=== PATIENT | male | born 1955 | race Two or more races ===

== ENCOUNTER 2019-08-17 08:18 | Inpatient (IN) | payer OTHER ==
[~2019-08-17] VITALS: Ht 167.6 cm; Wt 59.8 kg
[2019-08-17] MEDS ORDERED: LABETALOL HCL 5 MG/ML 4ML SYRINGE IV ONE (08:30)
[2019-08-17] MEDS ORDERED: DEXTROSE 10% 1,000 ML IV ONE (08:30)
[2019-08-17 08:46] LABS: Basophils # (auto) 0 10 ^3/uL (0-0.2); Basophils % (auto) 0.4 % (0.0-2.0); Eosinophils # (auto) 0 10 ^3/uL (0-0.8); Eosinophils % (auto) 0.6 % (0.0-7.0); Hemoglobin 11.9 g/dL (13.5-17.5); Lymphocytes # (auto) 0.7 10 ^3/uL (0.4-5.4); Lymphocytes % (auto) 12.8 % (10.0-50.0); Mean Corpuscular Hemoglobin 30.8 pg (28.0-32.0); Mean Corpuscular Hgb Conc. 33.1 g/dL (32.0-36.0); Mean Corpuscular Volume 93.2 fL (80.0-100.0); Monocytes # (auto) 0.4 10 ^3/uL (0-1.3); Monocytes % (auto) 7.6 % (0.0-12.0); Neutrophils # (auto) 4.1 10 ^3/uL (1.6-8.6); Neutrophils % (auto) 78.6 % (37.0-80.0); Platelet Count (auto) 155 10^3/uL (140-450); Red Blood Cells 3.87 10^6/uL (4.5-5.90); Red Cell Distribution Width 15.8 % (11.8-14.3); White Blood Cell 5.2 10^3/uL (4.4-10.8)
[2019-08-17 08:53] LABS: Urine Bacteria NONE SEEN /hpf (None Seen); Urine Blood Negative /uL (Negative); Urine Specific Gravity 1.008 (1.001-1.035); Urine WBC 1 /hpf (0 - 3)
[2019-08-17 09:07] LABS: Anion Gap 8 (5-15); Blood Urea Nitrogen 53 mg/dL (7-18); Calcium 9.2 mg/dL (8.5-10.1); Carbon Dioxide 19 mmol/L (21-32); Chloride 112 mmol/L (98-107); Glucose 175 mg/dL (74-106); Magnesium 2.8 mg/dL (1.6-2.6); Potassium 4.2 mmol/L (3.5-5.1); Sodium 139 mmol/L (136-145)
[2019-08-17 09:13] LABS: Alanine Aminotransferase 40 U/L (16-61); Alkaline Phosphatase 145 U/L (45-117); Aspartate Aminotransferase 34 U/L (15-37); BUN/Creatinine Ratio 15.4; Bilirubin, Total 0.3 mg/dL (0.2-1.0); GFR African American 23 mL/min; GFR Non-African American 19 mL/min; Total Protein 8.6 g/dL (6.4-8.2)
[2019-08-17 10:36] LABS: Alcohol, Urine < 3.0 mg/dL (0-5); Amphetamine Screen, Urine NEGATIVE (NEGATIVE); Barbiturate Scree,Urine NEGATIVE (NEGATIVE); Benzodiazephine Screen, Urine NEGATIVE (NEGATIVE); Cannabinoid Screen, Urine NEGATIVE (NEGATIVE); Cocaine Screen, Urine NEGATIVE (NEGATIVE); Opiate Scree,Urine NEGATIVE (NEGATIVE); Phencyclidine Screen, Urine NEGATIVE (NEGATIVE)
[2019-08-17] MEDS ORDERED: hydrALAZINE HCL 20 MG/ML VL IV ONE (10:45)
[2019-08-17] MEDS ORDERED: ATORVASTATIN 20 MG TAB PO ONE (13:45)
[2019-08-17] MEDS ORDERED: MORPHINE SULF INJ 2 MG/ML SYRINGE 1ML IV PRN (13:45)
[2019-08-17] MEDS ORDERED: DEXTROSE (50%) 50ML SYRG IV PRN (13:45)
[2019-08-17] MEDS ORDERED: ASPirin 81 mg TAB PO ONE (13:45)
[2019-08-17] MEDS ORDERED: traMADol HCL 50 MG TAB PO PRN (13:45)
[2019-08-17] MEDS ORDERED: ONDANSETRON HCL 4 MG/2 ML VIAL IV PRN (13:45)
[2019-08-17] MEDS ORDERED: LACTULOSE 20Gm/30ML SOLN PO PRN (13:45)
[2019-08-17] MEDS ORDERED: NITROGLYCERIN 0.4 MG SL TAB SL PRN (13:45)
[2019-08-17] MEDS ORDERED: ACETAMINOPHEN 500 MG TAB PO PRN (13:45)
[2019-08-17 14:30] VITALS: BP 183/79
[2019-08-17] MEDS: ENOXAPARIN SOD 30 MG/0.3 ML SYRINGE SC SCH (15:25)
[2019-08-17] MEDS: LABETALOL HCL 5 MG/ML ML 20ML VIAL IV PRN (15:26)
[2019-08-17] MEDS: ACCU-CHEK COMFORT CURVE STRIP VI SCH ×3 (15:35→23:46)
--- NOTE | 2019-08-17 15:35 | NUR ---
Blood Sugar The patient's blood sugar for 1600hrs was 172. Will continue to monitor.
[2019-08-17 16:05] VITALS: BP 183/79
[2019-08-17 16:56] VITALS: BP 169/79
[2019-08-17] MEDS: METOPROLOL TARTRATE 50 MG TAB PO SCH (21:15)
[2019-08-17] MEDS ORDERED: ATORVASTATIN 20 MG TAB PO SCH (22:00)
[2019-08-17 22:23] VITALS: BP 148/82
[2019-08-18] MEDS: SODIUM CHLORIDE 0.9% 1,000 ML IV SCH ×2 (03:29→14:43)
[2019-08-18] MEDS: ACCU-CHEK COMFORT CURVE STRIP VI SCH ×4 (03:53→17:33)
[2019-08-18 05:09] VITALS: BP 136/64
--- NOTE | 2019-08-18 07:45 | NUR ---
Opening Shift Note Assumed care of patient, awake and alert sitting up at the side of bed eating breakfast. Patient was to be kept NPO for procedure. Will keep NPO after breakfast. Patient is aware. No S/S of distress/SOB or pain. Instructed on POC and to call for assist PRN, will continue to monitor for changes Q1hr and PRN.
[2019-08-18] MEDS: ENOXAPARIN SOD 30 MG/0.3 ML SYRINGE SC SCH (09:12)
[2019-08-18] MEDS: METOPROLOL TARTRATE 50 MG TAB PO SCH (09:12)
[2019-08-18 09:15] VITALS: BP 132/66
[2019-08-18] MEDS ORDERED: ASPirin 81 mg TAB PO SCH (10:00)
[2019-08-18] MEDS: LABETALOL HCL 5 MG/ML ML 20ML VIAL IV PRN ×2 (12:48→15:59)
[2019-08-18 13:00] VITALS: BP 170/62
--- NOTE | 2019-08-18 14:10 | NUR ---
Hospitalist Rounding. Dr. Jones at bedside with Wolof speaker RN.
--- NOTE | 2019-08-18 14:30 | NUR ---
Elevated Blood Pressure Patient's blood pressure is elevated 204/83, rechecked 179/62. Dr Jones was notified of patient's elevated blood pressure and the administration of Labetalol IV PRN as ordered. As per Dr. Jones, RN not to hold patient's discharge because of elevated blood pressure. Patient takes blood pressure medications at home and he is to resume them when he gets home. Will reassess PRN medication that was administered.
--- NOTE | 2019-08-18 15:10 | NUR ---
[employer] Rounding Dr. Dutton at bedside with patient.
[2019-08-18] MEDS ORDERED: ATEN50TA PO (15:32)
[2019-08-18] MEDS ORDERED: NIFE1TAB30 PO (15:32)
[2019-08-18] MEDS ORDERED: SEVE800T8 PO (15:32)
[2019-08-18] MEDS ORDERED: GLIP5TAB12 PO (16:38)
[2019-08-18 16:54] VITALS: BP 183/66
[2019-08-18 17:02] LABS: BUN/Creatinine Ratio 15.7; Calcium 8.7 mg/dL (8.5-10.1)
[2019-08-18 17:49] VITALS: BP 178/72
--- NOTE | 2019-08-18 18:21 | NUR ---
Discharge instructions given as ordered. Encourage to follow up with PMD as instructed. All questions and concerns addressed. Patient verbalized understanding. Medication reconciliation form completed and copy given to patient. IV removed with catheter intact and pressure dressing applied. Telemetry unit returned to ICU. Patient taken to vehicle via wheelchair with all personal belongings, accompanied by staff and family member. No distress noted at time of departure. Instructions provided to family member regarding continuing home medications and follow up appointment.
== END 2019-08-18 18:00 | disposition home or self-care (01) | DRG 917 ==
LOC: EDBD 08:18 → ER 08:18 → TELE 08:19 → TELE-WESTW 14:16
PROVIDERS: ADMIT Internal Medicine; ATTEND Internal Medicine
DX: T38.3X1A Poisoning by insulin and oral hypoglycemic [antidiabetic] drugs, accidental (unintentional), initial encounter (principal); G93.41 Metabolic encephalopathy; I16.1 Hypertensive emergency; N18.4 Chronic kidney disease, stage 4 (severe); D63.8 Anemia in other chronic diseases classified elsewhere; E03.9 Hypothyroidism, unspecified; E11.22 Type 2 diabetes mellitus with diabetic chronic kidney disease; E78.5 Hyperlipidemia, unspecified; E11.649 Type 2 diabetes mellitus with hypoglycemia without coma; I13.10 Hypertensive heart and chronic kidney disease without heart failure, with stage 1 through stage 4 chronic kidney disease, or unspecified chronic kidney disease; Z83.3 Family history of diabetes mellitus; Z86.73 Personal history of transient ischemic attack (TIA), and cerebral infarction without residual deficits; Y92.89 Other specified places as the place of occurrence of the external cause
CPT/HCPCS: 36415; 70450; 70551; 71045; 80048; 80053; 80307; 81001; 82533; 82550; 82962; 83036; 83735; 84443; 84484; 85025; 93005; 93306; 93975; 96361; 96374; 96375; 99291; G0378; J3490

== ENCOUNTER 2025-01-17 23:14 | Inpatient (IN) | payer OTHER ==
[~2025-01-17] VITALS: Ht 162.6 cm; Wt 59.7 kg
[~2025-01-17 23:14] MED LIST: ATEN50TA PO; GLIP5TAB21 PO; NIFE1TAB30 PO; SEVE800T8 PO
--- NOTE | 2025-01-17 23:21 | ECG ---
[facility] Test Date: 2025-01-17 Test Time: 23:14:56 Pat Name: FAISAL ANN Department: [facility] ED Room: [address] [place] [address] Gender: M Legal Instructor: CHRISTIAN : 1955 Requested By: EMERGENCY EMERGENCY Order Number: [id number] Reading MD: Casey Wilson Measurements Intervals [place] Rate: 55 P: 83 MD: 204 QRS: 80 QRSD: 112 T: 77 QT: 492 QTc: 471 Interpretive Statements Sinus rhythm Borderline intraventricular conduction delay Baseline wander in lead(s) V5 Electronically Signed On 01-22-2025 14:23:20 PDT by Casey Wilson Please click the below link to view image of tracing.
[2025-01-18] VITALS (35 sets, daily range): BP systolic 117–194; BP diastolic 44–147; PULSE 52–62; RESP 12–22; TEMP 97.9–98; O2SAT 89–100
[2025-01-18 00:32] LABS: Hematocrit 36.2 % (41.0-53.0); Hemoglobin 11.8 g/dL (13.5-17.5); Mean Corpuscular Hemoglobin 31.5 pg (28.0-32.0); Mean Corpuscular Volume 96.9 fL (80.0-100.0); Nucleated Red Blood Cells % 0.0 %
--- NOTE | 2025-01-18 01:07 | DVH ---
CT HEAD WITHOUT CONTRAST INDICATION: [facility] EXAM DATE: 01/18/2025 12:30 AM COMPARISON: None RADIATION DOSE: CTDIvol: 62.23 mGy, DLP: 62.23 mGy*cm PROCEDURE: CT scans of the head were obtained from the vertex to the skull base. Sagittal and coronal reconstructions were provided. All CT scans at this medical facility are performed using dose modulation techniques as appropriate t o a performed exam including the following: Automated exposure control was utilized; adjustment of th e MA and/or KV according to patient size; and use of iterative reconstruction technique. FINDINGS: Motion artifact degrades fine detail. No acute territorial infarct, intracranial hemorrhage, or mass effect. There are global involutional changes with compensatory prominence of the ventricles and sulci. Patchy periventricular and subcorti hazel white matter hypoattenuation is nonspecific but may be related to small vessel ischemic disease. Chronic right cerebellar infarct. Bilateral lens implants. Mild mucosal thickening within the left maxillary antrum. The osseous struc tures are unremarkable. IMPRESSION: 1. No acute territorial infarct, intracranial hemorrhage, or mass effect. 2. Age-related involutional changes. Chronic ischemic changes as detailed. 3. If clinical symptoms persist, MRI may be beneficial in further evaluation.
--- NOTE | 2025-01-18 01:07 | DVH ---
CHEST RADIOGRAPH Indication: AMS Technique: Single frontal view of the chest was obtained Comparison: None FINDINGS/IMPRESSION: There is prominence of the interstitial markings. Mild right basilar opacity. M ild prominence of the cardiomediastinal silhouette, likely accentuated by technique. No pleural effus ion or pneumothorax. No acute osseous abnormality.
[2025-01-18 01:08] LABS: Alanine Aminotransferase 24 U/L (7-40); Albumin 3.9 g/dL (3.2-4.8); Anion Gap 19 (5-15); BUN/Creatinine Ratio 10.4 (10.0-20.0); Calcium 8.7 mg/dL (8.7-10.4); Lipase 41 U/L (12-53); Total Protein 6.8 g/dL (5.7-8.2)
--- NOTE | 2025-01-18 01:08 | ED.PDOC ---
Altered Mental Status HPI Comments 70 year old male presents to the ED via EMS with a chief complaint of ALOC onset yesterday. Per EMS, family on scene states patient began experiencing abnormal behavior yesterday, today patient was altered. Upon EMS arrival, BG was reading "high" both times it was checked. Patient is a poor historian, is only A&O to self. Currently patient has shingles all over RT side chest. Patient does state he has itchiness with discomfort to RT side chest. PMHx HTN, ESRD currently on hemodialysis, DM. No other symptoms or modifying factors present at this time. Chief Complaint: ALOC Time Seen by MD: 00:45 Reviewed Notes: Medications, Allergies Allergies: Coded Allergies: NO KNOWN ALLERGIES (Unverified , 08/17/19) Home Meds Reported Medications Glipizide (Glipizide) 5 Mg Tab, 5 MG PO for 30 Days, MG 08/18/19 Sevelamer Carbonate (Renvela) 800 Mg Tab, 800 MG PO TIDWM for 30 Days, MG 08/18/19 Nifedipine (Nifedipine Er) 60 Mg Tab, 1 TAB PO DAILY, #90 TAB 3 Refills 08/18/19 Atenolol (Atenolol) 50 Mg Tab, 50 MG PO DAILY for 30 Days, MG 08/18/19 Information Source: Patient, Emergency Med Personnel Mode of Arrival: EMS Severity: Moderate Timing: Days Duration: Since onset Prehospital treatment: None Quality: Change in Behavior, Confusion Recent: None History of: Diabetes Vital Signs Vital Signs Date Time Temp Pulse Resp B/P (MAP) Pulse Ox O2 Delivery O2 Flow Rate FiO2 01/18/25 04:01 60 14 155/115 (128) 93 01/18/25 01:48 Nasal Cannula* 4 36 01/18/25 00:16 97.9 97.9 Physical Exam PHYSICAL EXAM: General: Awake, alert and oriented. No acute distress. Skin: Insert rash with blistering, ulceration, eschar over the shoulder. HEENT: The head is normocephalic and atraumatic. Conjunctivae are clear without exudates or hemorrhage. Sclera is non-icteric. EOM are intact. No signs of nystagmus. Eyelids are normal in appearance without swelling or lesions. Oral mucosa is pink and moist Neck: The neck is supple with normal range of motion. No JVD. Cardiac: Heart rate and rhythm are normal. No murmurs, gallops, or rubs are auscultated. Respiratory: No signs of respiratory distress. Lung sounds are clear in all lobes bilaterally without rales, rhonchi, or wheezes. Abdominal: Abdomen is soft, non-tender without distention, guarding or rigidity. Bowel sounds are present and normoactive in all four quadrants. Extremities: Upper and lower extremities are atraumatic in appearance without deformity or edema. Neurological: The patient is awake, alert and appears confused Speech is clear. There is no facial asymmetry. Review of Systems: REVIEW OF SYSTEMS: As stated in HPI Past Medical History PAST MEDICAL HISTORY: DM, HTN Surgical History: Denies all surgeries Family History Family History: Unknown Social History Smoker: Non-Smoker Alcohol: Denies ETOH Use Drugs: Denies Drug Use Lives In: Home EKG EKG : Pulse Rate (adult): 55 Cardiac Rhythm: NSR Was a procedure done? Was a procedure done?: No Differential Diagnosis (ALOC) Differential Diagnosis: Other (Differential diagnosis considered includes but not limited to intracranial hemorrhage, stroke, head injury, seizure, metabolic disturbance, electrolyte imbalance, infection, substance intoxication, psychiatric cause, other systemic illness, other) X-Ray, Labs, Meds, VS Vital Signs Date Time Temp Pulse Resp B/P (MAP) Pulse Ox O2 Delivery O2 Flow Rate FiO2 01/18/25 04:01 60 14 155/115 (128) 93 01/18/25 03:00 61 12 189/61 (103) 92 01/18/25 02:00 56 20 202/64 (110) 100 01/18/25 01:48 16 90 Nasal Cannula* 4 36 01/18/25 01:08 55 01/18/25 01:00 54 21 183/62 (102) 97 01/18/25 00:18 55 14 96 Nasal Cannula* 4 36 01/18/25 00:16 97.9 2 14 99/77 (84) 96 97.9 01/17/25 23:16 97.4 54 16 177/67 95 97.4 01/17/25 23:14 55 Lab Test 01/18/25 03:49 01/18/25 03:48 01/18/25 01:40 01/18/25 00:45 Range/Units POC Glucose > 600 *H > 600 *H 70-106 mg/dl Sodium Level 115 *L 136-145 mmol/L Potassium Level 5.9 *H 3.5-5.1 mmol/L Chloride Level 79 L 98-107 mmol/L Carbon Dioxide Level 19 L 20-31 mmol/L Anion Gap 17 H 5-15 Blood Urea Nitrogen 119 *H 9-23 mg/dL Creatinine 10.69 *H 0.700-1.30 mg/dL Glomerular Filtration Rate Calc 5 >90 mL/min BUN/Creatinine Ratio 11.1 10.0-20.0 Serum Glucose 862 *H 74-106 mg/dL Calcium Level 8.7 8.7-10.4 mg/dL Influenza Type A Antigen Negative Negative Influenza Type B Antigen Negative Negative SARS-CoV-2 Antigen (Rapid) Negative NEGATIVE Test 01/17/25 23:37 Range/Units White Blood Count 11.3 H 4.4-10.8 10^3/uL Red Blood Count 3.74 L 4.5-5.90 10^6/uL Hemoglobin 11.8 L 13.5-17.5 g/dL Hematocrit 36.2 L 41.0-53.0 % Mean Corpuscular Volume 96.9 80.0-100.0 fL Mean Corpuscular Hemoglobin 31.5 28.0-32.0 pg Mean Corpuscular Hemoglobin Concent 32.5 32.0-36.0 g/dL Red Cell Distribution Width 14.4 H 11.8-14.3 % Platelet Count 182 140-450 10^3/uL Mean Platelet Volume 10.3 6.9-10.8 fL Neutrophils (%) (Auto) 90.3 H 37.0-80.0 % Lymphocytes (%) (Auto) 3.7 L 10.0-50.0 % Monocytes (%) (Auto) 5.9 0.0-12.0 % Eosinophils (%) (Auto) 0.0 0.0-7.0 % Basophils (%) (Auto) 0.1 0.0-2.0 % Neutrophils # (Auto) 10.2 H 1.6-8.6 10 ^3/uL Lymphocytes # (Auto) 0.4 0.4-5.4 10 ^3/uL Monocytes # (Auto) 0.7 0-1.3 10 ^3/uL Eosinophils # (Auto) 0 0-0.8 10 ^3/uL Basophils # (Auto) 0 0-0.2 10 ^3/uL Nucleated Red Blood Cells 0.0 % Sodium Level 116 *L 136-145 mmol/L Potassium Level 6.1 *H 3.5-5.1 mmol/L Chloride Level 80 L 98-107 mmol/L Carbon Dioxide Level 17 L 20-31 mmol/L Anion Gap 19 H 5-15 Blood Urea Nitrogen 111 *H 9-23 mg/dL Creatinine 10.64 *H 0.700-1.30 mg/dL Glomerular Filtration Rate Calc 5 >90 mL/min BUN/Creatinine Ratio 10.4 10.0-20.0 Serum Glucose 856 *H 74-106 mg/dL Lactic Acid Level 0.9 0.4-2.0 mmol/L Calcium Level 8.7 8.7-10.4 mg/dL Magnesium Level 2.7 H 1.6-2.6 mg/dL Total Bilirubin 0.3 0.2-1.0 mg/dL Aspartate Amino Transferase (AST) 13 13-40 U/L Alanine Aminotransferase (ALT) 24 7-40 U/L Alkaline Phosphatase 318 H 46-116 U/L Troponin I High Sensitivity 11 </=54 ng/L B-Type Natriuretic Peptide 1718.02 0-100 pg/mL Total Protein 6.8 5.7-8.2 g/dL Albumin 3.9 3.2-4.8 g/dL Lipase 41 12-53 U/L Plasma/Serum Blood Alcohol < 3.0 <10 mg/dL Microbiology Date/Time Source Procedure Growth Status 01/17/25 23:25 Blood Blood Culture - Preliminary NO GROWTH AFTER 24 HOURS OF INCUBATION. Resulted 01/17/25 23:20 Blood Blood Culture - Preliminary NO GROWTH AFTER 24 HOURS OF INCUBATION. Resulted [place] [id number] Ph: [phone] DIAGNOSTIC IMAGING Diagnostic Imaging Report : [id number] Signed PATIENT: FAISAL ANN ACCT: [id number] UNIT: [id number] : 1955 LOC: ER ROOM / BED: / AGE / SEX: 70 / M ADM STATUS: REG ER SERVICE [id number] ORDERING PHYSICIAN: MILAD DAVIS MD PROCEDURE(s): HWOCT - HEAD WITHOUT CONTRAST REASON: [facility] ORDER NUMBER(s): [id number], ACCESSION NUMBER(s): [id number] CT HEAD WITHOUT CONTRAST INDICATION: [facility] EXAM DATE: 01/18/2025 12:30 AM COMPARISON: None RADIATION DOSE: CTDIvol: 62.23 mGy, DLP: 62.23 mGy*cm PROCEDURE: CT scans of the head were obtained from the vertex to the skull base. Sagittal and coronal reconstructions were provided. All CT scans at this medical facility are performed using dose modulation techniques as appropriate to a performed exam including the following: Automated exposure control was utilized; adjustment of the MA and/or KV according to patient size; and use of iterative reconstruction technique. FINDINGS: Motion artifact degrades fine detail. No acute territorial infarct, intracranial hemorrhage, or mass effect. There are global involutional changes with compensatory prominence of the ventricles and sulci. Patchy periventricular and subcortical white matter hypoattenuation is nonspecific but may be related to small vessel ischemic disease. Chronic right cerebellar infarct. Bilateral lens implants. Mild mucosal thickening within the left maxillary antrum. The osseous structures are unremarkable. IMPRESSION: 1. No acute territorial infarct, intracranial hemorrhage, or mass effect. 2. Age-related involutional changes. Chronic ischemic changes as detailed. 3. If clinical symptoms persist, MRI may be beneficial in further evaluation. ATED BY: PATTIE RAMIREZ MD DICTATED DATE/TIME: 01/18/25103 SIGNED BY: PATTIE RAMIREZ MD SIGNED DATE/TIME: 01/18/25103 CC: [place] [id number] Ph: [phone] DIAGNOSTIC IMAGING Diagnostic Imaging Report : [id number] Signed PATIENT: FAISAL ANN ACCT: [id number] UNIT: [id number] : 1955 LOC: ER ROOM / BED: / AGE / SEX: 70 / M ADM STATUS: REG ER SERVICE 21 ORDERING PHYSICIAN: MILAD DAVIS MD PROCEDURE(s): CXR1 - CHEST XRAY 1 VIEW REASON: [facility] ORDER NUMBER(s): [id number], ACCESSION NUMBER(s): [id number] CHEST RADIOGRAPH Indication: AMS Technique: Single frontal view of the chest was obtained Comparison: None FINDINGS/IMPRESSION: There is prominence of the interstitial markings. Mild right basilar opacity. Mild prominence of the cardiomediastinal silhouette, likely accentuated by technique. No pleural effusion or pneumothorax. No acute osseous abnormality. ATED BY: PATTIE RAMIREZ MD DICTATED DATE/TIME: 01/18/25104 SIGNED BY: PATTIE RAMIREZ MD SIGNED DATE/TIME: 01/18/25104 CC: Time of 1ST Reevaluation: 01:15 Reevaluation 1ST: Unchanged Patient Education/Counseling: Other (Patient is confused) Family Education/Counseling: No Family Present SEPSIS Sepsis Screen Date sepsis recognized/suspect: Jan 18, 2025 Time Sepsis recognized/suspect: 14 Recent Procedure: No On Antibiotic Therapy: No Respiratory Rate >20: No Heart Rate >90: No Temp<36 C (96.8 F) or >38.3 C: No SBP <90 or MAP <65 mmHG: No New Acute Mental Status Change: Yes Is the patient on CPAP, BIPAP,: No Physician Orders Head Without Contrast (01/17/25 23:22) Chest Xray 1 View (01/17/25 23:22) Blood Culture (01/17/25 23:22) Saline Lock (01/17/25 23:22) Straight Cath. (01/17/25 ) Insulin Drip Protocol (01/18/25 02:29) D/C All Diabetic Medications (01/18/25 03:19) Vital Signs Date Time Temp Pulse Resp B/P (MAP) Pulse Ox O2 Delivery O2 Flow Rate FiO2 01/18/25 04:01 60 14 155/115 (128) 93 01/18/25 03:00 61 12 189/61 (103) 92 01/18/25 02:00 56 20 202/64 (110) 100 01/18/25 01:48 16 90 Nasal Cannula* 4 36 01/18/25 01:08 55 01/18/25 01:00 54 21 183/62 (102) 97 01/18/25 00:18 55 14 96 Nasal Cannula* 4 36 01/18/25 00:16 97.9 2 14 99/77 (84) 96 97.9 01/17/25 23:16 97.4 54 16 177/67 95 97.4 01/17/25 23:14 55 Laboratory Tests Test 01/17/25 23:37 Lactic Acid Level 0.9 mmol/L (0.4-2.0) White Blood Count 11.3 10^3/uL (4.4-10.8) H Departure 1 Departure Time of Disposition: 02:30 Impression: Primary Impression: End stage renal disease on dialysis Additional Impressions: DKA (diabetic ketoacidosis) Hyperkalemia Shingles Disposition: ADMITTED INPATIENT Condition: Serious Comments MDM: Patient admitted to hospitalist service for further treatment, evaluation and monitoring. Extensive evaluation was performed in attempt to identify or rule out: (See differential diagnosis section) Decision regarding hospitalization or escalation of hospital level of care: Risk and benefits of admission for further treatment of patient's condition was considered. Due to patient's current clinical condition, high risk of decline and poor outcome if discharged and need for further inpatient management and monitoring, patient will be admitted to the hospital. Critical Care Note Critical Care Time?: No Stability Stability form required: No Heart Score Heart Score: Heart Score Response (Comments) Value History N/A 0 EKG N/A 0 Age N/A 0 Risk Factors N/A 0 Troponin N/A 0 Total 0 I personally scribed for MILAD DAVIS MD ([email or web address]) on 01/18/25 at 01:08. Electronically submitted by Shannan Polanco ([email or web address]). I personally scribed for MILAD DAVIS MD ([email or web address]) on 01/18/25 at 01:09. Electronically submitted by Shannan Polanco ([email or web address]). MILAD DAVIS MD Jan 18, 2025 01:08
[2025-01-18 01:20] LABS: Alkaline Phosphatase 318 U/L (46-116); Bilirubin, Total 0.3 mg/dL (0.2-1.0); Carbon Dioxide 17 mmol/L (20-31); Chloride 80 mmol/L (98-107); Magnesium 2.7 mg/dL (1.6-2.6)
[2025-01-18 01:24] LABS: Blood Urea Nitrogen 111 mg/dL (9-23); Glucose 856 mg/dL (74-106); Sodium 116 mmol/L (136-145)
[2025-01-18 01:42] LABS: COVID19 ANTIGEN SOFIA FIA NEGATIVE (NEGATIVE)
[2025-01-18] MEDS: SODIUM BICARB 8.4% 50Meq/50ml SYR INJ IV ONE (01:45)
[2025-01-18] MEDS: CALCIUM GLUC 1,000mg/50ml-NS 50 ML IV ONE (01:46)
[2025-01-18] MEDS: ALBUTEROL SULF 2.5 MG/0.5ML(0.5%) NEB SOLN NEB ONE (01:48)
[2025-01-18] MEDS: InsuLIN REG 1unit/0.01ml Soln (100units/ml) IV ONE (01:48)
[2025-01-18] MEDS: SODIUM CHLORIDE 0.9% 250 ML IV ONE (01:48)
[2025-01-18 02:00] LABS: Anion Gap 17 (5-15)
[2025-01-18 02:06] LABS: BUN/Creatinine Ratio 11.1 (10.0-20.0)
[2025-01-18 02:12] LABS: Carbon Dioxide 19 mmol/L (20-31); Chloride 79 mmol/L (98-107)
[2025-01-18 02:13] LABS: Calcium 8.7 mg/dL (8.7-10.4)
[2025-01-18 02:15] LABS: Blood Urea Nitrogen 119 mg/dL (9-23); Glucose 862 mg/dL (74-106); Potassium 5.9 mmol/L (3.5-5.1); Sodium 115 mmol/L (136-145)
[2025-01-18] MEDS ORDERED: DEXTROSE (50%) 50ML SYRG IV PRN ×3 (03:30→15:00)
[2025-01-18] MEDS: ACCU-CHEK COMFORT CURVE STRIP VI SCH ×3 (03:48→15:15)
[2025-01-18] MEDS: INSULIN DRIP 100 UNIT/100ML 100 ML IV SCH ×5 (04:15→15:00)
[2025-01-18] MEDS: INSULIN LANTUS (GLARGINE) 1 /0.01ml (100units/ml) SC ONE ×2 (04:15→04:30)
[2025-01-18] MEDS ORDERED: MORPHINE SULFATE INJ 2 MG/ml SYRG IV PRN (04:30)
[2025-01-18] MEDS ORDERED: NITROGLYCERIN 0.4 MG SL TAB SL PRN (04:30)
[2025-01-18] MEDS ORDERED: ONDANSETRON HCL 4 MG/2 ML VIAL IV PRN (04:30)
--- NOTE | 2025-01-18 04:41 | DVHHP2 ---
History of Present Illness Reason for Visit: Altered mental status History of Present Illness 70-year-old male presents for evaluation of altered mental status. Patient noted to be progressively more confused for the past two days by family members. They reported his blood sugar was reading high. Patient is currently lethargic oriented x1. He also saw also noted to have shingles on his right chest. He has a history of end-stage renal disease on hemodialysis. No further history could be obtained at the moment. Past Medical History Diabetes mellitus, hypertension, end-stage renal disease Past Surgical History Dialysis access Family History Noncontributory Lives: with Family Review of Systems Review of Systems Review of systems are currently negative otherwise addressed in HPI. Allergies: Coded Allergies: NO KNOWN ALLERGIES (Unverified , 08/17/19) Medications Current Medications Medications Dose Ordered Sig/Aleta Route Start Time Stop Time Status Last Admin Dose Admin Insulin Human (Reg)/Sodium Chloride 100 ml @ 0.5 mls/hr Q24H IV 01/18/25 03:30 01/18/25 04:15 6 MLS/HR Diagnostic Test (Pha) 1 strip Q90MIN 01/18/25 04:30 01/18/25 03:48 1 STRIP Dextrose 50 ml PRN PRN IV 01/18/25 03:30 Exam Vital Signs Vital Signs Date Time Temp Pulse Resp B/P (MAP) Pulse Ox O2 Delivery O2 Flow Rate FiO2 01/18/25 03:00 61 12 189/61 (103) 92 01/18/25 01:48 Nasal Cannula* 4 36 01/18/25 00:16 97.9 97.9 Exam Gen: 70-year-old male in moderate distress Skin: Warm, dry, normal color and texture, right chest shingles HEENT: Normocephalic atraumatic, mucous membranes moist and pink. Neck: Cervical and supraclavicular nodes normal without enlargement, trachea is midline, thyroid gland is normal without masses. Pulmonary: Clear to auscultation and percussion bilaterally. Cardiac: Regular rate and rhythm. No murmur Abdomen: Soft, nontender, nondistended, bowel sounds present all 4 quadrants, no guarding, no rigidity, no organomegaly. Extremities: No cyanosis, clubbing, no edema Neuro: Cranial nerves II through XII grossly intact, normal affect and speech, no focal motor deficits. Labs/Xrays ORDERING PHYSICIAN: MILAD DAVIS MD PROCEDURE(s): CXR1 - CHEST XRAY 1 VIEW REASON: [facility] ORDER NUMBER(s): [id number], ACCESSION NUMBER(s): [id number] CHEST RADIOGRAPH Indication: AMS Technique: Single frontal view of the chest was obtained Comparison: None FINDINGS/IMPRESSION: There is prominence of the interstitial markings. Mild right basilar opacity. Mild prominence of the cardiomediastinal silhouette, likely accentuated by technique. No pleural effusion or pneumothorax. No acute osseous abnormality. A ORDERING PHYSICIAN: MILAD DAVIS MD PROCEDURE(s): HWOCT - HEAD WITHOUT CONTRAST REASON: [facility] ORDER NUMBER(s): [id number], ACCESSION NUMBER(s): [id number] CT HEAD WITHOUT CONTRAST INDICATION: [facility] EXAM DATE: 01/18/2025 12:30 AM COMPARISON: None RADIATION DOSE: CTDIvol: 62.23 mGy, DLP: 62.23 mGy*cm PROCEDURE: CT scans of the head were obtained from the vertex to the skull base. Sagittal and coronal reconstructions were provided. All CT scans at this medical facility are performed using dose modulation techniques as appropriate to a performed exam including the following: Automated exposure control was utilized; adjustment of the MA and/or KV according to patient size; and use of iterative reconstruction technique. FINDINGS: Motion artifact degrades fine detail. No acute territorial infarct, intracranial hemorrhage, or mass effect. There are global involutional changes with compensatory prominence of the ventricles and sulci. Patchy periventricular and subcortical white matter hypoattenuation is nonspecific but may be related to small vessel ischemic disease. Chronic right cerebellar infarct. Bilateral lens implants. Mild mucosal thickening within the left maxillary antrum. The osseous structures are unremarkable. IMPRESSION: 1. No acute territorial infarct, intracranial hemorrhage, or mass effect. 2. Age-related involutional changes. Chronic ischemic changes as detailed. 3. If clinical symptoms persist, MRI may be beneficial in further evaluation. Labs Test 01/18/25 03:49 01/18/25 01:40 01/18/25 00:45 01/17/25 23:37 Range/Units POC Glucose > 600 *H 70-106 mg/dl Sodium Level 115 *L 136-145 mmol/L Potassium Level 5.9 *H 3.5-5.1 mmol/L Chloride Level 79 L 98-107 mmol/L Carbon Dioxide Level 19 L 20-31 mmol/L Anion Gap 17 H 5-15 Blood Urea Nitrogen 119 *H 9-23 mg/dL Creatinine 10.69 *H 0.700-1.30 mg/dL Glomerular Filtration Rate Calc 5 >90 mL/min BUN/Creatinine Ratio 11.1 10.0-20.0 Serum Glucose 862 *H 74-106 mg/dL Calcium Level 8.7 8.7-10.4 mg/dL Influenza Type A Antigen Negative Negative Influenza Type B Antigen Negative Negative SARS-CoV-2 Antigen (Rapid) Negative NEGATIVE White Blood Count 11.3 H 4.4-10.8 10^3/uL Red Blood Count 3.74 L 4.5-5.90 10^6/uL Hemoglobin 11.8 L 13.5-17.5 g/dL Hematocrit 36.2 L 41.0-53.0 % Mean Corpuscular Volume 96.9 80.0-100.0 fL Mean Corpuscular Hemoglobin 31.5 28.0-32.0 pg Mean Corpuscular Hemoglobin Concent 32.5 32.0-36.0 g/dL Red Cell Distribution Width 14.4 H 11.8-14.3 % Platelet Count 182 140-450 10^3/uL Mean Platelet Volume 10.3 6.9-10.8 fL Neutrophils (%) (Auto) 90.3 H 37.0-80.0 % Lymphocytes (%) (Auto) 3.7 L 10.0-50.0 % Monocytes (%) (Auto) 5.9 0.0-12.0 % Eosinophils (%) (Auto) 0.0 0.0-7.0 % Basophils (%) (Auto) 0.1 0.0-2.0 % Neutrophils # (Auto) 10.2 H 1.6-8.6 10 ^3/uL Lymphocytes # (Auto) 0.4 0.4-5.4 10 ^3/uL Monocytes # (Auto) 0.7 0-1.3 10 ^3/uL Eosinophils # (Auto) 0 0-0.8 10 ^3/uL Basophils # (Auto) 0 0-0.2 10 ^3/uL Nucleated Red Blood Cells 0.0 % Lactic Acid Level 0.9 0.4-2.0 mmol/L Magnesium Level 2.7 H 1.6-2.6 mg/dL Total Bilirubin 0.3 0.2-1.0 mg/dL Aspartate Amino Transferase (AST) 13 13-40 U/L Alanine Aminotransferase (ALT) 24 7-40 U/L Alkaline Phosphatase 318 H 46-116 U/L Troponin I High Sensitivity 11 </=54 ng/L B-Type Natriuretic Peptide 1718.02 0-100 pg/mL Total Protein 6.8 5.7-8.2 g/dL Albumin 3.9 3.2-4.8 g/dL Lipase 41 12-53 U/L Plasma/Serum Blood Alcohol < 3.0 <10 mg/dL SEPSIS Sepsis Screen Date sepsis recognized/suspect: Jan 18, 2025 Time Sepsis recognized/suspect: 14 Recent Procedure: No On Antibiotic Therapy: No Respiratory Rate >20: No Heart Rate >90: No Temp<36 C (96.8 F) or >38.3 C: No SBP <90 or MAP <65 mmHG: No New Acute Mental Status Change: Yes Is the patient on CPAP, BIPAP,: No Physician Orders Head Without Contrast (01/17/25 23:22) Drug Screen (01/17/25 23:22) Urinalysis (01/17/25 23:22) Chest Xray 1 View (01/17/25 23:22) Blood Culture (01/17/25 23:22) Saline Lock (01/17/25 23:22) Straight Cath. (01/17/25 ) Insulin Drip Protocol (01/18/25 02:29) Insulin Drip 100 Unit/100ml (Myxredlin 1 (01/18/25 03:30) Glucose Blood (Accu-Chek Comfort Curve T (01/18/25 04:30) D/C All Diabetic Medications (01/18/25 03:19) Dextrose 50% Syringe (01/18/25 03:30) Acyclovir Ivpb Zovirax (01/18/25 04:30) Sodium Chl 3% Hypertonic Ns (01/18/25 04:30) Dextrose 50% Syringe (01/18/25 04:30) Glucose Blood (Accu-Chek Comfort Curve T (01/18/25 04:30) Osmolality, Serum (01/18/25 04:22) Abg W/ Co-Ox (01/18/25 04:22) Basic Metabolic Panel (01/18/25 06:00) Basic Metabolic Panel (01/18/25 12:00) Basic Metabolic Panel (01/18/25 18:00) Basic Metabolic Panel (01/19/25 00:00) Neurological Assessment (01/18/25 04:22) Vs/Hemodynamics .PER UNIT PROTOCOL (01/18/25 04:22) Insulin Algorithm # 2 (01/18/25 04:30) Long Acting Insulin (01/18/25 04:30) Long Acting Insulin (01/19/25 10:00) *[facility] (01/18/25 04:22) Hydrocortone 1% Topical Cream (Hydrocort (01/18/25 10:00) Diphenhdramine Injection (Benadryl Injec (01/18/25 04:30) NS (01/18/25 04:30) Admit (01/18/25 04:22) Ondansetron Hcl (Zofran) (01/18/25 04:30) Complete Blood Count (01/19/25 04:00) Comprehensive Metabolic Panel (01/19/25 04:00) Npo (Nothing By Mouth) Diet (01/18/25 Breakfast) Condition: Unstable (01/18/25 04:22) Bedrest With Bathroom Privileg (01/18/25 04:22) Nitroglycerin Sublingual (Ntrostat Subli (01/18/25 04:30) Morphine Sulfate Injection (01/18/25 04:30) Stat Ekg For Chest Pain (01/18/25 04:22) Notify Of Changes From Base (01/18/25 04:22) General Operations Agent For 24 Hours (01/18/25 04:22) Emergency Dysrhythmia Protocol (01/18/25 04:22) Rhythm Strips Once Every Shift (01/18/25 04:22) Oxygen By Nasal Cannula (01/18/25 04:22) Vital Signs Date Time Temp Pulse Resp B/P (MAP) Pulse Ox O2 Delivery O2 Flow Rate FiO2 01/18/25 03:00 61 12 189/61 (103) 92 01/18/25 02:00 56 20 202/64 (110) 100 01/18/25 01:48 16 90 Nasal Cannula* 4 36 01/18/25 01:08 55 01/18/25 01:00 54 21 183/62 (102) 97 01/18/25 00:18 55 14 96 Nasal Cannula* 4 36 01/18/25 00:16 97.9 2 14 99/77 (84) 96 97.9 01/17/25 23:16 97.4 54 16 177/67 95 97.4 01/17/25 23:14 55 Laboratory Tests Test 01/17/25 23:37 Lactic Acid Level 0.9 mmol/L (0.4-2.0) White Blood Count 11.3 10^3/uL (4.4-10.8) H Medications Medications Dose Ordered Sig/Aleta Route Start Time Stop Time Status Last Admin Dose Admin Albuterol 20 mg ONCE ONCE NEB 01/18/25 01:30 01/18/25 01:37 DC 01/18/25 01:48 20 MG Calcium Gluconate/ Sodium Chloride 50 ml @ 120 mls/hr ONCE ONCE IV 01/18/25 01:30 01/18/25 01:54 DC 01/18/25 01:46 120 MLS/HR Diagnostic Test (Pha) 1 strip Q90MIN 01/18/25 04:30 01/18/25 03:48 1 STRIP Insulin Glargine 15 units ONCE ONCE SC 01/18/25 03:30 01/18/25 03:31 DC 01/18/25 04:15 15 UNITS Insulin Human (Reg)/Sodium Chloride 100 ml @ 0.5 mls/hr Q24H IV 01/18/25 03:30 01/18/25 04:15 6 MLS/HR Insulin Human Regular 6 units ONCE ONCE IV 01/18/25 01:30 01/18/25 01:37 DC 01/18/25 01:48 6 UNITS Sodium Bicarbonate 50 ml ONCE ONCE IV 01/18/25 01:30 01/18/25 01:37 DC 01/18/25 01:45 50 ML Sodium Chloride 250 ml @ 250 mls/hr Q1H ONCE IV 01/18/25 01:30 01/18/25 02:29 DC 01/18/25 01:48 250 MLS/HR Assessment/Plan Assessment/Plan Assessment Diabetic ketoacidosis Metabolic encephalopathy Severe hyponatremia Shingles End-stage renal disease Plan Admit the patient to HIGH to the hospitalist Nephrology consultation DKA protocol 3% sodium IV Acyclovir Continue treatment per orders Total critical care time excluding procedures performed this 55 minutes. Plan discussed with: Patient My Orders Orders - FAISAL ADKINS AGACNP Procedure Category Date Status Time Acyclovir Ivpb Zovirax PHA 01/18/25 Verified 04:30 Sodium Chl 3% PHA 01/18/25 Verified Hypertonic Ns 04:30 Dextrose 50% Syringe PHA 01/18/25 Verified 04:30 Glucose Blood PHA 01/18/25 Verified (Accu-Chek Comfort 04:30 Osmolality, Serum LAB 01/18/25 Verified 04:22 Abg W/ Co-Ox RT 01/18/25 Verified 04:22 Basic Metabolic Panel LAB 01/18/25 Verified 06:00 Basic Metabolic Panel LAB 01/18/25 Verified 12:00 Basic Metabolic Panel LAB 01/18/25 Verified 18:00 Basic Metabolic Panel LAB 01/19/25 Verified 00:00 Neurological SANCHEZ 01/18/25 Verified Assessment 04:22 Vs/Hemodynamics SANHCEZ 01/18/25 Verified 04:22 Insulin Algorithm # 2 PHA 01/18/25 Verified 04:30 Long Acting Insulin PHA 01/18/25 Verified 04:30 Long Acting Insulin PHA 01/19/25 Verified 10:00 *[facility] CONS 01/18/25 Verified -[place] 04:22 Hydrocortone 1% PHA 01/18/25 Verified Topical Cream 10:00 Diphenhdramine PHA 01/18/25 Verified Injection (Benadryl 04:30 NS PHA 01/18/25 Verified 04:30 Admit ADMIT 01/18/25 Verified 04:22 Ondansetron Hcl PHA 01/18/25 Verified (Zofran) 04:30 Complete Blood Count LAB 01/19/25 Verified 04:00 Comprehensive LAB 01/19/25 Verified Metabolic Panel 04:00 Npo (Nothing By DIET 01/18/25 Verified Mouth) Diet Breakfast Condition: Unstable SANCHEZ 01/18/25 Verified 04:22 Bedrest With Bathroom SANCHEZ 01/18/25 Verified Privileg 04:22 Nitroglycerin PHA 01/18/25 Verified Sublingual (Ntrostat 04:30 Morphine Sulfate PHA 01/18/25 Verified Injection 04:30 Stat Ekg For Chest [facility] 01/18/25 Verified Pain 04:22 Notify Md Of Changes [facility] 01/18/25 Verified From Base 04:22 General Operations Agent For [facility] 01/18/25 Verified 24 Hours 04:22 Emergency Dysrhythmia [facility] 01/18/25 Verified Protocol 04:22 Rhythm Strips Once [facility] 01/18/25 Verified Every Shift 04:22 Oxygen By Nasal RT 01/18/25 Verified Cannula 04:22 Date of Service: Jan 18, 2025 Billing Provider: FAISAL ADKINS Common Visit Codes: [id number] CARE 30-74 MIN FAISAL ADKINS Jan 18, 2025 04:41
[2025-01-18 04:56] LABS: Base Excess -4.3 mmol/L (-2.0-3.0)
[2025-01-18] MEDS: SODIUM CHL 3% 500 ML IV ONE (05:20)
[2025-01-18] MEDS: SODIUM CHLORIDE 0.9% 1,000 ML IV ONE (05:22)
[2025-01-18 06:17] LABS: Potassium 4.6 mmol/L (3.5-5.1)
[2025-01-18 06:18] LABS: Anion Gap 20 (5-15)
[2025-01-18 06:24] LABS: BUN/Creatinine Ratio 9.7 (10.0-20.0)
[2025-01-18 06:26] LABS: Calcium 8.4 mg/dL (8.7-10.4); Carbon Dioxide 19 mmol/L (20-31); Chloride 83 mmol/L (98-107); Sodium 122 mmol/L (136-145)
[2025-01-18 06:28] LABS: Blood Urea Nitrogen 110 mg/dL (9-23)
[2025-01-18 07:21] LABS: Glucose 710 mg/dL (74-106)
[2025-01-18] MEDS: ACYCLOVIR SOD 50MG/ML 700 MG in SODIUM CHL 0.9% 250 ML IV SCH (07:30)
[2025-01-18 07:59] LABS: Potassium 6.1 mmol/L (3.5-5.1)
[2025-01-18 09:14] LABS: Hematocrit 34.9 % (41.0-53.0); Hemoglobin 11.8 g/dL (13.5-17.5); Mean Corpuscular Hemoglobin 31.1 pg (28.0-32.0); Mean Corpuscular Volume 92.3 fL (80.0-100.0); Nucleated Red Blood Cells % 0.0 %
[2025-01-18 09:36] LABS: Alanine Aminotransferase 24 U/L (7-40); Albumin 4.0 g/dL (3.2-4.8); Anion Gap 19 (5-15); BUN/Creatinine Ratio 10.0 (10.0-20.0); Potassium 4.6 mmol/L (3.5-5.1); Total Protein 6.7 g/dL (5.7-8.2)
[2025-01-18 09:46] LABS: Alkaline Phosphatase 313 U/L (46-116); Bilirubin, Total 0.2 mg/dL (0.2-1.0); Calcium 8.6 mg/dL (8.7-10.4); Carbon Dioxide 20 mmol/L (20-31); Chloride 88 mmol/L (98-107); Sodium 127 mmol/L (136-145)
[2025-01-18 09:48] LABS: Blood Urea Nitrogen 113 mg/dL (9-23); Glucose 551 mg/dL (74-106)
[2025-01-18] MEDS: CEFEPIME 1GM/50ML 50 ML IV SCH (10:02)
[2025-01-18] MEDS: HYDROCORTONE 1% TOPICAL CREAM 30 GM TUBE TOP SCH (10:35)
[2025-01-18 11:24] LABS: Urine Protein, UAD 3+ (Negative)
[2025-01-18 12:39] LABS: Anion Gap 20 (5-15); Calcium 8.9 mg/dL (8.7-10.4); Carbon Dioxide 20 mmol/L (20-31); Potassium 4.2 mmol/L (3.5-5.1)
[2025-01-18 12:45] LABS: BUN/Creatinine Ratio 10.4 (10.0-20.0)
[2025-01-18 13:21] LABS: Amphetamine Screen, Urine Neg (NEGATIVE)
[2025-01-18 13:29] LABS: Barbiturate Scree,Urine Neg (NEGATIVE); Benzodiazephine Screen, Urine Neg (NEGATIVE); Cannabinoid Screen, Urine Neg (NEGATIVE); Cocaine Screen, Urine Neg (NEGATIVE); Opiate Scree,Urine Neg (NEGATIVE); Phencyclidine Screen, Urine Neg (NEGATIVE)
[2025-01-18 13:40] LABS: Chloride 91 mmol/L (98-107); Glucose 231 mg/dL (74-106); Sodium 131 mmol/L (136-145)
[2025-01-18 13:41] LABS: Blood Urea Nitrogen 119 mg/dL (9-23)
[2025-01-18] MEDS ORDERED: D5W/SOD CHL 0.45% 1,000 ML IV SCH (15:00)
--- NOTE | 2025-01-18 15:04 | DVHPN2 ---
Subjective Patient with encephalopathy Reviewed: Care Plan, H&P, Labs, Medications Changes from previous H/P or p: No Changes General: Per HPI Objective Vitals Vital Signs Date Time Temp Pulse Resp B/P (MAP) Pulse Ox O2 Delivery O2 Flow Rate FiO2 01/18/25 04:01 60 14 155/115 (128) 93 01/18/25 01:48 Nasal Cannula* 4 36 01/18/25 00:16 97.9 97.9 Intake/Output Intake and Output 01/18/25 07:00 Intake Total 370 ml Balance 370 ml Intake IV Total 370 ml General Appearance: Alert, Cooperative, mild distress, Other (Encephalopathic) HEENT: Atraumatic, PERRLA Lungs: Clear to auscultation, Normal air movement Cardiovascular: Normal S1, Normal S2 Abdomen: Normal bowel sounds, Soft, No tenderness, No hepatospenomegaly Musculoskeletal: Normal sensory function, Normal motor function Neuro: Normal gait, Normal speech Skin: Dry, Intact, Other (Rash to right upper chest) Psych/Mental Status: Mental status NL, Mood NL Medications Current Medications Medications Dose Ordered Sig/Aleta Route Start Time Stop Time Status Last Admin Dose Admin Acyclovir Sodium 700 mg/Sodium Chloride 264 ml @ 264 mls/hr DAILY IV 01/18/25 05:00 01/18/25 07:30 264 MLS/HR Dextrose 50 ml UD PRN IV 01/18/25 04:30 Diagnostic Test (Pha) 1 strip Q90MIN 01/18/25 04:30 01/18/25 14:00 1 STRIP Insulin Glargine 15 units DAILY SC 01/19/25 10:00 Hydrocortisone 1 applic BID TOP 01/18/25 10:00 01/18/25 10:35 1 APPLIC Diphenhydramine HCl 25 mg Q6HP PRN IV 01/18/25 04:30 Ondansetron HCl 4 mg Q4HP PRN IV 01/18/25 04:30 Nitroglycerin 0.4 mg Q5MINP PRN SL 01/18/25 04:30 Morphine Sulfate 2 mg Q30M PRN IV 01/18/25 04:30 Cefepime HCl 50 ml @ 12.5 mls/hr DAILY@0900 IV 01/18/25 09:00 01/18/25 10:02 12.5 MLS/HR Insulin Human (Reg)/Sodium Chloride 100 ml @ 2 mls/hr Q24H IV 01/18/25 10:45 01/18/25 10:58 26 MLS/HR Laboratory Results Laboratory Tests 01/18/25 08:49 01/18/25 12:19 Chemistry Test 01/17/25 23:37 01/18/25 01:40 01/18/25 05:59 01/18/25 08:49 Albumin 3.9 g/dL (3.2-4.8) 4.0 g/dL (3.2-4.8) Calcium Level 8.7 mg/dL (8.7-10.4) 8.7 mg/dL (8.7-10.4) 8.4 mg/dL (8.7-10.4) L 8.6 mg/dL (8.7-10.4) L Magnesium Level 2.7 mg/dL (1.6-2.6) H Total Protein 6.8 g/dL (5.7-8.2) 6.7 g/dL (5.7-8.2) Test 01/18/25 12:19 Calcium Level 8.9 mg/dL (8.7-10.4) Lipid panel Test 01/17/25 23:37 Lipase 41 U/L (12-53) Cardiac Markers Test 01/17/25 23:37 B-Type Natriuretic Peptide 1718.02 pg/mL (0-100) LFT Test 01/17/25 23:37 01/18/25 08:49 Alanine Aminotransferase (ALT) 24 U/L (7-40) 24 U/L (7-40) Alkaline Phosphatase 318 U/L (46-116) H 313 U/L (46-116) H Aspartate Amino Transferase (AST) 13 U/L (13-40) 15 U/L (13-40) Total Bilirubin 0.3 mg/dL (0.2-1.0) 0.2 mg/dL (0.2-1.0) Urinalysis Test 01/18/25 10:20 Urine Color Light-yellow (Yellow) Urine Clarity Clear (Clear) Urine pH 6.5 (5.0-9.0) Urine Specific [place] 1.017 (1.001-1.035) Urine Protein 3+ (Negative) H Urine Ketones Negative (Negative) Urine Blood 1+ /uL (Negative) H Urine Nitrite Negative (Negative) Urine Bilirubin Negative (Negative) Urine Urobilinogen Normal mg/dL (Negative) Urine Leukocyte Esterase Negative /uL (Negative) Urine RBC 1 /hpf (0 - 3) Urine Microscopic WBC 5 /HPF (0-3) H Urine Squamous Epithelial Cells Few /hpf (<5) Urine Bacteria None seen /hpf (None Seen) Urine Glucose 4+ mg/dL (Normal) H Blood Gas Results Test 01/18/25 04:45 Arterial Blood pH 7.392 (7.350-7.450) FiO2 % 40.0 Labs and/or images reviewed: Labs reviewed by me, Image(s) reviewed by me Assessment/Plan Assessment/Plan Impression: -Sepsis -metabolic encephalopathy -DKA -ESRD with hemodialysis -primary hypertension -dyslipidemia -hyponatremia Plan: -nephrology consultation: Patient to receive hemodialysis today -stop 3% saline infusion -decrease regular insulin sliding scale two 1. Algorithm -start D5 half NS at 75 mL an hour -continue IV acyclovir, cefepime -blood cultures -serial BMP Critical care time spent with patient discussing and formulating plan of care: 40 minutes. This does not include time spent performing procedures. This medical document was created using an electronic medical record system with [employer] dictation system. Although this document has been carefully reviewed, there may still be some phonetic and typographical errors. These areas are purely typographical due to imperfections of the software programs, and do not reflect any compromise in the patient's medical care. Plan discussed with: Patient, Other (RN) My Orders Orders - ROCÍO RAMIREZ NP Procedure Category Date Status Time D5w/Sod Chl 0.45% 1/2 PHA 01/18/25 Verified NS 15:00 Insulin Algorithm # 1 PHA 01/18/25 Verified 15:00 Dextrose 50% Syringe PHA 01/18/25 Verified 15:00 Glucose Blood PHA 01/18/25 Verified (Accu-Chek Comfort 15:00 Date of Service: Jan 18, 2025 Billing Provider: ROCÍO RAMIREZ NP Common Visit Codes: [id number] CARE 30-74 MIN ROCÍO RAMIREZ NP Jan 18, 2025 15:04
[2025-01-18] MEDS: D5W/SOD CHLO 0.9% 1,000 ML IV SCH (15:20)
[2025-01-18] MEDS ORDERED: D5W/SOD CHLO 0.9% 1,000 ML IV SCH (15:30)
--- NOTE | 2025-01-18 17:14 | DVHINCON2 ---
Date of service: Jan 18, 2025 Referring Physician Beto Henry NP Reason for Consultation END-STAGE KIDNEY DISEASE ON HEMODIALYSIS History of Present Illness This is a 70-year-old male with history of end-stage kidney disease on hemodialysis brought into the emergency room because of altered mental status. Asthma with a history which was mainly obtained from the medical records patient was having elevated blood sugars at home and progress avoid getting more confused. In the emergency room patient noted to have shingles. Started on insulin drip. Nephrology consulted for dialysis. Placed on isolation for the shingles. Started on acyclovir. Past Medical History Diabetes mellitus, hypertension, end-stage renal disease on hemodialysis Past Surgical History Dialysis access Family History: Patient reports no known family medical history. Social History No anterior was smoking, alcohol or drug abuse Allergies: Coded Allergies: NO KNOWN ALLERGIES (Unverified , 08/17/19) Home Meds Reported Medications Glipizide (Glipizide) 5 Mg Tab, 5 MG PO for 30 Days, MG 08/18/19 Sevelamer Carbonate (Renvela) 800 Mg Tab, 800 MG PO TIDWM for 30 Days, MG 08/18/19 Nifedipine (Nifedipine Er) 60 Mg Tab, 1 TAB PO DAILY, #90 TAB 3 Refills 08/18/19 Atenolol (Atenolol) 50 Mg Tab, 50 MG PO DAILY for 30 Days, MG 08/18/19 Current Medications Current Medications Medications (Trade) Dose Ordered Sig/Aleta Route PRN Reason Start Time Stop Time Status Last Admin Insulin Human (Reg)/Sodium Chloride 100 ml @ 0.5 mls/hr Q24H IV 01/18/25 03:30 01/18/25 04:39 DC 01/18/25 04:15 Diagnostic Test (Pha) (Accu-Chek Comfort Curve T) 1 strip Q90MIN 01/18/25 04:30 01/18/25 04:39 DC 01/18/25 03:48 Dextrose 50 ml PRN PRN IV BG LESS Than 70 AND CALL 01/18/25 03:30 01/18/25 04:39 DC Acyclovir Sodium 700 mg/Sodium Chloride 264 ml @ 264 mls/hr DAILY IV 01/18/25 05:00 01/18/25 07:30 Dextrose 50 ml UD PRN IV SEE CURRENT ALGORITHM or SCALE 01/18/25 04:30 01/18/25 16:37 DC Diagnostic Test (Pha) (Accu-Chek Comfort Curve T) 1 strip Q90MIN 01/18/25 04:30 01/18/25 16:38 DC 01/18/25 15:15 Insulin Human (Reg)/Sodium Chloride 100 ml @ 0.5 mls/hr Q24H IV 01/18/25 04:30 01/18/25 08:00 DC 01/18/25 05:25 Insulin Glargine (Lantus) 15 units DAILY SC 01/19/25 10:00 Hydrocortisone (Hydrocortisone 1% Cream) 1 applic BID TOP 01/18/25 10:00 01/18/25 10:35 Diphenhydramine HCl (Benadryl Injection) 25 mg Q6HP PRN IV FOR ITCHING 01/18/25 04:30 Ondansetron HCl (Zofran) 4 mg Q4HP PRN IV NAUSEA / VOMITING 01/18/25 04:30 Nitroglycerin (Ntrostat Sublingual) 0.4 mg Q5MINP PRN SL FOR CHEST PAIN 01/18/25 04:30 Morphine Sulfate 2 mg Q30M PRN IV FOR CHEST PAIN 01/18/25 04:30 Cefepime HCl 50 ml @ 12.5 mls/hr DAILY@0900 IV 01/18/25 09:00 01/18/25 10:02 Insulin Human (Reg)/Sodium Chloride 100 ml @ 1 mls/hr Q24H IV 01/18/25 08:00 01/18/25 10:43 DC 01/18/25 08:00 Insulin Human (Reg)/Sodium Chloride 100 ml @ 2 mls/hr Q24H IV 01/18/25 10:45 01/18/25 15:00 DC 01/18/25 10:58 Dextrose/Sodium Chloride 1,000 ml @ 75 mls/hr [id number] IV 01/18/25 15:00 01/18/25 15:19 DC Insulin Human (Reg)/Sodium Chloride 100 ml @ 0.5 mls/hr Q24H IV 01/18/25 15:00 01/18/25 15:00 Dextrose 50 ml UD PRN IV SEE CURRENT ALGORITHM or SCALE 01/18/25 15:00 Diagnostic Test (Pha) (Accu-Chek Comfort Curve T) 1 strip Q90MIN 01/18/25 15:00 01/18/25 15:15 Dextrose/Sodium Chloride 1,000 ml @ 75 mls/hr [id number] IV 01/18/25 15:30 01/18/25 15:20 Dextrose/Sodium Chloride 1,000 ml @ 75 mls/hr [id number] IV 01/18/25 15:30 UNV Review of Systems Not obtain because of patient's mentation Vital Signs Vital Signs Date Time Temp Pulse Resp B/P (MAP) Pulse Ox O2 Delivery O2 Flow Rate FiO2 01/18/25 16:00 55 18 148/54 (85) 97 01/18/25 01:48 Nasal Cannula* 4 36 01/18/25 00:16 97.9 97.9 Physical Exam Patient extremely confused and agitated HEENT: Normocephalic Lungs: Bilateral good air entry CVS: Regular rate and rhythm Abdomen: Soft [employer]: Confused Skin: Shingles right side of the chest Extremities: No edema Labs/Diagnostic Data Labs Test 01/18/25 15:51 01/18/25 12:19 01/18/25 10:20 01/18/25 08:49 Range/Units POC Glucose 62 L 70-106 mg/dl Sodium Level 131 L 136-145 mmol/L Potassium Level 4.2 3.5-5.1 mmol/L Chloride Level 91 L 98-107 mmol/L Carbon Dioxide Level 20 20-31 mmol/L Anion Gap 20 H 5-15 Blood Urea Nitrogen 119 *H 9-23 mg/dL Creatinine 11.42 *H 0.700-1.30 mg/dL Glomerular Filtration Rate Calc 4 >90 mL/min BUN/Creatinine Ratio 10.4 10.0-20.0 Serum Glucose 231 #H 74-106 mg/dL Calcium Level 8.9 8.7-10.4 mg/dL Urine Color Light-yellow Yellow Urine Clarity Clear Clear Urine pH 6.5 5.0-9.0 Urine Specific [place] 1.017 1.001-1.035 Urine Protein 3+ H Negative Urine Ketones Negative Negative Urine Blood 1+ H Negative /uL Urine Nitrite Negative Negative Urine Bilirubin Negative Negative Urine Urobilinogen Normal Negative mg/dL Urine Leukocyte Esterase Negative Negative /uL Urine RBC 1 0 - 3 /hpf Urine Microscopic WBC 5 H 0-3 /HPF Urine Squamous Epithelial Cells Few <5 /hpf Urine Bacteria None seen None Seen /hpf Urine Glucose 4+ H Normal mg/dL Urine Opiates Screen Neg NEGATIVE Urine Fentanyl Screen Neg NEGATIVE Urine Barbiturates Screen Neg NEGATIVE Urine Phencyclidine Screen Neg NEGATIVE Urine Amphetamines Screen Neg NEGATIVE Urine Benzodiazepines Screen Neg NEGATIVE Urine Cocaine Screen Neg NEGATIVE Urine Cannabinoids Screen Neg NEGATIVE White Blood Count 14.4 #H 4.4-10.8 10^3/uL Red Blood Count 3.78 L 4.5-5.90 10^6/uL Hemoglobin 11.8 L 13.5-17.5 g/dL Hematocrit 34.9 L 41.0-53.0 % Mean Corpuscular Volume 92.3 # 80.0-100.0 fL Mean Corpuscular Hemoglobin 31.1 28.0-32.0 pg Mean Corpuscular Hemoglobin Concent 33.7 32.0-36.0 g/dL Red Cell Distribution Width 14.2 11.8-14.3 % Platelet Count 189 140-450 10^3/uL Mean Platelet Volume 10.2 6.9-10.8 fL Neutrophils (%) (Auto) 93.8 H 37.0-80.0 % Lymphocytes (%) (Auto) 2.3 L 10.0-50.0 % Monocytes (%) (Auto) 3.8 0.0-12.0 % Eosinophils (%) (Auto) 0.0 0.0-7.0 % Basophils (%) (Auto) 0.1 0.0-2.0 % Neutrophils # (Auto) 13.5 H 1.6-8.6 10 ^3/uL Lymphocytes # (Auto) 0.3 L 0.4-5.4 10 ^3/uL Monocytes # (Auto) 0.5 0-1.3 10 ^3/uL Eosinophils # (Auto) 0 0-0.8 10 ^3/uL Basophils # (Auto) 0 0-0.2 10 ^3/uL Nucleated Red Blood Cells 0.0 % Total Bilirubin 0.2 0.2-1.0 mg/dL Aspartate Amino Transferase (AST) 15 13-40 U/L Alanine Aminotransferase (ALT) 24 7-40 U/L Alkaline Phosphatase 313 H 46-116 U/L Total Protein 6.7 5.7-8.2 g/dL Albumin 4.0 3.2-4.8 g/dL Test 10/23/25 05:59 01/18/25 04:45 01/18/25 00:45 01/17/25 23:37 Range/Units Serum Osmolality 353 H 278-298 mOsm/kg Blood Gas Specimen Type Arterial Blood Gas Sample Site Right radial Blood Gas Patient Temperature 37.0 Arterial Blood Date Drawn [phone] Arterial Blood pH 7.392 7.350-7.450 Arterial Blood Partial Pressure CO2 33.3 L 35.0-48.0 mmHg Arterial Blood Partial Pressure O2 80.0 L 83.0-108.0 mmHg Arterial Blood HCO3 19.8 L 21.0-28.0 mmol/L Arterial Blood Oxygen Saturation 94.7 94.0-98.0 % Arterial Blood Base Excess -4.3 L -2.0-3.0 mmol/L Arterial Blood Oxyhemoglobin 93.8 L 94.0-98.0 % Arterial Blood Carboxyhemoglobin 0.7 0.5-1.5 % Arterial Blood Methemoglobin 0.3 0.0-1.5 % Nestor Test Modified Blood Gas Total Hemoglobin 12.40 L 13.5-17.5 g/dL Blood Gas Liter Flow 5.00 Blood Gas Modality Nasal cannula FiO2 % 40.0 Influenza Type A Antigen Negative Negative Influenza Type B Antigen Negative Negative SARS-CoV-2 Antigen (Rapid) Negative NEGATIVE Lactic Acid Level 0.9 0.4-2.0 mmol/L Magnesium Level 2.7 H 1.6-2.6 mg/dL Troponin I High Sensitivity 11 </=54 ng/L B-Type Natriuretic Peptide 1718.02 0-100 pg/mL Lipase 41 12-53 U/L Plasma/Serum Blood Alcohol < 3.0 <10 mg/dL Assessment End-stage kidney disease on hemodialysis Metabolic encephalopathy Shingles Diabetic ketoacidosis Hyponatremia secondary to elevated blood sugars Plan/Recommendation Stop hypertonic saline Discontinue insulin drip as blood sugars have been running low Continue with IV hydration Hemodialysis today Neurology evaluation Continue with antiviral Plan discussed with: Other GA FLOYD MD Jan 18, 2025 17:14
[2025-01-18] MEDS: DEXTROSE (50%) 50ML SYRG IV ONE (18:00)
[2025-01-18 18:31] LABS: Sodium 138 mmol/L (136-145)
[2025-01-18 18:32] LABS: Anion Gap 12 (5-15); Calcium 8.7 mg/dL (8.7-10.4); Carbon Dioxide 29 mmol/L (20-31)
[2025-01-18 18:37] LABS: BUN/Creatinine Ratio 8.7 (10.0-20.0); Potassium 3.4 mmol/L (3.5-5.1)
[2025-01-18 18:38] LABS: Blood Urea Nitrogen 50 mg/dL (9-23); Chloride 97 mmol/L (98-107); Glucose 65 mg/dL (74-106)
--- NOTE | 2025-01-18 21:36 | DVHINCON2 ---
Date of service: Jan 18, 2025 Referring Physician Beto Reason for Consultation ALOC History of Present Illness Mr. Pisano is a 70 years old right-handed gentleman with a history of hypertension, diabetes, end-stage kidney failure on hemodialysis, the patient was brought to the [facility] on 01/17/2025 with a chief complaint of altered mental status. At this time, he is awake, but is only oriented to person, place, not able to provide history, the history is obtained from his daughter, I have also reviewed the chart and talked to his nurse In the afternoon on 01/16/2025, the patient became mentally altered, he was confused, with abnormal behavior, on 01/17/2025, the family noticed the Glucometer did not read but says high and the decide bring him to medical attention. 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 Mild right basilar opacity. Mild prominence of the cardiomediastinal silhouette, likely accentuated by technique. No pleural effusion or pneumothorax. No acute osseous abnormality CT head, 01/15/2025: 1. No acute territorial infarct, intracranial hemorrhage, or mass effect. 2. Age-related involutional changes. Chronic ischemic changes as detailed. 3. If clinical symptoms persist, MRI may be beneficial in further evaluation (Chronic right cerebellar infarct) Past Medical History Hypertension, diabetes, end-stage renal failure on hemodialysis Past Surgical History Right eye surgery, right foot toe amputation Family History: Patient reports no known family medical history. Family History Hypertension diabetes Social History He has no history of tobacco smoking, drug or alcohol abuse Allergies: Coded Allergies: NO KNOWN ALLERGIES (Unverified , 08/17/19) Home Meds Reported Medications Glipizide (Glipizide) 5 Mg Tab, 5 MG PO for 30 Days, MG 08/18/19 Sevelamer Carbonate (Renvela) 800 Mg Tab, 800 MG PO TIDWM for 30 Days, MG 08/18/19 Nifedipine (Nifedipine Er) 60 Mg Tab, 1 TAB PO DAILY, #90 TAB 3 Refills 08/18/19 Atenolol (Atenolol) 50 Mg Tab, 50 MG PO DAILY for 30 Days, MG 08/18/19 Current Medications Current Medications Medications (Trade) Dose Ordered Sig/Aleta Route PRN Reason Start Time Stop Time Status Last Admin Insulin Human (Reg)/Sodium Chloride 100 ml @ 0.5 mls/hr Q24H IV 01/18/25 03:30 01/18/25 04:39 DC 01/18/25 04:15 Diagnostic Test (Pha) (Accu-Chek Comfort Curve T) 1 strip Q90MIN 01/18/25 04:30 01/18/25 04:39 DC 01/18/25 03:48 Dextrose 50 ml PRN PRN IV BG LESS Than 70 AND CALL MD 01/18/25 03:30 01/18/25 04:39 DC Acyclovir Sodium 700 mg/Sodium Chloride 264 ml @ 264 mls/hr DAILY IV 01/18/25 05:00 01/18/25 07:30 Dextrose 50 ml UD PRN IV SEE CURRENT ALGORITHM or SCALE 01/18/25 04:30 01/18/25 16:37 DC Diagnostic Test (Pha) (Accu-Chek Comfort Curve T) 1 strip Q90MIN 01/18/25 04:30 01/18/25 16:38 DC 01/18/25 15:15 Insulin Human (Reg)/Sodium Chloride 100 ml @ 0.5 mls/hr Q24H IV 01/18/25 04:30 01/18/25 08:00 DC 01/18/25 05:25 Insulin Glargine (Lantus) 15 units DAILY SC 01/19/25 10:00 Hydrocortisone (Hydrocortisone 1% Cream) 1 applic BID TOP 01/18/25 10:00 01/18/25 21:15 Diphenhydramine HCl (Benadryl Injection) 25 mg Q6HP PRN IV FOR ITCHING 01/18/25 04:30 Ondansetron HCl (Zofran) 4 mg Q4HP PRN IV NAUSEA / VOMITING 01/18/25 04:30 Nitroglycerin (Ntrostat Sublingual) 0.4 mg Q5MINP PRN SL FOR CHEST PAIN 01/18/25 04:30 Morphine Sulfate 2 mg Q30M PRN IV FOR CHEST PAIN 01/18/25 04:30 Cefepime HCl 50 ml @ 12.5 mls/hr DAILY@0900 IV 01/18/25 09:00 01/18/25 10:02 Insulin Human (Reg)/Sodium Chloride 100 ml @ 1 mls/hr Q24H IV 01/18/25 08:00 01/18/25 10:43 DC 01/18/25 08:00 Insulin Human (Reg)/Sodium Chloride 100 ml @ 2 mls/hr Q24H IV 01/18/25 10:45 01/18/25 15:00 DC 01/18/25 10:58 Dextrose/Sodium Chloride 1,000 ml @ 75 mls/hr [id number] IV 01/18/25 15:00 01/18/25 15:19 DC Insulin Human (Reg)/Sodium Chloride 100 ml @ 0.5 mls/hr Q24H IV 01/18/25 15:00 01/18/25 19:00 DC 01/18/25 15:00 Dextrose 50 ml UD PRN IV SEE CURRENT ALGORITHM or SCALE 01/18/25 15:00 Diagnostic Test (Pha) (Accu-Chek Comfort Curve T) 1 strip Q90MIN 01/18/25 15:00 01/18/25 21:17 Dextrose/Sodium Chloride 1,000 ml @ 75 mls/hr [id number] IV 01/18/25 15:30 01/18/25 15:20 Dextrose/Sodium Chloride 1,000 ml @ 75 mls/hr [id number] IV 01/18/25 15:30 UNV Review of Systems As above, the other systems are negative Vital Signs Vital Signs Date Time Temp Pulse Resp B/P (MAP) Pulse Ox O2 Delivery O2 Flow Rate FiO2 01/18/25 19:00 57 20 131/65 (87) 99 01/18/25 16:30 97.9 97.9 01/18/25 08:00 Nasal Cannula* 4 36 Physical Exam GENERAL EXAM: General: the patient is well developed and nourished. No acute distress. HEENT: Normocephalic, neck is supple, no carotid bruits. No mass. RESPIRATORY: Normal respiratory effort with symmetrical lung expansion. Lungs clear to auscultation. CARDIOVASCULAR: Regular rate and rhythm with no murmurs. S1, S2. ABDOMEN: Soft, nontender, normal bowel sound MUSCULOSKELETAL EXAM: Bilateral hammertoes, high arch feet, status post to toe amputation in the right foot NEUROLOGICAL: MENTAL STATUS: Awake and alert. Oriented to person, place, not able to provide history SPEECH, LANGUAGE, HIGHER CORTICAL FUNCTION: no aphasia or dysathria. CRANIAL NERVES: #2: Intact visual rousseau to confrontation. On physical examination, both eyes saw lights #3,4,6: Pupils are round and slightly reactive, right pupil was slightly bigger. EOMs full and conjugate. #5: Facial sensation intact in all three divisions bilaterally. Mandibular strength intact. #7: Facial muscles symmetrical and strength intact. #8: Hearing grossly normal to voice. #9,10: Uvula and soft palate rise in the midline. Swallow and voice are normal. #11: Trapezius and sternomastoid strength intact bilaterally. #12: Tongue midline. No fasciculations or atrophy. SENSATION: Sensation to touch and pinprick is okay MOTOR: Normal tone in the upper and lower extremity. Normal muscle bulk. No fasciculations. No abnormal movements or posturing. He keeps moving in the bed REFLEXES: Deep tendon reflexes are symmetrical. No pathological reflexes. CEREBELLAR/COORDINATION: Deferred GAIT/STATION: deferred. Labs/Diagnostic Data Labs Test 01/18/25 20:36 01/18/25 18:12 01/18/25 10:20 01/18/25 08:49 Range/Units POC Glucose 85 70-106 mg/dl Sodium Level 138 # 136-145 mmol/L Potassium Level 3.4 L 3.5-5.1 mmol/L Chloride Level 97 L 98-107 mmol/L Carbon Dioxide Level 29 20-31 mmol/L Anion Gap 12 5-15 Blood Urea Nitrogen 50 #H 9-23 mg/dL Creatinine 5.72 #H 0.700-1.30 mg/dL Glomerular Filtration Rate Calc 10 >90 mL/min BUN/Creatinine Ratio 8.7 L 10.0-20.0 Serum Glucose 65 #L 74-106 mg/dL Calcium Level 8.7 8.7-10.4 mg/dL Urine Color Light-yellow Yellow Urine Clarity Clear Clear Urine pH 6.5 5.0-9.0 Urine Specific [place] 1.017 1.001-1.035 Urine Protein 3+ H Negative Urine Ketones Negative Negative Urine Blood 1+ H Negative /uL Urine Nitrite Negative Negative Urine Bilirubin Negative Negative Urine Urobilinogen Normal Negative mg/dL Urine Leukocyte Esterase Negative Negative /uL Urine RBC 1 0 - 3 /hpf Urine Microscopic WBC 5 H 0-3 /HPF Urine Squamous Epithelial Cells Few <5 /hpf Urine Bacteria None seen None Seen /hpf Urine Glucose 4+ H Normal mg/dL Urine Opiates Screen Neg NEGATIVE Urine Fentanyl Screen Neg NEGATIVE Urine Barbiturates Screen Neg NEGATIVE Urine Phencyclidine Screen Neg NEGATIVE Urine Amphetamines Screen Neg NEGATIVE Urine Benzodiazepines Screen Neg NEGATIVE Urine Cocaine Screen Neg NEGATIVE Urine Cannabinoids Screen Neg NEGATIVE White Blood Count 14.4 #H 4.4-10.8 10^3/uL Red Blood Count 3.78 L 4.5-5.90 10^6/uL Hemoglobin 11.8 L 13.5-17.5 g/dL Hematocrit 34.9 L 41.0-53.0 % Mean Corpuscular Volume 92.3 # 80.0-100.0 fL Mean Corpuscular Hemoglobin 31.1 28.0-32.0 pg Mean Corpuscular Hemoglobin Concent 33.7 32.0-36.0 g/dL Red Cell Distribution Width 14.2 11.8-14.3 % Platelet Count 189 140-450 10^3/uL Mean Platelet Volume 10.2 6.9-10.8 fL Neutrophils (%) (Auto) 93.8 H 37.0-80.0 % Lymphocytes (%) (Auto) 2.3 L 10.0-50.0 % Monocytes (%) (Auto) 3.8 0.0-12.0 % Eosinophils (%) (Auto) 0.0 0.0-7.0 % Basophils (%) (Auto) 0.1 0.0-2.0 % Neutrophils # (Auto) 13.5 H 1.6-8.6 10 ^3/uL Lymphocytes # (Auto) 0.3 L 0.4-5.4 10 ^3/uL Monocytes # (Auto) 0.5 0-1.3 10 ^3/uL Eosinophils # (Auto) 0 0-0.8 10 ^3/uL Basophils # (Auto) 0 0-0.2 10 ^3/uL Nucleated Red Blood Cells 0.0 % Total Bilirubin 0.2 0.2-1.0 mg/dL Aspartate Amino Transferase (AST) 15 13-40 U/L Alanine Aminotransferase (ALT) 24 7-40 U/L Alkaline Phosphatase 313 H 46-116 U/L Total Protein 6.7 5.7-8.2 g/dL Albumin 4.0 3.2-4.8 g/dL Test 01/18/25 05:59 01/18/25 04:45 01/18/25 00:45 01/17/25 23:37 Range/Units Serum Osmolality 353 H 278-298 mOsm/kg Blood Gas Specimen Type Arterial Blood Gas Sample Site Right radial Blood Gas Patient Temperature 37.0 Arterial Blood Date Drawn [id number] Arterial Blood pH 7.392 7.350-7.450 Arterial Blood Partial Pressure CO2 33.3 L 35.0-48.0 mmHg Arterial Blood Partial Pressure O2 80.0 L 83.0-108.0 mmHg Arterial Blood HCO3 19.8 L 21.0-28.0 mmol/L Arterial Blood Oxygen Saturation 94.7 94.0-98.0 % Arterial Blood Base Excess -4.3 L -2.0-3.0 mmol/L Arterial Blood Oxyhemoglobin 93.8 L 94.0-98.0 % Arterial Blood Carboxyhemoglobin 0.7 0.5-1.5 % Arterial Blood Methemoglobin 0.3 0.0-1.5 % Nestor Test Modified Blood Gas Total Hemoglobin 12.40 L 13.5-17.5 g/dL Blood Gas Liter Flow 5.00 Blood Gas Modality Nasal cannula FiO2 % 40.0 Influenza Type A Antigen Negative Negative Influenza Type B Antigen Negative Negative SARS-CoV-2 Antigen (Rapid) Negative NEGATIVE Lactic Acid Level 0.9 0.4-2.0 mmol/L Magnesium Level 2.7 H 1.6-2.6 mg/dL Troponin I High Sensitivity 11 </=54 ng/L B-Type Natriuretic Peptide 1718.02 0-100 pg/mL Lipase 41 12-53 U/L Plasma/Serum Blood Alcohol < 3.0 <10 mg/dL Assessment Diabetic ketoacidosis Metabolic acidosis Metabolic encephalopathy Herpes zoster infection/shingles End-stage kidney failure Anisocoria with right pupil bigger, possible secondary to history of surgery One eye blindness Plan/Recommendation Monitoring Supportive treatment ICU care Stabilize vitals p.r.n. Respiratory support p.r.n. Acyclovir 700 mg daily IV antibiotics Current pain management Haldol for agitation More hear from him once he mentally improved More recommendation per clinical course Progress: Critical This medical document was created using an electronic medical record system with [employer] dictation system. Although this document has been carefully reviewed, there may still be some phonetic and typographical errors. These areas are purely typographical due to imperfections of the software programs, and do not reflect any compromise in the patient's medical care. Plan discussed with: Daughter, Other LETTY HANNA MD Jan 18, 2025 21:36
[2025-01-18 22:28] LABS: Base Excess 3.7 mmol/L (-2.0-3.0)
[2025-01-19] VITALS (78 sets, daily range): BP systolic 89–203; BP diastolic 41–147; PULSE 56–66; RESP 11–21; TEMP 97.9–98.5; O2SAT 92–100
[2025-01-19 04:04] LABS: Hematocrit 32.6 % (41.0-53.0); Hemoglobin 11.2 g/dL (13.5-17.5); Mean Corpuscular Hemoglobin 31.1 pg (28.0-32.0); Mean Corpuscular Volume 90.4 fL (80.0-100.0); Nucleated Red Blood Cells % 0.0 %
[2025-01-19 04:22] LABS: Alanine Aminotransferase 24 U/L (7-40); Albumin 3.4 g/dL (3.2-4.8); Anion Gap 13 (5-15); BUN/Creatinine Ratio 8.1 (10.0-20.0); Bilirubin, Total 0.4 mg/dL (0.2-1.0); Calcium 8.9 mg/dL (8.7-10.4); Carbon Dioxide 27 mmol/L (20-31); Chloride 98 mmol/L (98-107); Potassium 3.8 mmol/L (3.5-5.1); Sodium 138 mmol/L (136-145); Total Protein 5.9 g/dL (5.7-8.2)
[2025-01-19 04:36] LABS: Alkaline Phosphatase 137 U/L (46-116); Blood Urea Nitrogen 57 mg/dL (9-23); Glucose 60 mg/dL (74-106)
[2025-01-19] MEDS: hydrALAZINE HCL 20 MG/ML VL IV PRN (05:38)
--- NOTE | 2025-01-19 07:42 | DVHPN2 ---
Progress Note - Dictate Date Seen: Jan 19, 2025 Medical Necessity Reason Pt with a Central, PICC or Fol: Yes The following are medically ne: Ashford Catheter Subjective Mr. Pisano is a 70 years old right-handed gentleman with a history of hypertension, diabetes, end-stage kidney failure on hemodialysis, the patient was brought to the [facility] on 01/17/2025 with a chief complaint of altered mental status. I have seen and examined the patient, I have talked to his nurse, he is awake, maybe oriented to himself only, keeps talking nonsense, he does not answer my questions properly, he moves the arms and legs ABG, 01/18/2025: Compensated Metabolic acidosis UDS, 01/18/2025: Negative Plasma alcohol, 01/17/2025: <3 Urinalysis, 01/18/2025: WBC: Five, urine leukocyte esterase: Negative CBC, 01/18/2025: Compensated metabolic acidosis WBC/HB/PLT/MCV, 01/18/2025: 14.4/11.8/189/92.3 Na, 01/18/2025: 127, 131 BUN/CR, : 113/11.33, 119/11.42, 50/5.72, 01/19/2025: 57/7.03 GFR, 01/18/2025: 4, 4, 10 Anion gap, 01/18/2025: 19, 20, Glucose, 01/17/2025: 856, 01/18/2025: 862, 710, 551, 231 Liver function tests, 01/18/2025: Unremarkable Chest x-ray, 01/18/2025: There is prominence of the interstitial markings. Mild right basilar opacity. Mild prominence of the cardiomediastinal silhouette, likely accentuated by technique. No pleural effusion or pneumothorax. No acute osseous abnormality CT head, 01/15/2025: 1. No acute territorial infarct, intracranial hemorrhage, or mass effect. 2. Age-related involutional changes. Chronic ischemic changes as detailed. 3. If clinical symptoms persist, MRI may be beneficial in further evaluation (Chronic right cerebellar infarct) vital signs Vital Sign Date Time Temp Pulse Resp B/P (MAP) Pulse Ox O2 Delivery O2 Flow Rate FiO2 01/19/25 06:16 61 17 163/65 (97) 97 01/19/25 06:00 Nasal Cannula* 4 36 01/19/25 04:01 98.1 98.1 Total Intake and Output 01/18/25 01/18/25 01/19/25 15:00 23:00 07:00 Intake Total 468.0 ml 525 ml 525 ml Output Total 350 ml 100 ml Balance 468.0 ml 175 ml 425 ml medications Current Medications Medications Dose Ordered Sig/Aleta Route Start Time Stop Time Status Last Admin Dose Admin Acyclovir Sodium 700 mg/Sodium Chloride 264 ml @ 264 mls/hr DAILY IV 01/18/25 05:00 01/18/25 07:30 264 MLS/HR Insulin Glargine 15 units DAILY SC 01/19/25 10:00 Hydrocortisone 1 applic BID TOP 01/18/25 10:00 01/18/25 21:15 1 APPLIC Diphenhydramine HCl 25 mg Q6HP PRN IV 01/18/25 04:30 Ondansetron HCl 4 mg Q4HP PRN IV 01/18/25 04:30 Nitroglycerin 0.4 mg Q5MINP PRN SL 01/18/25 04:30 Morphine Sulfate 2 mg Q30M PRN IV 01/18/25 04:30 Cefepime HCl 50 ml @ 12.5 mls/hr DAILY@0900 IV 01/18/25 09:00 01/18/25 10:02 12.5 MLS/HR Dextrose 50 ml UD PRN IV 01/18/25 15:00 Diagnostic Test (Pha) 1 strip Q90MIN 01/18/25 15:00 01/19/25 05:39 1 STRIP Dextrose/Sodium Chloride 1,000 ml @ 75 mls/hr [id number] IV 01/18/25 15:30 01/19/25 04:15 75 MLS/HR Dextrose/Sodium Chloride 1,000 ml @ 75 mls/hr [id number] IV 01/18/25 15:30 UNV Haloperidol Lactate 2.5 mg Q8HP PRN IM 01/18/25 22:45 Hydralazine HCl 10 mg Q6HP PRN IV 01/19/25 05:30 01/19/25 05:38 10 MG objective General: the patient is well developed and nourished. No acute distress. 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 CRANIAL NERVES: Pupils are round and slightly reactive, right pupil was slightly bigger. EOMs full and conjugate. Facial sensation intact in all three divisions bilaterally. Mandibular strength intact. Facial muscles symmetrical and strength intact. SENSATION: Sensation to touch and pinprick is okay MOTOR: Normal tone in the upper and lower extremity. Normal muscle bulk. No fasciculations. No abnormal movements or posturing. He keeps moving in the bed REFLEXES: Deep tendon reflexes are symmetrical. No pathological reflexes. CEREBELLAR/COORDINATION: Deferred GAIT/STATION: deferred. laboratory and microbiology Laboratory Tests 01/19/25 02:40 Test 01/19/25 02:40 Range/Units Serum Glucose 60 L 74-106 mg/dL Problem List Diabetic ketoacidosis Metabolic acidosis Metabolic encephalopathy Herpes zoster infection/shingles End-stage kidney failure Anisocoria with right pupil bigger, possible secondary to history of surgery One eye blindness Assessment/Plan Monitoring Supportive treatment ICU care Stabilize vitals p.r.n. Respiratory support p.r.n. Acyclovir 700 mg daily IV antibiotics Current pain management Haldol for agitation More hear from him once he mentally improved More recommendation per clinical course This medical document was created using an electronic medical record system with [employer] dictation system. Although this document has been carefully reviewed, there may still be some phonetic and typographical errors. These areas are purely typographical due to imperfections of the software programs, and do not reflect any compromise in the patient's medical care. Prognosis poor Plan discussed with: Other Critical Care Time(min): 35 LETTY HANNA MD Jan 19, 2025 07:42
[2025-01-19] MEDS: INSULIN LANTUS (GLARGINE) 1 /0.01ml (100units/ml) SC SCH (09:05)
--- NOTE | 2025-01-19 09:23 | DVHPN2 ---
Subjective Patient with encephalopathy Reviewed: Care Plan, H&P, Labs, Medications Changes from previous H/P or p: No Changes General: Per HPI Objective Vitals Vital Signs Date Time Temp Pulse Resp B/P (MAP) Pulse Ox O2 Delivery O2 Flow Rate FiO2 01/19/25 08:56 168/87 01/19/25 06:16 61 17 97 01/19/25 06:00 Nasal Cannula* 4 36 01/19/25 04:01 98.1 98.1 Intake/Output Intake and Output 01/19/25 07:00 Intake Total 1518.0 ml Output Total 450 ml Balance 1068.0 ml Intake Oral 0 ml IV Total 1518.0 ml Output Urine/Stool Mix 450 ml General Appearance: Alert, Cooperative, mild distress, Other (Encephalopathic, Oriented x 2) HEENT: Atraumatic, Other (Unequal pupils) Lungs: Clear to auscultation, Normal air movement Cardiovascular: Normal S1, Normal S2 Abdomen: Normal bowel sounds, Soft, No tenderness, No hepatospenomegaly Genitourinary: No Apparent Abnormalities (Ashford) Musculoskeletal: Normal sensory function, Normal motor function Neuro: Normal gait, Normal speech, Other (Negative Brudzinski and Kernig sign) Skin: Dry, Intact, Other (Rash to right upper chest) Psych/Mental Status: Mental status NL, Mood NL Medications Current Medications Medications Dose Ordered Sig/Aleta Route Start Time Stop Time Status Last Admin Dose Admin Acyclovir Sodium 700 mg/Sodium Chloride 264 ml @ 264 mls/hr DAILY IV 01/18/25 05:00 01/19/25 09:05 264 MLS/HR Insulin Glargine 15 units DAILY SC 01/19/25 10:00 Hydrocortisone 1 applic BID TOP 01/18/25 10:00 01/19/25 09:06 1 APPLIC Diphenhydramine HCl 25 mg Q6HP PRN IV 01/18/25 04:30 Ondansetron HCl 4 mg Q4HP PRN IV 01/18/25 04:30 Nitroglycerin 0.4 mg Q5MINP PRN SL 01/18/25 04:30 Morphine Sulfate 2 mg Q30M PRN IV 01/18/25 04:30 Cefepime HCl 50 ml @ 12.5 mls/hr DAILY@0900 IV 01/18/25 09:00 01/19/25 08:56 12.5 MLS/HR Dextrose 50 ml UD PRN IV 01/18/25 15:00 Diagnostic Test (Pha) 1 strip Q90MIN 01/18/25 15:00 01/19/25 08:58 1 STRIP Dextrose/Sodium Chloride 1,000 ml @ 75 mls/hr [id number] IV 01/18/25 15:30 01/19/25 04:15 75 MLS/HR Dextrose/Sodium Chloride 1,000 ml @ 75 mls/hr [id number] IV 01/18/25 15:30 UNV Haloperidol Lactate 2.5 mg Q8HP PRN IM 01/18/25 22:45 Hydralazine HCl 10 mg Q6HP PRN IV 01/19/25 05:30 01/19/25 08:56 10 MG Laboratory Results Laboratory Tests 01/19/25 02:40 Chemistry Test 01/18/25 12:19 01/18/25 18:12 01/19/25 02:40 Calcium Level 8.9 mg/dL (8.7-10.4) 8.7 mg/dL (8.7-10.4) 8.9 mg/dL (8.7-10.4) Albumin 3.4 g/dL (3.2-4.8) Total Protein 5.9 g/dL (5.7-8.2) LFT Test 01/19/25 02:40 Alanine Aminotransferase (ALT) 24 U/L (7-40) Alkaline Phosphatase 137 U/L (46-116) H Aspartate Amino Transferase (AST) 33 U/L (13-40) Total Bilirubin 0.4 mg/dL (0.2-1.0) Urinalysis Test 01/18/25 10:20 Urine Color Light-yellow (Yellow) Urine Clarity Clear (Clear) Urine pH 6.5 (5.0-9.0) Urine Specific [place] 1.017 (1.001-1.035) Urine Protein 3+ (Negative) H Urine Ketones Negative (Negative) Urine Blood 1+ /uL (Negative) H Urine Nitrite Negative (Negative) Urine Bilirubin Negative (Negative) Urine Urobilinogen Normal mg/dL (Negative) Urine Leukocyte Esterase Negative /uL (Negative) Urine RBC 1 /hpf (0 - 3) Urine Microscopic WBC 5 /HPF (0-3) H Urine Squamous Epithelial Cells Few /hpf (<5) Urine Bacteria None seen /hpf (None Seen) Urine Glucose 4+ mg/dL (Normal) H Blood Gas Results Test 01/18/25 21:52 Arterial Blood pH 7.494 (7.350-7.450) FiO2 % 21.0 Microbiology Microbiology Date/Time Source Procedure Growth Status 01/17/25 23:25 Blood Blood Culture - Preliminary NO GROWTH AFTER 24 HOURS OF INCUBATION. Resulted Labs and/or images reviewed: Labs reviewed by me, Image(s) reviewed by me Assessment/Plan Assessment/Plan Impression: -Sepsis -metabolic encephalopathy -DKA -ESRD with hemodialysis -primary hypertension -dyslipidemia -hyponatremia Plan: Events: More alert today. Following commands -start diet -Start SS when BS is greater than 250, Stop Lantus -Continue D5 half NS at 75 mL an hour -continue IV acyclovir, cefepime -Repeat labs in AM Critical care time spent with patient discussing and formulating plan of care: 40 minutes. This does not include time spent performing procedures. This medical document was created using an electronic medical record system with [employer] dictation system. Although this document has been carefully reviewed, there may still be some phonetic and typographical errors. These areas are purely typographical due to imperfections of the software programs, and do not reflect any compromise in the patient's medical care. Plan discussed with: Patient, Other (RN) My Orders Orders - ROCÍO RAMIREZ FERRY OPERATOR Procedure Category Date Status Time Dextrose 50% Syringe PHA 01/18/25 In Process 15:00 Glucose Blood PHA 01/18/25 In Process (Accu-Chek Comfort 15:00 D5w/Sod Chlo 0.9% PHA 01/18/25 In Process (D5w Ns 0.9%) 15:30 Mrsa Screen SHELLY 01/18/25 In Process 00:45 * Neurology Consult CONS 01/18/25 Transmitted 20:58 Communication Order ORDERS 01/18/25 Transmitted 20:59 Basic Metabolic Panel LAB 01/20/25 Verified 04:00 Complete Blood Count LAB 01/20/25 Verified 04:00 Erythrocyte LAB 01/19/25 Logged Sedimentation Rate 09:05 C-Reactive Protein LAB 01/19/25 Logged 09:05 Consistent DIET 01/19/25 Verified Carb(Ccho)Diabetes Breakfast Amlodipine Tablet PHA 01/19/25 Verified (Norvasc Tablet) 10:00 Date of Service: Jan 19, 2025 Billing Provider: ROCÍO RAMIREZ NP Common Visit Codes: [id number] CARE 30-74 MIN ROCÍO RAMIREZ NP Jan 19, 2025 09:23
--- NOTE | 2025-01-19 11:51 | DVHPN2 ---
Progress Note - Dictate Date Seen: Jan 19, 2025 Medical Necessity Reason Pt with a Central, PICC or Fol: Yes The following are medically ne: Ashford Catheter Subjective Continues to be confused. Sitter at bedside. vital signs Vital Sign Date Time Temp Pulse Resp B/P (MAP) Pulse Ox O2 Delivery O2 Flow Rate FiO2 01/19/25 11:21 152/59 01/19/25 06:16 61 17 97 01/19/25 06:00 Nasal Cannula* 4 36 01/19/25 04:01 98.1 98.1 Total Intake and Output 01/18/25 01/18/25 01/19/25 15:00 23:00 07:00 Intake Total 468.0 ml 525 ml 600 ml Output Total 350 ml 100 ml Balance 468.0 ml 175 ml 500 ml medications Current Medications Medications Dose Ordered Sig/Aleta Route Start Time Stop Time Status Last Admin Dose Admin Acyclovir Sodium 700 mg/Sodium Chloride 264 ml @ 264 mls/hr DAILY IV 01/18/25 05:00 01/19/25 09:05 264 MLS/HR Hydrocortisone 1 applic BID TOP 01/18/25 10:00 01/19/25 09:06 1 APPLIC Diphenhydramine HCl 25 mg Q6HP PRN IV 01/18/25 04:30 Ondansetron HCl 4 mg Q4HP PRN IV 01/18/25 04:30 Nitroglycerin 0.4 mg Q5MINP PRN SL 01/18/25 04:30 Morphine Sulfate 2 mg Q30M PRN IV 01/18/25 04:30 Cefepime HCl 50 ml @ 12.5 mls/hr DAILY@0900 IV 01/18/25 09:00 01/19/25 08:56 12.5 MLS/HR Dextrose 50 ml UD PRN IV 01/18/25 15:00 Diagnostic Test (Pha) 1 strip Q90MIN 01/18/25 15:00 01/19/25 11:20 1 STRIP Dextrose/Sodium Chloride 1,000 ml @ 75 mls/hr [id number] IV 01/18/25 15:30 01/19/25 04:15 75 MLS/HR Dextrose/Sodium Chloride 1,000 ml @ 75 mls/hr [id number] IV 01/18/25 15:30 UNV Haloperidol Lactate 2.5 mg Q8HP PRN IM 01/18/25 22:45 Hydralazine HCl 10 mg Q6HP PRN IV 01/19/25 05:30 01/19/25 08:56 10 MG Amlodipine Besylate 10 mg DAILY PO 01/19/25 10:00 01/19/25 11:21 10 MG objective Confused HEENT: Normocephalic Lungs: Bilateral good air entry CVS: S1, S2 regular rhythm Abdomen: Soft bowel sounds present AIRCRAFT INSTRUMENT REPAIRER: Confused Extremities: No edema laboratory and microbiology Laboratory Tests 01/19/25 02:40 Test 01/19/25 02:40 Range/Units Serum Glucose 60 L 74-106 mg/dL Problem List End-stage kidney disease on hemodialysis Metabolic encephalopathy Shingles Diabetic ketoacidosis Hyponatremia secondary to elevated blood sugars, resolved Assessment/Plan Hemodialysis on TTS schedule. Continue with IV hydration. To be started on oral diet today. Blood sugars continued to be than 100. Continue with antiviral. Plan discussed with: GA Arenas MD Jan 19, 2025 11:51
[2025-01-19] MEDS: ACCU-CHEK COMFORT CURVE STRIP VI SCH (17:00)
[2025-01-19] MEDS: InsuLIN REG 1unit/0.01ml Soln (100units/ml) SC SCH (17:00)
[2025-01-19] MEDS: DEXTROSE (50%) 50ML SYRG IV PRN (23:46)
[2025-01-20] VITALS (109 sets, daily range): BP systolic 73–189; BP diastolic 36–123; PULSE 55–96; RESP 11–27; TEMP 97–100; O2SAT 91–100
[2025-01-20] MEDS: D5W/SOD CHLO 0.9% 1,000 ML IV SCH (00:15)
[2025-01-20 02:55] LABS: Hematocrit 36.0 % (41.0-53.0); Hemoglobin 12.2 g/dL (13.5-17.5); Mean Corpuscular Hemoglobin 31.1 pg (28.0-32.0); Mean Corpuscular Volume 92.0 fL (80.0-100.0); Nucleated Red Blood Cells % 0.1 %
[2025-01-20 03:03] LABS: Anion Gap 14 (5-15); Carbon Dioxide 24 mmol/L (20-31); Chloride 101 mmol/L (98-107); Potassium 4.4 mmol/L (3.5-5.1); Sodium 139 mmol/L (136-145)
[2025-01-20 03:04] LABS: Calcium 8.8 mg/dL (8.7-10.4)
[2025-01-20 03:09] LABS: BUN/Creatinine Ratio 7.8 (10.0-20.0)
[2025-01-20 03:10] LABS: Blood Urea Nitrogen 65 mg/dL (9-23); Glucose 158 mg/dL (74-106)
[2025-01-20 03:28] LABS: Base Excess -4.0 mmol/L (-2.0-3.0)
[2025-01-20] MEDS: IPRATROPIUM BROM 0.5 MG/2.5ML INH SOL NEB PRN (04:36)
[2025-01-20] MEDS: ALBUTEROL SULF 2.5 MG/0.5ML(0.5%) NEB SOLN NEB PRN (04:37)
[2025-01-20] MEDS: HALOPERIDOL LACTATE 5 MG/ML INJ VIAL IM PRN (07:08)
[2025-01-20] MEDS ORDERED: LORazepam 2MG/ML-1ML VIAL IV PRN (07:15)
--- NOTE | 2025-01-20 07:15 | DVHPN2 ---
Subjective Patient with encephalopathy Reviewed: Care Plan, H&P, Labs, Medications Changes from previous H/P or p: No Changes General: Per HPI Objective Vitals Vital Signs Date Time Temp Pulse Resp B/P (MAP) Pulse Ox O2 Delivery O2 Flow Rate FiO2 01/20/25 06:31 65 25 152/69 (96) 96 01/20/25 06:00 Nasal Cannula* 6 44 01/20/25 04:03 97.3 97.3 Intake/Output Intake and Output 01/20/25 07:00 Intake Total 934.0 ml Output Total 180 ml Balance 754.0 ml Intake Oral 50 ml IV Total 884.0 ml Output Urine/Stool Mix 180 ml General Appearance: Alert, Cooperative, mild distress, Other (Encephalopathic, Oriented x 2) HEENT: Atraumatic, Other (Unequal pupils) Lungs: Clear to auscultation, Normal air movement Cardiovascular: Normal S1, Normal S2 Abdomen: Normal bowel sounds, Soft, No tenderness, No hepatospenomegaly Genitourinary: No Apparent Abnormalities (Ashford) Musculoskeletal: Normal sensory function, Normal motor function Neuro: Normal gait, Normal speech, Other (Negative Brudzinski and Kernig sign) Skin: Dry, Intact, Other (Rash to right upper chest) Psych/Mental Status: Mental status NL, Mood NL Medications Current Medications Medications Dose Ordered Sig/Aleta Route Start Time Stop Time Status Last Admin Dose Admin Acyclovir Sodium 700 mg/Sodium Chloride 264 ml @ 264 mls/hr DAILY IV 01/18/25 05:00 01/19/25 09:05 264 MLS/HR Hydrocortisone 1 applic BID TOP 01/18/25 10:00 01/19/25 22:00 1 APPLIC Diphenhydramine HCl 25 mg Q6HP PRN IV 01/18/25 04:30 Ondansetron HCl 4 mg Q4HP PRN IV 01/18/25 04:30 Nitroglycerin 0.4 mg Q5MINP PRN SL 01/18/25 04:30 Morphine Sulfate 2 mg Q30M PRN IV 01/18/25 04:30 Cefepime HCl 50 ml @ 12.5 mls/hr DAILY@0900 IV 01/18/25 09:00 01/19/25 08:56 12.5 MLS/HR Dextrose/Sodium Chloride 1,000 ml @ 75 mls/hr [id number] IV 01/18/25 15:30 UNV Haloperidol Lactate 2.5 mg Q8HP PRN IM 01/18/25 22:45 01/20/25 07:08 2.5 MG Hydralazine HCl 10 mg Q6HP PRN IV 01/19/25 05:30 01/19/25 08:56 10 MG Amlodipine Besylate 10 mg DAILY PO 01/19/25 10:00 01/19/25 11:21 10 MG Diagnostic Test (Pha) 1 strip IQ4HR 01/19/25 16:00 01/20/25 03:20 1 STRIP Insulin Human Regular IQ4HR SC 01/19/25 16:00 01/19/25 20:27 4 UNITS Dextrose 50 ml UD PRN IV 01/19/25 14:30 01/19/25 23:46 50 ML Dextrose/Sodium Chloride 1,000 ml @ 60 mls/hr [id number] IV 01/20/25 00:15 01/20/25 00:15 60 MLS/HR Albuterol 2.5 mg Q4HPRN PRN NEB 01/20/25 00:15 01/20/25 04:37 2.5 MG Ipratropium [place] 0.5 mg Q4HPRN PRN NEB 01/20/25 00:15 01/20/25 04:36 0.5 MG Laboratory Results Laboratory Tests 01/20/25 02:21 Chemistry Test 01/20/25 02:21 Calcium Level 8.8 mg/dL (8.7-10.4) Urinalysis Test 01/18/25 10:20 Urine Color Light-yellow (Yellow) Urine Clarity Clear (Clear) Urine pH 6.5 (5.0-9.0) Urine Specific [place] 1.017 (1.001-1.035) Urine Protein 3+ (Negative) H Urine Ketones Negative (Negative) Urine Blood 1+ /uL (Negative) H Urine Nitrite Negative (Negative) Urine Bilirubin Negative (Negative) Urine Urobilinogen Normal mg/dL (Negative) Urine Leukocyte Esterase Negative /uL (Negative) Urine RBC 1 /hpf (0 - 3) Urine Microscopic WBC 5 /HPF (0-3) H Urine Squamous Epithelial Cells Few /hpf (<5) Urine Bacteria None seen /hpf (None Seen) Urine Glucose 4+ mg/dL (Normal) H Blood Gas Results Test 01/20/25 03:15 Arterial Blood pH 7.375 (7.350-7.450) FiO2 % 36.0 Microbiology Microbiology Date/Time Source Procedure Growth Status 01/18/25 00:45 Nose MRSA Screen - Final Complete 01/17/25 23:25 Blood Blood Culture - Preliminary NO GROWTH AFTER 48 HOURS OF INCUBATION. Resulted Labs and/or images reviewed: Labs reviewed by me, Image(s) reviewed by me Assessment/Plan Assessment/Plan Impression: -Sepsis -metabolic encephalopathy -DKA -ESRD with hemodialysis -primary hypertension -dyslipidemia -hyponatremia -? seizure -Hypoglycemia Plan: Events: Patient now confused. Hypoglycemic episode. ? Seizure (non- tonic/clonic) -start diet -Neurology consult. EEG ordered -Lorazepam prn seizure activity -Haldol for agitation -Continue D5 half NS at 60 mL an hour -continue IV acyclovir, cefepime -Repeat labs in AM Critical care time spent with patient discussing and formulating plan of care: 40 minutes. This does not include time spent performing procedures. This medical document was created using an electronic medical record system with [employer] dictation system. Although this document has been carefully reviewed, there may still be some phonetic and typographical errors. These areas are purely typographical due to imperfections of the software programs, and do not reflect any compromise in the patient's medical care. Plan discussed with: Patient, Other (RN) My Orders Orders - ROCÍO RAMIREZ APPRENTICESHIP TRAINING REPRESENTATIVE Procedure Category Date Status Time Amlodipine Tablet PHA 01/19/25 In Process (Norvasc Tablet) 10:00 Consistent DIET 01/19/25 Transmitted Carb(Ccho)Diabetes Lunch Glucose Blood PHA 01/19/25 In Process (Accu-Chek Comfort 16:00 Insulin R (Human) PHA 01/19/25 In Process (Insulin R) 16:00 Dextrose 50% Syringe PHA 01/19/25 In Process 14:30 Haloperidol Lactate PHA 01/20/25 Transmitted Injection (Haldol) 07:15 Eeg Awake/Sleep/Act EEG 01/20/25 Transmitted 07:07 Basic Metabolic Panel LAB 01/21/25 Verified 05:00 Basic Metabolic Panel LAB 01/22/25 Verified 05:00 Basic Metabolic Panel LAB 01/23/25 Verified 05:00 Complete Blood Count LAB 01/21/25 Verified 05:00 Complete Blood Count LAB 01/22/25 Verified 05:00 Complete Blood Count LAB 01/23/25 Verified 05:00 Date of Service: Jan 20, 2025 Billing Provider: ROCÍO RAMIREZ NP Common Visit Codes: [id number] CARE 30-74 MIN ROCÍO RAMIREZ NP Jan 20, 2025 07:15
[2025-01-20] MEDS: HALOPERIDOL LACTATE 5 MG/ML INJ VIAL IM ONE (07:55)
[2025-01-20] MEDS: diphenhydrAMINE HCL 50 MG/1 ML VL IV PRN (11:45)
[2025-01-20] MEDS: SODIUM CHL 0.9% 1000 ML BAG XX ONE (13:22)
--- NOTE | 2025-01-20 13:37 | DVH ---
EXAM: XY CHEST PORTABLE CLINICAL HISTORY: increased work of breathing TECHNIQUE: Single AP view of the chest WID: COMPARISON: XY CHEST XRAY 1 VIEW on DOS: 01/18/25 FINDINGS: Lines and tubes: None Chest: Upper limits of normal-sized heart with mild prominence of the pulmonary vasculature. Linear opacity in the right lung base and mild linear perihilar opacities. Interstitial opacities of the lungs. No pneumothorax or significant pleural effusion. The osseous structures are grossly intact. IMPRESSION: 1. Upper limits of normal-sized heart with prominence of the central pulmonary vasculature. 2. Interstitial opacities of the lungs which could be due to atypical infection, scarring/ fibrosis, or pulmonary edema. 3. Linear opacity in the right lung base which could reflect atelectasis or pneumonia.
[2025-01-20] MEDS: ETOMIDATE (2MG/ML) 20ML VIAL IV ONE ×2 (13:45→14:31)
[2025-01-20] MEDS: ROCURONIUM 10MG/ML 10ML VIAL IV ONE ×2 (13:45→14:31)
[2025-01-20] MEDS: MIDAZOLAM DRIP 100 mg/100mL NS 100 ML IV SCH (13:55)
[2025-01-20] MEDS: fentaNYL Drip 2500mCg/250mlNS 250 ML IV SCH (13:55)
--- NOTE | 2025-01-20 14:29 | DVHPN2 ---
Date of Service: Jan 20, 2025 Billing Provider: ROCÍO RAMIREZ NP Common Visit Codes: [id number] CARE-EACH +30MIN ROCÍO RAMIREZ NP Jan 20, 2025 14:29
[2025-01-20] MEDS: NOREPINEPHRINE 8 MG/250ML KIT 250 ML IV SCH (14:30)
[2025-01-20] MEDS ORDERED: VANCOMYCIN PER PHARMACY 0 MG IV SCH (14:30)
--- NOTE | 2025-01-20 14:31 | DVHNC2 ---
Central Line Recorder of insertion practice: Gettering Operator Occupation of head custodian: Other (MOHAMUD Avalos) Indication: Hypotension, CVP monitoring, Volume resuscitation, Inability to obtain IV Room prepared for procedure: Yes Gettering Operator performed hand hygien: Yes Maximal sterile barrier precau: Mask/Eye shield, Sterile gown, Cap, Sterlie gloves, Large sterlie drape Skin Preparation: Chlorhexidine gluconate Skin preparation completely dr: Yes Insertion site: Left, Internal jugular Central line catheter type: [id number]-[id number] dialysis Number of lumens: 3 Central line exchanged over a: No Antiseptic ointment applied to: No Post Assessment: Chest X-Ray, Proper placement, Pneumothorax Informed consent obtained: Yes Risks/benefits/alt described: Yes Notes Estimated blood loss: 5 mL Ultrasound guidance CPT code: 65999 Date of Service: Jan 20, 2025 Billing Provider: ROCÍO RAMIREZ NP Common Visit Codes: PROCEDURE ONLY Procedure Codes: [id number] NON-TUNNEL CV CATH, [id number] GUIDE VASCULAR ACCESS ROCÍO RAMIREZ NP Jan 20, 2025 14:31
[2025-01-20] MEDS: fentaNYL Drip 2500mCg/250mlNS 250 ML IV ONE (14:33)
[2025-01-20] MEDS: MIDAZOLAM DRIP 100 mg/100mL NS 100 ML IV ONE (14:33)
--- NOTE | 2025-01-20 14:33 | DVHNC2 ---
Intubation Indication: Respiratory Insufficiency, Altered Mental Status, Airway Protection Prep: Preoxygenation Pretreated with: Sedation Medicated with: Vecuronium (50mg) Intubation Approach: Orotracheal Intubation size: cm (8) Informed consent obtained: Yes Risks/benefits/alt described: Yes Notes Etomidate 15 mg Petroleum scope use. Placement verified with auscultation, end-tidal CO2. Date of Service: Jan 20, 2025 Billing Provider: ROCÍO RAMIREZ NP Common Visit Codes: PROCEDURE ONLY Procedure Codes: [id number] ROCÍO RAMIREZ NP Jan 20, 2025 14:33
[2025-01-20] MEDS: VANCOMYCIN 1GM/250ML KIT 250 ML IV ONE (14:45)
[2025-01-20 15:34] LABS: Base Excess 2.3 mmol/L (-2.0-3.0)
--- NOTE | 2025-01-20 15:38 | DVH ---
EXAM: XY CHEST PORTABLE HISTORY: VERIFY LINE AND ET TUBE PLACEMENT TECHNIQUE: 1 view of the chest COMPARISON: XY CHEST PORTABLE on DOS: 01/20/25 FINDINGS/IMPRESSION: LUNGS: No pleural effusion, consolidation, or pneumothorax. Atelectasis of the right hemidiaphragm. S lightly decreased central pulmonary vascular congestion. MEDIASTINUM: Unremarkable. BONES: No acute osseous abnormality. OTHER: Endotracheal tube 5.5 cm above the robert. Enteric tube extending into the level of the duoden al bulb. Left internal jugular central venous catheter of the cavoatrial junction.
[2025-01-20 15:40] LABS: Base Excess 1.1 mmol/L (-2.0-3.0)
--- NOTE | 2025-01-20 17:26 | DVHPN2 ---
Progress Note - Dictate Date Seen: Jan 20, 2025 Medical Necessity Reason Pt with a Central, PICC or Fol: Yes The following are medically ne: [place] Catheter Subjective Patient was intubated today Underwent HD today vital signs Vital Sign Date Time Temp Pulse Resp B/P (MAP) Pulse Ox O2 Delivery O2 Flow Rate FiO2 01/20/25 16:30 71 16 92/59 (70) 100 30 01/20/25 16:00 Oxymizer 6 01/20/25 12:00 100.0 100.0 Total Intake and Output 01/19/25 01/19/25 01/20/25 15:00 23:00 07:00 Intake Total 764.0 ml 50 ml 120 ml Output Total 100 ml 80 ml Balance 764.0 ml -50 ml 40 ml medications Current Medications Medications Dose Ordered Sig/Aleta Route Start Time Stop Time Status Last Admin Dose Admin Acyclovir Sodium 700 mg/Sodium Chloride 264 ml @ 264 mls/hr DAILY IV 01/18/25 05:00 01/20/25 10:00 264 MLS/HR Hydrocortisone 1 applic BID TOP 01/18/25 10:00 01/20/25 11:44 1 APPLIC Diphenhydramine HCl 25 mg Q6HP PRN IV 01/18/25 04:30 01/20/25 11:45 25 MG Ondansetron HCl 4 mg Q4HP PRN IV 01/18/25 04:30 Nitroglycerin 0.4 mg Q5MINP PRN SL 01/18/25 04:30 Morphine Sulfate 2 mg Q30M PRN IV 01/18/25 04:30 Cefepime HCl 50 ml @ 12.5 mls/hr DAILY@0900 IV 01/18/25 09:00 01/20/25 09:00 12.5 MLS/HR Dextrose/Sodium Chloride 1,000 ml @ 75 mls/hr [id number] IV 01/18/25 15:30 UNV Haloperidol Lactate 2.5 mg Q8HP PRN IM 01/18/25 22:45 01/20/25 07:08 2.5 MG Hydralazine HCl 10 mg Q6HP PRN IV 01/19/25 05:30 01/19/25 08:56 10 MG Amlodipine Besylate 10 mg DAILY PO 01/19/25 10:00 01/19/25 11:21 10 MG Diagnostic Test (Pha) 1 strip IQ4HR 01/19/25 16:00 01/20/25 12:00 1 STRIP Insulin Human Regular IQ4HR SC 01/19/25 16:00 01/19/25 20:27 4 UNITS Dextrose 50 ml UD PRN IV 01/19/25 14:30 01/19/25 23:46 50 ML Dextrose/Sodium Chloride 1,000 ml @ 60 mls/hr [id number] IV 01/20/25 00:15 01/20/25 17:04 60 MLS/HR Albuterol 2.5 mg Q4HPRN PRN NEB 01/20/25 00:15 01/20/25 09:53 2.5 MG Ipratropium [place] 0.5 mg Q4HPRN PRN NEB 01/20/25 00:15 01/20/25 09:53 0.5 MG Lorazepam 1 mg Q5MINP PRN IV 01/20/25 07:15 Midazolam HCl 100 ml @ 1 mls/hr Q24H IV 01/20/25 14:00 01/20/25 13:55 1 MLS/HR Fentanyl Citrate 250 ml @ 2.5 mls/hr Q24H IV 01/20/25 14:00 01/20/25 13:55 2.5 MLS/HR Vancomycin HCl 0 ml @ 0 mls/hr PER PHARMACY IV 01/20/25 14:30 Enteral Nutritional Formula 1,000 ml 30ML/HR GT 01/20/25 14:30 Norepinephrine Bitartrate 250 ml @ 3.75 mls/hr Q24H IV 01/20/25 14:30 01/20/25 14:30 3.75 MLS/HR Albuterol 2.5 mg Q6HR NEB 01/20/25 18:00 Ipratropium [place] 0.5 mg Q6HR NEB 01/20/25 18:00 objective intubated HEENT: Normocephalic Lungs: Bilateral good air entry CVS: S1, S2 regular rhythm Abdomen: Soft bowel sounds present 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 Continue with IV hydration. continue antivirals and antibiotics Plan discussed with: GA Arenas MD Jan 20, 2025 17:26
[2025-01-20] MEDS: IPRATROPIUM BROM 0.5 MG/2.5ML INH SOL NEB SCH (18:58)
[2025-01-20] MEDS: ALBUTEROL SULF 2.5 MG/0.5ML(0.5%) NEB SOLN NEB SCH (18:58)
[2025-01-20] MEDS: Nepro With Carb Steady 1 Liter Bottle GT SCH (20:17)
[2025-01-21] VITALS (107 sets, daily range): BP systolic 84–185; BP diastolic 42–64; PULSE 56–69; RESP 16–20; TEMP 96.4–97.8; O2SAT 58–100
[2025-01-21 03:45] LABS: Hematocrit 30.5 % (41.0-53.0); Hemoglobin 10.3 g/dL (13.5-17.5); Mean Corpuscular Hemoglobin 31.4 pg (28.0-32.0); Mean Corpuscular Volume 92.5 fL (80.0-100.0); Nucleated Red Blood Cells % 0.0 %
[2025-01-21 03:56] LABS: Chloride 104 mmol/L (98-107); Potassium 3.8 mmol/L (3.5-5.1); Sodium 143 mmol/L (136-145)
[2025-01-21 03:57] LABS: Anion Gap 14 (5-15); Carbon Dioxide 25 mmol/L (20-31)
[2025-01-21 03:58] LABS: Calcium 8.3 mg/dL (8.7-10.4)
[2025-01-21 04:02] LABS: BUN/Creatinine Ratio 7.0 (10.0-20.0)
[2025-01-21 04:08] LABS: Blood Urea Nitrogen 48 mg/dL (9-23); Glucose 242 mg/dL (74-106)
--- NOTE | 2025-01-21 07:16 | DVH ---
CHEST RADIOGRAPH Indication: INTERVAL CHANGES Technique: Single frontal view of the chest was obtained Comparison: XY CHEST PORTABLE on DOS: 01/20/25, XY CHEST PORTABLE on DOS: 01/20/25, XY CHEST XRAY 1 V IEW on DOS: 01/18/25 IMPRESSION: Heart appears stable in size. Support lines and tubes appear unchanged in satisfactory position. Pat cait airspace opacity in the right lower lung may represent subsegmental atelectasis and appear slight ly improved. No sizable effusion or pneumothorax. HS:Y
[2025-01-21 08:53] LABS: Base Excess 0.2 mmol/L (-2.0-3.0)
[2025-01-21] MEDS: VANCOMYCIN 500mg/100mL 100 ML IV ONE (09:30)
[2025-01-21] MEDS: NOREPINEPHRINE 8 MG/250ML KIT 250 ML IV SCH (09:30)
--- NOTE | 2025-01-21 09:30 | DVHPN2 ---
Subjective Patient intubated and sedated Reviewed: Care Plan, H&P, Labs, Medications Changes from previous H/P or p: No Changes General: Per HPI Objective Vitals Vital Signs Date Time Temp Pulse Resp B/P (MAP) Pulse Ox O2 Delivery O2 Flow Rate FiO2 01/21/25 08:45 58 16 143/53 (83) 100 01/21/25 08:25 30 01/21/25 08:00 97.6 97.6 01/21/25 07:30 Mechanical Ventilator+ 01/20/25 16:00 Intake/Output Intake and Output 01/21/25 07:00 Intake Total 1696.75 ml Output Total 55 ml Balance 1641.75 ml IV Total 1696.75 ml Output Urine Total 55 ml General Appearance: mild distress, moderate distress, Other (Intubated and sedated) HEENT: Atraumatic, Other (Unequal pupils) Lungs: Clear to auscultation, Normal air movement Chest/Breasts: Other (Noted rash, shingles to right upper chest) Cardiovascular: Normal S1, Normal S2, Other (Sinus rhythm/sinus bradycardia) Abdomen: Normal bowel sounds, Soft, No tenderness, No hepatospenomegaly Genitourinary: No Apparent Abnormalities ([place]) Musculoskeletal: Other (Unable to assess) Neuro: Other (Unable to assess) Skin: Dry, Intact, Other (Rash to right upper chest) Psych/Mental Status: Other (Unable to assess) Medications Current Medications Medications Dose Ordered Sig/Aleta Route Start Time Stop Time Status Last Admin Dose Admin Acyclovir Sodium 700 mg/Sodium Chloride 264 ml @ 264 mls/hr DAILY IV 01/18/25 05:00 01/20/25 10:00 264 MLS/HR Hydrocortisone 1 applic BID TOP 01/18/25 10:00 01/20/25 23:00 1 APPLIC Diphenhydramine HCl 25 mg Q6HP PRN IV 01/18/25 04:30 01/20/25 11:45 25 MG Ondansetron HCl 4 mg Q4HP PRN IV 01/18/25 04:30 Nitroglycerin 0.4 mg Q5MINP PRN SL 01/18/25 04:30 Morphine Sulfate 2 mg Q30M PRN IV 01/18/25 04:30 Cefepime HCl 50 ml @ 12.5 mls/hr DAILY@0900 IV 01/18/25 09:00 01/20/25 09:00 12.5 MLS/HR Dextrose/Sodium Chloride 1,000 ml @ 75 mls/hr [id number] IV 01/18/25 15:30 UNV Hydralazine HCl 10 mg Q6HP PRN IV 01/19/25 05:30 01/19/25 08:56 10 MG Diagnostic Test (Pha) 1 strip IQ4HR 01/19/25 16:00 01/21/25 08:21 1 STRIP Insulin Human Regular IQ4HR SC 01/19/25 16:00 01/21/25 00:45 6 UNITS Dextrose 50 ml UD PRN IV 01/19/25 14:30 01/19/25 23:46 50 ML Albuterol 2.5 mg Q4HPRN PRN NEB 01/20/25 00:15 01/20/25 09:53 2.5 MG Ipratropium [place] 0.5 mg Q4HPRN PRN NEB 01/20/25 00:15 01/20/25 09:53 0.5 MG Midazolam HCl 100 ml @ 1 mls/hr Q24H IV 01/20/25 14:00 01/20/25 13:55 1 MLS/HR Fentanyl Citrate 250 ml @ 2.5 mls/hr Q24H IV 01/20/25 14:00 01/20/25 13:55 2.5 MLS/HR Vancomycin HCl 0 ml @ 0 mls/hr PER PHARMACY IV 01/20/25 14:30 Albuterol 2.5 mg Q6HR NEB 01/20/25 18:00 01/21/25 06:48 2.5 MG Ipratropium [place] 0.5 mg Q6HR NEB 01/20/25 18:00 01/21/25 06:48 0.5 MG Norepinephrine Bitartrate 250 ml @ 3.75 mls/hr Q24H IV 01/21/25 09:00 Enteral Nutritional Formula 1,000 ml 50ML/HR GT 01/21/25 09:30 UNV Pantoprazole Sodium 40 mg DAILY IV 01/21/25 10:00 UNV Sucralfate 1 gm BID@0600,2200 GT 01/21/25 22:00 UNV Laboratory Results Laboratory Tests 01/21/25 03:00 Chemistry Test 01/21/25 03:00 Calcium Level 8.3 mg/dL (8.7-10.4) L Urinalysis Test 01/18/25 10:20 Urine Color Light-yellow (Yellow) Urine Clarity Clear (Clear) Urine pH 6.5 (5.0-9.0) Urine Specific [place] 1.017 (1.001-1.035) Urine Protein 3+ (Negative) H Urine Ketones Negative (Negative) Urine Blood 1+ /uL (Negative) H Urine Nitrite Negative (Negative) Urine Bilirubin Negative (Negative) Urine Urobilinogen Normal mg/dL (Negative) Urine Leukocyte Esterase Negative /uL (Negative) Urine RBC 1 /hpf (0 - 3) Urine Microscopic WBC 5 /HPF (0-3) H Urine Squamous Epithelial Cells Few /hpf (<5) Urine Bacteria None seen /hpf (None Seen) Urine Glucose 4+ mg/dL (Normal) H Blood Gas Results Test 01/20/25 11:07 01/20/25 15:31 01/21/25 08:03 Arterial Blood pH 7.482 (7.350-7.450) 7.468 (7.350-7.450) 7.444 (7.350-7.450) FiO2 % 44.0 30.0 30.0 Microbiology Microbiology Date/Time Source Procedure Growth Status 01/18/25 00:45 Nose MRSA Screen - Final Complete 01/17/25 23:25 Blood Blood Culture - Preliminary NO GROWTH AFTER 72 HOURS OF INCUBATION. Resulted Labs and/or images reviewed: Labs reviewed by me, Image(s) reviewed by me Assessment/Plan Assessment/Plan Impression: -Sepsis -metabolic encephalopathy -DKA -ESRD with hemodialysis -primary hypertension -dyslipidemia -hyponatremia -? seizure -Hypoglycemia Plan: Events: Patient had worsening clinical status including tachypnea, inability to have productive cough with noted audible airway secretions. Patient also not able to follow any commands. Patient's subsequently intubated with central line being placed. Patient's status was discussed with and daughter who were bedside prior to intubation. No events overnight. Hypoglycemia resolved -stop IV fluids -continue Nepro with carb steady tube feeding -Neurology consult. EEG ordered, recommendations appreciated -ppi, Carafate -continue IV acyclovir, cefepime, vancomycin -repeat labs, chest x-ray, ABG in a.m. Critical care time spent with patient discussing and formulating plan of care: 40 minutes. This does not include time spent performing procedures. This medical document was created using an electronic medical record system with [employer] dictation system. Although this document has been carefully reviewed, there may still be some phonetic and typographical errors. These areas are purely typographical due to imperfections of the software programs, and do not reflect any compromise in the patient's medical care. 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 Procedure Category Date Status Time Chest Portable XY 01/20/25 Resulted 10:40 Abg W/ Co-Ox RT 01/20/25 Logged 10:40 Midazolam Drip 100 PHA 01/20/25 In Process Mg/100ml Ns (Versed D 14:00 Fentanyl Drip PHA 01/20/25 In Process 2500mcg/250mlns 14:00 Rass Sedation Scale SANCHEZ 01/20/25 In Process 13:46 Central Line Insertion BD 01/20/25 Transmitted 14:05 Us Guided Vascular US 01/20/25 Logged Access 14:05 Ventilator Setup RT 01/20/25 Logged 14:00 Respiratory Culture SHELLY 01/20/25 In Process W/ Gs 14:08 Abg W/ Co-Ox RT 01/20/25 Logged 14:08 Chest Portable XY 01/20/25 Resulted 14:12 Brain Head Wo Contrast MRI 01/20/25 Logged 14:26 Vancomycin Per PHA 01/20/25 In Process Pharmacy 14:30 Respiratory Culture SHELLY 01/20/25 Logged W/ Gs 14:41 Albuterol Medneb PHA 01/20/25 In Process (Ventolin Medneb) 18:00 Ipratropium Medneb PHA 01/20/25 In Process (Atrovent Medneb) 18:00 Place Ng ORDERS 01/20/25 Transmitted 16:08 Chest Portable XY 01/21/25 Resulted 04:00 Abg W/ Co-Ox RT 01/21/25 Logged 06:00 Vancomycin 500mg/100ml PHA 01/21/25 In Process 09:00 Vancomycin,Random LAB 01/22/25 Verified 05:00 Norepinephrine 8 PHA 01/21/25 In Process Mg/250ml Kit 09:00 Communication Order ORDERS 01/21/25 Transmitted 08:58 Nutritional PHA 01/21/25 Logged Supplements (Nepro 09:30 Pantoprazole PHA 01/21/25 Logged (Protonix) 10:00 Sucralfate Susp PHA 01/21/25 Logged (Carafate Susp) 22:00 Sequential SANCHEZ 01/21/25 In Process Compression Device 09:21 Date of Service: Jan 21, 2025 Billing Provider: ROCÍO RAMIREZ NP Common Visit Codes: 51130-DORDNXLS CARE 30-74 MIN ROCÍO RAMIREZ NP Jan 21, 2025 09:30
[2025-01-21] MEDS: PANTOPRAZOLE 40 MG/10 ML VIAL INJ IV SCH (10:21)
--- NOTE | 2025-01-21 11:41 | DVHPN2 ---
Progress Note - Dictate Date Seen: Jan 21, 2025 Medical Necessity Reason Pt with a Central, PICC or Fol: Yes The following are medically ne: [place] Catheter Subjective Intubated and sedated vital signs Vital Sign Date Time Temp Pulse Resp B/P (MAP) Pulse Ox O2 Delivery O2 Flow Rate FiO2 01/21/25 10:35 57 16 115/49 (71) 100 30 01/21/25 09:30 Mechanical Ventilator 01/21/25 08:00 97.6 97.6 01/20/25 16:00 Total Intake and Output 01/20/25 01/20/25 01/21/25 15:00 23:00 07:00 Intake Total 564.75 ml 566.00 ml 566.00 ml Output Total 50 ml 5 ml Balance 564.75 ml 516.00 ml 561.00 ml medications Current Medications Medications Dose Ordered Sig/Aleta Route Start Time Stop Time Status Last Admin Dose Admin Acyclovir Sodium 700 mg/Sodium Chloride 264 ml @ 264 mls/hr DAILY IV 01/18/25 05:00 01/21/25 10:21 264 MLS/HR Hydrocortisone 1 applic BID TOP 01/18/25 10:00 01/21/25 10:21 1 APPLIC Diphenhydramine HCl 25 mg Q6HP PRN IV 01/18/25 04:30 01/20/25 11:45 25 MG Ondansetron HCl 4 mg Q4HP PRN IV 01/18/25 04:30 Nitroglycerin 0.4 mg Q5MINP PRN SL 01/18/25 04:30 Morphine Sulfate 2 mg Q30M PRN IV 01/18/25 04:30 Cefepime HCl 50 ml @ 12.5 mls/hr DAILY@0900 IV 01/18/25 09:00 01/21/25 10:00 12.5 MLS/HR Dextrose/Sodium Chloride 1,000 ml @ 75 mls/hr [id number] IV 01/18/25 15:30 UNV Hydralazine HCl 10 mg Q6HP PRN IV 01/19/25 05:30 01/19/25 08:56 10 MG Diagnostic Test (Pha) 1 strip IQ4HR 01/19/25 16:00 01/21/25 08:21 1 STRIP Insulin Human Regular IQ4HR SC 01/19/25 16:00 01/21/25 00:45 6 UNITS Dextrose 50 ml UD PRN IV 01/19/25 14:30 01/19/25 23:46 50 ML Albuterol 2.5 mg Q4HPRN PRN NEB 01/20/25 00:15 01/20/25 09:53 2.5 MG Ipratropium [place] 0.5 mg Q4HPRN PRN NEB 01/20/25 00:15 01/20/25 09:53 0.5 MG Midazolam HCl 100 ml @ 1 mls/hr Q24H IV 01/20/25 14:00 01/20/25 13:55 1 MLS/HR Fentanyl Citrate 250 ml @ 2.5 mls/hr Q24H IV 01/20/25 14:00 01/20/25 13:55 2.5 MLS/HR Vancomycin HCl 0 ml @ 0 mls/hr PER PHARMACY IV 01/20/25 14:30 Albuterol 2.5 mg Q6HR [facility] 01/20/25 18:00 01/21/25 06:48 2.5 MG Ipratropium [place] 0.5 mg Q6HR [facility] 01/20/25 18:00 01/21/25 06:48 0.5 MG Norepinephrine Bitartrate 250 ml @ 3.75 mls/hr Q24H IV 01/21/25 09:00 01/21/25 09:30 1.875 MLS/HR Enteral Nutritional Formula 1,000 ml 50ML/HR GT 01/21/25 09:30 Pantoprazole Sodium 40 mg DAILY IV 01/21/25 10:00 01/21/25 10:21 40 MG Sucralfate 1 gm BID@0600,2200 GT 01/21/25 22:00 objective intubated and sedated HEENT: Normocephalic Lungs: Bilateral good air entry CVS: S1, S2 regular rhythm Abdomen: Soft bowel sounds present 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 Blood sugars have improved. IV fluid has been discontinued. Continue with vancomycin, cefepime and acyclovir. Acyclovir to be dosed appropriately by pharmacy Dietary Evaluation Review Comments: 1) Consider reducing TF rate from 50 mL to 40 mL/hr goal rate to prevent overfeeding. Nepro Carbsteady @ 40 mL/hr will provide 1728 kcals, 78g Pro, and 698 mL free H2O per 24 hrs. Goal rate will meet 100% estimated energy needs and 85% estimated protein needs 2) Advance to 60g CCHO renal diet when medically feasible 3) Collect HbA1c 4) Follow-up with nephrology, cardiology, and pulmonology 5) Continue to monitor I&O, labs, and skin integrity Expected Outcomes/Goals: 1) nutrition support to meet at least 75% estimated daily needs 2) labs to improve 3) diet to advance 4) f/u in 2-3 days Plan discussed with: Other GA FLOYD MD Jan 21, 2025 11:41
--- NOTE | 2025-01-21 17:10 | DVHPN2 ---
Progress Note - Dictate Date Seen: Jan 21, 2025 Medical Necessity Reason Pt with a Central, PICC or Fol: Yes The following are medically ne: Ashford Catheter Subjective Mr. Pisano is a 70 years old right-handed gentleman with a history of hypertension, diabetes, end-stage kidney failure on hemodialysis, the patient was brought to the [facility] on 01/17/2025 with a chief complaint of altered mental status. I have seen and examined the patient, I have talked to his nurse. Because no improvement in the mental status, increased secretion and difficulty cleaning the respiratory tract, he was intubated on 01/20/2025 He is nonresponsive to strong painful stimuli, no gag reflex, sluggish light reflexes, the right pupil is slightly bigger Versed 4 mg/hour, fentanyl 100 mcg/hour, levo 2 mcg/min ABG, 01/18/2025: Compensated Metabolic acidosis UDS, 01/18/2025: Negative Plasma alcohol, 01/17/2025: <3 Urinalysis, 01/18/2025: WBC: Five, urine leukocyte esterase: Negative CBC, 01/18/2025: Compensated metabolic acidosis WBC/HB/PLT/MCV, 01/18/2025: 14.4/11.8/189/92.3 Na, 01/18/2025: 127, 131 BUN/CR, : 113/11.33, 119/11.42, 50/5.72, 01/19/2025: 57/7.03 GFR, 01/18/2025: 4, 4, 10 Anion gap, 01/18/2025: 19, 20, Glucose, 01/17/2025: 856, 01/18/2025: 862, 710, 551, 231 Liver function tests, 01/18/2025: Unremarkable Chest x-ray, 01/18/2025: There is prominence of the interstitial markings. Mild right basilar opacity. Mild prominence of the cardiomediastinal silhouette, likely accentuated by technique. No pleural effusion or pneumothorax. No acute osseous abnormality CT head, 01/15/2025: 1. No acute territorial infarct, intracranial hemorrhage, or mass effect. 2. Age-related involutional changes. Chronic ischemic changes as detailed. 3. If clinical symptoms persist, MRI may be beneficial in further evaluation (Chronic right cerebellar infarct) vital signs Vital Sign Date Time Temp Pulse Resp B/P (MAP) Pulse Ox O2 Delivery O2 Flow Rate FiO2 01/21/25 15:38 60 20 100/49 (66) 100 30 01/21/25 12:07 Mechanical Ventilator+ 01/21/25 12:00 96.4 96.4 01/20/25 16:00 Total Intake and Output 01/20/25 01/20/25 01/21/25 15:00 23:00 07:00 Intake Total 564.75 ml 566.00 ml 566.00 ml Output Total 50 ml 5 ml Balance 564.75 ml 516.00 ml 561.00 ml medications Current Medications Medications Dose Ordered Sig/Aleta Route Start Time Stop Time Status Last Admin Dose Admin Acyclovir Sodium 700 mg/Sodium Chloride 264 ml @ 264 mls/hr DAILY IV 01/18/25 05:00 01/21/25 10:21 264 MLS/HR Hydrocortisone 1 applic BID TOP 01/18/25 10:00 01/21/25 10:21 1 APPLIC Diphenhydramine HCl 25 mg Q6HP PRN IV 01/18/25 04:30 01/20/25 11:45 25 MG Ondansetron HCl 4 mg Q4HP PRN IV 01/18/25 04:30 Nitroglycerin 0.4 mg Q5MINP PRN SL 01/18/25 04:30 Morphine Sulfate 2 mg Q30M PRN IV 01/18/25 04:30 Cefepime HCl 50 ml @ 12.5 mls/hr DAILY@0900 IV 01/18/25 09:00 01/21/25 10:00 12.5 MLS/HR Dextrose/Sodium Chloride 1,000 ml @ 75 mls/hr [id number] IV 01/18/25 15:30 UNV Hydralazine HCl 10 mg Q6HP PRN IV 01/19/25 05:30 01/19/25 08:56 10 MG Diagnostic Test (Pha) 1 strip IQ4HR 01/19/25 16:00 01/21/25 16:48 1 STRIP Insulin Human Regular IQ4HR SC 01/19/25 16:00 01/21/25 11:31 6 UNITS Dextrose 50 ml UD PRN IV 01/19/25 14:30 01/19/25 23:46 50 ML Albuterol 2.5 mg Q4HPRN PRN NEB 01/20/25 00:15 01/20/25 09:53 2.5 MG Ipratropium [place] 0.5 mg Q4HPRN PRN NEB 01/20/25 00:15 01/20/25 09:53 0.5 MG Midazolam HCl 100 ml @ 1 mls/hr Q24H IV 01/20/25 14:00 01/21/25 11:31 4 MLS/HR Fentanyl Citrate 250 ml @ 2.5 mls/hr Q24H IV 01/20/25 14:00 01/20/25 13:55 2.5 MLS/HR Vancomycin HCl 0 ml @ 0 mls/hr PER PHARMACY IV 01/20/25 14:30 Albuterol 2.5 mg Q6HR [facility] 01/20/25 18:00 01/21/25 12:06 2.5 MG Ipratropium [place] 0.5 mg Q6HR [facility] 01/20/25 18:00 01/21/25 12:06 0.5 MG Norepinephrine Bitartrate 250 ml @ 3.75 mls/hr Q24H IV 01/21/25 09:00 01/21/25 09:30 1.875 MLS/HR Enteral Nutritional Formula 1,000 ml 50ML/HR GT 01/21/25 09:30 Pantoprazole Sodium 40 mg DAILY IV 01/21/25 10:00 01/21/25 10:21 40 MG Sucralfate 1 gm BID@0600,2200 GT 01/21/25 22:00 objective The patient is well-nourished and well-developed with no distress. The patient is intubated MENTAL STATUS: Subjective CRANIAL NERVES: Pupils are round and slightly reactive, right pupil was slightly bigger. There are corneal reflexes and doll's eyes phenomenon. No signs of facial weakness. There are no gagging or coughing reflexes SENSATION: No responses to pain stimuli. MOTOR: Normal tone in the upper and lower extremity. Normal muscle bulk. No fasciculations. No spontaneous movement. REFLEXES: Deep tendon reflexes are symmetrical. No pathological reflexes. CEREBELLAR/COORDINATION: Deferred GAIT/STATION: deferred. laboratory and microbiology Laboratory Tests 01/21/25 03:00 Test 01/21/25 03:00 Range/Units Serum Glucose 242 H 74-106 mg/dL Problem List Diabetic ketoacidosis Metabolic acidosis Metabolic encephalopathy Herpes zoster infection/shingles End-stage kidney failure Anisocoria with right pupil bigger, possible secondary to history of surgery One eye blindness Assessment/Plan Monitoring Supportive treatment ICU care Stabilize vitals/pressor drip Respiratory support/vent management Oxygen Acyclovir 700 mg daily IV antibiotics Current pain management Haldol for agitation More hear from him once he mentally improved More recommendation per clinical course This medical document was created using an electronic medical record system with [employer] dictation system. Although this document has been carefully reviewed, there may still be some phonetic and typographical errors. These areas are purely typographical due to imperfections of the software programs, and do not reflect any compromise in the patient's medical care. Prognosis Guarded Dietary Evaluation Review Comments: 1) Consider reducing TF rate from 50 mL to 40 mL/hr goal rate to prevent overfeeding. Nepro Carbsteady @ 40 mL/hr will provide 1728 kcals, 78g Pro, and 698 mL free H2O per 24 hrs. Goal rate will meet 100% estimated energy needs and 85% estimated protein needs 2) Advance to 60g CCHO renal diet when medically feasible 3) Collect HbA1c 4) Follow-up with nephrology, cardiology, and pulmonology 5) Continue to monitor I&O, labs, and skin integrity Expected Outcomes/Goals: 1) nutrition support to meet at least 75% estimated daily needs 2) labs to improve 3) diet to advance 4) f/u in 2-3 days Plan discussed with: Other Critical Care Time(min): 35 LETTY HANNA MD Jan 21, 2025 17:10
[2025-01-21] MEDS: SUCRALFATE 1 GM/10 ML ORAL SUSP GT SCH (21:37)
[2025-01-22] VITALS (104 sets, daily range): BP systolic 80–145; BP diastolic 38–63; PULSE 61–81; RESP 16–19; TEMP 97.8–99.7; O2SAT 100
[2025-01-22 03:40] LABS: Anion Gap 14 (5-15); Calcium 8.9 mg/dL (8.7-10.4); Carbon Dioxide 24 mmol/L (20-31); Chloride 105 mmol/L (98-107); Potassium 4.1 mmol/L (3.5-5.1); Sodium 143 mmol/L (136-145)
[2025-01-22 03:46] LABS: BUN/Creatinine Ratio 8.5 (10.0-20.0)
[2025-01-22 03:54] LABS: Blood Urea Nitrogen 67 mg/dL (9-23); Glucose 271 mg/dL (74-106)
[2025-01-22 03:57] LABS: Hematocrit 30.1 % (41.0-53.0); Hemoglobin 10.3 g/dL (13.5-17.5); Mean Corpuscular Hemoglobin 31.6 pg (28.0-32.0); Mean Corpuscular Volume 92.4 fL (80.0-100.0); Nucleated Red Blood Cells % 0.1 %
[2025-01-22 07:04] LABS: Base Excess -2.1 mmol/L (-2.0-3.0)
--- NOTE | 2025-01-22 08:49 | DVHPN2 ---
Subjective Patient intubated and sedated Reviewed: Care Plan, H&P, Labs, Medications Changes from previous H/P or p: No Changes General: Per HPI Objective Vitals Vital Signs Date Time Temp Pulse Resp B/P (MAP) Pulse Ox O2 Delivery O2 Flow Rate FiO2 01/22/25 08:15 16 100 30 01/22/25 07:30 64 Mechanical Ventilator+ 01/22/25 07:30 128/50 (76) 01/22/25 04:00 98.0 98.0 01/20/25 16:00 Intake/Output Intake and Output 01/22/25 07:00 Intake Total 1443.998 ml Output Total 75 ml Balance 1368.998 ml Intake Oral 60 ml IV Total 828.998 ml Tube Feeding 555 ml Output Urine Total 75 ml General Appearance: mild distress, moderate distress, Other (Intubated and sedated) HEENT: Atraumatic, Other (Unequal pupils) Lungs: Clear to auscultation, Normal air movement Chest/Breasts: Other (Noted rash, shingles to right upper chest) Cardiovascular: Normal S1, Normal S2, Other (Sinus rhythm/sinus bradycardia) Abdomen: Normal bowel sounds, Soft, No tenderness, No hepatospenomegaly Genitourinary: No Apparent Abnormalities ([place]) Musculoskeletal: Other (Unable to assess) Neuro: Other (Unable to assess) Skin: Dry, Intact, Other (Rash to right upper chest) Psych/Mental Status: Other (Unable to assess) Medications Current Medications Medications Dose Ordered Sig/Aleta Route Start Time Stop Time Status Last Admin Dose Admin Acyclovir Sodium 700 mg/Sodium Chloride 264 ml @ 264 mls/hr DAILY IV 01/18/25 05:00 01/21/25 10:21 264 MLS/HR Hydrocortisone 1 applic BID TOP 01/18/25 10:00 01/21/25 21:37 1 APPLIC Diphenhydramine HCl 25 mg Q6HP PRN IV 01/18/25 04:30 01/20/25 11:45 25 MG Ondansetron HCl 4 mg Q4HP PRN IV 01/18/25 04:30 Nitroglycerin 0.4 mg Q5MINP PRN SL 01/18/25 04:30 Morphine Sulfate 2 mg Q30M PRN IV 01/18/25 04:30 Cefepime HCl 50 ml @ 12.5 mls/hr DAILY@0900 IV 01/18/25 09:00 01/21/25 10:00 12.5 MLS/HR Dextrose/Sodium Chloride 1,000 ml @ 75 mls/hr [id number] IV 01/18/25 15:30 UNV Hydralazine HCl 10 mg Q6HP PRN IV 01/19/25 05:30 01/19/25 08:56 10 MG Albuterol 2.5 mg Q4HPRN PRN NEB 01/20/25 00:15 01/20/25 09:53 2.5 MG Ipratropium [place] 0.5 mg Q4HPRN PRN NEB 01/20/25 00:15 01/20/25 09:53 0.5 MG Midazolam HCl 100 ml @ 1 mls/hr Q24H IV 01/20/25 14:00 01/21/25 11:31 4 MLS/HR Fentanyl Citrate 250 ml @ 2.5 mls/hr Q24H IV 01/20/25 14:00 01/21/25 17:10 10 MLS/HR Vancomycin HCl 0 ml @ 0 mls/hr PER PHARMACY IV 01/20/25 14:30 Albuterol 2.5 mg Q6HR NEB 01/20/25 18:00 01/22/25 06:34 2.5 MG Ipratropium [place] 0.5 mg Q6HR NEB 01/20/25 18:00 01/22/25 06:34 0.5 MG Norepinephrine Bitartrate 250 ml @ 3.75 mls/hr Q24H IV 01/21/25 09:00 01/21/25 09:30 1.875 MLS/HR Enteral Nutritional Formula 1,000 ml 50ML/HR GT 01/21/25 09:30 Pantoprazole Sodium 40 mg DAILY IV 01/21/25 10:00 01/21/25 10:21 40 MG Sucralfate 1 gm BID@0600,2200 GT 01/21/25 22:00 01/22/25 05:33 1 GM Insulin Glargine 10 units DAILY@1000 SC 01/22/25 10:00 UNV Diagnostic Test (Pha) 1 strip Q6HR 01/22/25 12:00 UNV Insulin Human Regular Q6HR SC 01/22/25 12:00 UNV Dextrose 50 ml UD PRN IV 01/22/25 08:30 UNV Laboratory Results Laboratory Tests 01/22/25 03:04 Chemistry Test 01/22/25 03:04 Calcium Level 8.9 mg/dL (8.7-10.4) Urinalysis Test 01/18/25 10:20 Urine Color Light-yellow (Yellow) Urine Clarity Clear (Clear) Urine pH 6.5 (5.0-9.0) Urine Specific [place] 1.017 (1.001-1.035) Urine Protein 3+ (Negative) H Urine Ketones Negative (Negative) Urine Blood 1+ /uL (Negative) H Urine Nitrite Negative (Negative) Urine Bilirubin Negative (Negative) Urine Urobilinogen Normal mg/dL (Negative) Urine Leukocyte Esterase Negative /uL (Negative) Urine RBC 1 /hpf (0 - 3) Urine Microscopic WBC 5 /HPF (0-3) H Urine Squamous Epithelial Cells Few /hpf (<5) Urine Bacteria None seen /hpf (None Seen) Urine Glucose 4+ mg/dL (Normal) H Blood Gas Results Test 01/22/25 06:57 Arterial Blood pH 7.402 (7.350-7.450) FiO2 % 30.0 Microbiology Microbiology Date/Time Source Procedure Growth Status 01/20/25 14:00 Sputum Gram Stain - Final Resulted 01/20/25 14:00 Sputum Respiratory Culture - Preliminary Resulted 01/18/25 00:45 Nose MRSA Screen - Final Complete 01/17/25 23:25 Blood Blood Culture - Preliminary NO GROWTH AFTER 72 HOURS OF INCUBATION. Resulted Labs and/or images reviewed: Labs reviewed by me, Image(s) reviewed by me Assessment/Plan Assessment/Plan Impression: -Sepsis -metabolic encephalopathy -DKA -ESRD with hemodialysis -primary hypertension -dyslipidemia -hyponatremia -? seizure -Hypoglycemia Plan: Events: No events overnight. Patient's blood sugar continuously over 200. Tolerating tube feedings. MRI of the brain pending. -continue regular insulin sliding scale q.6 hours with initiation of Lantus 10 units daily. -continue Nepro with carb steady tube feeding -Neurology consult. Recommendations reviewed -ppi, Carafate -continue IV acyclovir, cefepime, vancomycin -repeat labs, chest x-ray, ABG in a.m. Critical care time spent with patient discussing and formulating plan of care: 40 minutes. This does not include time spent performing procedures. This medical document was created using an electronic medical record system with [employer] computerized dictation system. Although this document has been carefully reviewed, there may still be some phonetic and typographical errors. These areas are purely typographical due to imperfections of the software programs, and do not reflect any compromise in the patient's medical care. Plan discussed with: Patient, Other (RN) My Orders Orders - ROCÍO RAMIREZ NP Procedure Category Date Status Time Norepinephrine 8 PHA 01/21/25 In Process Mg/250ml Kit 09:00 Communication Order ORDERS 01/21/25 Transmitted 08:58 Nutritional PHA 01/21/25 In Process Supplements (Nepro 09:30 Pantoprazole PHA 01/21/25 In Process (Protonix) 10:00 Sucralfate Susp PHA 01/21/25 In Process (Carafate Susp) 22:00 Sequential SANCHEZ 01/21/25 In Process Compression Device 09:21 Transfer Orders XFER 01/22/25 Transmitted 04:05 Abg W/ Co-Ox RT 01/22/25 Logged 05:36 Insulin Lantus PHA 01/22/25 Logged (Glargine) (Lantus) 10:00 Chest Portable XY 01/23/25 Logged 05:00 Chest Portable XY 01/24/25 Logged 05:00 Chest Portable XY 01/25/25 Logged 05:00 Glucose Blood PHA 01/22/25 Logged (Accu-Chek Comfort 12:00 Insulin R (Human) PHA 01/22/25 Logged (Insulin R) 12:00 Dextrose 50% Syringe PHA 01/22/25 Logged 08:30 Date of Service: Jan 22, 2025 Billing Provider: ROCÍO RAMIREZ NP Common Visit Codes: [id number] CARE 30-74 MIN ROCÍO RAMIREZ NP Jan 22, 2025 08:49
[2025-01-22] MEDS: INSULIN LANTUS (GLARGINE) 1 /0.01ml (100units/ml) SC SCH (10:31)
--- NOTE | 2025-01-22 10:32 | DVHPN2 ---
Progress Note - Dictate Date Seen: Jan 22, 2025 Medical Necessity Reason Pt with a Central, PICC or Fol: Yes The following are medically ne: [place] Catheter Subjective Mr. Pisano is a 70 years old right-handed gentleman with a history of hypertension, diabetes, end-stage kidney failure on hemodialysis, the patient was brought to the [facility] on 01/17/2025 with a chief complaint of altered mental status. Because no improvement in the mental status, increased secretion and difficulty cleaning the respiratory tract, he was intubated on 01/20/2025 I have seen and examined the patient, I have talked to his nurse. He is nonresponsive to strong painful stimuli, no gag reflex, sluggish light reflexes, the anisocoria looks more obvious today Versed 3 mg/hour, fentanyl 100 mcg/hour, levo 2 mcg/min Pupil size 04/2724: Right: 3-4 mm, left: 1-2 mm, no associated abnormal vascular dilatation and skin secretion ABG, 01/18/2025: Compensated Metabolic acidosis UDS, 01/18/2025: Negative Plasma alcohol, 01/17/2025: <3 Urinalysis, 01/18/2025: WBC: Five, urine leukocyte esterase: Negative CBC, 01/18/2025: Compensated metabolic acidosis WBC/HB/PLT/MCV, 01/18/2025: 14.4/11.8/189/92.3 Na, 01/18/2025: 127, 131 BUN/CR, : 113/11.33, 119/11.42, 50/5.72, 01/19/2025: 57/7.03 GFR, 01/18/2025: 4, 4, 10 Anion gap, 01/18/2025: 19, 20, Glucose, 01/17/2025: 856, 01/18/2025: 862, 710, 551, 231 Liver function tests, 01/18/2025: Unremarkable Chest x-ray, 01/18/2025: There is prominence of the interstitial markings. Mild right basilar opacity. Mild prominence of the cardiomediastinal silhouette, likely accentuated by technique. No pleural effusion or pneumothorax. No acute osseous abnormality CT head, 01/15/2025: 1. No acute territorial infarct, intracranial hemorrhage, or mass effect. 2. Age-related involutional changes. Chronic ischemic changes as detailed. 3. If clinical symptoms persist, MRI may be beneficial in further evaluation (Chronic right cerebellar infarct) vital signs Vital Sign Date Time Temp Pulse Resp B/P (MAP) Pulse Ox O2 Delivery O2 Flow Rate FiO2 01/22/25 09:50 69 16 96/38 (57) 100 30 01/22/25 07:30 Mechanical Ventilator+ 01/22/25 04:00 98.0 98.0 01/20/25 16:00 Total Intake and Output 01/21/25 01/21/25 01/22/25 15:00 23:00 07:00 Intake Total 533.750 ml 334.655 ml 575.593 ml Output Total 35 ml 40 ml Balance 533.750 ml 299.655 ml 535.593 ml medications Current Medications Medications Dose Ordered Sig/Aleta Route Start Time Stop Time Status Last Admin Dose Admin Acyclovir Sodium 700 mg/Sodium Chloride 264 ml @ 264 mls/hr DAILY IV 01/18/25 05:00 01/22/25 09:04 264 MLS/HR Hydrocortisone 1 applic BID TOP 01/18/25 10:00 01/22/25 09:10 1 APPLIC Ondansetron HCl 4 mg Q4HP PRN IV 01/18/25 04:30 Nitroglycerin 0.4 mg Q5MINP PRN SL 01/18/25 04:30 Morphine Sulfate 2 mg Q30M PRN IV 01/18/25 04:30 Cefepime HCl 50 ml @ 12.5 mls/hr DAILY@0900 IV 01/18/25 09:00 01/22/25 09:04 12.5 MLS/HR Dextrose/Sodium Chloride 1,000 ml @ 75 mls/hr [id number] IV 01/18/25 15:30 UNV Hydralazine HCl 10 mg Q6HP PRN IV 01/19/25 05:30 01/19/25 08:56 10 MG Albuterol 2.5 mg Q4HPRN PRN NEB 01/20/25 00:15 01/20/25 09:53 2.5 MG Ipratropium [place] 0.5 mg Q4HPRN PRN NEB 01/20/25 00:15 01/20/25 09:53 0.5 MG Midazolam HCl 100 ml @ 1 mls/hr Q24H IV 01/20/25 14:00 01/21/25 11:31 4 MLS/HR Fentanyl Citrate 250 ml @ 2.5 mls/hr Q24H IV 01/20/25 14:00 01/21/25 17:10 10 MLS/HR Vancomycin HCl 0 ml @ 0 mls/hr PER PHARMACY IV 01/20/25 14:30 Albuterol 2.5 mg Q6HR NEB 01/20/25 18:00 01/22/25 06:34 2.5 MG Ipratropium [place] 0.5 mg Q6HR NEB 01/20/25 18:00 01/22/25 06:34 0.5 MG Norepinephrine Bitartrate 250 ml @ 3.75 mls/hr Q24H IV 01/21/25 09:00 01/21/25 09:30 1.875 MLS/HR Enteral Nutritional Formula 1,000 ml 50ML/HR GT 01/21/25 09:30 Pantoprazole Sodium 40 mg DAILY IV 01/21/25 10:00 01/22/25 09:04 40 MG Sucralfate 1 gm BID@0600,2200 GT 01/21/25 22:00 01/22/25 05:33 1 GM Insulin Glargine 10 units DAILY@1000 SC 01/22/25 10:00 Diagnostic Test (Pha) 1 strip Q6HR 01/22/25 12:00 Insulin Human Regular Q6HR SC 01/22/25 12:00 Dextrose 50 ml UD PRN IV 01/22/25 08:30 objective The patient is well-nourished and well-developed with no distress. The patient is intubated MENTAL STATUS: Subjective CRANIAL NERVES: Pupils are round and slightly reactive, right pupil is bigger. There are no corneal reflexes and but he has doll's eyes phenomenon. No signs of facial weakness. There are no gagging or coughing reflexes SENSATION: No responses to pain stimuli. MOTOR: Normal tone in the upper and lower extremity. Normal muscle bulk. No fasciculations. No spontaneous movement. REFLEXES: Deep tendon reflexes are symmetrical. No pathological reflexes. CEREBELLAR/COORDINATION: Deferred GAIT/STATION: deferred. laboratory and microbiology Laboratory Tests 01/22/25 03:04 Test 01/22/25 03:04 Range/Units Serum Glucose 271 H 74-106 mg/dL Problem List Diabetic ketoacidosis Metabolic acidosis Metabolic encephalopathy Herpes zoster infection/shingles End-stage kidney failure Anisocoria with right pupil bigger, possible secondary to history of surgery One eye blindness Assessment/Plan Monitoring Supportive treatment ICU care Stabilize vitals/pressor drip Respiratory support/vent management Oxygen Acyclovir 700 mg daily IV antibiotics Current pain management Haldol for agitation More hear from him once he mentally improved, More recommendation per clinical course This medical document was created using an electronic medical record system with [employer] dictation system. Although this document has been carefully reviewed, there may still be some phonetic and typographical errors. These areas are purely typographical due to imperfections of the software programs, and do not reflect any compromise in the patient's medical care. Prognosis guarded Dietary Evaluation Review Comments: 1) Consider reducing TF rate from 50 mL to 40 mL/hr goal rate to prevent overfeeding. Nepro Carbsteady @ 40 mL/hr will provide 1728 kcals, 78g Pro, and 698 mL free H2O per 24 hrs. Goal rate will meet 100% estimated energy needs and 85% estimated protein needs 2) Advance to 60g CCHO renal diet when medically feasible 3) Collect HbA1c 4) Follow-up with nephrology, cardiology, and pulmonology 5) Continue to monitor I&O, labs, and skin integrity Expected Outcomes/Goals: 1) nutrition support to meet at least 75% estimated daily needs 2) labs to improve 3) diet to advance 4) f/u in 2-3 days Plan discussed with: Other Critical Care Time(min): 35 LETTY HANNA MD Jan 22, 2025 10:32
[2025-01-22] MEDS: InsuLIN REG 1unit/0.01ml Soln (100units/ml) SC SCH (11:55)
[2025-01-22] MEDS: ACCU-CHEK COMFORT CURVE STRIP VI SCH (11:55)
--- NOTE | 2025-01-22 13:35 | DVHPN2 ---
Progress Note - Dictate Date Seen: Jan 22, 2025 Medical Necessity Reason Pt with a Central, PICC or Fol: Yes The following are medically ne: [place] Catheter Subjective On mechanical ventilation vital signs Vital Sign Date Time Temp Pulse Resp B/P (MAP) Pulse Ox O2 Delivery O2 Flow Rate FiO2 01/22/25 12:34 70 16 106/46 (66) 100 30 01/22/25 09:30 Mechanical Ventilator+ 01/22/25 08:00 99.7 99.7 01/20/25 16:00 Total Intake and Output 01/21/25 01/21/25 01/22/25 15:00 23:00 07:00 Intake Total 533.750 ml 334.655 ml 575.593 ml Output Total 35 ml 40 ml Balance 533.750 ml 299.655 ml 535.593 ml medications Current Medications Medications Dose Ordered Sig/Aleta Route Start Time Stop Time Status Last Admin Dose Admin Acyclovir Sodium 700 mg/Sodium Chloride 264 ml @ 264 mls/hr DAILY IV 01/18/25 05:00 01/22/25 09:04 264 MLS/HR Hydrocortisone 1 applic BID TOP 01/18/25 10:00 01/22/25 09:10 1 APPLIC Ondansetron HCl 4 mg Q4HP PRN IV 01/18/25 04:30 Nitroglycerin 0.4 mg Q5MINP PRN SL 01/18/25 04:30 Morphine Sulfate 2 mg Q30M PRN IV 01/18/25 04:30 Cefepime HCl 50 ml @ 12.5 mls/hr DAILY@0900 IV 01/18/25 09:00 01/22/25 09:04 12.5 MLS/HR Dextrose/Sodium Chloride 1,000 ml @ 75 mls/hr [id number] IV 01/18/25 15:30 UNV Hydralazine HCl 10 mg Q6HP PRN IV 01/19/25 05:30 01/19/25 08:56 10 MG Albuterol 2.5 mg Q4HPRN PRN NEB 01/20/25 00:15 01/20/25 09:53 2.5 MG Ipratropium [place] 0.5 mg Q4HPRN PRN NEB 01/20/25 00:15 01/20/25 09:53 0.5 MG Midazolam HCl 100 ml @ 1 mls/hr Q24H IV 01/20/25 14:00 01/22/25 10:31 3 MLS/HR Fentanyl Citrate 250 ml @ 2.5 mls/hr Q24H IV 01/20/25 14:00 01/21/25 17:10 10 MLS/HR Vancomycin HCl 0 ml @ 0 mls/hr PER PHARMACY IV 01/20/25 14:30 Albuterol 2.5 mg Q6HR NEB 01/20/25 18:00 01/22/25 12:34 2.5 MG Ipratropium [place] 0.5 mg Q6HR NEB 01/20/25 18:00 01/22/25 12:34 0.5 MG Norepinephrine Bitartrate 250 ml @ 3.75 mls/hr Q24H IV 01/21/25 09:00 01/21/25 09:30 1.875 MLS/HR Enteral Nutritional Formula 1,000 ml 50ML/HR GT 01/21/25 09:30 Pantoprazole Sodium 40 mg DAILY IV 01/21/25 10:00 01/22/25 09:04 40 MG Sucralfate 1 gm BID@0600,2200 GT 01/21/25 22:00 01/22/25 05:33 1 GM Insulin Glargine 10 units DAILY@1000 SC 01/22/25 10:00 01/22/25 10:31 10 UNITS Diagnostic Test (Pha) 1 strip Q6HR 01/22/25 12:00 01/22/25 11:55 1 STRIP Insulin Human Regular Q6HR SC 01/22/25 12:00 01/22/25 11:55 8 UNITS Dextrose 50 ml UD PRN IV 01/22/25 08:30 objective intubated and sedated HEENT: Normocephalic Lungs: Bilateral good air entry CVS: S1, S2 regular rhythm Abdomen: Soft bowel sounds present 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 Continue with vancomycin, cefepime Dietary Evaluation Review Comments: 1) Consider reducing TF rate from 50 mL to 40 mL/hr goal rate to prevent overfeeding. Nepro Carbsteady @ 40 mL/hr will provide 1728 kcals, 78g Pro, and 698 mL free H2O per 24 hrs. Goal rate will meet 100% estimated energy needs and 85% estimated protein needs 2) Advance to 60g CCHO renal diet when medically feasible 3) Collect HbA1c 4) Follow-up with nephrology, cardiology, and pulmonology 5) Continue to monitor I&O, labs, and skin integrity Expected Outcomes/Goals: 1) nutrition support to meet at least 75% estimated daily needs 2) labs to improve 3) diet to advance 4) f/u in 2-3 days Plan discussed with: Other HARRY ROMAN MD Jan 22, 2025 13:34
--- NOTE | 2025-01-22 14:23 | MEDREC ---
[facility] ASP Intervention Section I [facility] ASP Intervention: Deescalate AB based on CS (MRSA SCREEN NEGATIVE - BLOOD CULTURE WITH NO GROWTH (72 HRS) - PLEASE CONSIDER DE-ESCALATION BASED ON CULTURE RESULTS (D/C VANCOMYCIN) ) PAULO ZUÑIGA PHARMACIST Jan 22, 2025 14:23
--- NOTE | 2025-01-22 23:50 | DVHEEG2 ---
Neurology EEG Procedural Note Procedural Note EXAM DATE: 01/20/2025 REFERRING DOCTOR: Dr. Hanna TECHNIQUE: Eighteen channels of EEG, 2 channels of EOG, and 1 channel of EKG were recorded using the [employer] 10/20 system. CLINICAL DATA: The patient was referred for an EEG evaluation for the evidence of seizure disorder. MEDICATIONS: See the chart BACKGROUND ACTIVITY: The record showed moderate amount of low to medium amplitude mixed delta and theta activity over both hemispheres ACTIVATION: Hyperventilation: Not done Photic Stimulation: Not done Sleep: Not seen IMPRESSION: This is a moderately abnormal EEG, this EEG is seen in moderate cerebral dysfunction due to metabolic/hypoxic encephalopathy or medication effects, please correlate clinically. The EKG channel showed a regular heart rate of 78/min[place] [address] LETTY HANNA MD Jan 22, 2025 23:50
[2025-01-23] VITALS (111 sets, daily range): BP systolic 86–202; BP diastolic 37–72; PULSE 64–82; RESP 13–23; TEMP 96.1–97.8; O2SAT 100
--- NOTE | 2025-01-23 03:00 | DVH ---
CHEST RADIOGRAPH Indication: aspiration pna Technique: 1 view Comparison: XY CHEST PORTABLE on DOS: 01/21/25, XY CHEST PORTABLE on DOS: 01/20/25, XY CHEST PORTABLE on DOS: 01/20/25, XY CHEST XRAY 1 VIEW on DOS: 01/18/25 FINDINGS: Lines and Tubes: Unchanged. Lungs/Pleura: Unchanged. Cardiomediastinum: Unchanged. Other: Unchanged. IMPRESSION: No significant change from the previous study. Stable support devices. Mild bilateral interstitial opacities and basilar consolidations.
[2025-01-23 04:31] LABS: Hematocrit 29.8 % (41.0-53.0); Hemoglobin 10.0 g/dL (13.5-17.5); Mean Corpuscular Hemoglobin 31.0 pg (28.0-32.0); Mean Corpuscular Volume 92.6 fL (80.0-100.0); Nucleated Red Blood Cells % 0.1 %
[2025-01-23 04:32] LABS: Chloride 106 mmol/L (98-107); Potassium 4.6 mmol/L (3.5-5.1); Sodium 144 mmol/L (136-145)
[2025-01-23 04:33] LABS: Anion Gap 13 (5-15); Carbon Dioxide 25 mmol/L (20-31)
[2025-01-23 04:34] LABS: Calcium 8.5 mg/dL (8.7-10.4)
[2025-01-23 04:38] LABS: BUN/Creatinine Ratio 8.8 (10.0-20.0)
[2025-01-23 04:39] LABS: Glucose 237 mg/dL (74-106)
[2025-01-23 04:40] LABS: Blood Urea Nitrogen 82 mg/dL (9-23)
[2025-01-23 06:56] LABS: Base Excess -2.2 mmol/L (-2.0-3.0)
[2025-01-23] MEDS: SODIUM CHL 0.9% 1000 ML BAG XX ONE (07:00)
--- NOTE | 2025-01-23 08:45 | DVHPN2 ---
Subjective Patient intubated and sedated Reviewed: Care Plan, H&P, Labs, Medications Changes from previous H/P or p: No Changes General: Per HPI Objective Vitals Vital Signs Date Time Temp Pulse Resp B/P (MAP) Pulse Ox O2 Delivery O2 Flow Rate FiO2 01/23/25 07:38 68 16 113/53 (73) 100 30 01/23/25 06:00 Mechanical Ventilator+ 01/23/25 04:00 97.8 97.8 Intake/Output Intake and Output 01/23/25 07:00 Intake Total 1441.625 ml Output Total 60 ml Balance 1381.625 ml Intake Oral 60 ml IV Total 707.625 ml Tube Feeding 674 ml Output Urine Total 60 ml General Appearance: moderate distress, Other (Intubated and sedated) HEENT: Atraumatic, Other (Unequal pupils) Lungs: Clear to auscultation, Normal air movement, Other (Mechanical ventilation) Chest/Breasts: Other (Noted rash, shingles to right upper chest) Cardiovascular: Normal S1, Normal S2, Other (Sinus rhythm/sinus bradycardia) Abdomen: Normal bowel sounds, Soft, No tenderness, No hepatospenomegaly Genitourinary: No Apparent Abnormalities ([place]) Musculoskeletal: Other (Unable to assess) Neuro: Other (Unable to assess) Skin: Dry, Intact, Other (Rash to right upper chest) Psych/Mental Status: Other (Unable to assess) Medications Current Medications Medications Dose Ordered Sig/Aleta Route Start Time Stop Time Status Last Admin Dose Admin Acyclovir Sodium 700 mg/Sodium Chloride 264 ml @ 264 mls/hr DAILY IV 01/18/25 05:00 01/22/25 09:04 264 MLS/HR Hydrocortisone 1 applic BID TOP 01/18/25 10:00 01/22/25 21:55 1 APPLIC Ondansetron HCl 4 mg Q4HP PRN IV 01/18/25 04:30 Nitroglycerin 0.4 mg Q5MINP PRN SL 01/18/25 04:30 Morphine Sulfate 2 mg Q30M PRN IV 01/18/25 04:30 Cefepime HCl 50 ml @ 12.5 mls/hr DAILY@0900 IV 01/18/25 09:00 01/22/25 09:04 12.5 MLS/HR Dextrose/Sodium Chloride 1,000 ml @ 75 mls/hr [id number] IV 01/18/25 15:30 UNV Hydralazine HCl 10 mg Q6HP PRN IV 01/19/25 05:30 01/19/25 08:56 10 MG Albuterol 2.5 mg Q4HPRN PRN NEB 01/20/25 00:15 01/20/25 09:53 2.5 MG Ipratropium [place] 0.5 mg Q4HPRN PRN NEB 01/20/25 00:15 01/20/25 09:53 0.5 MG Midazolam HCl 100 ml @ 1 mls/hr Q24H IV 01/20/25 14:00 01/22/25 10:31 3 MLS/HR Fentanyl Citrate 250 ml @ 2.5 mls/hr Q24H IV 01/20/25 14:00 01/21/25 17:10 10 MLS/HR Vancomycin HCl 0 ml @ 0 mls/hr PER PHARMACY IV 01/20/25 14:30 Albuterol 2.5 mg Q6HR NEB 01/20/25 18:00 01/23/25 06:33 2.5 MG Ipratropium [place] 0.5 mg Q6HR NEB 01/20/25 18:00 01/23/25 06:33 0.5 MG Norepinephrine Bitartrate 250 ml @ 3.75 mls/hr Q24H IV 01/21/25 09:00 01/22/25 22:15 5.625 MLS/HR Enteral Nutritional Formula 1,000 ml 50ML/HR GT 01/21/25 09:30 Pantoprazole Sodium 40 mg DAILY IV 01/21/25 10:00 01/22/25 09:04 40 MG Sucralfate 1 gm BID@0600,2200 GT 01/21/25 22:00 01/23/25 06:24 1 GM Insulin Glargine 10 units DAILY@1000 SC 01/22/25 10:00 01/22/25 10:31 10 UNITS Diagnostic Test (Pha) 1 strip Q6HR 01/22/25 12:00 01/23/25 06:24 1 STRIP Insulin Human Regular Q6HR SC 01/22/25 12:00 01/22/25 18:20 6 UNITS Dextrose 50 ml UD PRN IV 01/22/25 08:30 Laboratory Results Laboratory Tests 01/23/25 03:40 Chemistry Test 01/23/25 03:40 Calcium Level 8.5 mg/dL (8.7-10.4) L Urinalysis Test 01/18/25 10:20 Urine Color Light-yellow (Yellow) Urine Clarity Clear (Clear) Urine pH 6.5 (5.0-9.0) Urine Specific [place] 1.017 (1.001-1.035) Urine Protein 3+ (Negative) H Urine Ketones Negative (Negative) Urine Blood 1+ /uL (Negative) H Urine Nitrite Negative (Negative) Urine Bilirubin Negative (Negative) Urine Urobilinogen Normal mg/dL (Negative) Urine Leukocyte Esterase Negative /uL (Negative) Urine RBC 1 /hpf (0 - 3) Urine Microscopic WBC 5 /HPF (0-3) H Urine Squamous Epithelial Cells Few /hpf (<5) Urine Bacteria None seen /hpf (None Seen) Urine Glucose 4+ mg/dL (Normal) H Blood Gas Results Test 01/23/25 06:50 Arterial Blood pH 7.405 (7.350-7.450) FiO2 % 30.0 Microbiology Microbiology Date/Time Source Procedure Growth Status 01/20/25 14:00 Sputum Gram Stain - Final Resulted 01/20/25 14:00 Sputum Respiratory Culture - Preliminary Resulted 01/18/25 00:45 Nose MRSA Screen - Final Complete 01/17/25 23:25 Blood Blood Culture - Final NO GROWTH AFTER 5 DAYS OF INCUBATION. Complete Labs and/or images reviewed: Labs reviewed by me, Image(s) reviewed by me Assessment/Plan Assessment/Plan Impression: -Sepsis -metabolic encephalopathy -DKA -ESRD with hemodialysis -primary hypertension -dyslipidemia -hyponatremia -? seizure -Hypoglycemia Plan: Events: No events overnight. Blood sugars still uncontrolled. Plans for HD today. Weaned sedation, plans for CPAP tomorrow. Pending MRI, clarification needed to see if patient needs to be isolated. -continue regular insulin sliding scale q.6 hours, increase Lantus to 20 units -continue Nepro with carb steady tube feeding -Neurology consult. Recommendations reviewed -ppi, Carafate -cultures reviewed. Deescalate to cefepime and acyclovir -repeat labs, chest x-ray, ABG in a.m. Critical care time spent with patient discussing and formulating plan of care: 40 minutes. This does not include time spent performing procedures. This medical document was created using an electronic medical record system with [employer] dictation system. Although this document has been carefully reviewed, there may still be some phonetic and typographical errors. These areas are purely typographical due to imperfections of the software programs, and do not reflect any compromise in the patient's medical care. Plan discussed with: Patient, Other (RN) My Orders Orders - ROCÍO RAMIREZ NP Procedure Category Date Status Time Abg W/ Co-Ox RT 01/23/25 Logged 05:24 Respiratory Misc. RT 01/23/25 Transmitted Order 06:00 Insulin Lantus PHA 01/23/25 Verified (Glargine) (Lantus) 10:00 Communication Order ORDERS 01/23/25 Verified 08:29 Basic Metabolic Panel LAB 01/24/25 Verified 04:00 Chest Portable XY 01/24/25 Verified 04:00 Abg W/ Co-Ox RT 01/24/25 Verified 04:00 Complete Blood Count LAB 01/24/25 Verified 04:00 Cpap Trial For Am ORDERS 01/24/25 Verified 04:00 Cpap/Sed Vacation Med ORDERS 01/24/25 Verified Weaning 04:00 Date of Service: Jan 23, 2025 Billing Provider: ROCÍO RAMIREZ NP Common Visit Codes: 65801-[id number] CARE 30-74 MIN ROCÍO RAMIREZ NP Jan 23, 2025 08:45
[2025-01-23] MEDS: INSULIN LANTUS (GLARGINE) 1 /0.01ml (100units/ml) SC SCH (10:14)
--- NOTE | 2025-01-23 10:21 | DVHPN2 ---
Progress Note - Dictate Date Seen: Jan 23, 2025 Medical Necessity Reason Pt with a Central, PICC or Fol: Yes The following are medically ne: [place] Catheter Subjective Mr. Pisano is a 70 years old right-handed gentleman with a history of hypertension, diabetes, end-stage kidney failure on hemodialysis, the patient was brought to the [facility] on 01/17/2025 with a chief complaint of altered mental status. Because no improvement in the mental status, increased secretion and difficulty cleaning the respiratory tract, he was intubated on 01/20/2025 I have seen and examined the patient, I have talked to his nurse. He is nonresponsive to strong painful stimuli, no gag reflex, sluggish light reflexes, the anisocoria persists Versed 0 mg/hour, fentanyl 75 mcg/hour, levo 1 mcg/min Pupil size 01/22/25: Right: 3-4 mm, left: 1-2 mm, no associated abnormal vascular dilatation and skin secretion 01/22/25: Right: 3-4 mm, left: 2 mm ABG, 01/18/2025: Compensated Metabolic acidosis UDS, 01/18/2025: Negative Plasma alcohol, 01/17/2025: <3 Urinalysis, 01/18/2025: WBC: Five, urine leukocyte esterase: Negative CBC, 01/18/2025: Compensated metabolic acidosis WBC/HB/PLT/MCV, 01/18/2025: 14.4/11.8/189/92.3 Na, 01/18/2025: 127, 131 BUN/CR, : 113/11.33, 119/11.42, 50/5.72, 01/19/2025: 57/7.03 GFR, 01/18/2025: 4, 4, 10 Anion gap, 01/18/2025: 19, 20, Glucose, 01/17/2025: 856, 01/18/2025: 862, 710, 551, 231 Liver function tests, 01/18/2025: Unremarkable Chest x-ray, 01/18/2025: There is prominence of the interstitial markings. Mild right basilar opacity. Mild prominence of the cardiomediastinal silhouette, likely accentuated by technique. No pleural effusion or pneumothorax. No acute osseous abnormality CT head, 01/15/2025: 1. No acute territorial infarct, intracranial hemorrhage, or mass effect. 2. Age-related involutional changes. Chronic ischemic changes as detailed. 3. If clinical symptoms persist, MRI may be beneficial in further evaluation (Chronic right cerebellar infarct) vital signs Vital Sign Date Time Temp Pulse Resp B/P (MAP) Pulse Ox O2 Delivery O2 Flow Rate FiO2 01/23/25 10:14 133/52 01/23/25 09:41 66 16 100 30 01/23/25 06:00 Mechanical Ventilator+ 01/23/25 04:00 97.8 97.8 Total Intake and Output 01/22/25 01/22/25 01/23/25 15:00 23:00 07:00 Intake Total 466.000 ml 507.625 ml 468 ml Output Total 60 ml Balance 466.000 ml 447.625 ml 468 ml medications Current Medications Medications Dose Ordered Sig/Aleta Route Start Time Stop Time Status Last Admin Dose Admin Acyclovir Sodium 700 mg/Sodium Chloride 264 ml @ 264 mls/hr DAILY IV 01/18/25 05:00 01/22/25 09:04 264 MLS/HR Hydrocortisone 1 applic BID TOP 01/18/25 10:00 01/23/25 10:15 1 APPLIC Ondansetron HCl 4 mg Q4HP PRN IV 01/18/25 04:30 Nitroglycerin 0.4 mg Q5MINP PRN SL 01/18/25 04:30 Morphine Sulfate 2 mg Q30M PRN IV 01/18/25 04:30 Cefepime HCl 50 ml @ 12.5 mls/hr DAILY@0900 IV 01/18/25 09:00 01/22/25 09:04 12.5 MLS/HR Dextrose/Sodium Chloride 1,000 ml @ 75 mls/hr [id number] IV 01/18/25 15:30 UNV Hydralazine HCl 10 mg Q6HP PRN IV 01/19/25 05:30 01/19/25 08:56 10 MG Albuterol 2.5 mg Q4HPRN PRN NEB 01/20/25 00:15 01/20/25 09:53 2.5 MG Ipratropium [place] 0.5 mg Q4HPRN PRN NEB 01/20/25 00:15 01/20/25 09:53 0.5 MG Midazolam HCl 100 ml @ 1 mls/hr Q24H IV 01/20/25 14:00 01/22/25 10:31 3 MLS/HR Fentanyl Citrate 250 ml @ 2.5 mls/hr Q24H IV 01/20/25 14:00 01/23/25 10:14 7.5 MLS/HR Albuterol 2.5 mg Q6HR NEB 01/20/25 18:00 01/23/25 06:33 2.5 MG Ipratropium [place] 0.5 mg Q6HR NEB 01/20/25 18:00 01/23/25 06:33 0.5 MG Norepinephrine Bitartrate 250 ml @ 3.75 mls/hr Q24H IV 01/21/25 09:00 01/22/25 22:15 5.625 MLS/HR Enteral Nutritional Formula 1,000 ml 50ML/HR GT 01/21/25 09:30 Pantoprazole Sodium 40 mg DAILY IV 01/21/25 10:00 01/22/25 09:04 40 MG Sucralfate 1 gm BID@0600,2200 GT 01/21/25 22:00 01/23/25 06:24 1 GM Diagnostic Test (Pha) 1 strip Q6HR 01/22/25 12:00 01/23/25 06:24 1 STRIP Insulin Human Regular Q6HR SC 01/22/25 12:00 01/22/25 18:20 6 UNITS Dextrose 50 ml UD PRN IV 01/22/25 08:30 Insulin Glargine 20 units DAILY@1000 SC 01/23/25 10:00 01/23/25 10:14 20 UNITS objective The patient is well-nourished and well-developed with no distress. The patient is intubated MENTAL STATUS: Subjective CRANIAL NERVES: Pupils are round and slightly reactive, right pupil is bigger. There are no corneal reflexes and but he has doll's eyes phenomenon. No signs of facial weakness. There are no gagging or coughing reflexes SENSATION: No responses to pain stimuli. MOTOR: Normal tone in the upper and lower extremity. Normal muscle bulk. No fasciculations. No spontaneous movement. REFLEXES: Deep tendon reflexes are symmetrical. No pathological reflexes. CEREBELLAR/COORDINATION: Deferred GAIT/STATION: deferred. laboratory and microbiology Laboratory Tests 01/23/25 03:40 Test 01/23/25 03:40 Range/Units Serum Glucose 237 H 74-106 mg/dL Problem List Diabetic ketoacidosis Metabolic acidosis Metabolic encephalopathy Herpes zoster infection/shingles End-stage kidney failure Anisocoria with right pupil bigger, possible secondary to history of surgery One eye blindness Assessment/Plan Monitoring Supportive treatment ICU care Stabilize vitals/pressor drip Respiratory support/vent management Oxygen Acyclovir 700 mg daily IV antibiotics Current pain management Haldol for agitation More hear from him once he mentally improved, More recommendation per clinical course This medical document was created using an electronic medical record system with [employer] dictation system. Although this document has been carefully reviewed, there may still be some phonetic and typographical errors. These areas are purely typographical due to imperfections of the software programs, and do not reflect any compromise in the patient's medical care. Prognosis guarded Dietary Evaluation Review Comments: 1) Consider reducing TF rate from 50 mL to 40 mL/hr goal rate to prevent overfeeding. Nepro Carbsteady @ 40 mL/hr will provide 1728 kcals, 78g Pro, and 698 mL free H2O per 24 hrs. Goal rate will meet 100% estimated energy needs and 85% estimated protein needs 2) Advance to 60g CCHO renal diet when medically feasible 3) Collect HbA1c 4) Follow-up with nephrology, cardiology, and pulmonology 5) Continue to monitor I&O, labs, and skin integrity Expected Outcomes/Goals: 1) nutrition support to meet at least 75% estimated daily needs 2) labs to improve 3) diet to advance 4) f/u in 2-3 days Plan discussed with: Other Critical Care Time(min): 30 LETTY HANNA MD Jan 23, 2025 10:20
--- NOTE | 2025-01-23 13:43 | DVHPN2 ---
Progress Note - Dictate Date Seen: Jan 23, 2025 Medical Necessity Reason Pt with a Central, PICC or Fol: Yes The following are medically ne: [place] Catheter Subjective On mechanical ventilation vital signs Vital Sign Date Time Temp Pulse Resp B/P (MAP) Pulse Ox O2 Delivery O2 Flow Rate FiO2 01/23/25 12:15 65 16 127/49 (75) 100 01/23/25 12:00 96.1 96.1 01/23/25 11:35 30 01/23/25 06:00 Mechanical Ventilator+ Total Intake and Output 01/22/25 01/22/25 01/23/25 15:00 23:00 07:00 Intake Total 466.000 ml 507.625 ml 468 ml Output Total 60 ml Balance 466.000 ml 447.625 ml 468 ml medications Current Medications Medications Dose Ordered Sig/Aleta Route Start Time Stop Time Status Last Admin Dose Admin Acyclovir Sodium 700 mg/Sodium Chloride 264 ml @ 264 mls/hr DAILY IV 01/18/25 05:00 01/22/25 09:04 264 MLS/HR Hydrocortisone 1 applic BID TOP 01/18/25 10:00 01/23/25 10:15 1 APPLIC Ondansetron HCl 4 mg Q4HP PRN IV 01/18/25 04:30 Nitroglycerin 0.4 mg Q5MINP PRN SL 01/18/25 04:30 Morphine Sulfate 2 mg Q30M PRN IV 01/18/25 04:30 Cefepime HCl 50 ml @ 12.5 mls/hr DAILY@0900 IV 01/18/25 09:00 01/22/25 09:04 12.5 MLS/HR Dextrose/Sodium Chloride 1,000 ml @ 75 mls/hr [id number] IV 01/18/25 15:30 UNV Hydralazine HCl 10 mg Q6HP PRN IV 01/19/25 05:30 01/19/25 08:56 10 MG Albuterol 2.5 mg Q4HPRN PRN NEB 01/20/25 00:15 01/20/25 09:53 2.5 MG Ipratropium [place] 0.5 mg Q4HPRN PRN NEB 01/20/25 00:15 01/20/25 09:53 0.5 MG Midazolam HCl 100 ml @ 1 mls/hr Q24H IV 01/20/25 14:00 01/22/25 10:31 3 MLS/HR Fentanyl Citrate 250 ml @ 2.5 mls/hr Q24H IV 01/20/25 14:00 01/23/25 10:14 7.5 MLS/HR Albuterol 2.5 mg Q6HR NEB 01/20/25 18:00 01/23/25 11:36 2.5 MG Ipratropium [place] 0.5 mg Q6HR NEB 01/20/25 18:00 01/23/25 11:35 0.5 MG Norepinephrine Bitartrate 250 ml @ 3.75 mls/hr Q24H IV 01/21/25 09:00 01/22/25 22:15 5.625 MLS/HR Enteral Nutritional Formula 1,000 ml 50ML/HR GT 01/21/25 09:30 Pantoprazole Sodium 40 mg DAILY IV 01/21/25 10:00 01/22/25 09:04 40 MG Sucralfate 1 gm BID@0600,2200 GT 01/21/25 22:00 01/23/25 06:24 1 GM Diagnostic Test (Pha) 1 strip Q6HR 01/22/25 12:00 01/23/25 12:20 1 STRIP Insulin Human Regular Q6HR SC 01/22/25 12:00 01/23/25 12:21 6 UNITS Dextrose 50 ml UD PRN IV 01/22/25 08:30 Insulin Glargine 20 units DAILY@1000 SC 01/23/25 10:00 01/23/25 10:14 20 UNITS objective intubated and sedated HEENT: Normocephalic Lungs: Bilateral good air entry CVS: S1, S2 regular rhythm Abdomen: Soft bowel sounds present [employer]: intubated Extremities: No edema laboratory and microbiology Laboratory Tests 01/23/25 03:40 Test 01/23/25 03:40 Range/Units Serum Glucose 237 H 74-106 mg/dL Problem List Problem List End-stage kidney disease on hemodialysis Acute hypoxic respiratory failure Metabolic encephalopathy Shingles Diabetic ketoacidosis, resolved Hyponatremia secondary to elevated blood sugars, resolved Probable seizures Assessment/Plan Continue Hemodialysis on TTS schedule. Continue with vancomycin, cefepime Dietary Evaluation Review Comments: 1) Consider reducing TF rate from 50 mL to 40 mL/hr goal rate to prevent overfeeding. Nepro Carbsteady @ 40 mL/hr will provide 1728 kcals, 78g Pro, and 698 mL free H2O per 24 hrs. Goal rate will meet 100% estimated energy needs and 85% estimated protein needs 2) Advance to 60g CCHO renal diet when medically feasible 3) Collect HbA1c 4) Follow-up with nephrology, cardiology, and pulmonology 5) Continue to monitor I&O, labs, and skin integrity Expected Outcomes/Goals: 1) nutrition support to meet at least 75% estimated daily needs 2) labs to improve 3) diet to advance 4) f/u in 2-3 days Plan discussed with: Other HARRY ROMAN MD Jan 23, 2025 13:43
[2025-01-23] MEDS: Nepro With Carb Steady 1 Liter Bottle GT SCH (17:40)
[2025-01-24] VITALS (108 sets, daily range): BP systolic 95–271; BP diastolic 16–245; PULSE 65–85; RESP 16–20; TEMP 95.2–98.8; O2SAT 98–100
[2025-01-24 04:53] LABS: Hematocrit 26.8 % (41.0-53.0); Hemoglobin 9.2 g/dL (13.5-17.5); Mean Corpuscular Hemoglobin 31.7 pg (28.0-32.0); Mean Corpuscular Volume 92.5 fL (80.0-100.0); Nucleated Red Blood Cells % 0.1 %
[2025-01-24 05:01] LABS: Chloride 102 mmol/L (98-107); Potassium 4.4 mmol/L (3.5-5.1); Sodium 140 mmol/L (136-145)
[2025-01-24 05:02] LABS: Anion Gap 9 (5-15); Carbon Dioxide 29 mmol/L (20-31)
--- NOTE | 2025-01-24 05:04 | DVH ---
CHEST RADIOGRAPH Indication: chf Technique: Single frontal view of the chest was obtained COMPARISON: XY CHEST PORTABLE on DOS: 01/23/25, XY CHEST PORTABLE on DOS: 01/21/25, XY CHEST PORTABLE on DOS: 01/20/25, XY CHEST PORTABLE on DOS: 01/20/25, XY CHEST XRAY 1 VIEW on DOS: 01/18/25 FINDINGS: Lines and Tubes: Slight interval advancement of the endotracheal tube such that the tip now projects approximately 4.3 cm above the level of the robert. Remaining lines and tubes unchanged. Lungs: Clear Pleura: No effusion. No pneumothorax. Cardiomediastinal contours: Unremarkable Bones: Unremarkable IMPRESSION: 1. Interval advancement of the endotracheal tube such that the tip now projects approximately 4.3 cm above the level of the robert. Remaining lines and tubes unchanged. 2. No acute cardiopulmonary process.
[2025-01-24 05:07] LABS: Calcium 8.4 mg/dL (8.7-10.4)
[2025-01-24 05:08] LABS: BUN/Creatinine Ratio 8.7 (10.0-20.0); Blood Urea Nitrogen 54 mg/dL (9-23); Glucose 278 mg/dL (74-106)
[2025-01-24 07:29] LABS: Base Excess 3.8 mmol/L (-2.0-3.0)
--- NOTE | 2025-01-24 08:50 | DVHPN2 ---
Subjective Patient intubated and sedated Reviewed: Care Plan, H&P, Labs, Medications Changes from previous H/P or p: No Changes General: Per HPI Objective Vitals Vital Signs Date Time Temp Pulse Resp B/P (MAP) Pulse Ox O2 Delivery O2 Flow Rate FiO2 01/24/25 06:45 67 16 117/24 (55) 100 01/24/25 06:05 30 01/24/25 06:00 97.2 97.2 01/24/25 06:00 Mechanical Ventilator+ Intake/Output Intake and Output 01/24/25 07:00 Intake Total 1793.625 ml Output Total 2050 ml Balance -256.375 ml IV Total 1147.625 ml Tube Feeding 646 ml Output Urine Total 50 ml Other 2000 ml General Appearance: moderate distress, Other (Intubated and sedated) HEENT: Atraumatic, Other (Unequal pupils) Lungs: Clear to auscultation, Normal air movement, Other (Mechanical ventilation) Chest/Breasts: Other (Noted rash, shingles to right upper chest) Cardiovascular: Normal S1, Normal S2, Other (Sinus rhythm/sinus bradycardia) Abdomen: Normal bowel sounds, Soft, No tenderness, No hepatospenomegaly Genitourinary: No Apparent Abnormalities ([place]) Musculoskeletal: Other (Unable to assess) Neuro: Other (Unable to assess) Skin: Dry, Intact, Other (Rash to right upper chest) Psych/Mental Status: Other (Unable to assess) Medications Current Medications Medications Dose Ordered Sig/Aleta Route Start Time Stop Time Status Last Admin Dose Admin Acyclovir Sodium 700 mg/Sodium Chloride 264 ml @ 264 mls/hr DAILY IV 01/18/25 05:00 01/23/25 18:12 264 MLS/HR Hydrocortisone 1 applic BID TOP 01/18/25 10:00 01/23/25 21:31 1 APPLIC Ondansetron HCl 4 mg Q4HP PRN IV 01/18/25 04:30 Nitroglycerin 0.4 mg Q5MINP PRN SL 01/18/25 04:30 Morphine Sulfate 2 mg Q30M PRN IV 01/18/25 04:30 Cefepime HCl 50 ml @ 12.5 mls/hr DAILY@0900 IV 01/18/25 09:00 01/23/25 20:00 12.5 MLS/HR Dextrose/Sodium Chloride 1,000 ml @ 75 mls/hr [id number] IV 01/18/25 15:30 UNV Hydralazine HCl 10 mg Q6HP PRN IV 01/19/25 05:30 01/19/25 08:56 10 MG Albuterol 2.5 mg Q4HPRN PRN NEB 01/20/25 00:15 01/20/25 09:53 2.5 MG Ipratropium [place] 0.5 mg Q4HPRN PRN NEB 01/20/25 00:15 01/20/25 09:53 0.5 MG Midazolam HCl 100 ml @ 1 mls/hr Q24H IV 01/20/25 14:00 01/22/25 10:31 3 MLS/HR Fentanyl Citrate 250 ml @ 2.5 mls/hr Q24H IV 01/20/25 14:00 01/23/25 10:14 7.5 MLS/HR Albuterol 2.5 mg Q6HR NEB 01/20/25 18:00 01/24/25 06:05 2.5 MG Ipratropium [place] 0.5 mg Q6HR [facility] 01/20/25 18:00 01/24/25 06:05 0.5 MG Norepinephrine Bitartrate 250 ml @ 3.75 mls/hr Q24H IV 01/21/25 09:00 01/22/25 22:15 5.625 MLS/HR Enteral Nutritional Formula 1,000 ml 50ML/HR GT 01/21/25 09:30 01/23/25 17:40 1,000 ML Pantoprazole Sodium 40 mg DAILY IV 01/21/25 10:00 01/23/25 18:14 40 MG Sucralfate 1 gm BID@0600,2200 GT 01/21/25 22:00 01/24/25 06:16 1 GM Diagnostic Test (Pha) 1 strip Q6HR 01/22/25 12:00 01/24/25 06:19 1 STRIP Insulin Human Regular Q6HR SC 01/22/25 12:00 01/24/25 06:18 6 UNITS Dextrose 50 ml UD PRN IV 01/22/25 08:30 Insulin Glargine 20 units DAILY@1000 SC 01/23/25 10:00 01/23/25 10:14 20 UNITS Laboratory Results Laboratory Tests 01/24/25 04:27 Chemistry Test 01/24/25 04:27 Calcium Level 8.4 mg/dL (8.7-10.4) L Urinalysis Test 01/18/25 10:20 Urine Color Light-yellow (Yellow) Urine Clarity Clear (Clear) Urine pH 6.5 (5.0-9.0) Urine Specific [place] 1.017 (1.001-1.035) Urine Protein 3+ (Negative) H Urine Ketones Negative (Negative) Urine Blood 1+ /uL (Negative) H Urine Nitrite Negative (Negative) Urine Bilirubin Negative (Negative) Urine Urobilinogen Normal mg/dL (Negative) Urine Leukocyte Esterase Negative /uL (Negative) Urine RBC 1 /hpf (0 - 3) Urine Microscopic WBC 5 /HPF (0-3) H Urine Squamous Epithelial Cells Few /hpf (<5) Urine Bacteria None seen /hpf (None Seen) Urine Glucose 4+ mg/dL (Normal) H Blood Gas Results Test 01/24/25 06:59 Arterial Blood pH 7.470 (7.350-7.450) FiO2 % 30.0 Microbiology Microbiology Date/Time Source Procedure Growth Status 01/20/25 14:00 Sputum Gram Stain - Final Complete 01/20/25 14:00 Sputum Respiratory Culture - Final Complete 01/18/25 00:45 Nose MRSA Screen - Final Complete 01/17/25 23:25 Blood Blood Culture - Final NO GROWTH AFTER 5 DAYS OF INCUBATION. Complete Labs and/or images reviewed: Labs reviewed by me, Image(s) reviewed by me Assessment/Plan Assessment/Plan Impression: -Sepsis -metabolic encephalopathy -DKA -ESRD with hemodialysis -primary hypertension -dyslipidemia -hyponatremia -? seizure -Hypoglycemia Plan: Events: No events overnight. Blood sugars remain elevated. Tube feedings off for possible CPAP trial. Received hemodialysis yesterday. Chest x-ray unremarkable. -continue regular insulin sliding scale and Lantus -CPAP trial -Neurology consult. Recommendations reviewed-nephrology consultation: Receive HD yesterday -ppi, Carafate -continue cefepime and acyclovir -repeat labs, chest x-ray, ABG in a.m. Critical care time spent with patient discussing and formulating plan of care: 40 minutes. This does not include time spent performing procedures. This medical document was created using an electronic medical record system with [employer] system. Although this document has been carefully reviewed, there may still be some phonetic and typographical errors. These areas are purely typographical due to imperfections of the software programs, and do not reflect any compromise in the patient's medical care. Plan discussed with: Patient, Other (RN) My Orders Orders - ROCÍO RAMIREZ NP Procedure Category Date Status Time Apply Z-Guard SANCHEZ 01/23/25 In Process 12:40 * Dietary Consult CONS 01/23/25 Transmitted 18:52 Date of Service: Jan 24, 2025 Billing Provider: ROCÍO RAMIREZ NP Common Visit Codes: [id number] CARE 30-74 MIN ROCÍO RAMIREZ NP Jan 24, 2025 08:50
--- NOTE | 2025-01-24 10:04 | DVHPN2 ---
Progress Note - Dictate Date Seen: Jan 24, 2025 Medical Necessity Reason Pt with a Central, PICC or Fol: Yes The following are medically ne: [place]ford Catheter Subjective Mr. Pisano is a 70 years old right-handed gentleman with a history of hypertension, diabetes, end-stage kidney failure on hemodialysis, the patient was brought to the [facility] on 01/17/2025 with a chief complaint of altered mental status. Because no improvement in the mental status, increased secretion and difficulty cleaning the respiratory tract, he was intubated on 01/20/2025 I have seen and examined the patient, I have talked to his nurse. He is responsive to light painful stimuli, sluggish light reflexes, the anisocoria persists Versed 0 mg/hour, fentanyl 50 mcg/hour, levo 0 mcg/min Pupil size 01/22/25: Right: 3-4 mm, left: 1-2 mm, no associated abnormal vascular dilatation and skin secretion 01/23/25: Right: 3-4 mm, left: 2 mm 01/24/25: Right: 3-4 mm, left: 2 mm ABG, 01/18/2025: Compensated Metabolic acidosis UDS, 01/18/2025: Negative Plasma alcohol, 01/17/2025: <3 Urinalysis, 01/18/2025: WBC: Five, urine leukocyte esterase: Negative CBC, 01/18/2025: Compensated metabolic acidosis WBC/HB/PLT/MCV, 01/18/2025: 14.4/11.8/189/92.3 Na, 01/18/2025: 127, 131 BUN/CR, : 113/11.33, 119/11.42, 50/5.72, 01/19/2025: 57/7.03 GFR, 01/18/2025: 4, 4, 10 Anion gap, 01/18/2025: 19, 20, Glucose, 01/17/2025: 856, 01/18/2025: 862, 710, 551, 231 Liver function tests, 01/18/2025: Unremarkable Chest x-ray, 01/18/2025: There is prominence of the interstitial markings. Mild right basilar opacity. Mild prominence of the cardiomediastinal silhouette, likely accentuated by technique. No pleural effusion or pneumothorax. No acute osseous abnormality CT head, 01/15/2025: 1. No acute territorial infarct, intracranial hemorrhage, or mass effect. 2. Age-related involutional changes. Chronic ischemic changes as detailed. 3. If clinical symptoms persist, MRI may be beneficial in further evaluation (Chronic right cerebellar infarct) vital signs Vital Sign Date Time Temp Pulse Resp B/P (MAP) Pulse Ox O2 Delivery O2 Flow Rate FiO2 01/24/25 08:00 67 01/24/25 08:00 16 100 Mechanical Ventilator+ 30 30 01/24/25 06:45 117/24 (55) 01/24/25 06:00 97.2 97.2 Total Intake and Output 01/23/25 01/23/25 01/24/25 15:00 23:00 07:00 Intake Total 68.625 ml 1158.0 ml 567 ml Output Total 2050 ml Balance 68.625 ml -892.0 ml 567 ml medications Current Medications Medications Dose Ordered Sig/Aleta Route Start Time Stop Time Status Last Admin Dose Admin Acyclovir Sodium 700 mg/Sodium Chloride 264 ml @ 264 mls/hr DAILY IV 01/18/25 05:00 01/24/25 08:30 264 MLS/HR Hydrocortisone 1 applic BID TOP 01/18/25 10:00 01/24/25 08:33 1 APPLIC Ondansetron HCl 4 mg Q4HP PRN IV 01/18/25 04:30 Nitroglycerin 0.4 mg Q5MINP PRN SL 01/18/25 04:30 Morphine Sulfate 2 mg Q30M PRN IV 01/18/25 04:30 Cefepime HCl 50 ml @ 12.5 mls/hr DAILY@0900 IV 01/18/25 09:00 01/23/25 20:00 12.5 MLS/HR Dextrose/Sodium Chloride 1,000 ml @ 75 mls/hr [id number] IV 01/18/25 15:30 UNV Hydralazine HCl 10 mg Q6HP PRN IV 01/19/25 05:30 01/19/25 08:56 10 MG Albuterol 2.5 mg Q4HPRN PRN NEB 01/20/25 00:15 01/20/25 09:53 2.5 MG Ipratropium [place] 0.5 mg Q4HPRN PRN NEB 01/20/25 00:15 01/20/25 09:53 0.5 MG Midazolam HCl 100 ml @ 1 mls/hr Q24H IV 01/20/25 14:00 01/22/25 10:31 3 MLS/HR Fentanyl Citrate 250 ml @ 2.5 mls/hr Q24H IV 01/20/25 14:00 01/23/25 10:14 7.5 MLS/HR Albuterol 2.5 mg Q6HR NEB 01/20/25 18:00 01/24/25 06:05 2.5 MG Ipratropium [place] 0.5 mg Q6HR NEB 01/20/25 18:00 01/24/25 06:05 0.5 MG Norepinephrine Bitartrate 250 ml @ 3.75 mls/hr Q24H IV 01/21/25 09:00 01/22/25 22:15 5.625 MLS/HR Enteral Nutritional Formula 1,000 ml 50ML/HR GT 01/21/25 09:30 01/23/25 17:40 1,000 ML Pantoprazole Sodium 40 mg DAILY IV 01/21/25 10:00 01/24/25 08:33 40 MG Sucralfate 1 gm BID@0600,2200 GT 01/21/25 22:00 01/24/25 06:16 1 GM Diagnostic Test (Pha) 1 strip Q6HR 01/22/25 12:00 01/24/25 06:19 1 STRIP Insulin Human Regular Q6HR SC 01/22/25 12:00 01/24/25 06:18 6 UNITS Dextrose 50 ml UD PRN IV 01/22/25 08:30 Insulin Glargine 20 units DAILY@1000 [place] 01/23/25 10:00 01/24/25 08:33 20 UNITS objective The patient is well-nourished and well-developed with no distress. The patient is intubated MENTAL STATUS: Subjective CRANIAL NERVES: Pupils are round and slightly reactive, right pupil is bigger. There are no corneal reflexes and but he has doll's eyes phenomenon. No signs of facial weakness. There are gagging or coughing reflexes SENSATION: No responses to pain stimuli. MOTOR: Normal tone in the upper and lower extremity. Normal muscle bulk. No fasciculations. No spontaneous movement. REFLEXES: Deep tendon reflexes are symmetrical. No pathological reflexes. CEREBELLAR/COORDINATION: Deferred GAIT/STATION: deferred. laboratory and microbiology Laboratory Tests 01/24/25 04:27 Test 01/24/25 04:27 Range/Units Serum Glucose 278 H 74-106 mg/dL Problem List Diabetic ketoacidosis Metabolic acidosis Metabolic encephalopathy Herpes zoster infection/shingles End-stage kidney failure Anisocoria with right pupil bigger, etiology unclear, possible secondary to history of surgery One eye blindness Assessment/Plan Monitoring Supportive treatment ICU care Stabilize vitals/pressor drip Respiratory support/vent management Oxygen Acyclovir 700 mg daily IV antibiotics Current pain management Haldol for agitation More hear from him once he mentally improved, More recommendation per clinical course This medical document was created using an electronic medical record system with [employer] dictation system. Although this document has been carefully reviewed, there may still be some phonetic and typographical errors. These areas are purely typographical due to imperfections of the software programs, and do not reflect any compromise in the patient's medical care. Prognosis guarded Dietary Evaluation Review Comments: 1) Consider reducing TF rate from 50 mL to 40 mL/hr goal rate to prevent overfeeding. Nepro Carbsteady @ 40 mL/hr will provide 1728 kcals, 78g Pro, and 698 mL free H2O per 24 hrs. Goal rate will meet 100% estimated energy needs and 85% estimated protein needs 2) Advance to 60g CCHO renal diet when medically feasible 3) Collect HbA1c 4) Follow-up with nephrology, cardiology, and pulmonology 5) Continue to monitor I&O, labs, and skin integrity Expected Outcomes/Goals: 1) nutrition support to meet at least 75% estimated daily needs 2) labs to improve 3) diet to advance 4) f/u in 2-3 days Plan discussed with: Other Critical Care Time(min): 30 LETTY HANNA MD Jan 24, 2025 10:04
[2025-01-24] MEDS: DEXMEDETOMIDINE HCL IN D5W 100 ML IV SCH (13:00)
--- NOTE | 2025-01-24 17:13 | DVHPN2 ---
Progress Note - Dictate Date Seen: Jan 24, 2025 Medical Necessity Reason Pt with a Central, PICC or Fol: Yes The following are medically ne: [place] Catheter Subjective On mechanical ventilation vital signs Vital Sign Date Time Temp Pulse Resp B/P (MAP) Pulse Ox O2 Delivery O2 Flow Rate FiO2 01/24/25 17:00 68 16 123/25 (57) 100 01/24/25 16:45 97.2 97.2 01/24/25 16:14 30 01/24/25 16:00 Mechanical Ventilator+ Total Intake and Output 01/23/25 01/23/25 01/24/25 15:00 23:00 07:00 Intake Total 68.625 ml 1158.0 ml 574.5 ml Output Total 2050 ml Balance 68.625 ml -892.0 ml 574.5 ml medications Current Medications Medications Dose Ordered Sig/Aleta Route Start Time Stop Time Status Last Admin Dose Admin Acyclovir Sodium 700 mg/Sodium Chloride 264 ml @ 264 mls/hr DAILY IV 01/18/25 05:00 01/24/25 08:30 264 MLS/HR Hydrocortisone 1 applic BID TOP 01/18/25 10:00 01/24/25 08:33 1 APPLIC Ondansetron HCl 4 mg Q4HP PRN IV 01/18/25 04:30 Nitroglycerin 0.4 mg Q5MINP PRN SL 01/18/25 04:30 Morphine Sulfate 2 mg Q30M PRN IV 01/18/25 04:30 Cefepime HCl 50 ml @ 12.5 mls/hr DAILY@0900 IV 01/18/25 09:00 01/24/25 10:18 12.5 MLS/HR Dextrose/Sodium Chloride 1,000 ml @ 75 mls/hr [id number] IV 01/18/25 15:30 UNV Hydralazine HCl 10 mg Q6HP PRN IV 01/19/25 05:30 01/19/25 08:56 10 MG Albuterol 2.5 mg Q4HPRN PRN NEB 01/20/25 00:15 01/20/25 09:53 2.5 MG Ipratropium [place] 0.5 mg Q4HPRN PRN NEB 01/20/25 00:15 01/20/25 09:53 0.5 MG Midazolam HCl 100 ml @ 1 mls/hr Q24H IV 01/20/25 14:00 01/22/25 10:31 3 MLS/HR Fentanyl Citrate 250 ml @ 2.5 mls/hr Q24H IV 01/20/25 14:00 01/24/25 11:53 3.75 MLS/HR Albuterol 2.5 mg Q6HR NEB 01/20/25 18:00 01/24/25 12:04 2.5 MG Ipratropium [place] 0.5 mg Q6HR NEB 01/20/25 18:00 01/24/25 12:04 0.5 MG Norepinephrine Bitartrate 250 ml @ 3.75 mls/hr Q24H IV 01/21/25 09:00 01/22/25 22:15 5.625 MLS/HR Enteral Nutritional Formula 1,000 ml 50ML/HR GT 01/21/25 09:30 01/23/25 17:40 1,000 ML Pantoprazole Sodium 40 mg DAILY IV 01/21/25 10:00 01/24/25 08:33 40 MG Sucralfate 1 gm BID@0600,2200 GT 01/21/25 22:00 01/24/25 06:16 1 GM Diagnostic Test (Pha) 1 strip Q6HR 01/22/25 12:00 01/24/25 11:49 1 STRIP Insulin Human Regular Q6HR SC 01/22/25 12:00 01/24/25 11:51 4 UNITS Dextrose 50 ml UD PRN IV 01/22/25 08:30 Insulin Glargine 20 units DAILY@1000 SC 01/23/25 10:00 01/24/25 08:33 20 UNITS objective intubated and sedated HEENT: Normocephalic Lungs: Bilateral good air entry CVS: S1, S2 regular rhythm Abdomen: Soft bowel sounds present 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 Continue with antibiotics Wean off mechanical ventilation Dietary Evaluation Review Comments: 1) Consider reducing TF rate from 50 mL to 40 mL/hr goal rate to prevent overfeeding. Nepro Carbsteady @ 40 mL/hr will provide 1728 kcals, 78g Pro, and 698 mL free H2O per 24 hrs. Goal rate will meet 100% estimated energy needs and 85% estimated protein needs 2) Advance to 60g CCHO renal diet when medically feasible 3) Collect HbA1c 4) Follow-up with nephrology, cardiology, and pulmonology 5) Continue to monitor I&O, labs, and skin integrity Expected Outcomes/Goals: 1) nutrition support to meet at least 75% estimated daily needs 2) labs to improve 3) diet to advance 4) f/u in 2-3 days Plan discussed with: Other HARRY ROMAN MD Jan 24, 2025 17:13
[2025-01-25] VITALS (107 sets, daily range): BP systolic 102–177; BP diastolic 11–133; PULSE 71–86; RESP 14–23; TEMP 97.9–99.5; O2SAT 100
[2025-01-25 04:43] LABS: Hematocrit 27.8 % (41.0-53.0); Hemoglobin 9.5 g/dL (13.5-17.5); Mean Corpuscular Hemoglobin 31.6 pg (28.0-32.0); Mean Corpuscular Volume 93.0 fL (80.0-100.0); Nucleated Red Blood Cells % 0.1 %
--- NOTE | 2025-01-25 04:51 | DVH ---
CHEST RADIOGRAPH Indication: aspiration pna Technique: 1 view Comparison: XY CHEST PORTABLE on DOS: 01/24/25, XY CHEST PORTABLE on DOS: 01/23/25, XY CHEST PORTABLE on DOS: 01/21/25, XY CHEST PORTABLE on DOS: 01/20/25, XY CHEST PORTABLE on DOS: 01/20/25 FINDINGS: Lines and Tubes: Unchanged. Lungs/Pleura: Unchanged. Cardiomediastinum: Unchanged. Other: Unchanged. IMPRESSION: No significant change from the previous day. Stable support devices. Mild bilateral interstitial and basilar opacities.
[2025-01-25 04:54] LABS: Chloride 102 mmol/L (98-107); Potassium 4.7 mmol/L (3.5-5.1); Sodium 142 mmol/L (136-145)
[2025-01-25 04:55] LABS: Anion Gap 12 (5-15); Calcium 8.8 mg/dL (8.7-10.4); Carbon Dioxide 28 mmol/L (20-31)
[2025-01-25 05:17] LABS: Blood Urea Nitrogen 68 mg/dL (9-23); Glucose 221 mg/dL (74-106)
[2025-01-25 05:18] LABS: BUN/Creatinine Ratio 9.3 (10.0-20.0)
[2025-01-25 07:19] LABS: Base Excess -0.5 mmol/L (-2.0-3.0)
[2025-01-25] MEDS: EPOETIN ALFA-EPBX 10,000 UNIT/1ML VIAL SC ONE (21:04)
[2025-01-26] VITALS (119 sets, daily range): BP systolic 94–183; BP diastolic 41–72; PULSE 69–86; RESP 12–19; TEMP 96.5–100.2; O2SAT 99–100
[2025-01-26 03:43] LABS: Chloride 100 mmol/L (98-107); Potassium 4.1 mmol/L (3.5-5.1); Sodium 140 mmol/L (136-145)
[2025-01-26 03:44] LABS: Anion Gap 12 (5-15); Calcium 9.4 mg/dL (8.7-10.4); Carbon Dioxide 28 mmol/L (20-31)
[2025-01-26 03:49] LABS: BUN/Creatinine Ratio 8.7 (10.0-20.0)
[2025-01-26 03:57] LABS: Blood Urea Nitrogen 51 mg/dL (9-23); Glucose 257 mg/dL (74-106)
[2025-01-26 07:58] LABS: Base Excess 2.7 mmol/L (-2.0-3.0)
--- NOTE | 2025-01-26 11:04 | DVHPN2 ---
Subjective Patient intubated and sedated Reviewed: Care Plan, H&P, Labs, Medications Changes from previous H/P or p: No Changes General: Per HPI Objective Vitals Vital Signs Date Time Temp Pulse Resp B/P (MAP) Pulse Ox O2 Delivery O2 Flow Rate FiO2 01/25/25 08:10 86 16 151/61 (91) 100 30 01/25/25 06:45 98.8 98.8 01/25/25 06:00 Mechanical Ventilator+ Intake/Output Intake and Output 01/25/25 07:00 Intake Total 906.50 ml Output Total 125 ml Balance 781.50 ml IV Total 446.50 ml Tube Feeding 460 ml Output Urine Total 125 ml General Appearance: mild distress, Other (Intubated and sedated) HEENT: Atraumatic, Other (Unequal pupils) Lungs: Clear to auscultation, Normal air movement, Other (Mechanical ventilation) Chest/Breasts: Other (Noted rash, shingles to right upper chest) Cardiovascular: Normal S1, Normal S2, Other (Sinus rhythm/sinus bradycardia) Abdomen: Normal bowel sounds, Soft, No tenderness, No hepatospenomegaly Genitourinary: No Apparent Abnormalities (Ashford) Musculoskeletal: Other (Unable to assess) Neuro: Other (Unable to assess) Skin: Dry, Intact, Other (Rash to right upper chest) Psych/Mental Status: Other (Unable to assess) Medications Current Medications Medications Dose Ordered Sig/Aleta Route Start Time Stop Time Status Last Admin Dose Admin Acyclovir Sodium 700 mg/Sodium Chloride 264 ml @ 264 mls/hr DAILY IV 01/18/25 05:00 01/24/25 08:30 264 MLS/HR Hydrocortisone 1 applic BID TOP 01/18/25 10:00 01/25/25 08:21 1 APPLIC Ondansetron HCl 4 mg Q4HP PRN IV 01/18/25 04:30 Nitroglycerin 0.4 mg Q5MINP PRN SL 01/18/25 04:30 Morphine Sulfate 2 mg Q30M PRN IV 01/18/25 04:30 Cefepime HCl 50 ml @ 12.5 mls/hr DAILY@0900 IV 01/18/25 09:00 01/24/25 10:18 12.5 MLS/HR Dextrose/Sodium Chloride 1,000 ml @ 75 mls/hr [id number] IV 01/18/25 15:30 UNV Hydralazine HCl 10 mg Q6HP PRN IV 01/19/25 05:30 01/19/25 08:56 10 MG Albuterol 2.5 mg Q4HPRN PRN NEB 01/20/25 00:15 01/20/25 09:53 2.5 MG Ipratropium [place] 0.5 mg Q4HPRN PRN NEB 01/20/25 00:15 01/20/25 09:53 0.5 MG Midazolam HCl 100 ml @ 1 mls/hr Q24H IV 01/20/25 14:00 01/22/25 10:31 3 MLS/HR Fentanyl Citrate 250 ml @ 2.5 mls/hr Q24H IV 01/20/25 14:00 01/24/25 11:53 3.75 MLS/HR Albuterol 2.5 mg Q6HR NEB 01/20/25 18:00 01/25/25 06:44 2.5 MG Ipratropium [place] 0.5 mg Q6HR NEB 01/20/25 18:00 01/25/25 06:43 0.5 MG Norepinephrine Bitartrate 250 ml @ 3.75 mls/hr Q24H IV 01/21/25 09:00 01/22/25 22:15 5.625 MLS/HR Enteral Nutritional Formula 1,000 ml 50ML/HR GT 01/21/25 09:30 01/24/25 17:39 1,000 ML Pantoprazole Sodium 40 mg DAILY IV 01/21/25 10:00 01/24/25 08:33 40 MG Sucralfate 1 gm BID@0600,2200 GT 01/21/25 22:00 01/25/25 05:48 1 GM Diagnostic Test (Pha) 1 strip Q6HR 01/22/25 12:00 01/25/25 05:48 1 STRIP Insulin Human Regular Q6HR SC 01/22/25 12:00 01/25/25 06:07 4 UNITS Dextrose 50 ml UD PRN IV 01/22/25 08:30 Insulin Glargine 20 units DAILY@1000 SC 01/23/25 10:00 01/25/25 08:30 20 UNITS Laboratory Results Laboratory Tests 01/25/25 04:00 Chemistry Test 01/25/25 04:00 Calcium Level 8.8 mg/dL (8.7-10.4) Urinalysis Test 01/18/25 10:20 Urine Color Light-yellow (Yellow) Urine Clarity Clear (Clear) Urine pH 6.5 (5.0-9.0) Urine Specific [place] 1.017 (1.001-1.035) Urine Protein 3+ (Negative) H Urine Ketones Negative (Negative) Urine Blood 1+ /uL (Negative) H Urine Nitrite Negative (Negative) Urine Bilirubin Negative (Negative) Urine Urobilinogen Normal mg/dL (Negative) Urine Leukocyte Esterase Negative /uL (Negative) Urine RBC 1 /hpf (0 - 3) Urine Microscopic WBC 5 /HPF (0-3) H Urine Squamous Epithelial Cells Few /hpf (<5) Urine Bacteria None seen /hpf (None Seen) Urine Glucose 4+ mg/dL (Normal) H Blood Gas Results Test 01/25/25 07:07 Arterial Blood pH 7.423 (7.350-7.450) FiO2 % 30.0 Microbiology Microbiology Date/Time Source Procedure Growth Status 01/20/25 14:00 Sputum Gram Stain - Final Complete 01/20/25 14:00 Sputum Respiratory Culture - Final Complete 01/18/25 00:45 Nose MRSA Screen - Final Complete 01/17/25 23:25 Blood Blood Culture - Final NO GROWTH AFTER 5 DAYS OF INCUBATION. Complete Labs and/or images reviewed: Labs reviewed by me, Image(s) reviewed by me Assessment/Plan Assessment/Plan Impression: -Sepsis -metabolic encephalopathy -DKA -ESRD with hemodialysis -primary hypertension -dyslipidemia -hyponatremia -? seizure -Hypoglycemia Plan: Events: No events overnight. Patient off vasopressor therapy. Sedation off. -continue regular insulin sliding scale and Lantus -CPAP trial once appropriate -Neurology consult. Recommendations reviewed -nephrology consultation: Possible HD today -ppi, Carafate -continue cefepime and acyclovir -repeat labs, chest x-ray, ABG in a.m. Critical care time spent with patient discussing and formulating plan of care: 40 minutes. This does not include time spent performing procedures. This medical document was created using an electronic medical record system with [employer] system. Although this document has been carefully reviewed, there may still be some phonetic and typographical errors. These areas are purely typographical due to imperfections of the software programs, and do not reflect any compromise in the patient's medical care. Plan discussed with: Patient, Other (RN) My Orders Orders - ROCÍO RAMIREZ NP Procedure Category Date Status Time Abg W/ Co-Ox RT 01/25/25 Logged 06:00 Cpap/Sed Vacation Med ORDERS 01/25/25 Transmitted Weaning 08:33 Cpap Trial For Am ORDERS 01/25/25 Transmitted 08:33 Basic Metabolic Panel LAB 01/26/25 Verified 05:00 Basic Metabolic Panel LAB 01/27/25 Verified 05:00 Basic Metabolic Panel LAB 01/28/25 Verified 05:00 Date of Service: Jan 25, 2025 Billing Provider: ROCÍO RAMIREZ NP Common Visit Codes: 98651-RFLININD CARE 30-74 MIN ROCÍO RAMIREZ NP Jan 25, 2025 09:29
--- NOTE | 2025-01-26 11:06 | DVHPN2 ---
Progress Note - Dictate Date Seen: Jan 25, 2025 Medical Necessity Reason Pt with a Central, PICC or Fol: Yes The following are medically ne: [place]ford Catheter Subjective Mr. Pisano is a 70 years old right-handed gentleman with a history of hypertension, diabetes, end-stage kidney failure on hemodialysis, the patient was brought to the [facility] on 01/17/2025 with a chief complaint of altered mental status. Because no improvement in the mental status, increased secretion and difficulty cleaning the respiratory tract, he was intubated on 01/20/2025 I have seen and examined the patient, I have talked to his nurse. He is responsive to light touch, sluggish light reflexes, the anisocoria persists The case was discussed with Beto He is off sedation since 01/25/25 0040AM Versed 0 mg/hour, fentanyl 0 mcg/hour, levo 0 mcg/min Pupil size 01/22/25: Right: 3-4 mm, left: 1-2 mm, no associated abnormal vascular dilatation and skin secretion 01/23/25: Right: 3-4 mm, left: 2 mm 01/24/25: Right: 3-4 mm, left: 2 mm 01/24/25: Right: 4 mm, left: 2-3 mm ABG, 01/18/2025: Compensated Metabolic acidosis UDS, 01/18/2025: Negative Plasma alcohol, 01/17/2025: <3 Urinalysis, 01/18/2025: WBC: Five, urine leukocyte esterase: Negative CBC, 01/18/2025: Compensated metabolic acidosis WBC/HB/PLT/MCV, 01/18/2025: 14.4/11.8/189/92.3 Na, 01/18/2025: 127, 131 BUN/CR, 110: 113/11.33, 119/11.42, 50/5.72, 01/19/2025: 57/7.03 GFR, 01/18/2025: 4, 4, 10 Anion gap, 01/18/2025: 19, 20, Glucose, 01/17/2025: 856, 01/18/2025: 862, 710, 551, 231 Liver function tests, 01/18/2025: Unremarkable EEG, 01/20/2025: moderately abnormal EEG Chest x-ray, 01/18/2025: There is prominence of the interstitial markings. Mild right basilar opacity. Mild prominence of the cardiomediastinal silhouette, likely accentuated by technique. No pleural effusion or pneumothorax. No acute osseous abnormality CT head, 01/15/2025: 1. No acute territorial infarct, intracranial hemorrhage, or mass effect. 2. Age-related involutional changes. Chronic ischemic changes as detailed. 3. If clinical symptoms persist, MRI may be beneficial in further evaluation (Chronic right cerebellar infarct) vital signs Vital Sign Date Time Temp Pulse Resp B/P (MAP) Pulse Ox O2 Delivery O2 Flow Rate FiO2 01/25/25 09:48 83 16 123/18 (53) 100 30 01/25/25 06:45 98.8 98.8 01/25/25 06:00 Mechanical Ventilator+ Total Intake and Output 01/24/25 01/24/25 01/25/25 15:00 23:00 07:00 Intake Total 359.00 ml 300.0 ml 247.5 ml Output Total 50 ml 75 ml Balance 359.00 ml 250.0 ml 172.5 ml medications Current Medications Medications Dose Ordered Sig/Aleta Route Start Time Stop Time Status Last Admin Dose Admin Acyclovir Sodium 700 mg/Sodium Chloride 264 ml @ 264 mls/hr DAILY IV 01/18/25 05:00 01/24/25 08:30 264 MLS/HR Hydrocortisone 1 applic BID TOP 01/18/25 10:00 01/25/25 08:21 1 APPLIC Ondansetron HCl 4 mg Q4HP PRN IV 01/18/25 04:30 Nitroglycerin 0.4 mg Q5MINP PRN SL 01/18/25 04:30 Morphine Sulfate 2 mg Q30M PRN IV 01/18/25 04:30 Cefepime HCl 50 ml @ 12.5 mls/hr DAILY@0900 IV 01/18/25 09:00 01/24/25 10:18 12.5 MLS/HR Dextrose/Sodium Chloride 1,000 ml @ 75 mls/hr [id number] IV 01/18/25 15:30 UNV Hydralazine HCl 10 mg Q6HP PRN IV 01/19/25 05:30 01/19/25 08:56 10 MG Albuterol 2.5 mg Q4HPRN PRN NEB 01/20/25 00:15 01/20/25 09:53 2.5 MG Ipratropium [place] 0.5 mg Q4HPRN PRN NEB 01/20/25 00:15 01/20/25 09:53 0.5 MG Midazolam HCl 100 ml @ 1 mls/hr Q24H IV 01/20/25 14:00 01/22/25 10:31 3 MLS/HR Fentanyl Citrate 250 ml @ 2.5 mls/hr Q24H IV 01/20/25 14:00 01/24/25 11:53 3.75 MLS/HR Albuterol 2.5 mg Q6HR [facility] 01/20/25 18:00 01/25/25 06:44 2.5 MG Ipratropium [place] 0.5 mg Q6HR [facility] 01/20/25 18:00 01/25/25 06:43 0.5 MG Norepinephrine Bitartrate 250 ml @ 3.75 mls/hr Q24H IV 01/21/25 09:00 01/22/25 22:15 5.625 MLS/HR Enteral Nutritional Formula 1,000 ml 50ML/HR GT 01/21/25 09:30 01/24/25 17:39 1,000 ML Pantoprazole Sodium 40 mg DAILY IV 01/21/25 10:00 01/24/25 08:33 40 MG Sucralfate 1 gm BID@0600,2200 GT 01/21/25 22:00 01/25/25 05:48 1 GM Diagnostic Test (Pha) 1 strip Q6HR 01/22/25 12:00 01/25/25 05:48 1 STRIP Insulin Human Regular Q6HR [place] 01/22/25 12:00 01/25/25 06:07 4 UNITS Dextrose 50 ml UD PRN IV 01/22/25 08:30 Insulin Glargine 20 units DAILY@1000 [place] 01/23/25 10:00 01/25/25 08:30 20 UNITS objective The patient is well-nourished and well-developed with no distress. The patient is intubated MENTAL STATUS: Subjective CRANIAL NERVES: Pupils are round and slightly reactive, right pupil is bigger. There are no corneal reflexes and but he has doll's eyes phenomenon. No signs of facial weakness. There are gagging or coughing reflexes SENSATION: No responses to pain stimuli. MOTOR: Normal tone in the upper and lower extremity. Normal muscle bulk. No fasciculations. No spontaneous movement. REFLEXES: Deep tendon reflexes are symmetrical. No pathological reflexes. CEREBELLAR/COORDINATION: Deferred GAIT/STATION: deferred. laboratory and microbiology Laboratory Tests 01/25/25 04:00 Test 01/25/25 04:00 Range/Units Serum Glucose 221 H 74-106 mg/dL Problem List Diabetic ketoacidosis Metabolic acidosis Metabolic encephalopathy Herpes zoster infection/shingles End-stage kidney failure Anisocoria with right pupil bigger, etiology unclear, possible secondary to history of surgery One eye blindness Improving Assessment/Plan Monitoring Supportive treatment ICU care Stabilize vitals/pressor drip Respiratory support/vent management Oxygen Acyclovir 700 mg daily IV antibiotics Current pain management Haldol for agitation More hear from him once he mentally improved, More recommendation per clinical course This medical document was created using an electronic medical record system with [employer] dictation system. Although this document has been carefully reviewed, there may still be some phonetic and typographical errors. These areas are purely typographical due to imperfections of the software programs, and do not reflect any compromise in the patient's medical care. Prognosis Guarded Dietary Evaluation Review Comments: 1) Consider reducing TF rate from 50 mL to 40 mL/hr goal rate to prevent overfeeding. Nepro Carbsteady @ 40 mL/hr will provide 1728 kcals, 78g Pro, and 698 mL free H2O per 24 hrs. Goal rate will meet 100% estimated energy needs and 85% estimated protein needs 2) Advance to 60g [facility] renal diet when medically feasible 3) Collect HbA1c 4) Follow-up with nephrology, cardiology, and pulmonology 5) Continue to monitor I&O, labs, and skin integrity Expected Outcomes/Goals: 1) nutrition support to meet at least 75% estimated daily needs 2) labs to improve 3) diet to advance 4) f/u in 2-3 days Plan discussed with: LETTY Kwok MD Jan 25, 2025 10:18
--- NOTE | 2025-01-26 11:13 | DVHPN2 ---
Progress Note - Dictate Date Seen: Jan 25, 2025 Medical Necessity Reason Pt with a Central, PICC or Fol: Yes The following are medically ne: [place] Catheter Subjective On mechanical ventilation vital signs Vital Sign Date Time Temp Pulse Resp B/P (MAP) Pulse Ox O2 Delivery O2 Flow Rate FiO2 01/25/25 12:02 83 23 135/23 (60) 100 30 01/25/25 10:00 Mechanical Ventilator+ 01/25/25 08:00 98.8 98.8 Total Intake and Output 01/24/25 01/24/25 01/25/25 15:00 23:00 07:00 Intake Total 359.00 ml 300.0 ml 247.5 ml Output Total 50 ml 75 ml Balance 359.00 ml 250.0 ml 172.5 ml medications Current Medications Medications Dose Ordered Sig/Aleta Route Start Time Stop Time Status Last Admin Dose Admin Acyclovir Sodium 700 mg/Sodium Chloride 264 ml @ 264 mls/hr DAILY IV 01/18/25 05:00 01/24/25 08:30 264 MLS/HR Hydrocortisone 1 applic BID TOP 01/18/25 10:00 01/25/25 08:21 1 APPLIC Ondansetron HCl 4 mg Q4HP PRN IV 01/18/25 04:30 Nitroglycerin 0.4 mg Q5MINP PRN SL 01/18/25 04:30 Morphine Sulfate 2 mg Q30M PRN IV 01/18/25 04:30 Cefepime HCl 50 ml @ 12.5 mls/hr DAILY@0900 IV 01/18/25 09:00 01/24/25 10:18 12.5 MLS/HR Dextrose/Sodium Chloride 1,000 ml @ 75 mls/hr [id number] IV 01/18/25 15:30 UNV Hydralazine HCl 10 mg Q6HP PRN IV 01/19/25 05:30 01/19/25 08:56 10 MG Albuterol 2.5 mg Q4HPRN PRN NEB 01/20/25 00:15 01/20/25 09:53 2.5 MG Ipratropium [place] 0.5 mg Q4HPRN PRN NEB 01/20/25 00:15 01/20/25 09:53 0.5 MG Midazolam HCl 100 ml @ 1 mls/hr Q24H IV 01/20/25 14:00 01/22/25 10:31 3 MLS/HR Fentanyl Citrate 250 ml @ 2.5 mls/hr Q24H IV 01/20/25 14:00 01/24/25 11:53 3.75 MLS/HR Albuterol 2.5 mg Q6HR NEB 01/20/25 18:00 01/25/25 12:02 2.5 MG Ipratropium [place] 0.5 mg Q6HR NEB 01/20/25 18:00 01/25/25 12:02 0.5 MG Norepinephrine Bitartrate 250 ml @ 3.75 mls/hr Q24H IV 01/21/25 09:00 01/22/25 22:15 5.625 MLS/HR Enteral Nutritional Formula 1,000 ml 50ML/HR GT 01/21/25 09:30 01/24/25 17:39 1,000 ML Pantoprazole Sodium 40 mg DAILY IV 01/21/25 10:00 01/24/25 08:33 40 MG Sucralfate 1 gm BID@0600,2200 GT 01/21/25 22:00 01/25/25 05:48 1 GM Diagnostic Test (Pha) 1 strip Q6HR 01/22/25 12:00 01/25/25 12:31 1 STRIP Insulin Human Regular Q6HR SC 01/22/25 12:00 01/25/25 06:07 4 UNITS Dextrose 50 ml UD PRN IV 01/22/25 08:30 Insulin Glargine 20 units DAILY@1000 SC 01/23/25 10:00 01/25/25 08:30 20 UNITS objective intubated and sedated HEENT: Normocephalic Lungs: Bilateral good air entry CVS: S1, S2 regular rhythm Abdomen: Soft bowel sounds present 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 Continue with antibiotics Wean off mechanical ventilation Dietary Evaluation Review Comments: 1) Consider reducing TF rate from 50 mL to 40 mL/hr goal rate to prevent overfeeding. Nepro Carbsteady @ 40 mL/hr will provide 1728 kcals, 78g Pro, and 698 mL free H2O per 24 hrs. Goal rate will meet 100% estimated energy needs and 85% estimated protein needs 2) Advance to 60g CCHO renal diet when medically feasible 3) Collect HbA1c 4) Follow-up with nephrology, cardiology, and pulmonology 5) Continue to monitor I&O, labs, and skin integrity Expected Outcomes/Goals: 1) nutrition support to meet at least 75% estimated daily needs 2) labs to improve 3) diet to advance 4) f/u in 2-3 days Plan discussed with: Other HARRY ROMAN MD Jan 25, 2025 13:10
--- NOTE | 2025-01-26 11:42 | DVHPN2 ---
Subjective Patient intubated and sedated Reviewed: Care Plan, H&P, Labs, Medications Changes from previous H/P or p: No Changes General: Per HPI Objective Vitals Vital Signs Date Time Temp Pulse Resp B/P (MAP) Pulse Ox O2 Delivery O2 Flow Rate FiO2 01/26/25 09:08 75 16 162/58 (92) 100 30 01/26/25 07:48 Mechanical Ventilator+ 01/26/25 06:01 98.4 98.4 Intake/Output Intake and Output 01/26/25 07:00 Intake Total 849.0 ml Output Total 2770 ml Balance -1921.0 ml Intake Oral 50 ml IV Total 359.0 ml Tube Feeding 440 ml Output Urine Total 170 ml Other 2600 ml General Appearance: mild distress, Other (Continues to be encephalopathic) HEENT: Atraumatic, Other (Unequal pupils) Lungs: Clear to auscultation, Normal air movement, Other (Mechanical ventilation) Chest/Breasts: Other (Noted rash, shingles to right upper chest) Cardiovascular: Normal S1, Normal S2, Other (Sinus rhythm/sinus bradycardia) Abdomen: Normal bowel sounds, Soft, No tenderness, No hepatospenomegaly Genitourinary: No Apparent Abnormalities ([place]) Musculoskeletal: Other (Unable to assess) Neuro: Other (Unable to assess) Skin: Dry, Intact, Other (Rash to right upper chest) Psych/Mental Status: Other (Unable to assess) Medications Current Medications Medications Dose Ordered Sig/Aleta Route Start Time Stop Time Status Last Admin Dose Admin Acyclovir Sodium 700 mg/Sodium Chloride 264 ml @ 264 mls/hr DAILY IV 01/18/25 05:00 01/25/25 14:13 264 MLS/HR Hydrocortisone 1 applic BID TOP 01/18/25 10:00 01/26/25 08:49 1 APPLIC Ondansetron HCl 4 mg Q4HP PRN IV 01/18/25 04:30 Nitroglycerin 0.4 mg Q5MINP PRN SL 01/18/25 04:30 Morphine Sulfate 2 mg Q30M PRN IV 01/18/25 04:30 Cefepime HCl 50 ml @ 12.5 mls/hr DAILY@0900 IV 01/18/25 09:00 01/26/25 08:49 12.5 MLS/HR Dextrose/Sodium Chloride 1,000 ml @ 75 mls/hr [id number] IV 01/18/25 15:30 UNV Hydralazine HCl 10 mg Q6HP PRN IV 01/19/25 05:30 01/26/25 05:47 10 MG Albuterol 2.5 mg Q4HPRN PRN NEB 01/20/25 00:15 01/20/25 09:53 2.5 MG Ipratropium [place] 0.5 mg Q4HPRN PRN NEB 01/20/25 00:15 01/20/25 09:53 0.5 MG Midazolam HCl 100 ml @ 1 mls/hr Q24H IV 01/20/25 14:00 01/22/25 10:31 3 MLS/HR Fentanyl Citrate 250 ml @ 2.5 mls/hr Q24H IV 01/20/25 14:00 01/25/25 17:25 2.5 MLS/HR Albuterol 2.5 mg Q6HR NEB 01/20/25 18:00 01/26/25 07:13 2.5 MG Ipratropium [place] 0.5 mg Q6HR NEB 01/20/25 18:00 01/26/25 07:13 0.5 MG Norepinephrine Bitartrate 250 ml @ 3.75 mls/hr Q24H IV 01/21/25 09:00 01/22/25 22:15 5.625 MLS/HR Enteral Nutritional Formula 1,000 ml 50ML/HR GT 01/21/25 09:30 01/25/25 17:14 1,000 ML Pantoprazole Sodium 40 mg DAILY IV 01/21/25 10:00 01/26/25 08:49 40 MG Sucralfate 1 gm BID@0600,2200 GT 01/21/25 22:00 01/26/25 05:46 1 GM Diagnostic Test (Pha) 1 strip Q6HR 01/22/25 12:00 01/26/25 06:00 1 STRIP Insulin Human Regular Q6HR SC 01/22/25 12:00 01/26/25 05:38 6 UNITS Dextrose 50 ml UD PRN IV 01/22/25 08:30 Insulin Glargine 20 units DAILY@1000 SC 01/23/25 10:00 01/26/25 08:44 20 UNITS Laboratory Results Laboratory Tests 01/25/25 04:00 01/26/25 03:07 Chemistry Test 01/26/25 03:07 Calcium Level 9.4 mg/dL (8.7-10.4) Urinalysis Test 01/18/25 10:20 Urine Color Light-yellow (Yellow) Urine Clarity Clear (Clear) Urine pH 6.5 (5.0-9.0) Urine Specific [place] 1.017 (1.001-1.035) Urine Protein 3+ (Negative) H Urine Ketones Negative (Negative) Urine Blood 1+ /uL (Negative) H Urine Nitrite Negative (Negative) Urine Bilirubin Negative (Negative) Urine Urobilinogen Normal mg/dL (Negative) Urine Leukocyte Esterase Negative /uL (Negative) Urine RBC 1 /hpf (0 - 3) Urine Microscopic WBC 5 /HPF (0-3) H Urine Squamous Epithelial Cells Few /hpf (<5) Urine Bacteria None seen /hpf (None Seen) Urine Glucose 4+ mg/dL (Normal) H Blood Gas Results Test 01/26/25 07:49 Arterial Blood pH 7.503 (7.350-7.450) FiO2 % 30.0 Microbiology Microbiology Date/Time Source Procedure Growth Status 01/20/25 14:00 Sputum Gram Stain - Final Complete 01/20/25 14:00 Sputum Respiratory Culture - Final Complete 01/18/25 00:45 Nose MRSA Screen - Final Complete 01/17/25 23:25 Blood Blood Culture - Final NO GROWTH AFTER 5 DAYS OF INCUBATION. Complete Labs and/or images reviewed: Labs reviewed by me, Image(s) reviewed by me Assessment/Plan Assessment/Plan Impression: -Sepsis -metabolic encephalopathy -DKA -ESRD with hemodialysis -primary hypertension -dyslipidemia -hyponatremia -? seizure -Hypoglycemia Plan: Events: No events overnight. Patient continues to be encephalopathic. Still on low-dose sedation. -continue regular insulin sliding scale and Lantus. Blood sugar stabilized -CPAP trial once appropriate -Neurology consult. Recommendations reviewed -nephrology consultation: Received hemodialysis yesterday -ppi, Carafate -continue cefepime and acyclovir -repeat labs, chest x-ray, ABG in a.m. Critical care time spent with patient discussing and formulating plan of care: 40 minutes. This does not include time spent performing procedures. This medical document was created using an electronic medical record system with [email or web address] system. Although this document has been carefully reviewed, there may still be some phonetic and typographical errors. These areas are purely typographical due to imperfections of the software programs, and do not reflect any compromise in the patient's medical care. Plan discussed with: Patient, Other (RN) My Orders Orders - ROCÍO RAMIREZ NP Procedure Category Date Status Time Cpap Trial For Am ORDERS 01/26/25 Transmitted 08:15 Cpap/Sed Vacation Med ORDERS 01/26/25 Transmitted Weaning 08:15 Chest Portable XY 01/27/25 Logged 05:00 Chest Portable XY 01/28/25 Logged 05:00 Date of Service: Jan 26, 2025 Billing Provider: ROCÍO RAMIREZ NP Common Visit Codes: [id number] CARE 30-74 MIN ROCÍO RAMIREZ NP Jan 26, 2025 09:48
[2025-01-26 12:53] LABS: Base Excess 2.3 mmol/L (-2.0-3.0)
--- NOTE | 2025-01-26 13:45 | DVHPN2 ---
Progress Note - Dictate Date Seen: Jan 26, 2025 Medical Necessity Reason Pt with a Central, PICC or Fol: Yes The following are medically ne: [place] Catheter Subjective On mechanical ventilation vital signs Vital Sign Date Time Temp Pulse Resp B/P (MAP) Pulse Ox O2 Delivery O2 Flow Rate FiO2 01/26/25 13:43 17 100 Mechanical Ventilator+ 30 30 01/26/25 13:43 71 01/26/25 12:20 153/54 (87) 01/26/25 06:01 98.4 98.4 Total Intake and Output 01/25/25 01/25/25 01/26/25 15:00 23:00 07:00 Intake Total 329.0 ml 520.0 ml Output Total 2600 ml 70 ml 100 ml Balance -2600 ml 259.0 ml 420.0 ml medications Current Medications Medications Dose Ordered Sig/Aleta Route Start Time Stop Time Status Last Admin Dose Admin Acyclovir Sodium 700 mg/Sodium Chloride 264 ml @ 264 mls/hr DAILY IV 01/18/25 05:00 01/26/25 10:00 264 MLS/HR Ondansetron HCl 4 mg Q4HP PRN IV 01/18/25 04:30 Nitroglycerin 0.4 mg Q5MINP PRN SL 01/18/25 04:30 Morphine Sulfate 2 mg Q30M PRN IV 01/18/25 04:30 Cefepime HCl 50 ml @ 12.5 mls/hr DAILY@0900 IV 01/18/25 09:00 01/26/25 08:49 12.5 MLS/HR Dextrose/Sodium Chloride 1,000 ml @ 75 mls/hr [id number] IV 01/18/25 15:30 UNV Hydralazine HCl 10 mg Q6HP PRN IV 01/19/25 05:30 01/26/25 11:12 10 MG Albuterol 2.5 mg Q4HPRN PRN NEB 01/20/25 00:15 01/20/25 09:53 2.5 MG Ipratropium [place] 0.5 mg Q4HPRN PRN NEB 01/20/25 00:15 01/20/25 09:53 0.5 MG Midazolam HCl 100 ml @ 1 mls/hr Q24H IV 01/20/25 14:00 01/22/25 10:31 3 MLS/HR Fentanyl Citrate 250 ml @ 2.5 mls/hr Q24H IV 01/20/25 14:00 01/25/25 17:25 2.5 MLS/HR Albuterol 2.5 mg Q6HR NEB 01/20/25 18:00 01/26/25 12:00 2.5 MG Ipratropium [place] 0.5 mg Q6HR NEB 01/20/25 18:00 01/26/25 12:00 0.5 MG Norepinephrine Bitartrate 250 ml @ 3.75 mls/hr Q24H IV 01/21/25 09:00 01/22/25 22:15 5.625 MLS/HR Enteral Nutritional Formula 1,000 ml 50ML/HR GT 01/21/25 09:30 01/25/25 17:14 1,000 ML Pantoprazole Sodium 40 mg DAILY IV 01/21/25 10:00 01/26/25 08:49 40 MG Sucralfate 1 gm BID@0600,2200 GT 01/21/25 22:00 01/26/25 05:46 1 GM Diagnostic Test (Pha) 1 strip Q6HR 01/22/25 12:00 01/26/25 06:00 1 STRIP Insulin Human Regular Q6HR SC 01/22/25 12:00 01/26/25 05:38 6 UNITS Dextrose 50 ml UD PRN IV 01/22/25 08:30 Insulin Glargine 20 units DAILY@1000 SC 01/23/25 10:00 01/26/25 08:44 20 UNITS objective intubated and sedated HEENT: Normocephalic Lungs: Bilateral good air entry CVS: S1, S2 regular rhythm Abdomen: Soft bowel sounds present 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 Continue with antibiotics Wean off mechanical ventilation Dietary Evaluation Review Comments: 1) Consider reducing TF rate from 50 mL to 40 mL/hr goal rate to prevent overfeeding. Nepro Carbsteady @ 40 mL/hr will provide 1728 kcals, 78g Pro, and 698 mL free H2O per 24 hrs. Goal rate will meet 100% estimated energy needs and 85% estimated protein needs 2) Advance to 60g CCHO renal diet when medically feasible 3) Collect HbA1c 4) Follow-up with nephrology, cardiology, and pulmonology 5) Continue to monitor I&O, labs, and skin integrity Expected Outcomes/Goals: 1) nutrition support to meet at least 75% estimated daily needs 2) labs to improve 3) diet to advance 4) f/u in 2-3 days Plan discussed with: Other HARRY ROMAN MD Jan 26, 2025 13:45
[2025-01-27] VITALS (112 sets, daily range): BP systolic 82–197; BP diastolic 42–80; PULSE 66–79; RESP 14–22; TEMP 97.7–98.9; O2SAT 94–100
[2025-01-27 04:10] LABS: Anion Gap 14 (5-15); Calcium 9.0 mg/dL (8.7-10.4); Carbon Dioxide 28 mmol/L (20-31); Chloride 103 mmol/L (98-107); Potassium 3.8 mmol/L (3.5-5.1); Sodium 145 mmol/L (136-145)
[2025-01-27 04:16] LABS: BUN/Creatinine Ratio 10.3 (10.0-20.0)
[2025-01-27 04:38] LABS: Blood Urea Nitrogen 75 mg/dL (9-23); Glucose 161 mg/dL (74-106)
--- NOTE | 2025-01-27 05:35 | DVH ---
CHEST RADIOGRAPH Indication: chf Technique: Single frontal view of the chest was obtained COMPARISON: XY CHEST PORTABLE on DOS: 01/25/25, XY CHEST PORTABLE on DOS: 01/24/25, XY CHEST PORTABLE on DOS: 01/23/25, XY CHEST PORTABLE on DOS: 01/21/25, XY CHEST PORTABLE on DOS: 01/20/25 FINDINGS: Lines and Tubes: Slight interval retraction of the endotracheal tube such that the tip now projects a pproximately 4.7 cm above the level of the robert. Remaining lines and tubes unchanged. Lungs: Stable appearing minimal bibasilar pulmonary airspace disease. Pleura: No effusion. No pneumothorax. Cardiomediastinal contours: Unremarkable Bones: Unremarkable IMPRESSION: 1. Slight interval retraction of the endotracheal tube such that the tip now projects approximately 4 .7 cm above the level of the robert. Remaining Lines and tubes unchanged. 2. Stable minimal bibasilar pulmonary airspace disease.
[2025-01-27 06:51] LABS: Base Excess 2.9 mmol/L (-2.0-3.0)
[2025-01-27] MEDS: SODIUM CHL 0.9% 1000 ML BAG XX ONE (07:00)
--- NOTE | 2025-01-27 10:21 | DVHPN2 ---
Progress Note - Dictate Date Seen: Jan 27, 2025 Medical Necessity Reason Pt with a Central, PICC or Fol: Yes The following are medically ne: [place] Catheter Subjective On mechanical ventilation vital signs Vital Sign Date Time Temp Pulse Resp B/P (MAP) Pulse Ox O2 Delivery O2 Flow Rate FiO2 01/27/25 09:24 74 18 114/46 (68) 100 30 01/27/25 08:00 Mechanical Ventilator+ 01/27/25 06:03 97.9 97.9 Total Intake and Output 01/26/25 01/26/25 01/27/25 15:00 23:00 07:00 Intake Total 5.91 ml 23.87 ml 447.740 ml Output Total 50 ml 100 ml Balance 5.91 ml -26.13 ml 347.740 ml medications Current Medications Medications Dose Ordered Sig/Aleta Route Start Time Stop Time Status Last Admin Dose Admin Acyclovir Sodium 700 mg/Sodium Chloride 264 ml @ 264 mls/hr DAILY IV 01/18/25 05:00 01/27/25 09:54 264 MLS/HR Ondansetron HCl 4 mg Q4HP PRN IV 01/18/25 04:30 Nitroglycerin 0.4 mg Q5MINP PRN SL 01/18/25 04:30 Morphine Sulfate 2 mg Q30M PRN IV 01/18/25 04:30 Cefepime HCl 50 ml @ 12.5 mls/hr DAILY@0900 IV 01/18/25 09:00 01/27/25 09:00 12.5 MLS/HR Dextrose/Sodium Chloride 1,000 ml @ 75 mls/hr [id number] IV 01/18/25 15:30 UNV Hydralazine HCl 10 mg Q6HP PRN IV 01/19/25 05:30 01/26/25 11:12 10 MG Albuterol 2.5 mg Q4HPRN PRN NEB 01/20/25 00:15 01/20/25 09:53 2.5 MG Ipratropium [place] 0.5 mg Q4HPRN PRN NEB 01/20/25 00:15 01/20/25 09:53 0.5 MG Midazolam HCl 100 ml @ 1 mls/hr Q24H IV 01/20/25 14:00 01/22/25 10:31 3 MLS/HR Fentanyl Citrate 250 ml @ 2.5 mls/hr Q24H IV 01/20/25 14:00 01/25/25 17:25 2.5 MLS/HR Albuterol 2.5 mg Q6HR NEB 01/20/25 18:00 01/27/25 06:03 2.5 MG Ipratropium [place] 0.5 mg Q6HR NEB 01/20/25 18:00 01/27/25 06:03 0.5 MG Norepinephrine Bitartrate 250 ml @ 3.75 mls/hr Q24H IV 01/21/25 09:00 01/22/25 22:15 5.625 MLS/HR Enteral Nutritional Formula 1,000 ml 50ML/HR GT 01/21/25 09:30 01/25/25 17:14 1,000 ML Pantoprazole Sodium 40 mg DAILY IV 01/21/25 10:00 01/27/25 09:53 40 MG Sucralfate 1 gm BID@0600,2200 GT 01/21/25 22:00 01/27/25 05:28 1 GM Diagnostic Test (Pha) 1 strip Q6HR 01/22/25 12:00 01/27/25 05:48 1 STRIP Insulin Human Regular Q6HR SC 01/22/25 12:00 01/27/25 05:47 3 UNITS Dextrose 50 ml UD PRN IV 01/22/25 08:30 Insulin Glargine 20 units DAILY@1000 SC 01/23/25 10:00 01/27/25 09:53 20 UNITS objective intubated and sedated HEENT: Normocephalic Lungs: Bilateral good air entry CVS: S1, S2 regular rhythm Abdomen: Soft bowel sounds present 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 Continue with antibiotics Wean off mechanical ventilation Dietary Evaluation Review Comments: 1) Consider reducing TF rate from 50 mL to 40 mL/hr goal rate to prevent overfeeding. Nepro Carbsteady @ 40 mL/hr will provide 1728 kcals, 78g Pro, and 698 mL free H2O per 24 hrs. Goal rate will meet 100% estimated energy needs and 85% estimated protein needs 2) Advance to 60g CCHO renal diet when medically feasible 3) Collect HbA1c 4) Follow-up with nephrology, cardiology, and pulmonology 5) Continue to monitor I&O, labs, and skin integrity Expected Outcomes/Goals: 1) nutrition support to meet at least 75% estimated daily needs 2) labs to improve 3) diet to advance 4) f/u in 2-3 days Plan discussed with: Patient HARRY ROMAN MD Jan 27, 2025 10:21
--- NOTE | 2025-01-27 14:07 | DVHPN2 ---
Progress Note Date Seen: Jan 27, 2025 Medical Necessity Reason Pt with a Central, PICC or Fol: Yes The following are medically ne: [place] Catheter Subjective Patient reports: No new complaints (intubated and sedated getting HD) Objective vital signs Vital Sign Date Time Temp Pulse Resp B/P (MAP) Pulse Ox O2 Delivery O2 Flow Rate FiO2 01/27/25 13:37 73 16 149/69 (95) 100 30 01/27/25 12:00 Mechanical Ventilator+ 01/27/25 12:00 98.9 98.9 Total Intake and Output 01/26/25 01/26/25 01/27/25 15:00 23:00 07:00 Intake Total 5.91 ml 23.87 ml 447.740 ml Output Total 50 ml 100 ml Balance 5.91 ml -26.13 ml 347.740 ml medications Current Medications Medications Dose Ordered Sig/Aleta Route Start Time Stop Time Status Last Admin Dose Admin Acyclovir Sodium 700 mg/Sodium Chloride 264 ml @ 264 mls/hr DAILY IV 01/18/25 05:00 01/27/25 09:54 264 MLS/HR Ondansetron HCl 4 mg Q4HP PRN IV 01/18/25 04:30 Nitroglycerin 0.4 mg Q5MINP PRN SL 01/18/25 04:30 Morphine Sulfate 2 mg Q30M PRN IV 01/18/25 04:30 Cefepime HCl 50 ml @ 12.5 mls/hr DAILY@0900 IV 01/18/25 09:00 01/27/25 09:00 12.5 MLS/HR Dextrose/Sodium Chloride 1,000 ml @ 75 mls/hr [id number] IV 01/18/25 15:30 UNV Hydralazine HCl 10 mg Q6HP PRN IV 01/19/25 05:30 01/26/25 11:12 10 MG Albuterol 2.5 mg Q4HPRN PRN NEB 01/20/25 00:15 01/20/25 09:53 2.5 MG Ipratropium [place] 0.5 mg Q4HPRN PRN NEB 01/20/25 00:15 01/20/25 09:53 0.5 MG Midazolam HCl 100 ml @ 1 mls/hr Q24H IV 01/20/25 14:00 01/22/25 10:31 3 MLS/HR Fentanyl Citrate 250 ml @ 2.5 mls/hr Q24H IV 01/20/25 14:00 01/25/25 17:25 2.5 MLS/HR Albuterol 2.5 mg Q6HR NEB 01/20/25 18:00 01/27/25 11:27 2.5 MG Ipratropium [place] 0.5 mg Q6HR NEB 01/20/25 18:00 01/27/25 11:27 0.5 MG Norepinephrine Bitartrate 250 ml @ 3.75 mls/hr Q24H IV 01/21/25 09:00 01/27/25 12:10 3.75 MLS/HR Enteral Nutritional Formula 1,000 ml 50ML/HR GT 01/21/25 09:30 01/25/25 17:14 1,000 ML Pantoprazole Sodium 40 mg DAILY IV 01/21/25 10:00 01/27/25 09:53 40 MG Sucralfate 1 gm BID@0600,2200 GT 01/21/25 22:00 01/27/25 05:28 1 GM Diagnostic Test (Pha) 1 strip Q6HR 01/22/25 12:00 01/27/25 12:00 1 STRIP Insulin Human Regular Q6HR SC 01/22/25 12:00 01/27/25 12:00 3 UNITS Dextrose 50 ml UD PRN IV 01/22/25 08:30 Insulin Glargine 20 units DAILY@1000 SC 01/23/25 10:00 01/27/25 09:53 20 UNITS Examination General Appearance: intubated and sedated HEENT: Atraumatic, Other (Unequal pupils) Lungs: Clear to auscultation, Normal air movement, Other (Mechanical ventilation) Chest/Breasts: Other (Noted rash, shingles to right upper chest) Cardiovascular: Normal S1, Normal S2, Other (Sinus rhythm/sinus bradycardia) Abdomen: Normal bowel sounds, Soft, No tenderness, No hepatospenomegaly Genitourinary: No Apparent Abnormalities ([place]) Musculoskeletal: Other (Unable to assess) Neuro: Other (Unable to assess) Skin: Dry, Intact, Other (Rash to right upper chest) Psych/Mental Status: Other (Unable to assess) laboratory and microbiology Laboratory Tests 01/27/25 03:25 01/25/25 04:00 Test 01/27/25 03:25 Range/Units Serum Glucose 161 H 74-106 mg/dL Microbiology Date/Time Source Procedure Growth Status 01/20/25 14:00 Sputum Gram Stain - Final Complete 01/20/25 14:00 Sputum Respiratory Culture - Final Complete 01/18/25 00:45 Nose MRSA Screen - Final Complete 01/17/25 23:25 Blood Blood Culture - Final NO GROWTH AFTER 5 DAYS OF INCUBATION. Complete Problem List/Assessment/Plan Problem List/Assessment/Plan -Sepsis -metabolic encephalopathy -DKA -ESRD with hemodialysis -primary hypertension -dyslipidemia -hyponatremia -? seizure -Hypoglycemia Plan: Events: No events overnight. Patient continues to be encephalopathic. Still on low-dose sedation. -continue regular insulin sliding scale and Lantus. Blood sugar stabilized -CPAP trial once appropriate -HD per nephrology -ppi, Carafate -continue cefepime and acyclovir -daily labs while intubated Critical care time spent with patient discussing and formulating plan of care: 40 minutes. This does not include time spent performing procedures. Plan discussed with: Patient Dietary Evaluation Review Comments: 1) Consider reducing TF rate from 50 mL to 40 mL/hr goal rate to prevent overfeeding. Nepro Carbsteady @ 40 mL/hr will provide 1728 kcals, 78g Pro, and 698 mL free H2O per 24 hrs. Goal rate will meet 100% estimated energy needs and 85% estimated protein needs 2) Advance to 60g CCHO renal diet when medically feasible 3) Collect HbA1c 4) Follow-up with nephrology, cardiology, and pulmonology 5) Continue to monitor I&O, labs, and skin integrity Expected Outcomes/Goals: 1) nutrition support to meet at least 75% estimated daily needs 2) labs to improve 3) diet to advance 4) f/u in 2-3 days Date of Service: Jan 27, 2025 Billing Provider: TIA ADLER MD Common Visit Codes: [id number] SAME DATE (HIGH) TIA ADLER MD Jan 27, 2025 14:07
--- NOTE | 2025-01-27 18:18 | DVHPN2 ---
Progress Note - Dictate Date Seen: Jan 27, 2025 Medical Necessity Reason Pt with a Central, PICC or Fol: Yes The following are medically ne: Ashford Catheter Subjective Mr. Pisano is a 70 years old right-handed gentleman with a history of hypertension, diabetes, end-stage kidney failure on hemodialysis, the patient was brought to the [facility] on 01/17/2025 with a chief complaint of altered mental status. Because no improvement in the mental status, increased secretion and difficulty cleaning the respiratory tract, he was intubated on 01/20/2025 I have seen and examined the patient, I have talked to his nurse. He is responsive to light touch, sluggish light reflexes, the anisocoria persists The case was discussed with Beto He is off sedation since 01/25/25 0040AM Versed 0 mg/hour, fentanyl 0 mcg/hour, levo 0 mcg/min Pupil size 01/22/25: Right: 3-4 mm, left: 1-2 mm, no associated abnormal vascular dilatation and skin secretion 01/23/25: Right: 3-4 mm, left: 2 mm 01/24/25: Right: 3-4 mm, left: 2 mm 01/24/25: Right: 4 mm, left: 2-3 mm 01/27/25: Right: 4-5 mm, left: 2-3 mm ABG, 01/18/2025: Compensated Metabolic acidosis UDS, 01/18/2025: Negative Plasma alcohol, 01/17/2025: <3 Urinalysis, 01/18/2025: WBC: Five, urine leukocyte esterase: Negative CBC, 01/18/2025: Compensated metabolic acidosis WBC/HB/PLT/MCV, 01/18/2025: 14.4/11.8/189/92.3 Na, 01/18/2025: 127, 131 BUN/CR, : 113/11.33, 119/11.42, 50/5.72, 01/19/2025: 57/7.03 GFR, 01/18/2025: 4, 4, 10 Anion gap, 01/18/2025: 19, 20, Glucose, 01/17/2025: 856, 01/18/2025: 862, 710, 551, 231 Liver function tests, 01/18/2025: Unremarkable EEG, 01/20/2025: moderately abnormal EEG Chest x-ray, 01/18/2025: There is prominence of the interstitial markings. Mild right basilar opacity. Mild prominence of the cardiomediastinal silhouette, likely accentuated by technique. No pleural effusion or pneumothorax. No acute osseous abnormality CT head, 01/15/2025: 1. No acute territorial infarct, intracranial hemorrhage, or mass effect. 2. Age-related involutional changes. Chronic ischemic changes as detailed. 3. If clinical symptoms persist, MRI may be beneficial in further evaluation (Chronic right cerebellar infarct) vital signs Vital Sign Date Time Temp Pulse Resp B/P (MAP) Pulse Ox O2 Delivery O2 Flow Rate FiO2 01/27/25 17:22 168/63 01/27/25 16:19 74 16 96 30 01/27/25 14:00 Mechanical Ventilator+ 01/27/25 12:00 98.9 98.9 Total Intake and Output 01/26/25 01/26/25 01/27/25 15:00 23:00 07:00 Intake Total 5.91 ml 23.87 ml 447.740 ml Output Total 50 ml 100 ml Balance 5.91 ml -26.13 ml 347.740 ml medications Current Medications Medications Dose Ordered Sig/Aleta Route Start Time Stop Time Status Last Admin Dose Admin Acyclovir Sodium 700 mg/Sodium Chloride 264 ml @ 264 mls/hr DAILY IV 01/18/25 05:00 01/27/25 09:54 264 MLS/HR Ondansetron HCl 4 mg Q4HP PRN IV 01/18/25 04:30 Nitroglycerin 0.4 mg Q5MINP PRN SL 01/18/25 04:30 Morphine Sulfate 2 mg Q30M PRN IV 01/18/25 04:30 Cefepime HCl 50 ml @ 12.5 mls/hr DAILY@0900 IV 01/18/25 09:00 01/27/25 09:00 12.5 MLS/HR Dextrose/Sodium Chloride 1,000 ml @ 75 mls/hr [id number] IV 01/18/25 15:30 UNV Hydralazine HCl 10 mg Q6HP PRN IV 01/19/25 05:30 01/27/25 17:22 10 MG Albuterol 2.5 mg Q4HPRN PRN NEB 01/20/25 00:15 01/20/25 09:53 2.5 MG Ipratropium [place] 0.5 mg Q4HPRN PRN NEB 01/20/25 00:15 01/20/25 09:53 0.5 MG Midazolam HCl 100 ml @ 1 mls/hr Q24H IV 01/20/25 14:00 01/22/25 10:31 3 MLS/HR Fentanyl Citrate 250 ml @ 2.5 mls/hr Q24H IV 01/20/25 14:00 01/25/25 17:25 2.5 MLS/HR Albuterol 2.5 mg Q6HR NEB 01/20/25 18:00 01/27/25 11:27 2.5 MG Ipratropium [place] 0.5 mg Q6HR [facility] 01/20/25 18:00 01/27/25 11:27 0.5 MG Norepinephrine Bitartrate 250 ml @ 3.75 mls/hr Q24H IV 01/21/25 09:00 01/27/25 12:10 3.75 MLS/HR Enteral Nutritional Formula 1,000 ml 50ML/HR GT 01/21/25 09:30 01/25/25 17:14 1,000 ML Pantoprazole Sodium 40 mg DAILY IV 01/21/25 10:00 01/27/25 09:53 40 MG Sucralfate 1 gm BID@0600,2200 GT 01/21/25 22:00 01/27/25 05:28 1 GM Diagnostic Test (Pha) 1 strip Q6HR 01/22/25 12:00 01/27/25 17:23 1 STRIP Insulin Human Regular Q6HR [place] 01/22/25 12:00 01/27/25 12:00 3 UNITS Dextrose 50 ml UD PRN IV 01/22/25 08:30 Insulin Glargine 20 units DAILY@1000 [place] 01/23/25 10:00 01/27/25 09:53 20 UNITS objective The patient is well-nourished and well-developed with no distress. The patient is intubated MENTAL STATUS: Subjective CRANIAL NERVES: Pupils are round and slightly reactive, right pupil is bigger. There are no corneal reflexes and but he has doll's eyes phenomenon. No signs of facial weakness. There are gagging or coughing reflexes SENSATION: Responses to pain and touch MOTOR: Normal tone in the upper and lower extremity. Normal muscle bulk. No fasciculations. No spontaneous movement. REFLEXES: Deep tendon reflexes are symmetrical. No pathological reflexes. CEREBELLAR/COORDINATION: Deferred GAIT/STATION: deferred. laboratory and microbiology Laboratory Tests 01/27/25 03:25 01/25/25 04:00 Test 01/27/25 03:25 Range/Units Serum Glucose 161 H 74-106 mg/dL Problem List Diabetic ketoacidosis Metabolic acidosis Metabolic encephalopathy Herpes zoster infection/shingles End-stage kidney failure Anisocoria with right pupil bigger, etiology unclear, possible secondary to history of surgery One eye blindness Improving Assessment/Plan Monitoring Supportive treatment ICU care Stabilize vitals/pressor drip Respiratory support/vent management Oxygen Acyclovir 700 mg daily IV antibiotics Current pain management Haldol for agitation More hear from him once he mentally improved, More recommendation per clinical course This medical document was created using an electronic medical record system with Pocket dictation system. Although this document has been carefully reviewed, there may still be some phonetic and typographical errors. These areas are purely typographical due to imperfections of the software programs, and do not reflect any compromise in the patient's medical care. Prognosis Guarded Dietary Evaluation Review Comments: 1) Consider reducing TF rate from 50 mL to 40 mL/hr goal rate to prevent overfeeding. Nepro Carbsteady @ 40 mL/hr will provide 1728 kcals, 78g Pro, and 698 mL free H2O per 24 hrs. Goal rate will meet 100% estimated energy needs and 85% estimated protein needs 2) Advance to 60g [facility] renal diet when medically feasible 3) Collect HbA1c 4) Follow-up with nephrology, cardiology, and pulmonology 5) Continue to monitor I&O, labs, and skin integrity Expected Outcomes/Goals: 1) nutrition support to meet at least 75% estimated daily needs 2) labs to improve 3) diet to advance 4) f/u in 2-3 days Plan discussed with: LETTY Kwok MD Jan 27, 2025 18:18
--- NOTE | 2025-01-27 22:11 | DVHINCON2 ---
Date of service: Jan 27, [address] Jean Salvador Reason for Consultation Acute hypoxic respiratory failure requiring mechanical ventilator History of Present Illness A 70-year-old man with past medical history of Diabetes mellitus, hypertension, and end-stage renal disease on hemodialysis who presented to ED on 01/18/25 for evaluation of altered mental status. Patient was noted to be progressively more confused for the past two days by family members. They reported his blood sugar was reading high. Patient was lethargic, oriented x1 on evaluation in ED. He also was also noted to have shingles on his right chest. No further history could be obtained. Patient was admitted for further care. Pulmonary consultation is requested for evaluation and management of acute hypoxic respiratory failure requiring mechanical ventilator. Review of Systems: Unable to obtain d/t intubated status Past Medical History Diabetes mellitus, hypertension, end-stage renal disease Past Surgical History Dialysis access Medications: Reviewed. Allergies: No known drug allergies. Family History: No family history of premature CAD. No family history of lung disorders. Social History: Nonsmoker. No alcohol or illicit drug use. Family History: Patient reports no known family medical history. Allergies: Coded Allergies: NO KNOWN ALLERGIES (Unverified , 08/17/19) Home Meds Reported Medications Glipizide (Glipizide) 5 Mg Tab, 5 MG PO for 30 Days, MG 08/18/19 Sevelamer Carbonate (Renvela) 800 Mg Tab, 800 MG PO TIDWM for 30 Days, MG 08/18/19 Nifedipine (Nifedipine Er) 60 Mg Tab, 1 TAB PO DAILY, #90 TAB 3 Refills 08/18/19 Atenolol (Atenolol) 50 Mg Tab, 50 MG PO DAILY for 30 Days, MG 08/18/19 Vital Signs Vital Signs Date Time Temp Pulse Resp B/P (MAP) Pulse Ox O2 Delivery O2 Flow Rate FiO2 01/27/25 22:00 16 100 Mechanical Ventilator+ 30 30 01/27/25 20:03 74 153/63 (93) 01/27/25 19:00 98.1 98.1 Physical Exam Gen.: Patient lying in bed in medical ICU. Intubated on mechanical ventilator. Head: Normocephalic, atraumatic. Eyes: PERRLA. Ears: Normal external anatomy. Throat: Endotracheal tube and orogastric tube in place. Neck: Supple, trachea midline. Chest: Transmitted breath sounds bilaterally. Decreased air entry bilaterally. No wheezing. Bibasilar crackles. Cardiovascular: Positive S1, positive S2. Regular rate and rhythm. Abdomen: Positive bowel sounds in all 4 quadrants. Soft, nontender, nondistended. : Ashford in place. Normal external genitalia. Rectal: Deferred. Skin: Warm, dry. Intact. Extremities: 2+ radial pulses bilaterally. No lower extremity edema. Neuro: Off sedation Labs/Diagnostic Data Labs Test 01/27/25 17:27 01/27/25 06:44 01/27/25 03:25 01/26/25 12:45 Range/Units POC Glucose 73 70-106 mg/dl Blood Gas Specimen Type Arterial Blood Gas Sample Site Left radial Blood Gas Patient Temperature 37.0 Arterial Blood Date Drawn [id number] Arterial Blood pH 7.459 H 7.350-7.450 Arterial Blood Partial Pressure CO2 38.7 35.0-48.0 mmHg Arterial Blood Partial Pressure O2 93.8 83.0-108.0 mmHg Arterial Blood HCO3 26.8 21.0-28.0 mmol/L Arterial Blood Oxygen Saturation 96.6 94.0-98.0 % Arterial Blood Base Excess 2.9 -2.0-3.0 mmol/L Arterial Blood Oxyhemoglobin 96.4 94.0-98.0 % Arterial Blood Carboxyhemoglobin 0.2 L 0.5-1.5 % Arterial Blood Methemoglobin 0.0 0.0-1.5 % Nestor Test Yes Blood Gas Total Hemoglobin 10.50 L 13.5-17.5 g/dL Blood Gas Set Respiration Rate 16.0 Blood Gas Modality Vent - ac FiO2 % 30.0 Blood Gas Tidal Volume 500.0 Blood Gas PEEP or CPAP 5.0 Sodium Level 145 # 136-145 mmol/L Potassium Level 3.8 3.5-5.1 mmol/L Chloride Level 103 98-107 mmol/L Carbon Dioxide Level 28 20-31 mmol/L Anion Gap 14 5-15 Blood Urea Nitrogen 75 #H 9-23 mg/dL Creatinine 7.25 H 0.700-1.30 mg/dL Glomerular Filtration Rate Calc 7 >90 mL/min BUN/Creatinine Ratio 10.3 10.0-20.0 Serum Glucose 161 H 74-106 mg/dL Calcium Level 9.0 8.7-10.4 mg/dL Blood Gas Spontaneous Rate 13 Blood Gas Spontaneous Tidal Volume 541 Blood Gas Pressure Support 8 Test 01/25/25 04:00 01/23/25 03:40 01/20/25 23:40 01/20/25 15:40 Range/Units White Blood Count 9.4 4.4-10.8 10^3/uL Red Blood Count 2.99 L 4.5-5.90 10^6/uL Hemoglobin 9.5 L 13.5-17.5 g/dL Hematocrit 27.8 L 41.0-53.0 % Mean Corpuscular Volume 93.0 80.0-100.0 fL Mean Corpuscular Hemoglobin 31.6 28.0-32.0 pg Mean Corpuscular Hemoglobin Concent 34.0 32.0-36.0 g/dL Red Cell Distribution Width 15.4 H 11.8-14.3 % Platelet Count 136 L 140-450 10^3/uL Mean Platelet Volume 9.9 6.9-10.8 fL Neutrophils (%) (Auto) 82.4 H 37.0-80.0 % Lymphocytes (%) (Auto) 5.6 L 10.0-50.0 % Monocytes (%) (Auto) 11.1 0.0-12.0 % Eosinophils (%) (Auto) 0.7 0.0-7.0 % Basophils (%) (Auto) 0.2 0.0-2.0 % Neutrophils # (Auto) 7.8 1.6-8.6 10 ^3/uL Lymphocytes # (Auto) 0.5 0.4-5.4 10 ^3/uL Monocytes # (Auto) 1.0 0-1.3 10 ^3/uL Eosinophils # (Auto) 0.1 0-0.8 10 ^3/uL Basophils # (Auto) 0 0-0.2 10 ^3/uL Nucleated Red Blood Cells 0.1 % Random Vancomycin Level 17.2 H 5-10 ug/mL Stool Occult Blood Negative Negative Stool Occult Blood Sample #3 Negative Hepatitis B Surface Antigen Negative Negative Test 01/20/25 15:31 01/20/25 11:07 01/19/25 02:40 01/18/25 10:20 Range/Units Blood Gas Critical Value Read Back Yes Blood Gas Notified Whom Beto mullins np Blood Gas Notified Time [id number] Blood Gas Notified By Carmita wells rt Blood Gas Liter Flow 6.00 Erythrocyte Sedimentation Rate 11 0-20 mm/hr Total Bilirubin 0.4 0.2-1.0 mg/dL Aspartate Amino Transferase (AST) 33 13-40 U/L Alanine Aminotransferase (ALT) 24 7-40 U/L Alkaline Phosphatase 137 H 46-116 U/L C-Reactive Protein High Sensitivity 0.59 <1.0 mg/dL Total Protein 5.9 5.7-8.2 g/dL Albumin 3.4 3.2-4.8 g/dL Urine Color Light-yellow Yellow Urine Clarity Clear Clear Urine pH 6.5 5.0-9.0 Urine Specific [place] 1.017 1.001-1.035 Urine Protein 3+ H Negative Urine Ketones Negative Negative Urine Blood 1+ H Negative /uL Urine Nitrite Negative Negative Urine Bilirubin Negative Negative Urine Urobilinogen Normal Negative mg/dL Urine Leukocyte Esterase Negative Negative /uL Urine RBC 1 0 - 3 /hpf Urine Microscopic WBC 5 H 0-3 /HPF Urine Squamous Epithelial Cells Few <5 /hpf Urine Bacteria None seen None Seen /hpf Urine Glucose 4+ H Normal mg/dL Urine Opiates Screen Neg NEGATIVE Urine Fentanyl Screen Neg NEGATIVE Urine Barbiturates Screen Neg NEGATIVE Urine Phencyclidine Screen Neg NEGATIVE Urine Amphetamines Screen Neg NEGATIVE Urine Benzodiazepines Screen Neg NEGATIVE Urine Cocaine Screen Neg NEGATIVE Urine Cannabinoids Screen Neg NEGATIVE Test 01/18/25 05:59 01/18/25 00:45 01/17/25 23:37 Range/Units Serum Osmolality 353 H 278-298 mOsm/kg Influenza Type A Antigen Negative Negative Influenza Type B Antigen Negative Negative SARS-CoV-2 Antigen (Rapid) Negative NEGATIVE Lactic Acid Level 0.9 0.4-2.0 mmol/L Magnesium Level 2.7 H 1.6-2.6 mg/dL Troponin I High Sensitivity 11 </=54 ng/L B-Type Natriuretic Peptide 1718.02 0-100 pg/mL Lipase 41 12-53 U/L Plasma/Serum Blood Alcohol < 3.0 <10 mg/dL Microbiology Date/Time Source Procedure Growth Status 01/20/25 14:00 Sputum Gram Stain - Final Complete 01/20/25 14:00 Sputum Respiratory Culture - Final Complete 01/18/25 00:45 Nose MRSA Screen - Final Complete 10/22/25 23:25 Blood Blood Culture - Final NO GROWTH AFTER 5 DAYS OF INCUBATION. Complete Assessment Impression: Acute hypoxic respiratory failure On mechanical ventilator Septic shock Metabolic encephalopathy Diabetic ketoacidosis ESRD with hemodialysis Plan: s/p intubation on mechanical ventilator. ABG reviewed, alkalemia. CXR image and report reviewed. Devices in place. Stable minimal bibasilar pulmonary airspace disease. On AC mode; RR 16, VT 500, PEEP 5, FiO2 30% Titrate FIO2 to keep O2 saturation above 90%. VAP bundle. Daily ABG and CXR while intubated On Precedex drip Continue bronchodilators. Continue antibiotics. Pressors for hemodynamic support Levophed 2 mcg/min Titrate to keep mean arterial pressure greater than 65 mmHg. Tube feeds for nutrition Accu-Cheks, ISS. On Sucralfate and Protonix. GI recs appreciated. Hemodialysis per Nephrology - HD planned for today Monitor renal function Monitor electrolytes. Supplement as necessary. Monitor ins and outs. SBT/RENU - CPAP in AM. GI prophylaxis. DVT prophylaxis. Prognosis: Poor given patient's multiple co-morbidities. Condition: Critical Rest of plan per hospitalist and other consultants. A total of 35 minutes of critical care time was spent reviewing the patient record, examining the patient, making a diagnostic and therapeutic plan, discussing this plan with the medical personnel, following up on diagnostic studies and following the patient for clinical stability excluding any and all procedures. At least 50% of this time was spent in direct, [id number] contact . Thank you, Dr. Salvador, for allowing me to participate in this patient's care. Further recommendations will depend on the patient's clinical course. Please do not hesitate to contact me if you have any questions or concerns. This medical document was created using an electronic medical record system with Oodle dictation system. Although these documentations are being carefully reviewed, there may still be some phonetic and typographical changes. The errors are purely typographical, due to imperfection on the software program, and do not reflect any compromise in the patient's medical care Plan discussed with: Other (BRITTNI Davis) Visit Coding Pulmonary Billing Provider: MISAEL KIM MD Date of Service if different f: Jan 27, 2025 Common Visit Codes: 41656-[id number] CARE 30-74 MIN MISAEL KIM MD Jan 27, 2025 22:11
[2025-01-27] MEDS: EPOETIN ALFA-EPBX 10,000 UNIT/1ML VIAL SC ONE (23:56)
[2025-01-28] VITALS (110 sets, daily range): BP systolic 11–154; BP diastolic 40–61; PULSE 66–78; RESP 13–24; TEMP 97–99.3; O2SAT 93–100
[2025-01-28 05:03] LABS: Potassium 3.7 mmol/L (3.5-5.1); Sodium 140 mmol/L (136-145)
[2025-01-28 05:04] LABS: Anion Gap 13 (5-15); Carbon Dioxide 30 mmol/L (20-31)
[2025-01-28 05:09] LABS: BUN/Creatinine Ratio 9.2 (10.0-20.0)
[2025-01-28 05:20] LABS: Blood Urea Nitrogen 51 mg/dL (9-23); Calcium 8.6 mg/dL (8.7-10.4); Chloride 97 mmol/L (98-107); Glucose 237 mg/dL (74-106)
--- NOTE | 2025-01-28 05:24 | DVH ---
CHEST RADIOGRAPH Indication: chf Technique: Single frontal view of the chest was obtained Comparison: XY CHEST PORTABLE on DOS: 01/27/25, XY CHEST PORTABLE on DOS: 01/25/25, XY CHEST PORTABLE on DOS: 01/24/25 IMPRESSION: Support lines and tubes appear unchanged in satisfactory position. The heart appears stable in size. Mild pulmonary vascular congestion. No focal airspace opacity, effusion, or pneumothorax.
[2025-01-28 07:42] LABS: Base Excess 5.3 mmol/L (-2.0-3.0)
--- NOTE | 2025-01-28 10:57 | DVHPN2 ---
Progress Note Date Seen: Jan 28, 2025 Medical Necessity Reason Pt with a Central, PICC or Fol: Yes The following are medically ne: Ashford Catheter Objective vital signs Vital Sign Date Time Temp Pulse Resp B/P (MAP) Pulse Ox O2 Delivery O2 Flow Rate FiO2 01/28/25 10:15 76 19 114/52 (72) 100 01/28/25 10:09 30 01/28/25 10:00 Mechanical Ventilator 01/28/25 08:00 98.2 98.2 Total Intake and Output 01/27/25 01/27/25 01/28/25 15:00 23:00 07:00 Intake Total 366.170 ml 440.920 ml 542.795 ml Output Total 75 ml 20 ml Balance 366.170 ml 365.920 ml 522.795 ml medications Current Medications Medications Dose Ordered Sig/Aleta Route Start Time Stop Time Status Last Admin Dose Admin Acyclovir Sodium 700 mg/Sodium Chloride 264 ml @ 264 mls/hr DAILY IV 01/18/25 05:00 01/28/25 08:41 264 MLS/HR Ondansetron HCl 4 mg Q4HP PRN IV 01/18/25 04:30 Nitroglycerin 0.4 mg Q5MINP PRN SL 01/18/25 04:30 Morphine Sulfate 2 mg Q30M PRN IV 01/18/25 04:30 Cefepime HCl 50 ml @ 12.5 mls/hr DAILY@0900 IV 01/18/25 09:00 01/28/25 08:41 12.5 MLS/HR Dextrose/Sodium Chloride 1,000 ml @ 75 mls/hr [id number] IV 01/18/25 15:30 UNV Hydralazine HCl 10 mg Q6HP PRN IV 01/19/25 05:30 01/27/25 17:22 10 MG Albuterol 2.5 mg Q4HPRN PRN NEB 01/20/25 00:15 01/20/25 09:53 2.5 MG Ipratropium [place] 0.5 mg Q4HPRN PRN NEB 01/20/25 00:15 01/20/25 09:53 0.5 MG Midazolam HCl 100 ml @ 1 mls/hr Q24H IV 01/20/25 14:00 01/22/25 10:31 3 MLS/HR Fentanyl Citrate 250 ml @ 2.5 mls/hr Q24H IV 01/20/25 14:00 01/25/25 17:25 2.5 MLS/HR Albuterol 2.5 mg Q6HR NEB 01/20/25 18:00 01/28/25 06:03 2.5 MG Ipratropium [place] 0.5 mg Q6HR NEB 01/20/25 18:00 01/28/25 06:03 0.5 MG Norepinephrine Bitartrate 250 ml @ 3.75 mls/hr Q24H IV 01/21/25 09:00 01/27/25 12:10 3.75 MLS/HR Enteral Nutritional Formula 1,000 ml 50ML/HR GT 01/21/25 09:30 01/25/25 17:14 1,000 ML Pantoprazole Sodium 40 mg DAILY IV 01/21/25 10:00 01/28/25 08:41 40 MG Sucralfate 1 gm BID@0600,2200 GT 01/21/25 22:00 01/28/25 05:50 1 GM Diagnostic Test (Pha) 1 strip Q6HR 01/22/25 12:00 01/27/25 23:47 1 STRIP Insulin Human Regular Q6HR [place] 01/22/25 12:00 01/28/25 05:57 6 UNITS Dextrose 50 ml UD PRN IV 01/22/25 08:30 Insulin Glargine 20 units DAILY@1000 [place] 01/23/25 10:00 01/28/25 09:15 20 UNITS Examination Patient is 70 years old male resting in bed intubated and sedated. No apparent distress . NG tube intact HEENT-atraumatic normocephalic heart-regular rate and rhythm lungs decreased breath sounds at bilateral lower lungs Abdomen soft nontender nondistended Musculoskeletal-no edema cyanosis Neuro-AO intubated and sedated laboratory and microbiology Laboratory Tests 01/28/25 03:30 01/25/25 04:00 Test 01/28/25 03:30 Range/Units Serum Glucose 237 H 74-106 mg/dL Microbiology Date/Time Source Procedure Growth Status 01/20/25 14:00 Sputum Gram Stain - Final Complete 01/20/25 14:00 Sputum Respiratory Culture - Final Complete 01/18/25 00:45 Nose MRSA Screen - Final Complete 01/17/25 23:25 Blood Blood Culture - Final NO GROWTH AFTER 5 DAYS OF INCUBATION. Complete Problem List/Assessment/Plan Problem List/Assessment/Plan -Sepsis -metabolic encephalopathy -DKA -ESRD with hemodialysis -primary hypertension -dyslipidemia -hyponatremia -? seizure -Hypoglycemia Plan: -CPAP trial today -continue regular insulin sliding scale and Lantus. Blood sugar stabilized -HD per nephrology -ppi, Carafate -continue cefepime and acyclovir -daily labs while intubated Critical care time spent with patient discussing and formulating plan of care: 40 minutes. This does not include time spent performing procedures. Plan discussed with: Patient, Son, Other (Grandson) My Orders My Orders Orders - TIA ADLER MD Procedure Category Date Status Time Complete Blood Count LAB 01/29/25 Verified 05:00 Complete Blood Count LAB 01/30/25 Verified 05:00 Complete Blood Count LAB 01/31/25 Verified 05:00 Complete Blood Count LAB 02/01/25 Verified 05:00 Complete Blood Count LAB 02/02/25 Verified 05:00 Cpap Trial For Am ORDERS 01/28/25 Transmitted 09:59 Ventilator Orders RT 01/28/25 Transmitted 10:08 Dietary Evaluation Review Comments: 1) Consider reducing TF rate from 50 mL to 40 mL/hr goal rate to prevent overfeeding. Nepro Carbsteady @ 40 mL/hr will provide 1728 kcals, 78g Pro, and 698 mL free H2O per 24 hrs. Goal rate will meet 100% estimated energy needs and 85% estimated protein needs 2) Advance to 60g CCHO renal diet when medically feasible 3) Collect HbA1c 4) Follow-up with nephrology, cardiology, and pulmonology 5) Continue to monitor I&O, labs, and skin integrity Expected Outcomes/Goals: 1) nutrition support to meet at least 75% estimated daily needs 2) labs to improve 3) diet to advance 4) f/u in 2-3 days Date of Service: Jan 28, 2025 Billing Provider: TIA ADLER MD Common Visit Codes: [id number] SAME DATE (HIGH) TIA ADLER MD Jan 28, 2025 10:57
--- NOTE | 2025-01-28 12:33 | DVHPN2 ---
Progress Note - Dictate Date Seen: Jan 28, 2025 Medical Necessity Reason Pt with a Central, PICC or Fol: Yes The following are medically ne: [place] Catheter Subjective On mechanical ventilation vital signs Vital Sign Date Time Temp Pulse Resp B/P (MAP) Pulse Ox O2 Delivery O2 Flow Rate FiO2 01/28/25 12:01 72 15 121/53 (75) 100 30 01/28/25 10:00 Mechanical Ventilator 01/28/25 08:00 98.2 98.2 Total Intake and Output 01/27/25 01/27/25 01/28/25 15:00 23:00 07:00 Intake Total 366.170 ml 440.920 ml 542.795 ml Output Total 75 ml 20 ml Balance 366.170 ml 365.920 ml 522.795 ml medications Current Medications Medications Dose Ordered Sig/Aleta Route Start Time Stop Time Status Last Admin Dose Admin Acyclovir Sodium 700 mg/Sodium Chloride 264 ml @ 264 mls/hr DAILY IV 01/18/25 05:00 01/28/25 08:41 264 MLS/HR Ondansetron HCl 4 mg Q4HP PRN IV 01/18/25 04:30 Nitroglycerin 0.4 mg Q5MINP PRN SL 01/18/25 04:30 Morphine Sulfate 2 mg Q30M PRN IV 01/18/25 04:30 Cefepime HCl 50 ml @ 12.5 mls/hr DAILY@0900 IV 01/18/25 09:00 01/28/25 08:41 12.5 MLS/HR Dextrose/Sodium Chloride 1,000 ml @ 75 mls/hr [id number] IV 01/18/25 15:30 UNV Hydralazine HCl 10 mg Q6HP PRN IV 01/19/25 05:30 01/27/25 17:22 10 MG Albuterol 2.5 mg Q4HPRN PRN NEB 01/20/25 00:15 01/20/25 09:53 2.5 MG Ipratropium [place] 0.5 mg Q4HPRN PRN NEB 01/20/25 00:15 01/20/25 09:53 0.5 MG Midazolam HCl 100 ml @ 1 mls/hr Q24H IV 01/20/25 14:00 01/22/25 10:31 3 MLS/HR Fentanyl Citrate 250 ml @ 2.5 mls/hr Q24H IV 01/20/25 14:00 01/25/25 17:25 2.5 MLS/HR Albuterol 2.5 mg Q6HR NEB 01/20/25 18:00 01/28/25 12:00 2.5 MG Ipratropium [place] 0.5 mg Q6HR NEB 01/20/25 18:00 01/28/25 12:00 0.5 MG Norepinephrine Bitartrate 250 ml @ 3.75 mls/hr Q24H IV 01/21/25 09:00 01/27/25 12:10 3.75 MLS/HR Enteral Nutritional Formula 1,000 ml 50ML/HR GT 01/21/25 09:30 01/25/25 17:14 1,000 ML Pantoprazole Sodium 40 mg DAILY IV 01/21/25 10:00 01/28/25 08:41 40 MG Sucralfate 1 gm BID@0600,2200 GT 01/21/25 22:00 01/28/25 05:50 1 GM Diagnostic Test (Pha) 1 strip Q6HR 01/22/25 12:00 01/28/25 12:22 1 STRIP Insulin Human Regular Q6HR SC 01/22/25 12:00 01/28/25 05:57 6 UNITS Dextrose 50 ml UD PRN IV 01/22/25 08:30 Insulin Glargine 20 units DAILY@1000 SC 01/23/25 10:00 01/28/25 09:15 20 UNITS objective intubated and sedated HEENT: Normocephalic Lungs: Bilateral good air entry CVS: S1, S2 regular rhythm Abdomen: Soft bowel sounds present ENDOCRINOLOGY NURSE: intubated Extremities: No edema laboratory and microbiology Laboratory Tests 01/28/25 03:30 01/25/25 04:00 Test 01/28/25 03:30 Range/Units Serum Glucose 237 H 74-106 mg/dL Problem List Problem List End-stage kidney disease on hemodialysis, tolerating HD well Acute hypoxic respiratory failure, still requiring mechanical ventilation Metabolic encephalopathy Shingles Diabetic ketoacidosis, resolved Hyponatremia secondary to elevated blood sugars, resolved Probable seizures Assessment/Plan Continue Hemodialysis on TTS schedule. Continue with antibiotics Wean off mechanical ventilation, CPAP trial today Dietary Evaluation Review Comments: 1) Consider reducing TF rate from 50 mL to 40 mL/hr goal rate to prevent overfeeding. Nepro Carbsteady @ 40 mL/hr will provide 1728 kcals, 78g Pro, and 698 mL free H2O per 24 hrs. Goal rate will meet 100% estimated energy needs and 85% estimated protein needs 2) Advance to 60g CCHO renal diet when medically feasible 3) Collect HbA1c 4) Follow-up with nephrology, cardiology, and pulmonology 5) Continue to monitor I&O, labs, and skin integrity Expected Outcomes/Goals: 1) nutrition support to meet at least 75% estimated daily needs 2) labs to improve 3) diet to advance 4) f/u in 2-3 days Plan discussed with: Patient, Other HARRY ROMAN MD Jan 28, 2025 12:33
--- NOTE | 2025-01-28 17:17 | DVHPN2 ---
Progress Note - Dictate Date Seen: Jan 28, 2025 Medical Necessity Reason Pt with a Central, PICC or Fol: Yes The following are medically ne: [place] Catheter Subjective Mr. Pisano is a 70 years old right-handed gentleman with a history of hypertension, diabetes, end-stage kidney failure on hemodialysis, the patient was brought to the [facility] on 01/17/2025 with a chief complaint of altered mental status. Because no improvement in the mental status, increased secretion and difficulty cleaning the respiratory tract, he was intubated on 01/20/2025 I have seen and examined the patient, I have talked to his nurse. He is awake with eyes tightly closed, not able to examined the pupils He moves the left arm a little bit Precedex 0.3 mcg/kg/hour Pupil size 01/22/25: Right: 3-4 mm, left: 1-2 mm, no associated abnormal vascular dilatation and skin secretion 01/23/25: Right: 3-4 mm, left: 2 mm 01/24/25: Right: 3-4 mm, left: 2 mm 01/24/25: Right: 4 mm, left: 2-3 mm 01/27/25: Right: 4-5 mm, left: 2-3 mm 01/28/25: Eyes tightly closed ABG, 01/18/2025: Compensated Metabolic acidosis UDS, 01/18/2025: Negative Plasma alcohol, 01/17/2025: <3 Urinalysis, 01/18/2025: WBC: Five, urine leukocyte esterase: Negative CBC, 01/18/2025: Compensated metabolic acidosis WBC/HB/PLT/MCV, 01/18/2025: 14.4/11.8/189/92.3 Na, 01/18/2025: 127, 131 BUN/CR, : 113/11.33, 119/11.42, 50/5.72, 01/19/2025: 57/7.03 GFR, 01/18/2025: 4, 4, 10 Anion gap, 01/18/2025: 19, 20, Glucose, 01/17/2025: 856, 01/18/2025: 862, 710, 551, 231 Liver function tests, 01/18/2025: Unremarkable EEG, 01/20/2025: moderately abnormal EEG Chest x-ray, 01/18/2025: There is prominence of the interstitial markings. Mild right basilar opacity. Mild prominence of the cardiomediastinal silhouette, likely accentuated by technique. No pleural effusion or pneumothorax. No acute osseous abnormality CT head, 01/15/2025: 1. No acute territorial infarct, intracranial hemorrhage, or mass effect. 2. Age-related involutional changes. Chronic ischemic changes as detailed. 3. If clinical symptoms persist, MRI may be beneficial in further evaluation (Chronic right cerebellar infarct) vital signs Vital Sign Date Time Temp Pulse Resp B/P (MAP) Pulse Ox O2 Delivery O2 Flow Rate FiO2 01/28/25 17:00 72 14 100 01/28/25 16:00 97.0 97.0 01/28/25 15:42 30 01/28/25 15:39 Mechanical Ventilator+ Total Intake and Output 01/27/25 01/27/25 01/28/25 15:00 23:00 07:00 Intake Total 366.170 ml 440.920 ml 542.795 ml Output Total 75 ml 20 ml Balance 366.170 ml 365.920 ml 522.795 ml medications Current Medications Medications Dose Ordered Sig/Aleta Route Start Time Stop Time Status Last Admin Dose Admin Acyclovir Sodium 700 mg/Sodium Chloride 264 ml @ 264 mls/hr DAILY IV 01/18/25 05:00 01/28/25 08:41 264 MLS/HR Ondansetron HCl 4 mg Q4HP PRN IV 01/18/25 04:30 Nitroglycerin 0.4 mg Q5MINP PRN SL 01/18/25 04:30 Morphine Sulfate 2 mg Q30M PRN IV 01/18/25 04:30 Cefepime HCl 50 ml @ 12.5 mls/hr DAILY@0900 IV 01/18/25 09:00 01/28/25 08:41 12.5 MLS/HR Dextrose/Sodium Chloride 1,000 ml @ 75 mls/hr [id number] IV 01/18/25 15:30 UNV Hydralazine HCl 10 mg Q6HP PRN IV 01/19/25 05:30 01/27/25 17:22 10 MG Albuterol 2.5 mg Q4HPRN PRN NEB 01/20/25 00:15 01/20/25 09:53 2.5 MG Ipratropium [place] 0.5 mg Q4HPRN PRN NEB 01/20/25 00:15 01/20/25 09:53 0.5 MG Midazolam HCl 100 ml @ 1 mls/hr Q24H IV 01/20/25 14:00 01/22/25 10:31 3 MLS/HR Fentanyl Citrate 250 ml @ 2.5 mls/hr Q24H IV 01/20/25 14:00 01/25/25 17:25 2.5 MLS/HR Albuterol 2.5 mg Q6HR NEB 01/20/25 18:00 01/28/25 12:00 2.5 MG Ipratropium [place] 0.5 mg Q6HR NEB 01/20/25 18:00 01/28/25 12:00 0.5 MG Norepinephrine Bitartrate 250 ml @ 3.75 mls/hr Q24H IV 01/21/25 09:00 01/27/25 12:10 3.75 MLS/HR Enteral Nutritional Formula 1,000 ml 50ML/HR GT 01/21/25 09:30 01/25/25 17:14 1,000 ML Pantoprazole Sodium 40 mg DAILY IV 01/21/25 10:00 01/28/25 08:41 40 MG Sucralfate 1 gm BID@0600,2200 GT 01/21/25 22:00 01/28/25 05:50 1 GM Diagnostic Test (Pha) 1 strip Q6HR 01/22/25 12:00 01/28/25 12:22 1 STRIP Insulin Human Regular Q6HR SC 01/22/25 12:00 01/28/25 05:57 6 UNITS Dextrose 50 ml UD PRN IV 01/22/25 08:30 Insulin Glargine 20 units DAILY@1000 SC 01/23/25 10:00 01/28/25 09:15 20 UNITS objective The patient is well-nourished and well-developed with no distress. The patient is intubated MENTAL STATUS: Subjective CRANIAL NERVES: Subjective. No signs of facial weakness. There are gagging or coughing reflexes SENSATION: Responses to pain and touch MOTOR: Normal tone in the upper and lower extremity. Normal muscle bulk. No fasciculations. Moves the left arm REFLEXES: Deep tendon reflexes are symmetrical. No pathological reflexes. CEREBELLAR/COORDINATION: Deferred GAIT/STATION: deferred. laboratory and microbiology Laboratory Tests 01/28/25 03:30 01/25/25 04:00 Test 01/28/25 03:30 Range/Units Serum Glucose 237 H 74-106 mg/dL Problem List Diabetic ketoacidosis Metabolic acidosis Metabolic encephalopathy Herpes zoster infection/shingles End-stage kidney failure Anisocoria with right pupil bigger, etiology unclear, possible secondary to history of surgery One eye blindness Improving Assessment/Plan Monitoring Supportive treatment ICU care Stabilize vitals/pressor drip Respiratory support/vent management Oxygen Acyclovir 700 mg daily IV antibiotics Current pain management Haldol for agitation More hear from him once he mentally improved, More recommendation per clinical course This medical document was created using an electronic medical record system with [employer] dictation system. Although this document has been carefully reviewed, there may still be some phonetic and typographical errors. These areas are purely typographical due to imperfections of the software programs, and do not reflect any compromise in the patient's medical care. Prognosis Guarded Dietary Evaluation Review Comments: 1) Consider reducing TF rate from 50 mL to 40 mL/hr goal rate to prevent overfeeding. Nepro Carbsteady @ 40 mL/hr will provide 1728 kcals, 78g Pro, and 698 mL free H2O per 24 hrs. Goal rate will meet 100% estimated energy needs and 85% estimated protein needs 2) Advance to 60g CCHO renal diet when medically feasible 3) Collect HbA1c 4) Follow-up with nephrology, cardiology, and pulmonology 5) Continue to monitor I&O, labs, and skin integrity Expected Outcomes/Goals: 1) nutrition support to meet at least 75% estimated daily needs 2) labs to improve 3) diet to advance 4) f/u in 2-3 days Plan discussed with: LETTY Kwok MD Jan 28, 2025 17:17
--- NOTE | 2025-01-28 23:40 | DVHPN2 ---
Subjective DOS: 01/28/2025 Patient seen and examined at bedside. Sedated, intubated on mechanical ventilator. Overnight events reviewed. Reviewed: Care Plan, H&P, Labs, Medications Changes from previous H/P or p: No Changes General: Per HPI Objective Vitals Vital Signs Date Time Temp Pulse Resp B/P (MAP) Pulse Ox O2 Delivery O2 Flow Rate FiO2 01/28/25 22:30 70 14 129/50 (76) 99 01/28/25 22:19 30 01/28/25 22:00 Mechanical Ventilator+ 01/28/25 20:00 97.7 97.7 Intake/Output Intake and Output 01/28/25 06:59 Intake Total 1349.885 ml Output Total 95 ml Balance 1254.885 ml Intake Oral 100 ml IV Total 449.885 ml Tube Feeding 800 ml Output Urine Total 95 ml General Appearance: mild distress, Other (Continues to be encephalopathic) HEENT: Atraumatic, Other (Unequal pupils) Lungs: Clear to auscultation, Normal air movement, Other (Mechanical ventilation) Chest/Breasts: Other (Noted rash, shingles to right upper chest) Cardiovascular: Normal S1, Normal S2, Other (Sinus rhythm/sinus bradycardia) Abdomen: Normal bowel sounds, Soft, No tenderness, No hepatospenomegaly Genitourinary: No Apparent Abnormalities ([place]) Musculoskeletal: Other (Unable to assess) Neuro: Other (Unable to assess) Skin: Dry, Intact, Other (Rash to right upper chest) Psych/Mental Status: Other (Unable to assess) Medications Current Medications Medications Dose Ordered Sig/Aleta Route Start Time Stop Time Status Last Admin Dose Admin Acyclovir Sodium 700 mg/Sodium Chloride 264 ml @ 264 mls/hr DAILY IV 01/18/25 05:00 01/28/25 08:41 264 MLS/HR Ondansetron HCl 4 mg Q4HP PRN IV 01/18/25 04:30 Nitroglycerin 0.4 mg Q5MINP PRN SL 01/18/25 04:30 Morphine Sulfate 2 mg Q30M PRN IV 01/18/25 04:30 Cefepime HCl 50 ml @ 12.5 mls/hr DAILY@0900 IV 01/18/25 09:00 01/28/25 08:41 12.5 MLS/HR Dextrose/Sodium Chloride 1,000 ml @ 75 mls/hr [id number] IV 01/18/25 15:30 UNV Hydralazine HCl 10 mg Q6HP PRN IV 01/19/25 05:30 01/27/25 17:22 10 MG Albuterol 2.5 mg Q4HPRN PRN NEB 01/20/25 00:15 01/20/25 09:53 2.5 MG Ipratropium [place] 0.5 mg Q4HPRN PRN NEB 01/20/25 00:15 01/20/25 09:53 0.5 MG Midazolam HCl 100 ml @ 1 mls/hr Q24H IV 01/20/25 14:00 01/22/25 10:31 3 MLS/HR Fentanyl Citrate 250 ml @ 2.5 mls/hr Q24H IV 01/20/25 14:00 01/25/25 17:25 2.5 MLS/HR Albuterol 2.5 mg Q6HR NEB 01/20/25 18:00 01/28/25 18:43 2.5 MG Ipratropium [place] 0.5 mg Q6HR NEB 01/20/25 18:00 01/28/25 18:43 0.5 MG Norepinephrine Bitartrate 250 ml @ 3.75 mls/hr Q24H IV 01/21/25 09:00 01/27/25 12:10 3.75 MLS/HR Enteral Nutritional Formula 1,000 ml 50ML/HR GT 01/21/25 09:30 01/25/25 17:14 1,000 ML Pantoprazole Sodium 40 mg DAILY IV 01/21/25 10:00 01/28/25 08:41 40 MG Sucralfate 1 gm BID@0600,2200 GT 01/21/25 22:00 01/28/25 21:23 1 GM Diagnostic Test (Pha) 1 strip Q6HR 01/22/25 12:00 01/28/25 18:00 1 STRIP Insulin Human Regular Q6HR SC 01/22/25 12:00 01/28/25 18:00 4 UNITS Dextrose 50 ml UD PRN IV 01/22/25 08:30 Insulin Glargine 20 units DAILY@1000 SC 01/23/25 10:00 01/28/25 09:15 20 UNITS Laboratory Results Laboratory Tests 01/25/25 04:00 01/28/25 03:30 Chemistry Test 01/28/25 03:30 Calcium Level 8.6 mg/dL (8.7-10.4) L Urinalysis Test 01/18/25 10:20 Urine Color Light-yellow (Yellow) Urine Clarity Clear (Clear) Urine pH 6.5 (5.0-9.0) Urine Specific [place] 1.017 (1.001-1.035) Urine Protein 3+ (Negative) H Urine Ketones Negative (Negative) Urine Blood 1+ /uL (Negative) H Urine Nitrite Negative (Negative) Urine Bilirubin Negative (Negative) Urine Urobilinogen Normal mg/dL (Negative) Urine Leukocyte Esterase Negative /uL (Negative) Urine RBC 1 /hpf (0 - 3) Urine Microscopic WBC 5 /HPF (0-3) H Urine Squamous Epithelial Cells Few /hpf (<5) Urine Bacteria None seen /hpf (None Seen) Urine Glucose 4+ mg/dL (Normal) H Blood Gas Results Test 01/28/25 07:34 Arterial Blood pH 7.565 (7.350-7.450) FiO2 % 30.0 Microbiology Microbiology Date/Time Source Procedure Growth Status 01/20/25 14:00 Sputum Gram Stain - Final Complete 01/20/25 14:00 Sputum Respiratory Culture - Final Complete 01/18/25 00:45 Nose MRSA Screen - Final Complete 01/17/25 23:25 Blood Blood Culture - Final NO GROWTH AFTER 5 DAYS OF INCUBATION. Complete Assessment/Plan Assessment/Plan Impression: Acute hypoxic respiratory failure On mechanical ventilator Sepsis Metabolic encephalopathy Diabetic ketoacidosis ESRD with hemodialysis Events: Remains on vent support On AC mode; RR 14, VT 500, PEEP 5, FiO2 30% NIF -5 ABG reviewed, notable for alkalemia -pH of 7.565 CXR reviewed, mild pulmonary vascular congestion. No focal airspace opacity, effusion, or pneumothorax. On Precedex drip. Off Levophed, hemodynamically stable Continue antibiotics Tube feeds for nutritional support Labs and imaging reviewed. Rest of plan as noted below. Plan: s/p intubation on mechanical ventilator. On AC mode; RR 14, VT 500, PEEP 5, FiO2 30% Titrate FIO2 to keep O2 saturation above 90%. VAP bundle. Daily ABG and CXR while intubated Continue bronchodilators. Continue antibiotics. Pressors as necessary for hemodynamic support Titrate to keep mean arterial pressure greater than 65 mmHg. Tube feeds for nutrition Accu-Cheks, ISS. On Sucralfate and Protonix. GI recs appreciated. Hemodialysis per Nephrology Monitor renal function Monitor electrolytes. Supplement as necessary. Monitor ins and outs. SBT/RENU GI prophylaxis. DVT prophylaxis. Prognosis: Poor given patient's multiple co-morbidities. Condition: Critical Rest of plan per hospitalist and other consultants. A total of 35 minutes of critical care time was spent reviewing the patient record, examining the patient, making a diagnostic and therapeutic plan, discussing this plan with the medical personnel, following up on diagnostic studies and following the patient for clinical stability excluding any and all procedures. At least 50% of this time was spent in direct, [id number] contact. Thank you, Dr. Salvador, for allowing me to participate in this patient's care. Further recommendations will depend on the patient's clinical course. Please do not hesitate to contact me if you have any questions or concerns. This medical document was created using an electronic medical record system with [employer] dictation system. Although these documentations are being carefully reviewed, there may still be some phonetic and typographical changes. The errors are purely typographical, due to imperfection on the software program, and do not reflect any compromise in the patient's medical care Plan discussed with: Other (BRITTNI Parnell) Visit Coding Pulmonary Billing Provider: MISAEL KIM MD Date of Service if different f: Jan 28, 2025 Common Visit Codes: [id number] INP/OBS CARE(HIGH), [id number] CARE 30-74 MIN MISAEL KIM MD Jan 28, 2025 23:40
[2025-01-29] VITALS (110 sets, daily range): BP systolic 99–153; BP diastolic 39–75; PULSE 64–82; RESP 12–22; TEMP 97–98.2; O2SAT 92–100
[2025-01-29 03:52] LABS: Hematocrit 28.3 % (41.0-53.0); Hemoglobin 9.4 g/dL (13.5-17.5); Mean Corpuscular Hemoglobin 31.1 pg (28.0-32.0); Mean Corpuscular Volume 93.7 fL (80.0-100.0); Nucleated Red Blood Cells % 0.1 %
[2025-01-29 04:04] LABS: Anion Gap 12 (5-15); Calcium 9.4 mg/dL (8.7-10.4); Carbon Dioxide 28 mmol/L (20-31); Chloride 100 mmol/L (98-107); Potassium 3.5 mmol/L (3.5-5.1); Sodium 140 mmol/L (136-145)
[2025-01-29 04:10] LABS: BUN/Creatinine Ratio 10.2 (10.0-20.0)
[2025-01-29 04:11] LABS: Blood Urea Nitrogen 65 mg/dL (9-23); Glucose 226 mg/dL (74-106)
[2025-01-29 07:06] LABS: Base Excess 3.9 mmol/L (-2.0-3.0)
--- NOTE | 2025-01-29 08:32 | DVHPN2 ---
Subjective Patient intubated and sedated Reviewed: Care Plan, H&P, Labs, Medications Changes from previous H/P or p: No Changes General: Per HPI Objective Vitals Vital Signs Date Time Temp Pulse Resp B/P (MAP) Pulse Ox O2 Delivery O2 Flow Rate FiO2 01/29/25 07:26 71 15 120/54 (76) 99 30 01/29/25 06:01 97.7 97.7 01/29/25 06:00 Mechanical Ventilator+ Intake/Output Intake and Output 01/29/25 07:00 Intake Total 1141.770 ml Output Total 30 ml Balance 1111.770 ml Intake Oral 357 ml IV Total 434.770 ml Tube Feeding 350 ml Output Urine Total 30 ml General Appearance: mild distress, Other (Continues to be encephalopathic) HEENT: Atraumatic, Other (Unequal pupils) Lungs: Clear to auscultation, Normal air movement, Other (Mechanical ventilation) Chest/Breasts: Other (Noted rash, shingles to right upper chest) Cardiovascular: Normal S1, Normal S2, Other (Sinus rhythm/sinus bradycardia) Abdomen: Normal bowel sounds, Soft, No tenderness, No hepatospenomegaly Genitourinary: No Apparent Abnormalities ([place]) Musculoskeletal: Other (Unable to assess) Neuro: Other (Unable to assess) Skin: Dry, Intact, Other (Rash to right upper chest) Psych/Mental Status: Other (Unable to assess) Medications Current Medications Medications Dose Ordered Sig/Aleta Route Start Time Stop Time Status Last Admin Dose Admin Acyclovir Sodium 700 mg/Sodium Chloride 264 ml @ 264 mls/hr DAILY IV 01/18/25 05:00 01/28/25 08:41 264 MLS/HR Ondansetron HCl 4 mg Q4HP PRN IV 01/18/25 04:30 Nitroglycerin 0.4 mg Q5MINP PRN SL 01/18/25 04:30 Morphine Sulfate 2 mg Q30M PRN IV 01/18/25 04:30 Cefepime HCl 50 ml @ 12.5 mls/hr DAILY@0900 IV 01/18/25 09:00 01/28/25 08:41 12.5 MLS/HR Dextrose/Sodium Chloride 1,000 ml @ 75 mls/hr [id number] IV 01/18/25 15:30 UNV Hydralazine HCl 10 mg Q6HP PRN IV 01/19/25 05:30 01/27/25 17:22 10 MG Albuterol 2.5 mg Q4HPRN PRN NEB 01/20/25 00:15 01/20/25 09:53 2.5 MG Ipratropium [place] 0.5 mg Q4HPRN PRN NEB 01/20/25 00:15 01/20/25 09:53 0.5 MG Midazolam HCl 100 ml @ 1 mls/hr Q24H IV 01/20/25 14:00 01/22/25 10:31 3 MLS/HR Fentanyl Citrate 250 ml @ 2.5 mls/hr Q24H IV 01/20/25 14:00 01/25/25 17:25 2.5 MLS/HR Albuterol 2.5 mg Q6HR NEB 01/20/25 18:00 01/29/25 06:14 2.5 MG Ipratropium [place] 0.5 mg Q6HR NEB 01/20/25 18:00 01/29/25 06:14 0.5 MG Norepinephrine Bitartrate 250 ml @ 3.75 mls/hr Q24H IV 01/21/25 09:00 01/27/25 12:10 3.75 MLS/HR Enteral Nutritional Formula 1,000 ml 50ML/HR GT 01/21/25 09:30 01/25/25 17:14 1,000 ML Pantoprazole Sodium 40 mg DAILY IV 01/21/25 10:00 01/28/25 08:41 40 MG Sucralfate 1 gm BID@0600,2200 GT 01/21/25 22:00 01/29/25 05:14 1 GM Diagnostic Test (Pha) 1 strip Q6HR 01/22/25 12:00 01/29/25 05:23 1 STRIP Insulin Human Regular Q6HR SC 01/22/25 12:00 01/29/25 05:22 3 UNITS Dextrose 50 ml UD PRN IV 01/22/25 08:30 Insulin Glargine 20 units DAILY@1000 SC 01/23/25 10:00 01/28/25 09:15 20 UNITS Laboratory Results Laboratory Tests 01/29/25 02:30 Chemistry Test 01/29/25 02:30 Calcium Level 9.4 mg/dL (8.7-10.4) Urinalysis Test 01/18/25 10:20 Urine Color Light-yellow (Yellow) Urine Clarity Clear (Clear) Urine pH 6.5 (5.0-9.0) Urine Specific [place] 1.017 (1.001-1.035) Urine Protein 3+ (Negative) H Urine Ketones Negative (Negative) Urine Blood 1+ /uL (Negative) H Urine Nitrite Negative (Negative) Urine Bilirubin Negative (Negative) Urine Urobilinogen Normal mg/dL (Negative) Urine Leukocyte Esterase Negative /uL (Negative) Urine RBC 1 /hpf (0 - 3) Urine Microscopic WBC 5 /HPF (0-3) H Urine Squamous Epithelial Cells Few /hpf (<5) Urine Bacteria None seen /hpf (None Seen) Urine Glucose 4+ mg/dL (Normal) H Blood Gas Results Test 01/29/25 06:55 Arterial Blood pH 7.440 (7.350-7.450) FiO2 % 30.0 Microbiology Microbiology Date/Time Source Procedure Growth Status 01/20/25 14:00 Sputum Gram Stain - Final Complete 01/20/25 14:00 Sputum Respiratory Culture - Final Complete 01/18/25 00:45 Nose MRSA Screen - Final Complete 01/17/25 23:25 Blood Blood Culture - Final NO GROWTH AFTER 5 DAYS OF INCUBATION. Complete Labs and/or images reviewed: Labs reviewed by me, Image(s) reviewed by me Assessment/Plan Assessment/Plan Impression: -Sepsis -metabolic encephalopathy -DKA -ESRD with hemodialysis -primary hypertension -dyslipidemia -hyponatremia -? seizure -Hypoglycemia Plan: Events: No events overnight. Patient apparently was awake yesterday and following some commands. Continues to be on Precedex infusion. -continue regular insulin sliding scale and Lantus. -CPAP trial once appropriate -Neurology consult. Recommendations reviewed -nephrology consultation: Received hemodialysis yesterday -ppi, Carafate -continue cefepime and acyclovir -repeat labs, chest x-ray, ABG in a.m. Critical care time spent with patient discussing and formulating plan of care: 40 minutes. This does not include time spent performing procedures. This medical document was created using an electronic medical record system with [employer] system. Although this document has been carefully reviewed, there may still be some phonetic and typographical errors. These areas are purely typographical due to imperfections of the software programs, and do not reflect any compromise in the patient's medical care. Plan discussed with: Patient, Other (RN) My Orders Orders - ROCÍO RAMIREZ NP Procedure Category Date Status Time Abg W/ Co-Ox RT 01/29/25 Logged 06:00 Basic Metabolic Panel LAB 01/30/25 Verified 04:00 Chest Portable XY 01/30/25 Verified 04:00 Date of Service: Jan 29, 2025 Billing Provider: ROCÍO RAMIREZ NP Common Visit Codes: [id number] CARE 30-74 MIN ROCÍO RAMIREZ NP Jan 29, 2025 08:32
--- NOTE | 2025-01-29 08:38 | DVHPN2 ---
Progress Note - Dictate Date Seen: Jan 29, 2025 Medical Necessity Reason Pt with a Central, PICC or Fol: Yes The following are medically ne: [place] Catheter Subjective Intubated and sedated vital signs Vital Sign Date Time Temp Pulse Resp B/P (MAP) Pulse Ox O2 Delivery O2 Flow Rate FiO2 01/29/25 07:26 71 15 120/54 (76) 99 30 01/29/25 06:01 97.7 97.7 01/29/25 06:00 Mechanical Ventilator+ Total Intake and Output 01/28/25 01/28/25 01/29/25 15:00 23:00 07:00 Intake Total 358.045 ml 297.920 ml 485.805 ml Output Total 15 ml 15 ml Balance 358.045 ml 282.920 ml 470.805 ml medications Current Medications Medications Dose Ordered Sig/Aleta Route Start Time Stop Time Status Last Admin Dose Admin Acyclovir Sodium 700 mg/Sodium Chloride 264 ml @ 264 mls/hr DAILY IV 01/18/25 05:00 01/28/25 08:41 264 MLS/HR Ondansetron HCl 4 mg Q4HP PRN IV 01/18/25 04:30 Nitroglycerin 0.4 mg Q5MINP PRN SL 01/18/25 04:30 Morphine Sulfate 2 mg Q30M PRN IV 01/18/25 04:30 Cefepime HCl 50 ml @ 12.5 mls/hr DAILY@0900 IV 01/18/25 09:00 01/28/25 08:41 12.5 MLS/HR Dextrose/Sodium Chloride 1,000 ml @ 75 mls/hr [id number] IV 01/18/25 15:30 UNV Hydralazine HCl 10 mg Q6HP PRN IV 01/19/25 05:30 01/27/25 17:22 10 MG Albuterol 2.5 mg Q4HPRN PRN NEB 01/20/25 00:15 01/20/25 09:53 2.5 MG Ipratropium [place] 0.5 mg Q4HPRN PRN NEB 01/20/25 00:15 01/20/25 09:53 0.5 MG Fentanyl Citrate 250 ml @ 2.5 mls/hr Q24H IV 01/20/25 14:00 01/25/25 17:25 2.5 MLS/HR Albuterol 2.5 mg Q6HR NEB 01/20/25 18:00 01/29/25 06:14 2.5 MG Ipratropium [place] 0.5 mg Q6HR NEB 01/20/25 18:00 01/29/25 06:14 0.5 MG Norepinephrine Bitartrate 250 ml @ 3.75 mls/hr Q24H IV 01/21/25 09:00 01/27/25 12:10 3.75 MLS/HR Enteral Nutritional Formula 1,000 ml 50ML/HR GT 01/21/25 09:30 01/25/25 17:14 1,000 ML Pantoprazole Sodium 40 mg DAILY IV 01/21/25 10:00 01/28/25 08:41 40 MG Sucralfate 1 gm BID@0600,2200 GT 01/21/25 22:00 01/29/25 05:14 1 GM Diagnostic Test (Pha) 1 strip Q6HR 01/22/25 12:00 01/29/25 05:23 1 STRIP Insulin Human Regular Q6HR SC 01/22/25 12:00 01/29/25 05:22 3 UNITS Dextrose 50 ml UD PRN IV 01/22/25 08:30 Insulin Glargine 20 units DAILY@1000 SC 01/23/25 10:00 01/28/25 09:15 20 UNITS objective intubated and sedated HEENT: Normocephalic Lungs: Bilateral good air entry CVS: S1, S2 regular rhythm Abdomen: Soft bowel sounds present 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 Continue with antibiotics Dietary Evaluation Review Comments: 1) Consider reducing TF rate from 50 mL to 40 mL/hr goal rate to prevent overfeeding. Nepro Carbsteady @ 40 mL/hr will provide 1728 kcals, 78g Pro, and 698 mL free H2O per 24 hrs. Goal rate will meet 100% estimated energy needs and 85% estimated protein needs 2) Advance to 60g CCHO renal diet when medically feasible 3) Collect HbA1c 4) Follow-up with nephrology, cardiology, and pulmonology 5) Continue to monitor I&O, labs, and skin integrity Expected Outcomes/Goals: 1) nutrition support to meet at least 75% estimated daily needs 2) labs to improve 3) diet to advance 4) f/u in 2-3 days Plan discussed with: Other GA FLOYD MD Jan 29, 2025 08:37
--- NOTE | 2025-01-29 09:47 | DVHPN2 ---
Progress Note - Dictate Date Seen: Jan 29, 2025 Medical Necessity Reason Pt with a Central, PICC or Fol: Yes The following are medically ne: [place] Catheter Subjective Mr. Pisano is a 70 years old right-handed gentleman with a history of hypertension, diabetes, end-stage kidney failure on hemodialysis, the patient was brought to the [facility] on 01/17/2025 with a chief complaint of altered mental status. Because no improvement in the mental status, increased secretion and difficulty cleaning the respiratory tract, he was intubated on 01/20/2025 I have seen and examined the patient along with his nurse. He is awake and he open his eyes intermittently, there is resistance when I tried to open the on his, he does not not follow verbal commands or tracks He moves both arms The case was discussed with Beto Precedex 0.3 mcg/kg/hour Pupil size 01/22/25: Right: 3-4 mm, left: 1-2 mm, no associated abnormal vascular dilatation and skin secretion 01/23/25: Right: 3-4 mm, left: 2 mm 01/24/25: Right: 3-4 mm, left: 2 mm 01/24/25: Right: 4 mm, left: 2-3 mm 01/27/25: Right: 4-5 mm, left: 2-3 mm 01/28/25: Eyes tightly closed 01/29/25: Right: 4-5 mm, left: 2-3 mm ABG, 01/18/2025: Compensated Metabolic acidosis UDS, 01/18/2025: Negative Plasma alcohol, 01/17/2025: <3 Urinalysis, 01/18/2025: WBC: Five, urine leukocyte esterase: Negative CBC, 01/18/2025: Compensated metabolic acidosis WBC/HB/PLT/MCV, 01/18/2025: 14.4/11.8/189/92.3 Na, 01/18/2025: 127, 131 BUN/CR, : 113/11.33, 119/11.42, 50/5.72, 01/19/2025: 57/7.03 GFR, 01/18/2025: 4, 4, 10 Anion gap, 01/18/2025: 19, 20, Glucose, 01/17/2025: 856, 01/18/2025: 862, 710, 551, 231 Liver function tests, 01/18/2025: Unremarkable EEG, 01/20/2025: moderately abnormal EEG Chest x-ray, 01/18/2025: There is prominence of the interstitial markings. Mild right basilar opacity. Mild prominence of the cardiomediastinal silhouette, likely accentuated by technique. No pleural effusion or pneumothorax. No acute osseous abnormality CT head, 01/15/2025: 1. No acute territorial infarct, intracranial hemorrhage, or mass effect. 2. Age-related involutional changes. Chronic ischemic changes as detailed. 3. If clinical symptoms persist, MRI may be beneficial in further evaluation (Chronic right cerebellar infarct) vital signs Vital Sign Date Time Temp Pulse Resp B/P (MAP) Pulse Ox O2 Delivery O2 Flow Rate FiO2 01/29/25 09:14 71 14 151/75 (100) 100 30 01/29/25 08:00 Mechanical Ventilator+ 01/29/25 06:01 97.7 97.7 Total Intake and Output 01/28/25 01/28/25 01/29/25 15:00 23:00 07:00 Intake Total 358.045 ml 297.920 ml 485.805 ml Output Total 15 ml 15 ml Balance 358.045 ml 282.920 ml 470.805 ml medications Current Medications Medications Dose Ordered Sig/Aleta Route Start Time Stop Time Status Last Admin Dose Admin Acyclovir Sodium 700 mg/Sodium Chloride 264 ml @ 264 mls/hr DAILY IV 01/18/25 05:00 01/29/25 08:39 264 MLS/HR Ondansetron HCl 4 mg Q4HP PRN IV 01/18/25 04:30 Nitroglycerin 0.4 mg Q5MINP PRN SL 01/18/25 04:30 Morphine Sulfate 2 mg Q30M PRN IV 01/18/25 04:30 Cefepime HCl 50 ml @ 12.5 mls/hr DAILY@0900 IV 01/18/25 09:00 01/28/25 08:41 12.5 MLS/HR Dextrose/Sodium Chloride 1,000 ml @ 75 mls/hr [id number] IV 01/18/25 15:30 UNV Hydralazine HCl 10 mg Q6HP PRN IV 01/19/25 05:30 01/27/25 17:22 10 MG Albuterol 2.5 mg Q4HPRN PRN NEB 01/20/25 00:15 01/20/25 09:53 2.5 MG Ipratropium [place] 0.5 mg Q4HPRN PRN NEB 01/20/25 00:15 01/20/25 09:53 0.5 MG Fentanyl Citrate 250 ml @ 2.5 mls/hr Q24H IV 01/20/25 14:00 01/25/25 17:25 2.5 MLS/HR Albuterol 2.5 mg Q6HR NEB 01/20/25 18:00 01/29/25 06:14 2.5 MG Ipratropium [place] 0.5 mg Q6HR NEB 01/20/25 18:00 01/29/25 06:14 0.5 MG Norepinephrine Bitartrate 250 ml @ 3.75 mls/hr Q24H IV 01/21/25 09:00 01/27/25 12:10 3.75 MLS/HR Enteral Nutritional Formula 1,000 ml 50ML/HR GT 01/21/25 09:30 01/25/25 17:14 1,000 ML Pantoprazole Sodium 40 mg DAILY IV 01/21/25 10:00 01/29/25 08:38 40 MG Sucralfate 1 gm BID@0600,2200 GT 01/21/25 22:00 01/29/25 05:14 1 GM Diagnostic Test (Pha) 1 strip Q6HR 01/22/25 12:00 01/29/25 05:23 1 STRIP Insulin Human Regular Q6HR SC 01/22/25 12:00 01/29/25 05:22 3 UNITS Dextrose 50 ml UD PRN IV 01/22/25 08:30 Insulin Glargine 20 units DAILY@1000 SC 01/23/25 10:00 01/28/25 09:15 20 UNITS objective The patient is well-nourished and well-developed with no distress. The patient is intubated MENTAL STATUS: Subjective CRANIAL NERVES: Subjective. No signs of facial weakness. There are gagging or coughing reflexes SENSATION: Responses to pain and touch MOTOR: Normal tone in the upper and lower extremity. Normal muscle bulk. No fasciculations. Moves the arms REFLEXES: Deep tendon reflexes are symmetrical. No pathological reflexes. CEREBELLAR/COORDINATION: Deferred GAIT/STATION: deferred. laboratory and microbiology Laboratory Tests 01/29/25 02:30 Test 01/29/25 02:30 Range/Units Serum Glucose 226 H 74-106 mg/dL Problem List Diabetic ketoacidosis Metabolic acidosis Metabolic encephalopathy Herpes zoster infection/shingles End-stage kidney failure Anisocoria with right pupil bigger, etiology unclear, possible secondary to history of surgery One eye blindness Assessment/Plan Monitoring Supportive treatment ICU care Stabilize vitals Respiratory support/vent management Oxygen Acyclovir 700 mg daily IV antibiotics Current pain management Haldol for agitation History from him directly later More recommendation per clinical course This medical document was created using an electronic medical record system with [employer] dictation system. Although this document has been carefully reviewed, there may still be some phonetic and typographical errors. These areas are purely typographical due to imperfections of the software programs, and do not reflect any compromise in the patient's medical care. Prognosis guarded Dietary Evaluation Review Comments: 1) Consider reducing TF rate from 50 mL to 40 mL/hr goal rate to prevent overfeeding. Nepro Carbsteady @ 40 mL/hr will provide 1728 kcals, 78g Pro, and 698 mL free H2O per 24 hrs. Goal rate will meet 100% estimated energy needs and 85% estimated protein needs 2) Advance to 60g CCHO renal diet when medically feasible 3) Collect HbA1c 4) Follow-up with nephrology, cardiology, and pulmonology 5) Continue to monitor I&O, labs, and skin integrity Expected Outcomes/Goals: 1) nutrition support to meet at least 75% estimated daily needs 2) labs to improve 3) diet to advance 4) f/u in 2-3 days Plan discussed with: Other Critical Care Time(min): 30 LETTY HANNA MD Jan 29, 2025 09:47
[2025-01-29] MEDS: GLYCOPYRROLATE 0.2 MG/ML 1ML VIAL IV PRN (16:48)
[2025-01-29] MEDS: LACTULOSE 20Gm/30ML SOLN GT ONE (16:48)
--- NOTE | 2025-01-29 23:37 | DVHPN2 ---
Subjective DOS: 01/29/2025 Patient seen and examined at bedside. Intubated on mechanical ventilator. Overnight events reviewed. Reviewed: Care Plan, H&P, Labs, Medications Changes from previous H/P or p: No Changes General: Per HPI Objective Vitals Vital Signs Date Time Temp Pulse Resp B/P (MAP) Pulse Ox O2 Delivery O2 Flow Rate FiO2 01/29/25 23:00 79 15 127/55 (79) 100 01/29/25 22:07 30 01/29/25 22:00 Mechanical Ventilator+ 01/29/25 20:00 98.2 98.2 Intake/Output Intake and Output 01/29/25 07:00 Intake Total 1146.885 ml Output Total 30 ml Balance 1116.885 ml Intake Oral 357 ml IV Total 439.885 ml Tube Feeding 350 ml Output Urine Total 30 ml General Appearance: mild distress, Other (Continues to be encephalopathic) HEENT: Atraumatic, Other (Unequal pupils) Lungs: Other (Mechanical ventilation. Transmitted breath sounds bilaterally. Decreased air entry.) Chest/Breasts: Other (Noted rash, shingles to right upper chest) Cardiovascular: Normal S1, Normal S2, Other (Sinus rhythm/sinus bradycardia) Abdomen: Normal bowel sounds, Soft, No tenderness, No hepatospenomegaly Genitourinary: No Apparent Abnormalities ([place]) Musculoskeletal: Other (Unable to assess) Neuro: Other (Unable to assess) Skin: Dry, Intact, Other (Rash to right upper chest) Psych/Mental Status: Other (Unable to assess) Medications Current Medications Medications Dose Ordered Sig/Aleta Route Start Time Stop Time Status Last Admin Dose Admin Acyclovir Sodium 700 mg/Sodium Chloride 264 ml @ 264 mls/hr DAILY IV 01/18/25 05:00 01/29/25 08:39 264 MLS/HR Ondansetron HCl 4 mg Q4HP PRN IV 01/18/25 04:30 Nitroglycerin 0.4 mg Q5MINP PRN SL 01/18/25 04:30 Morphine Sulfate 2 mg Q30M PRN IV 01/18/25 04:30 Cefepime HCl 50 ml @ 12.5 mls/hr DAILY@0900 IV 01/18/25 09:00 01/29/25 09:49 12.5 MLS/HR Dextrose/Sodium Chloride 1,000 ml @ 75 mls/hr [id number] IV 01/18/25 15:30 UNV Hydralazine HCl 10 mg Q6HP PRN IV 01/19/25 05:30 01/27/25 17:22 10 MG Albuterol 2.5 mg Q4HPRN PRN NEB 01/20/25 00:15 01/20/25 09:53 2.5 MG Ipratropium [place] 0.5 mg Q4HPRN PRN NEB 01/20/25 00:15 01/20/25 09:53 0.5 MG Fentanyl Citrate 250 ml @ 2.5 mls/hr Q24H IV 01/20/25 14:00 01/25/25 17:25 2.5 MLS/HR Albuterol 2.5 mg Q6HR NEB 01/20/25 18:00 01/29/25 18:52 2.5 MG Ipratropium [place] 0.5 mg Q6HR NEB 01/20/25 18:00 01/29/25 18:52 0.5 MG Norepinephrine Bitartrate 250 ml @ 3.75 mls/hr Q24H IV 01/21/25 09:00 01/27/25 12:10 3.75 MLS/HR Enteral Nutritional Formula 1,000 ml 50ML/HR GT 01/21/25 09:30 01/25/25 17:14 1,000 ML Pantoprazole Sodium 40 mg DAILY IV 01/21/25 10:00 01/29/25 08:38 40 MG Sucralfate 1 gm BID@0600,2200 GT 01/21/25 22:00 01/29/25 21:44 1 GM Diagnostic Test (Pha) 1 strip Q6HR 01/22/25 12:00 01/29/25 18:24 1 STRIP Insulin Human Regular Q6HR SC 01/22/25 12:00 01/29/25 18:25 2 UNITS Dextrose 50 ml UD PRN IV 01/22/25 08:30 Insulin Glargine 20 units DAILY@1000 SC 01/23/25 10:00 01/28/25 09:15 20 UNITS Glycopyrrolate 0.2 mg Q6HP PRN IV 01/29/25 14:00 01/29/25 16:48 0.2 MG Laboratory Results Laboratory Tests 01/29/25 02:30 Chemistry Test 01/29/25 02:30 Calcium Level 9.4 mg/dL (8.7-10.4) Urinalysis Test 01/18/25 10:20 Urine Color Light-yellow (Yellow) Urine Clarity Clear (Clear) Urine pH 6.5 (5.0-9.0) Urine Specific [place] 1.017 (1.001-1.035) Urine Protein 3+ (Negative) H Urine Ketones Negative (Negative) Urine Blood 1+ /uL (Negative) H Urine Nitrite Negative (Negative) Urine Bilirubin Negative (Negative) Urine Urobilinogen Normal mg/dL (Negative) Urine Leukocyte Esterase Negative /uL (Negative) Urine RBC 1 /hpf (0 - 3) Urine Microscopic WBC 5 /HPF (0-3) H Urine Squamous Epithelial Cells Few /hpf (<5) Urine Bacteria None seen /hpf (None Seen) Urine Glucose 4+ mg/dL (Normal) H Blood Gas Results Test 01/29/25 06:55 Arterial Blood pH 7.440 (7.350-7.450) FiO2 % 30.0 Microbiology Microbiology Date/Time Source Procedure Growth Status 01/20/25 14:00 Sputum Gram Stain - Final Complete 01/20/25 14:00 Sputum Respiratory Culture - Final Complete 01/18/25 00:45 Nose MRSA Screen - Final Complete 01/17/25 23:25 Blood Blood Culture - Final NO GROWTH AFTER 5 DAYS OF INCUBATION. Complete Assessment/Plan Assessment/Plan Impression: Acute hypoxic respiratory failure On mechanical ventilator Sepsis Metabolic encephalopathy Diabetic ketoacidosis ESRD with hemodialysis Events: Remains on vent support On AC mode; RR 14, VT 500, PEEP 5, FiO2 30% NIF -5 On Precedex drip. ABG reviewed, compensated CXR reveals mild pulmonary vascular congestion. No focal airspace opacity, effusion, or pneumothorax. Off Levophed, hemodynamically stable Patient tolerated CPAP for 4 hours Continue antibiotics Tube feeds for nutritional support Accu-Cheks, ISS. Continue daily SBT. Continue attempts to liberate from mechanical ventilator. Labs and imaging reviewed. Rest of plan as noted below. Plan: s/p intubation on mechanical ventilator. On AC mode; RR 14, VT 500, PEEP 5, FiO2 30% Titrate FIO2 to keep O2 saturation above 90%. VAP bundle. Daily ABG and CXR while intubated Continue bronchodilators. Continue antibiotics. Pressors as necessary for hemodynamic support Titrate to keep mean arterial pressure greater than 65 mmHg. Tube feeds for nutrition Accu-Cheks, ISS. On Sucralfate and Protonix. GI recs appreciated. Hemodialysis per Nephrology Monitor renal function Monitor electrolytes. Supplement as necessary. Monitor ins and outs. SBT/RENU GI prophylaxis. DVT prophylaxis. Prognosis: Poor given patient's multiple co-morbidities. Condition: Critical Rest of plan per hospitalist and other consultants. A total of 35 minutes of critical care time was spent reviewing the patient record, examining the patient, making a diagnostic and therapeutic plan, discussing this plan with the medical personnel, following up on diagnostic studies and following the patient for clinical stability excluding any and all procedures. At least 50% of this time was spent in direct, [id number] contact. Thank you, Dr. Salvador, for allowing me to participate in this patient's care. Further recommendations will depend on the patient's clinical course. Please do not hesitate to contact me if you have any questions or concerns. This medical document was created using an electronic medical record system with [employer] dictation system. Although these documentations are being carefully reviewed, there may still be some phonetic and typographical changes. The errors are purely typographical, due to imperfection on the software program, and do not reflect any compromise in the patient's medical care Plan discussed with: Other (BRITTNI Parnell) My Orders Orders - MISAEL KIM MD Procedure Category Date Status Time Cpap Trial For Am ORDERS 01/29/25 Transmitted 07:42 Visit Coding Pulmonary Billing Provider: MISAEL KIM MD Date of Service if different f: Jan 29, 2025 Common Visit Codes: [id number] INP/OBS CARE(HIGH), [id number] CARE 30-74 MIN MISAEL KIM MD Jan 29, 2025 23:37
[2025-01-30] VITALS (105 sets, daily range): BP systolic 85–181; BP diastolic 25–123; PULSE 69–93; RESP 12–24; TEMP 97.5–99; O2SAT 90–100
--- NOTE | 2025-01-30 04:46 | DVH ---
CHEST RADIOGRAPH Indication: pna Technique: Single frontal view of the chest was obtained COMPARISON: XY CHEST PORTABLE on DOS: 01/28/25, XY CHEST PORTABLE on DOS: 01/27/25, XY CHEST PORTABLE on DOS: 01/25/25, XY CHEST PORTABLE on DOS: 01/24/25, XY CHEST PORTABLE on DOS: 01/23/25 FINDINGS: Lines and Tubes: Slight interval advancement of the endotracheal tube such that the tip now projects approximately 2.3 cm above the level of the robert. Remaining lines and tubes unchanged. Lungs: Clear Pleura: No effusion. No pneumothorax. Cardiomediastinal contours: Unremarkable Bones: Unremarkable IMPRESSION: 1. No acute disease. 2. Slight interval advancement of endotracheal tube as above. Remaining lines and tubes unchanged.
[2025-01-30 04:47] LABS: Hematocrit 28.3 % (41.0-53.0); Hemoglobin 9.4 g/dL (13.5-17.5); Mean Corpuscular Hemoglobin 31.1 pg (28.0-32.0); Mean Corpuscular Volume 93.2 fL (80.0-100.0); Nucleated Red Blood Cells % 0.1 %
[2025-01-30 06:22] LABS: Anion Gap 16 (5-15); BUN/Creatinine Ratio 10.9 (10.0-20.0); Calcium 8.7 mg/dL (8.7-10.4); Carbon Dioxide 26 mmol/L (20-31); Chloride 104 mmol/L (98-107); Glucose 139 mg/dL (74-106); Potassium 3.6 mmol/L (3.5-5.1); Sodium 146 mmol/L (136-145)
[2025-01-30 06:23] LABS: Blood Urea Nitrogen 92 mg/dL (9-23)
[2025-01-30 07:42] LABS: Base Excess -1.2 mmol/L (-2.0-3.0)
[2025-01-30] MEDS ORDERED: VANCOMYCIN PER PHARMACY 0 MG IV SCH (08:15)
[2025-01-30] MEDS: SODIUM CHL 0.9% 1000 ML BAG XX ONE (08:30)
[2025-01-30] MEDS: ALBUMIN 25% 100 ML IV PRN (08:35)
--- NOTE | 2025-01-30 09:04 | DVHPN2 ---
Subjective Patient intubated and sedated Reviewed: Care Plan, H&P, Labs, Medications Changes from previous H/P or p: No Changes General: Per HPI Objective Vitals Vital Signs Date Time Temp Pulse Resp B/P (MAP) Pulse Ox O2 Delivery O2 Flow Rate FiO2 01/30/25 07:23 73 20 110/36 (60) 100 30 01/30/25 06:00 Mechanical Ventilator+ 01/30/25 04:00 99.0 99.0 Intake/Output Intake and Output 01/30/25 07:00 Intake Total 762.250 ml Output Total 45 ml Balance 717.250 ml IV Total 399.250 ml Tube Feeding 363 ml Output Urine Total 45 ml General Appearance: mild distress, Other (Continues to be encephalopathic) HEENT: Atraumatic, Other (Unequal pupils) Lungs: Other (Mechanical ventilation. Transmitted breath sounds bilaterally. Decreased air entry.) Chest/Breasts: Other (Noted rash, shingles to right upper chest) Cardiovascular: Normal S1, Normal S2, Other (Sinus rhythm/sinus bradycardia) Abdomen: Normal bowel sounds, Soft, No tenderness, No hepatospenomegaly Genitourinary: No Apparent Abnormalities ([place]) Musculoskeletal: Other (Unable to assess) Neuro: Other (Unable to assess) Skin: Dry, Intact, Other (Rash to right upper chest) Psych/Mental Status: Other (Unable to assess) Medications Current Medications Medications Dose Ordered Sig/Aleta Route Start Time Stop Time Status Last Admin Dose Admin Acyclovir Sodium 700 mg/Sodium Chloride 264 ml @ 264 mls/hr DAILY IV 01/18/25 05:00 01/29/25 08:39 264 MLS/HR Ondansetron HCl 4 mg Q4HP PRN IV 01/18/25 04:30 Nitroglycerin 0.4 mg Q5MINP PRN SL 01/18/25 04:30 Morphine Sulfate 2 mg Q30M PRN IV 01/18/25 04:30 Cefepime HCl 50 ml @ 12.5 mls/hr DAILY@0900 IV 01/18/25 09:00 01/29/25 09:49 12.5 MLS/HR Dextrose/Sodium Chloride 1,000 ml @ 75 mls/hr [id number] IV 01/18/25 15:30 UNV Hydralazine HCl 10 mg Q6HP PRN IV 01/19/25 05:30 01/27/25 17:22 10 MG Albuterol 2.5 mg Q4HPRN PRN NEB 01/20/25 00:15 01/20/25 09:53 2.5 MG Ipratropium [place] 0.5 mg Q4HPRN PRN NEB 01/20/25 00:15 01/20/25 09:53 0.5 MG Fentanyl Citrate 250 ml @ 2.5 mls/hr Q24H IV 01/20/25 14:00 01/25/25 17:25 2.5 MLS/HR Albuterol 2.5 mg Q6HR NEB 01/20/25 18:00 01/30/25 05:26 2.5 MG Ipratropium [place] 0.5 mg Q6HR NEB 01/20/25 18:00 01/30/25 05:26 0.5 MG Norepinephrine Bitartrate 250 ml @ 3.75 mls/hr Q24H IV 01/21/25 09:00 01/27/25 12:10 3.75 MLS/HR Enteral Nutritional Formula 1,000 ml 50ML/HR GT 01/21/25 09:30 01/25/25 17:14 1,000 ML Pantoprazole Sodium 40 mg DAILY IV 01/21/25 10:00 01/29/25 08:38 40 MG Sucralfate 1 gm BID@0600,2200 GT 01/21/25 22:00 01/30/25 06:13 1 GM Diagnostic Test (Pha) 1 strip Q6HR 01/22/25 12:00 01/30/25 06:13 1 STRIP Insulin Human Regular Q6HR SC 01/22/25 12:00 01/30/25 00:20 3 UNITS Dextrose 50 ml UD PRN IV 01/22/25 08:30 Insulin Glargine 20 units DAILY@1000 SC 01/23/25 10:00 01/28/25 09:15 20 UNITS Glycopyrrolate 0.2 mg Q6HP PRN IV 01/29/25 14:00 01/29/25 16:48 0.2 MG Albumin Human 100 ml @ 100 mls/hr PRN PRN IV 01/30/25 07:30 Vancomycin HCl 0 ml @ 0 mls/hr PER PHARMACY IV 01/30/25 08:15 UNV Laboratory Results Laboratory Tests 01/30/25 02:00 Chemistry Test 01/30/25 02:00 Calcium Level 8.7 mg/dL (8.7-10.4) Urinalysis Test 01/18/25 10:20 Urine Color Light-yellow (Yellow) Urine Clarity Clear (Clear) Urine pH 6.5 (5.0-9.0) Urine Specific [place] 1.017 (1.001-1.035) Urine Protein 3+ (Negative) H Urine Ketones Negative (Negative) Urine Blood 1+ /uL (Negative) H Urine Nitrite Negative (Negative) Urine Bilirubin Negative (Negative) Urine Urobilinogen Normal mg/dL (Negative) Urine Leukocyte Esterase Negative /uL (Negative) Urine RBC 1 /hpf (0 - 3) Urine Microscopic WBC 5 /HPF (0-3) H Urine Squamous Epithelial Cells Few /hpf (<5) Urine Bacteria None seen /hpf (None Seen) Urine Glucose 4+ mg/dL (Normal) H Blood Gas Results Test 01/30/25 07:34 Arterial Blood pH 7.395 (7.350-7.450) FiO2 % 30.0 Microbiology Microbiology Date/Time Source Procedure Growth Status 01/20/25 14:00 Sputum Gram Stain - Final Complete 01/20/25 14:00 Sputum Respiratory Culture - Final Complete 01/18/25 00:45 Nose MRSA Screen - Final Complete 01/17/25 23:25 Blood Blood Culture - Final NO GROWTH AFTER 5 DAYS OF INCUBATION. Complete Labs and/or images reviewed: Labs reviewed by me, Image(s) reviewed by me Assessment/Plan Assessment/Plan Impression: -Sepsis -metabolic encephalopathy -DKA -ESRD with hemodialysis -primary hypertension -dyslipidemia -hyponatremia -? seizure -Hypoglycemia Plan: Events: No events overnight. Patient currently not following commands. Currently on Precedex. Blood sugars controlled. MRI continues pending. Leukocytosis worsening. Repeat blood and sputum cultures -continue regular insulin sliding scale and Lantus. -CPAP trial once appropriate -Neurology consult. Recommendations reviewed. Case discussed yesterday. -nephrology consultation: Received hemodialysis yesterday -ppi, Carafate -add vancomycin. Continue cefepime and acyclovir -repeat labs, chest x-ray, ABG in a.m. Critical care time spent with patient discussing and formulating plan of care: 40 minutes. This does not include time spent performing procedures. This medical document was created using an electronic medical record system with [employer] dictation system. Although this document has been carefully reviewed, there may still be some phonetic and typographical errors. These areas are purely typographical due to imperfections of the software programs, and do not reflect any compromise in the patient's medical care. Plan discussed with: Patient, Other (RN) My Orders Orders - ROCÍO RAMIREZ NP Procedure Category Date Status Time Glycopyrrolate PHA 01/29/25 In Process Injection (Robinul 14:00 Abg W/ Co-Ox RT 01/30/25 Logged 06:00 Vancomycin Per PHA 01/30/25 Logged Pharmacy 08:15 Respiratory Culture SHELLY 01/30/25 Logged W/ Gs 08:01 Blood Culture SHELLY 01/30/25 Logged 08:01 Basic Metabolic Panel LAB 01/31/25 Verified 04:00 Chest Portable XY 01/31/25 Transmitted 04:00 Date of Service: Jan 30, 2025 Billing Provider: ROCÍO RAMIREZ NP Common Visit Codes: [id number] CARE 30-74 MIN ROCÍO RAMIREZ NP Jan 30, 2025 09:04
[2025-01-30] MEDS: VANCOMYCIN 1GM/250ML KIT 250 ML IV ONE ×2 (09:30→20:21)
--- NOTE | 2025-01-30 10:40 | DVHPN2 ---
Progress Note - Dictate Date Seen: Jan 30, 2025 Medical Necessity Reason Pt with a Central, PICC or Fol: Yes The following are medically ne: [place] Catheter Subjective Mr. Pisano is a 70 years old right-handed gentleman with a history of hypertension, diabetes, end-stage kidney failure on hemodialysis, the patient was brought to the [facility] [place] on 01/17/2025 with a chief complaint of altered mental status. Because no improvement in the mental status, increased secretion and difficulty cleaning the respiratory tract, he was intubated on 01/20/2025 I have seen and examined the patient, I have discussed with his nurse, he is going through hemodialysis. He is awake, he open his eyes intermittently but he is not cooperative with me, he closes eyes when I tried to look at his pupil size, he grimaces face, moves the arms and legs, Precedex 0.3 mcg/kg/hour Pupil size 01/22/25: Right: 3-4 mm, left: 1-2 mm, no associated abnormal vascular dilatation and skin secretion 01/23/25: Right: 3-4 mm, left: 2 mm 01/24/25: Right: 3-4 mm, left: 2 mm 01/24/25: Right: 4 mm, left: 2-3 mm 01/27/25: Right: 4-5 mm, left: 2-3 mm 01/28/25: Eyes tightly closed 01/29/25: Right: 4-5 mm, left: 2-3 mm 01/30/25: Eyes tightly closed ABG, 01/18/2025: Compensated Metabolic acidosis UDS, 01/18/2025: Negative Plasma alcohol, 01/17/2025: <3 Urinalysis, 01/18/2025: WBC: Five, urine leukocyte esterase: Negative CBC, 01/18/2025: Compensated metabolic acidosis WBC/HB/PLT/MCV, 01/18/2025: 14.4/11.8/189/92.3 Na, 01/18/2025: 127, 131, 01/30/25: 146 BUN/CR, : 113/11.33, 119/11.42, 50/5.72, 01/19/2025: 57/7.03, 01/28/2025: 51/5.55, 01/29/2025: 65/6.38, 01/30/2025: 92/8.44 GFR, 01/18/2025: 4, 4, 10 Anion gap, 01/18/2025: 19, 20, Glucose, 01/17/2025: 856, 01/18/2025: 862, 710, 551, 231 Liver function tests, 01/18/2025: Unremarkable EEG, 01/20/2025: moderately abnormal EEG Chest x-ray, 01/18/2025: There is prominence of the interstitial markings. Mild right basilar opacity. Mild prominence of the cardiomediastinal silhouette, likely accentuated by technique. No pleural effusion or pneumothorax. No acute osseous abnormality CT head, 01/15/2025: 1. No acute territorial infarct, intracranial hemorrhage, or mass effect. 2. Age-related involutional changes. Chronic ischemic changes as detailed. 3. If clinical symptoms persist, MRI may be beneficial in further evaluation (Chronic right cerebellar infarct) vital signs Vital Sign Date Time Temp Pulse Resp B/P (MAP) Pulse Ox O2 Delivery O2 Flow Rate FiO2 01/30/25 09:11 81 23 127/55 (79) 100 30 01/30/25 06:00 Mechanical Ventilator+ 01/30/25 04:00 99.0 99.0 Total Intake and Output 01/29/25 01/29/25 01/30/25 15:00 23:00 07:00 Intake Total 348.100 ml 77.28 ml 336.87 ml Output Total 15 ml 30 ml Balance 348.100 ml 62.28 ml 306.87 ml medications Current Medications Medications Dose Ordered Sig/Aleta Route Start Time Stop Time Status Last Admin Dose Admin Acyclovir Sodium 700 mg/Sodium Chloride 264 ml @ 264 mls/hr DAILY IV 01/18/25 05:00 01/29/25 08:39 264 MLS/HR Ondansetron HCl 4 mg Q4HP PRN IV 01/18/25 04:30 Nitroglycerin 0.4 mg Q5MINP PRN SL 01/18/25 04:30 Morphine Sulfate 2 mg Q30M PRN IV 01/18/25 04:30 Cefepime HCl 50 ml @ 12.5 mls/hr DAILY@0900 IV 01/18/25 09:00 01/30/25 09:40 12.5 MLS/HR Dextrose/Sodium Chloride 1,000 ml @ 75 mls/hr [id number] IV 01/18/25 15:30 UNV Hydralazine HCl 10 mg Q6HP PRN IV 01/19/25 05:30 01/27/25 17:22 10 MG Albuterol 2.5 mg Q4HPRN PRN NEB 01/20/25 00:15 01/20/25 09:53 2.5 MG Ipratropium [place] 0.5 mg Q4HPRN PRN NEB 01/20/25 00:15 01/20/25 09:53 0.5 MG Fentanyl Citrate 250 ml @ 2.5 mls/hr Q24H IV 01/20/25 14:00 01/25/25 17:25 2.5 MLS/HR Albuterol 2.5 mg Q6HR NEB 01/20/25 18:00 01/30/25 05:26 2.5 MG Ipratropium [place] 0.5 mg Q6HR NEB 01/20/25 18:00 01/30/25 05:26 0.5 MG Norepinephrine Bitartrate 250 ml @ 3.75 mls/hr Q24H IV 01/21/25 09:00 01/27/25 12:10 3.75 MLS/HR Enteral Nutritional Formula 1,000 ml 50ML/HR GT 01/21/25 09:30 01/25/25 17:14 1,000 ML Pantoprazole Sodium 40 mg DAILY IV 01/21/25 10:00 01/30/25 09:40 40 MG Sucralfate 1 gm BID@0600,2200 GT 01/21/25 22:00 01/30/25 06:13 1 GM Diagnostic Test (Pha) 1 strip Q6HR 01/22/25 12:00 01/30/25 06:13 1 STRIP Insulin Human Regular Q6HR SC 01/22/25 12:00 01/30/25 00:20 3 UNITS Dextrose 50 ml UD PRN IV 01/22/25 08:30 Insulin Glargine 20 units DAILY@1000 SC 01/23/25 10:00 01/28/25 09:15 20 UNITS Glycopyrrolate 0.2 mg Q6HP PRN IV 01/29/25 14:00 01/30/25 09:40 0.2 MG Albumin Human 100 ml @ 100 mls/hr PRN PRN IV 01/30/25 07:30 Vancomycin HCl 0 ml @ 0 mls/hr PER PHARMACY IV 01/30/25 08:15 objective The patient is well-nourished and well-developed with no distress. The patient is intubated MENTAL STATUS: Subjective CRANIAL NERVES: Subjective. No signs of facial weakness. There are gagging or coughing reflexes SENSATION: Responses to pain and touch MOTOR: Normal tone in the upper and lower extremity. Normal muscle bulk. No fasciculations. Moves the arms and legs REFLEXES: Deep tendon reflexes are symmetrical. No pathological reflexes. CEREBELLAR/COORDINATION: Deferred GAIT/STATION: deferred. laboratory and microbiology Laboratory Tests 01/30/25 02:00 Test 01/30/25 02:00 Range/Units Serum Glucose 139 H 74-106 mg/dL Problem List Diabetic ketoacidosis Metabolic acidosis Metabolic encephalopathy Herpes zoster infection/shingles ? Intracranial infection End-stage kidney failure Anisocoria with right pupil bigger, etiology unclear, possible secondary to history of surgery One eye blindness Assessment/Plan Monitoring Supportive treatment ICU care Stabilize vitals Respiratory support/vent management Oxygen Acyclovir 700 mg daily IV antibiotics Current pain management Haldol for agitation History from him directly later More recommendation per clinical course This medical document was created using an electronic medical record system with [employer] dictation system. Although this document has been carefully reviewed, there may still be some phonetic and typographical errors. These areas are purely typographical due to imperfections of the software programs, and do not reflect any compromise in the patient's medical care. Prognosis guarded Dietary Evaluation Review Comments: 1) Consider reducing TF rate from 50 mL to 40 mL/hr goal rate to prevent overfeeding. Nepro Carbsteady @ 40 mL/hr will provide 1728 kcals, 78g Pro, and 698 mL free H2O per 24 hrs. Goal rate will meet 100% estimated energy needs and 85% estimated protein needs 2) Advance to 60g CCHO renal diet when medically feasible 3) Collect HbA1c 4) Follow-up with nephrology, cardiology, and pulmonology 5) Continue to monitor I&O, labs, and skin integrity Expected Outcomes/Goals: 1) nutrition support to meet at least 75% estimated daily needs 2) labs to improve 3) diet to advance 4) f/u in 2-3 days Plan discussed with: Other Critical Care Time(min): 30 LETTY HANNA MD Jan 30, 2025 10:40
[2025-01-30] MEDS: DEXTROSE (50%) 50ML SYRG IV PRN (18:06)
--- NOTE | 2025-01-30 18:46 | DVHPN2 ---
Subjective DOS: 01/30/2025 Patient seen and examined at bedside. Intubated on mechanical ventilator. Overnight events reviewed. Reviewed: Care Plan, H&P, Labs, Medications Changes from previous H/P or p: No Changes General: Per HPI Objective Vitals Vital Signs Date Time Temp Pulse Resp B/P (MAP) Pulse Ox O2 Delivery O2 Flow Rate FiO2 01/30/25 18:30 69 14 111/46 (67) 100 01/30/25 18:00 Mechanical Ventilator+ 30 30 01/30/25 17:00 97.9 97.9 Intake/Output Intake and Output 01/30/25 07:00 Intake Total 765.660 ml Output Total 45 ml Balance 720.660 ml IV Total 402.660 ml Tube Feeding 363 ml Output Urine Total 45 ml General Appearance: mild distress, Other (Continues to be encephalopathic) HEENT: Atraumatic, Other (Unequal pupils) Lungs: Other (Mechanical ventilation. Transmitted breath sounds bilaterally. Decreased air entry.) Chest/Breasts: Other (Noted rash, shingles to right upper chest) Cardiovascular: Normal S1, Normal S2, Other (Sinus rhythm/sinus bradycardia) Abdomen: Normal bowel sounds, Soft, No tenderness, No hepatospenomegaly Genitourinary: No Apparent Abnormalities ([place]) Musculoskeletal: Other (Unable to assess) Neuro: Other (Unable to assess) Skin: Dry, Intact, Other (Rash to right upper chest) Psych/Mental Status: Other (Unable to assess) Medications Current Medications Medications Dose Ordered Sig/Aleta Route Start Time Stop Time Status Last Admin Dose Admin Acyclovir Sodium 700 mg/Sodium Chloride 264 ml @ 264 mls/hr DAILY IV 01/18/25 05:00 01/30/25 18:00 264 MLS/HR Ondansetron HCl 4 mg Q4HP PRN IV 01/18/25 04:30 Nitroglycerin 0.4 mg Q5MINP PRN SL 01/18/25 04:30 Morphine Sulfate 2 mg Q30M PRN IV 01/18/25 04:30 Cefepime HCl 50 ml @ 12.5 mls/hr DAILY@0900 IV 01/18/25 09:00 01/30/25 09:40 12.5 MLS/HR Dextrose/Sodium Chloride 1,000 ml @ 75 mls/hr [id number] IV 01/18/25 15:30 UNV Hydralazine HCl 10 mg Q6HP PRN IV 01/19/25 05:30 01/27/25 17:22 10 MG Albuterol 2.5 mg Q4HPRN PRN NEB 01/20/25 00:15 01/20/25 09:53 2.5 MG Ipratropium [place] 0.5 mg Q4HPRN PRN NEB 01/20/25 00:15 01/20/25 09:53 0.5 MG Fentanyl Citrate 250 ml @ 2.5 mls/hr Q24H IV 01/20/25 14:00 01/25/25 17:25 2.5 MLS/HR Albuterol 2.5 mg Q6HR NEB 01/20/25 18:00 01/30/25 11:32 2.5 MG Ipratropium [place] 0.5 mg Q6HR NEB 01/20/25 18:00 01/30/25 11:32 0.5 MG Norepinephrine Bitartrate 250 ml @ 3.75 mls/hr Q24H IV 01/21/25 09:00 01/27/25 12:10 3.75 MLS/HR Enteral Nutritional Formula 1,000 ml 50ML/HR GT 01/21/25 09:30 01/25/25 17:14 1,000 ML Pantoprazole Sodium 40 mg DAILY IV 01/21/25 10:00 01/30/25 09:40 40 MG Sucralfate 1 gm BID@0600,2200 GT 01/21/25 22:00 01/30/25 06:13 1 GM Diagnostic Test (Pha) 1 strip Q6HR 01/22/25 12:00 01/30/25 18:06 1 STRIP Insulin Human Regular Q6HR SC 01/22/25 12:00 01/30/25 00:20 3 UNITS Dextrose 50 ml UD PRN IV 01/22/25 08:30 01/30/25 18:06 50 ML Insulin Glargine 20 units DAILY@1000 SC 01/23/25 10:00 01/30/25 10:00 20 UNITS Glycopyrrolate 0.2 mg Q6HP PRN IV 01/29/25 14:00 01/30/25 09:40 0.2 MG Albumin Human 100 ml @ 100 mls/hr PRN PRN IV 01/30/25 07:30 01/30/25 10:20 100 MLS/HR Vancomycin HCl 0 ml @ 0 mls/hr PER PHARMACY IV 01/30/25 08:15 Laboratory Results Laboratory Tests 01/30/25 02:00 Chemistry Test 01/30/25 02:00 Calcium Level 8.7 mg/dL (8.7-10.4) Urinalysis Test 01/18/25 10:20 Urine Color Light-yellow (Yellow) Urine Clarity Clear (Clear) Urine pH 6.5 (5.0-9.0) Urine Specific [place] 1.017 (1.001-1.035) Urine Protein 3+ (Negative) H Urine Ketones Negative (Negative) Urine Blood 1+ /uL (Negative) H Urine Nitrite Negative (Negative) Urine Bilirubin Negative (Negative) Urine Urobilinogen Normal mg/dL (Negative) Urine Leukocyte Esterase Negative /uL (Negative) Urine RBC 1 /hpf (0 - 3) Urine Microscopic WBC 5 /HPF (0-3) H Urine Squamous Epithelial Cells Few /hpf (<5) Urine Bacteria None seen /hpf (None Seen) Urine Glucose 4+ mg/dL (Normal) H Blood Gas Results Test 01/30/25 07:34 Arterial Blood pH 7.395 (7.350-7.450) FiO2 % 30.0 Microbiology Microbiology Date/Time Source Procedure Growth Status 01/20/25 14:00 Sputum Gram Stain - Final Complete 01/20/25 14:00 Sputum Respiratory Culture - Final Complete 01/18/25 00:45 Nose MRSA Screen - Final Complete 01/17/25 23:25 Blood Blood Culture - Final NO GROWTH AFTER 5 DAYS OF INCUBATION. Complete Assessment/Plan Assessment/Plan Impression: Acute hypoxic respiratory failure On mechanical ventilator Sepsis Metabolic encephalopathy Diabetic ketoacidosis ESRD with hemodialysis Events: Remains on vent support On AC mode; RR 14, VT 500, PEEP 5, FiO2 30% On Precedex drip. ABG reviewed, compensated CXR stable; Slight interval advancement of the endotracheal tube such that the tip now projects approximately 2.3 cm above the level of the robert. No focal airspace opacity, effusion, or pneumothorax. Off pressors, hemodynamically stable S/p hemodialysis today Nephrology recs appreciated. Patient tolerated CPAP for 4 hours yesterday Continue antibiotics Tube feeds for nutritional support Recommend midline catheter placement. Accu-Cheks, ISS. Continue daily SBT. Continue attempts to liberate from mechanical ventilator. Awaiting for mentation to improve - not following commands. Labs and imaging reviewed. Rest of plan as noted below. Plan: s/p intubation on mechanical ventilator. On AC mode; RR 14, VT 500, PEEP 5, FiO2 30% Titrate FIO2 to keep O2 saturation above 90%. VAP bundle. Daily ABG and CXR while intubated Continue bronchodilators. Continue antibiotics. Pressors as necessary for hemodynamic support Titrate to keep mean arterial pressure greater than 65 mmHg. Tube feeds for nutrition Accu-Cheks, ISS. On Sucralfate and Protonix. GI recs appreciated. Hemodialysis per Nephrology Monitor renal function Monitor electrolytes. Supplement as necessary. Monitor ins and outs. SBT/RENU GI prophylaxis. DVT prophylaxis. Prognosis: Poor given patient's multiple co-morbidities. Condition: Critical Rest of plan per hospitalist and other consultants. A total of 35 minutes of critical care time was spent reviewing the patient record, examining the patient, making a diagnostic and therapeutic plan, discussing this plan with the medical personnel, following up on diagnostic studies and following the patient for clinical stability excluding any and all procedures. At least 50% of this time was spent in direct, [id number] contact. Thank you, Dr. Salvador, for allowing me to participate in this patient's care. Further recommendations will depend on the patient's clinical course. Please do not hesitate to contact me if you have any questions or concerns. This medical document was created using an electronic medical record system with [employer] dictation system. Although these documentations are being carefully reviewed, there may still be some phonetic and typographical changes. The errors are purely typographical, due to imperfection on the software program, and do not reflect any compromise in the patient's medical care Plan discussed with: Other (BRITTNI Schwarz) My Orders Orders - MISAEL KIM MD Procedure Category Date Status Time Insert Midline ORDERS 01/30/25 Transmitted 12:58 Visit Coding Pulmonary Billing Provider: MISAEL KIM MD Date of Service if different f: Jan 30, 2025 Common Visit Codes: [id number] INP/OBS CARE(HIGH), [id number] CARE 30-74 MIN MISAEL KIM MD Jan 30, 2025 18:46
[2025-01-30] MEDS: EPOETIN ALFA-EPBX 4,000 UNIT/ML VIAL SC ONE (20:22)
[2025-01-30] MEDS: HYDROcodone-ACET 5/325MG TAB PO PRN (23:15)
[2025-01-31] VITALS (101 sets, daily range): BP systolic 75–153; BP diastolic 33–79; PULSE 77–106; RESP 14–30; TEMP 98.2–101.3; O2SAT 97–100
[2025-01-31 04:20] LABS: Hematocrit 29.2 % (41.0-53.0); Hemoglobin 9.5 g/dL (13.5-17.5); Mean Corpuscular Hemoglobin 31.5 pg (28.0-32.0); Mean Corpuscular Volume 96.9 fL (80.0-100.0); Nucleated Red Blood Cells % 0.1 %
[2025-01-31 04:34] LABS: Calcium 9.3 mg/dL (8.7-10.4); Chloride 99 mmol/L (98-107); Potassium 3.7 mmol/L (3.5-5.1); Sodium 142 mmol/L (136-145)
[2025-01-31 04:35] LABS: Anion Gap 14 (5-15); Carbon Dioxide 29 mmol/L (20-31)
[2025-01-31 04:40] LABS: BUN/Creatinine Ratio 8.7 (10.0-20.0); Blood Urea Nitrogen 52 mg/dL (9-23); Glucose 125 mg/dL (74-106)
--- NOTE | 2025-01-31 04:47 | DVH ---
CHEST RADIOGRAPH Indication: ETT and line asessment Technique: Single frontal view of the chest was obtained COMPARISON: XY CHEST PORTABLE on DOS: 01/30/25, XY CHEST PORTABLE on DOS: 01/28/25, XY CHEST PORTABLE on DOS: 01/27/25, XY CHEST PORTABLE on DOS: 01/25/25, XY CHEST PORTABLE on DOS: 01/24/25 FINDINGS: Lines and Tubes: Endotracheal tube and enteric catheter in satisfactory position. Lungs: Patchy bilateral airspace disease, [id number]. Pleura: No effusion.No pneumothorax. Cardiomediastinal contours: Unremarkable Bones: Unremarkable IMPRESSION: Lines and tubes in satisfactory position. No significant interval change.
[2025-01-31 08:36] LABS: Base Excess 0.3 mmol/L (-2.0-3.0)
--- NOTE | 2025-01-31 09:03 | DVHPN2 ---
Subjective Patient intubated and sedated Reviewed: Care Plan, H&P, Labs, Medications Changes from previous H/P or p: No Changes General: Per HPI Objective Vitals Vital Signs Date Time Temp Pulse Resp B/P (MAP) Pulse Ox O2 Delivery O2 Flow Rate FiO2 01/31/25 07:09 80 17 123/51 (75) 100 30 01/31/25 06:00 Mechanical Ventilator+ 01/31/25 04:00 99.0 99.0 Intake/Output Intake and Output 01/31/25 07:00 Intake Total 1350.765 ml Output Total 2010 ml Balance -659.235 ml Intake Oral 130 ml IV Total 807.765 ml Tube Feeding 413 ml Output Urine Total 10 ml Other 2000 ml General Appearance: mild distress, Other (Continues to be encephalopathic) HEENT: Atraumatic, Other (Unequal pupils) Lungs: Other (Mechanical ventilation. Transmitted breath sounds bilaterally. Decreased air entry.) Chest/Breasts: Other (Noted rash, shingles to right upper chest) Cardiovascular: Normal S1, Normal S2, Other (Sinus rhythm/sinus bradycardia) Abdomen: Normal bowel sounds, Soft, No tenderness, No hepatospenomegaly Genitourinary: No Apparent Abnormalities ([place]) Musculoskeletal: Other (Unable to assess) Neuro: Other (Unable to assess) Skin: Dry, Intact, Other (Rash to right upper chest) Psych/Mental Status: Other (Unable to assess) Medications Current Medications Medications Dose Ordered Sig/Aleta Route Start Time Stop Time Status Last Admin Dose Admin Acyclovir Sodium 700 mg/Sodium Chloride 264 ml @ 264 mls/hr DAILY IV 01/18/25 05:00 01/30/25 18:00 264 MLS/HR Ondansetron HCl 4 mg Q4HP PRN IV 01/18/25 04:30 Nitroglycerin 0.4 mg Q5MINP PRN SL 01/18/25 04:30 Morphine Sulfate 2 mg Q30M PRN IV 01/18/25 04:30 Dextrose/Sodium Chloride 1,000 ml @ 75 mls/hr [id number] IV 01/18/25 15:30 UNV Hydralazine HCl 10 mg Q6HP PRN IV 01/19/25 05:30 01/27/25 17:22 10 MG Albuterol 2.5 mg Q4HPRN PRN NEB 01/20/25 00:15 01/20/25 09:53 2.5 MG Ipratropium [place] 0.5 mg Q4HPRN PRN NEB 01/20/25 00:15 01/20/25 09:53 0.5 MG Fentanyl Citrate 250 ml @ 2.5 mls/hr Q24H IV 01/20/25 14:00 01/25/25 17:25 2.5 MLS/HR Albuterol 2.5 mg Q6HR NEB 01/20/25 18:00 01/31/25 07:09 2.5 MG Ipratropium [place] 0.5 mg Q6HR NEB 01/20/25 18:00 01/31/25 07:09 0.5 MG Norepinephrine Bitartrate 250 ml @ 3.75 mls/hr Q24H IV 01/21/25 09:00 01/27/25 12:10 3.75 MLS/HR Enteral Nutritional Formula 1,000 ml 50ML/HR GT 01/21/25 09:30 01/25/25 17:14 1,000 ML Pantoprazole Sodium 40 mg DAILY IV 01/21/25 10:00 01/30/25 09:40 40 MG Sucralfate 1 gm BID@0600,2200 GT 01/21/25 22:00 01/31/25 05:21 1 GM Diagnostic Test (Pha) 1 strip Q6HR 01/22/25 12:00 01/31/25 06:09 1 STRIP Insulin Human Regular Q6HR SC 01/22/25 12:00 01/30/25 00:20 3 UNITS Dextrose 50 ml UD PRN IV 01/22/25 08:30 01/30/25 18:06 50 ML Insulin Glargine 20 units DAILY@1000 SC 01/23/25 10:00 01/30/25 10:00 20 UNITS Glycopyrrolate 0.2 mg Q6HP PRN IV 01/29/25 14:00 01/31/25 05:21 0.2 MG Albumin Human 100 ml @ 100 mls/hr PRN PRN IV 01/30/25 07:30 01/30/25 10:20 100 MLS/HR Vancomycin HCl 0 ml @ 0 mls/hr PER PHARMACY IV 01/30/25 08:15 Acetaminophen/ Hydrocodone Bitart 1 tab Q6HPRN PRN PO 01/30/25 23:00 01/31/25 05:21 1 TAB Dextrose/Sodium Chloride 1,000 ml @ 50 mls/hr Q20H IV 01/31/25 08:00 Meropenem 50 ml @ 17 mls/hr DAILY IV 01/31/25 10:00 Laboratory Results Laboratory Tests 01/31/25 03:51 Chemistry Test 01/31/25 03:51 Calcium Level 9.3 mg/dL (8.7-10.4) Urinalysis Test 01/18/25 10:20 Urine Color Light-yellow (Yellow) Urine Clarity Clear (Clear) Urine pH 6.5 (5.0-9.0) Urine Specific [place] 1.017 (1.001-1.035) Urine Protein 3+ (Negative) H Urine Ketones Negative (Negative) Urine Blood 1+ /uL (Negative) H Urine Nitrite Negative (Negative) Urine Bilirubin Negative (Negative) Urine Urobilinogen Normal mg/dL (Negative) Urine Leukocyte Esterase Negative /uL (Negative) Urine RBC 1 /hpf (0 - 3) Urine Microscopic WBC 5 /HPF (0-3) H Urine Squamous Epithelial Cells Few /hpf (<5) Urine Bacteria None seen /hpf (None Seen) Urine Glucose 4+ mg/dL (Normal) H Blood Gas Results Test 01/31/25 08:03 Arterial Blood pH 7.427 (7.350-7.450) FiO2 % 30.0 Microbiology Microbiology Date/Time Source Procedure Growth Status 01/20/25 14:00 Sputum Gram Stain - Final Complete 01/20/25 14:00 Sputum Respiratory Culture - Final Complete 01/18/25 00:45 Nose MRSA Screen - Final Complete 01/17/25 23:25 Blood Blood Culture - Final NO GROWTH AFTER 5 DAYS OF INCUBATION. Complete Labs and/or images reviewed: Labs reviewed by me, Image(s) reviewed by me Assessment/Plan Assessment/Plan Impression: -Sepsis -metabolic encephalopathy -DKA -ESRD with hemodialysis -primary hypertension -dyslipidemia -hyponatremia -? seizure -Hypoglycemia Plan: Events: Patient had hypoglycemic episode during the evening. Still not waking up. Plans for MRI today. Leukocytosis worsening. Central line removed. -stop Lantus. Start D5 NS infusion. Continue regular insulin sliding scale -CPAP trial once appropriate -Neurology consult. Recommendations reviewed. -nephrology consultation: Received hemodialysis yesterday -ppi, Carafate --continue vancomycin, cefepime, acyclovir, add micafungin -repeat labs, chest x-ray, ABG in a.m. Critical care time spent with patient discussing and formulating plan of care: 40 minutes. This does not include time spent performing procedures. This medical document was created using an electronic medical record system with [employer] dictation system. Although this document has been carefully reviewed, there may still be some phonetic and typographical errors. These areas are purely typographical due to imperfections of the software programs, and do not reflect any compromise in the patient's medical care. Plan discussed with: Patient, Other (RN) My Orders Orders - ROCÍO RAMIREZ NP Procedure Category Date Status Time Chest Portable XY 01/31/25 Resulted 04:00 Cpap Trial For Am ORDERS 01/30/25 Transmitted 11:33 Brain Head Wo Contrast MRI 01/30/25 Logged 13:59 Abg W/ Co-Ox RT 01/31/25 Logged 06:00 D5w/Sod Chlo 0.9% PHA 01/31/25 In Process (D5w Ns 0.9%) 08:00 Meropenem 500mg Ivpb PHA 01/31/25 In Process (Merrem 500mg/50ml 10:00 Basic Metabolic Panel LAB 02/01/25 Verified 05:00 Basic Metabolic Panel LAB 02/02/25 Verified 05:00 Basic Metabolic Panel LAB 02/03/25 Verified 05:00 Micafungin Sodium PHA 01/31/25 Verified (Mycamine) 10:00 Date of Service: Jan 31, 2025 Billing Provider: ROCÍO RAMIREZ NP Common Visit Codes: [id number] CARE 30-74 MIN ROCÍO RAMIREZ NP Jan 31, 2025 09:03
[2025-01-31] MEDS: D5W/SOD CHLO 0.9% 1,000 ML IV SCH (09:10)
--- NOTE | 2025-01-31 10:13 | DVHPN2 ---
Progress Note - Dictate Date Seen: Jan 31, 2025 Medical Necessity Reason Pt with a Central, PICC or Fol: Yes The following are medically ne: [place] Catheter Subjective Mr. Pisano is a 70 years old right-handed gentleman with a history of hypertension, diabetes, end-stage kidney failure on hemodialysis, the patient was brought to the [facility] on 01/17/2025 with a chief complaint of altered mental status. Because no improvement in the mental status, increased secretion and difficulty cleaning the respiratory tract, he was intubated on 01/20/2025 I have seen and examined the patient, I have discussed with his nurse. He is awake, eyes tightly collapsed, strong resistance in the left arm, he moves the right arm, but not the legs Frequent grimacing in the face Precedex 0.3 mcg/kg/hour Pupil size 01/22/25: Right: 3-4 mm, left: 1-2 mm, no associated abnormal vascular dilatation and skin secretion 01/23/25: Right: 3-4 mm, left: 2 mm 01/24/25: Right: 3-4 mm, left: 2 mm 01/24/25: Right: 4 mm, left: 2-3 mm 01/27/25: Right: 4-5 mm, left: 2-3 mm 01/28/25: Eyes tightly closed 01/29/25: Right: 4-5 mm, left: 2-3 mm 01/30/25: Eyes tightly closed 01/31/25: Eyes tightly closed ABG, 01/18/2025: Compensated Metabolic acidosis UDS, 01/18/2025: Negative Plasma alcohol, 01/17/2025: <3 Urinalysis, 01/18/2025: WBC: Five, urine leukocyte esterase: Negative CBC, 01/18/2025: Compensated metabolic acidosis WBC/HB/PLT/MCV, 01/18/2025: 14.4/11.8/189/92.3 Na, 01/18/2025: 127, 131, 01/30/25: 146 BUN/CR, : 113/11.33, 119/11.42, 50/5.72, 01/19/2025: 57/7.03, 01/28/2025: 51/5.55, 01/29/2025: 65/6.38, 01/30/2025: 92/8.44 GFR, 01/18/2025: 4, 4, 10 Anion gap, 01/18/2025: 19, 20, Glucose, 01/17/2025: 856, 01/18/2025: 862, 710, 551, 231 Liver function tests, 01/18/2025: Unremarkable EEG, 01/20/2025: moderately abnormal EEG Chest x-ray, 01/18/2025: There is prominence of the interstitial markings. Mild right basilar opacity. Mild prominence of the cardiomediastinal silhouette, likely accentuated by technique. No pleural effusion or pneumothorax. No acute osseous abnormality CT head, 01/15/2025: 1. No acute territorial infarct, intracranial hemorrhage, or mass effect. 2. Age-related involutional changes. Chronic ischemic changes as detailed. 3. If clinical symptoms persist, MRI may be beneficial in further evaluation (Chronic right cerebellar infarct) vital signs Vital Sign Date Time Temp Pulse Resp B/P (MAP) Pulse Ox O2 Delivery O2 Flow Rate FiO2 01/31/25 07:59 87 19 142/52 (82) 100 30 01/31/25 06:00 Mechanical Ventilator+ 01/31/25 04:00 99.0 99.0 Total Intake and Output 01/30/25 01/30/25 01/31/25 15:00 23:00 07:00 Intake Total 242.615 ml 601.280 ml 506.87 ml Output Total 2010 ml Balance 242.615 ml -1408.720 ml 506.87 ml medications Current Medications Medications Dose Ordered Sig/Aleta Route Start Time Stop Time Status Last Admin Dose Admin Acyclovir Sodium 700 mg/Sodium Chloride 264 ml @ 264 mls/hr DAILY IV 01/18/25 05:00 01/31/25 09:43 264 MLS/HR Ondansetron HCl 4 mg Q4HP PRN IV 01/18/25 04:30 Nitroglycerin 0.4 mg Q5MINP PRN SL 01/18/25 04:30 Morphine Sulfate 2 mg Q30M PRN IV 01/18/25 04:30 Dextrose/Sodium Chloride 1,000 ml @ 75 mls/hr [id number] IV 01/18/25 15:30 UNV Hydralazine HCl 10 mg Q6HP PRN IV 01/19/25 05:30 01/27/25 17:22 10 MG Albuterol 2.5 mg Q4HPRN PRN NEB 01/20/25 00:15 01/20/25 09:53 2.5 MG Ipratropium [place] 0.5 mg Q4HPRN PRN NEB 01/20/25 00:15 01/20/25 09:53 0.5 MG Fentanyl Citrate 250 ml @ 2.5 mls/hr Q24H IV 01/20/25 14:00 01/25/25 17:25 2.5 MLS/HR Albuterol 2.5 mg Q6HR NEB 01/20/25 18:00 01/31/25 07:09 2.5 MG Ipratropium [place] 0.5 mg Q6HR NEB 01/20/25 18:00 01/31/25 07:09 0.5 MG Norepinephrine Bitartrate 250 ml @ 3.75 mls/hr Q24H IV 01/21/25 09:00 01/27/25 12:10 3.75 MLS/HR Enteral Nutritional Formula 1,000 ml 50ML/HR GT 01/21/25 09:30 01/25/25 17:14 1,000 ML Pantoprazole Sodium 40 mg DAILY IV 01/21/25 10:00 01/31/25 09:10 40 MG Sucralfate 1 gm BID@0600,2200 GT 01/21/25 22:00 01/31/25 05:21 1 GM Diagnostic Test (Pha) 1 strip Q6HR 01/22/25 12:00 01/31/25 06:09 1 STRIP Insulin Human Regular Q6HR SC 01/22/25 12:00 01/30/25 00:20 3 UNITS Dextrose 50 ml UD PRN IV 01/22/25 08:30 01/30/25 18:06 50 ML Glycopyrrolate 0.2 mg Q6HP PRN IV 01/29/25 14:00 01/31/25 05:21 0.2 MG Albumin Human 100 ml @ 100 mls/hr PRN PRN IV 01/30/25 07:30 01/30/25 10:20 100 MLS/HR Vancomycin HCl 0 ml @ 0 mls/hr PER PHARMACY IV 01/30/25 08:15 Acetaminophen/ Hydrocodone Bitart 1 tab Q6HPRN PRN PO 01/30/25 23:00 01/31/25 05:21 1 TAB Dextrose/Sodium Chloride 1,000 ml @ 50 mls/hr Q20H IV 01/31/25 08:00 01/31/25 09:10 50 MLS/HR Meropenem 50 ml @ 17 mls/hr DAILY IV 01/31/25 10:00 Micafungin Sodium 100 mg/Sodium Chloride 100 ml @ 100 mls/hr DAILY IV 01/31/25 10:00 objective The patient is well-nourished and well-developed with no distress. The patient is intubated MENTAL STATUS: Subjective CRANIAL NERVES: Subjective. No signs of facial weakness. There are gagging or coughing reflexes SENSATION: Responses to pain and touch MOTOR: Normal tone in the upper and lower extremity. Normal muscle bulk. No fasciculations. Moves the arms REFLEXES: Deep tendon reflexes are symmetrical. No pathological reflexes. CEREBELLAR/COORDINATION: Deferred GAIT/STATION: deferred. laboratory and microbiology Laboratory Tests 01/31/25 03:51 Test 01/31/25 03:51 Range/Units Serum Glucose 125 H 74-106 mg/dL Problem List Diabetic ketoacidosis Metabolic acidosis Metabolic encephalopathy Herpes zoster infection/shingles ? Intracranial infection End-stage kidney failure Anisocoria with right pupil bigger, etiology unclear, possible secondary to history of surgery One eye blindness Grimacing, likely myoclonus Assessment/Plan Monitoring Supportive treatment ICU care Stabilize vitals Respiratory support/vent management Oxygen Acyclovir 700 mg daily IV antibiotics Current pain management Haldol for agitation History from him directly later More recommendation per clinical course This medical document was created using an electronic medical record system with [employer] dictation system. Although this document has been carefully reviewed, there may still be some phonetic and typographical errors. These areas are purely typographical due to imperfections of the software programs, and do not reflect any compromise in the patient's medical care. Prognosis guarded Dietary Evaluation Review Comments: 1) Consider reducing TF rate from 50 mL to 40 mL/hr goal rate to prevent overfeeding. Nepro Carbsteady @ 40 mL/hr will provide 1728 kcals, 78g Pro, and 698 mL free H2O per 24 hrs. Goal rate will meet 100% estimated energy needs and 85% estimated protein needs 2) Advance to 60g CCHO renal diet when medically feasible 3) Collect HbA1c 4) Follow-up with nephrology, cardiology, and pulmonology 5) Continue to monitor I&O, labs, and skin integrity Expected Outcomes/Goals: 1) nutrition support to meet at least 75% estimated daily needs 2) labs to improve 3) diet to advance 4) f/u in 2-3 days Plan discussed with: Other LETTY HANNA MD Jan 31, 2025 10:13
--- NOTE | 2025-01-31 11:09 | DVHPN2 ---
Progress Note - Dictate Date Seen: Jan 31, 2025 Medical Necessity Reason Pt with a Central, PICC or Fol: Yes The following are medically ne: [place] Catheter Subjective Intubated and sedated vital signs Vital Sign Date Time Temp Pulse Resp B/P (MAP) Pulse Ox O2 Delivery O2 Flow Rate FiO2 01/31/25 10:06 86 15 115/53 (73) 100 30 01/31/25 06:00 Mechanical Ventilator+ 01/31/25 04:00 99.0 99.0 Total Intake and Output 01/30/25 01/30/25 01/31/25 15:00 23:00 07:00 Intake Total 242.615 ml 601.280 ml 506.87 ml Output Total 2010 ml Balance 242.615 ml -1408.720 ml 506.87 ml medications Current Medications Medications Dose Ordered Sig/Aleta Route Start Time Stop Time Status Last Admin Dose Admin Acyclovir Sodium 700 mg/Sodium Chloride 264 ml @ 264 mls/hr DAILY IV 01/18/25 05:00 01/31/25 09:43 264 MLS/HR Ondansetron HCl 4 mg Q4HP PRN IV 01/18/25 04:30 Nitroglycerin 0.4 mg Q5MINP PRN SL 01/18/25 04:30 Morphine Sulfate 2 mg Q30M PRN IV 01/18/25 04:30 Dextrose/Sodium Chloride 1,000 ml @ 75 mls/hr [id number] IV 01/18/25 15:30 UNV Hydralazine HCl 10 mg Q6HP PRN IV 01/19/25 05:30 01/27/25 17:22 10 MG Albuterol 2.5 mg Q4HPRN PRN NEB 01/20/25 00:15 01/20/25 09:53 2.5 MG Ipratropium [place] 0.5 mg Q4HPRN PRN NEB 01/20/25 00:15 01/20/25 09:53 0.5 MG Fentanyl Citrate 250 ml @ 2.5 mls/hr Q24H IV 01/20/25 14:00 01/25/25 17:25 2.5 MLS/HR Albuterol 2.5 mg Q6HR NEB 01/20/25 18:00 01/31/25 07:09 2.5 MG Ipratropium [place] 0.5 mg Q6HR NEB 01/20/25 18:00 01/31/25 07:09 0.5 MG Norepinephrine Bitartrate 250 ml @ 3.75 mls/hr Q24H IV 01/21/25 09:00 01/27/25 12:10 3.75 MLS/HR Enteral Nutritional Formula 1,000 ml 50ML/HR GT 01/21/25 09:30 01/25/25 17:14 1,000 ML Pantoprazole Sodium 40 mg DAILY IV 01/21/25 10:00 01/31/25 09:10 40 MG Sucralfate 1 gm BID@0600,2200 GT 01/21/25 22:00 01/31/25 05:21 1 GM Diagnostic Test (Pha) 1 strip Q6HR 01/22/25 12:00 01/31/25 06:09 1 STRIP Insulin Human Regular Q6HR SC 01/22/25 12:00 01/30/25 00:20 3 UNITS Dextrose 50 ml UD PRN IV 01/22/25 08:30 01/30/25 18:06 50 ML Glycopyrrolate 0.2 mg Q6HP PRN IV 01/29/25 14:00 01/31/25 05:21 0.2 MG Albumin Human 100 ml @ 100 mls/hr PRN PRN IV 01/30/25 07:30 01/30/25 10:20 100 MLS/HR Vancomycin HCl 0 ml @ 0 mls/hr PER PHARMACY IV 01/30/25 08:15 Acetaminophen/ Hydrocodone Bitart 1 tab Q6HPRN PRN PO 01/30/25 23:00 01/31/25 05:21 1 TAB Dextrose/Sodium Chloride 1,000 ml @ 50 mls/hr Q20H IV 01/31/25 08:00 01/31/25 09:10 50 MLS/HR Meropenem 50 ml @ 17 mls/hr DAILY IV 01/31/25 10:00 Micafungin Sodium 100 mg/Sodium Chloride 100 ml @ 100 mls/hr DAILY IV 01/31/25 10:00 objective intubated and sedated HEENT: Normocephalic Lungs: Bilateral good air entry CVS: S1, S2 regular rhythm Abdomen: Soft bowel sounds present CLINICAL TRIALS SPECIALIST: intubated Extremities: No edema laboratory and microbiology Laboratory Tests 01/31/25 03:51 Test 01/31/25 03:51 Range/Units Serum Glucose 125 H 74-106 mg/dL Problem List End-stage kidney disease on hemodialysis Acute hypoxic respiratory failure Metabolic encephalopathy Shingles Diabetic ketoacidosis, resolved Hyponatremia secondary to elevated blood sugars, resolved Probable seizures Assessment/Plan Continue Hemodialysis on TTS schedule. Continue with antibiotics Dietary Evaluation Review Comments: 1) Consider reducing TF rate from 50 mL to 40 mL/hr goal rate to prevent overfeeding. Nepro Carbsteady @ 40 mL/hr will provide 1728 kcals, 78g Pro, and 698 mL free H2O per 24 hrs. Goal rate will meet 100% estimated energy needs and 85% estimated protein needs 2) Advance to 60g CCHO renal diet when medically feasible 3) Collect HbA1c 4) Follow-up with nephrology, cardiology, and pulmonology 5) Continue to monitor I&O, labs, and skin integrity Expected Outcomes/Goals: 1) nutrition support to meet at least 75% estimated daily needs 2) labs to improve 3) diet to advance 4) f/u in 2-3 days Plan discussed with: Other GA FLOYD MD Jan 31, 2025 11:09
[2025-01-31] MEDS: LORazepam 2MG/ML-1ML VIAL ONE (11:47)
[2025-01-31] MEDS: LORazepam 2MG/ML-1ML VIAL IV ONE (12:34)
[2025-01-31] MEDS: MICAFUNGIN SODIUM 100 MG in SODIUM CHL 0.9% 100 ML IV SCH (12:37)
--- NOTE | 2025-01-31 13:32 | DVH ---
MRI BRAIN HEAD WO CONTRAST INDICATION: CVA, Acute encephalopathy EXAM DATE: 01/31/2025 11:51 AM COMPARISON: CT HEAD WITHOUT CONTRAST on DOS: 01/18/25 PROCEDURE: Using a 1.5 Elle scanner, multisequence multiplanar imaging of the brain was obtained. 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 The brain otherwise shows normal morphology and signal characteristics. No abnormal T2 hyperintensity, diffusion restriction, or susceptibility hypointensity is present. The ventricles are normal in size. The midline structures are intact. T he major intracranial flow voids are present. Bilateral maxillary sinus mucosal opacification. The orbital contents and extracranial soft tissues appear normal. 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 No acute abnormal MRI findings of the brain.
[2025-01-31] MEDS: MEROPENEM 500MG IVPB 50 ML IV SCH (13:59)
--- NOTE | 2025-01-31 20:04 | DVHPN2 ---
Subjective DOS: 01/31/2025 Patient seen and examined at bedside. Intubated on mechanical ventilator. Overnight events reviewed. Reviewed: Care Plan, H&P, Labs, Medications Changes from previous H/P or p: No Changes General: Per HPI Objective Vitals Vital Signs Date Time Temp Pulse Resp B/P (MAP) Pulse Ox O2 Delivery O2 Flow Rate FiO2 01/31/25 19:31 82 19 100 01/31/25 18:00 30 01/31/25 18:00 99.3 99.3 01/31/25 18:00 Mechanical Ventilator+ 01/31/25 10:00 2 Intake/Output Intake and Output 01/31/25 07:00 Intake Total 1352.470 ml Output Total 2010 ml Balance -657.530 ml Intake Oral 130 ml IV Total 809.470 ml Tube Feeding 413 ml Output Urine Total 10 ml Other 2000 ml General Appearance: mild distress, Other (Continues to be encephalopathic) HEENT: Atraumatic, Other (Unequal pupils) Lungs: Other (Mechanical ventilation. Transmitted breath sounds bilaterally. Decreased air entry.) Chest/Breasts: Other (Noted rash, shingles to right upper chest) Cardiovascular: Normal S1, Normal S2, Other (Sinus rhythm/sinus bradycardia) Abdomen: Normal bowel sounds, Soft, No tenderness, No hepatospenomegaly Genitourinary: No Apparent Abnormalities ([place]) Musculoskeletal: Other (Unable to assess) Neuro: Other (Unable to assess) Skin: Dry, Intact, Other (Rash to right upper chest) Psych/Mental Status: Other (Unable to assess) Medications Current Medications Medications Dose Ordered Sig/Aleta Route Start Time Stop Time Status Last Admin Dose Admin Acyclovir Sodium 700 mg/Sodium Chloride 264 ml @ 264 mls/hr DAILY IV 01/18/25 05:00 01/31/25 09:43 264 MLS/HR Ondansetron HCl 4 mg Q4HP PRN IV 01/18/25 04:30 Nitroglycerin 0.4 mg Q5MINP PRN SL 01/18/25 04:30 Morphine Sulfate 2 mg Q30M PRN IV 01/18/25 04:30 Dextrose/Sodium Chloride 1,000 ml @ 75 mls/hr [id number] IV 01/18/25 15:30 UNV Hydralazine HCl 10 mg Q6HP PRN IV 01/19/25 05:30 01/27/25 17:22 10 MG Albuterol 2.5 mg Q4HPRN PRN NEB 01/20/25 00:15 01/20/25 09:53 2.5 MG Ipratropium [place] 0.5 mg Q4HPRN PRN NEB 01/20/25 00:15 01/20/25 09:53 0.5 MG Fentanyl Citrate 250 ml @ 2.5 mls/hr Q24H IV 01/20/25 14:00 01/25/25 17:25 2.5 MLS/HR Albuterol 2.5 mg Q6HR NEB 01/20/25 18:00 01/31/25 18:02 2.5 MG Ipratropium [place] 0.5 mg Q6HR NEB 01/20/25 18:00 01/31/25 18:02 0.5 MG Norepinephrine Bitartrate 250 ml @ 3.75 mls/hr Q24H IV 01/21/25 09:00 01/31/25 18:53 3.75 MLS/HR Enteral Nutritional Formula 1,000 ml 50ML/HR GT 01/21/25 09:30 01/31/25 17:51 1,000 ML Pantoprazole Sodium 40 mg DAILY IV 01/21/25 10:00 01/31/25 09:10 40 MG Sucralfate 1 gm BID@0600,2200 GT 01/21/25 22:00 01/31/25 05:21 1 GM Diagnostic Test (Pha) 1 strip Q6HR 01/22/25 12:00 01/31/25 17:38 1 STRIP Insulin Human Regular Q6HR SC 01/22/25 12:00 01/31/25 17:42 2 UNITS Dextrose 50 ml UD PRN IV 01/22/25 08:30 01/30/25 18:06 50 ML Glycopyrrolate 0.2 mg Q6HP PRN IV 01/29/25 14:00 01/31/25 05:21 0.2 MG Albumin Human 100 ml @ 100 mls/hr PRN PRN IV 01/30/25 07:30 01/30/25 10:20 100 MLS/HR Vancomycin HCl 0 ml @ 0 mls/hr PER PHARMACY IV 01/30/25 08:15 Acetaminophen/ Hydrocodone Bitart 1 tab Q6HPRN PRN PO 01/30/25 23:00 01/31/25 17:54 1 TAB Dextrose/Sodium Chloride 1,000 ml @ 50 mls/hr Q20H IV 01/31/25 08:00 01/31/25 09:10 50 MLS/HR Meropenem 50 ml @ 17 mls/hr DAILY IV 01/31/25 10:00 01/31/25 13:59 17 MLS/HR Micafungin Sodium 100 mg/Sodium Chloride 100 ml @ 100 mls/hr DAILY IV 01/31/25 10:00 01/31/25 12:37 100 MLS/HR Laboratory Results Laboratory Tests 01/31/25 03:51 Chemistry Test 01/31/25 03:51 Calcium Level 9.3 mg/dL (8.7-10.4) Urinalysis Test 01/18/25 10:20 Urine Color Light-yellow (Yellow) Urine Clarity Clear (Clear) Urine pH 6.5 (5.0-9.0) Urine Specific [place] 1.017 (1.001-1.035) Urine Protein 3+ (Negative) H Urine Ketones Negative (Negative) Urine Blood 1+ /uL (Negative) H Urine Nitrite Negative (Negative) Urine Bilirubin Negative (Negative) Urine Urobilinogen Normal mg/dL (Negative) Urine Leukocyte Esterase Negative /uL (Negative) Urine RBC 1 /hpf (0 - 3) Urine Microscopic WBC 5 /HPF (0-3) H Urine Squamous Epithelial Cells Few /hpf (<5) Urine Bacteria None seen /hpf (None Seen) Urine Glucose 4+ mg/dL (Normal) H Blood Gas Results Test 01/31/25 08:03 Arterial Blood pH 7.427 (7.350-7.450) FiO2 % 30.0 Microbiology Microbiology Date/Time Source Procedure Growth Status 01/30/25 13:15 Blood Blood Culture - Preliminary NO GROWTH AFTER 24 HOURS OF INCUBATION. Resulted 01/20/25 14:00 Sputum Gram Stain - Final Complete 01/20/25 14:00 Sputum Respiratory Culture - Final Complete 01/18/25 00:45 Nose MRSA Screen - Final Complete Assessment/Plan Assessment/Plan Impression: Acute hypoxic respiratory failure On mechanical ventilator Sepsis Metabolic encephalopathy Diabetic ketoacidosis ESRD with hemodialysis Events: Remains on vent support On AC mode; RR 14, VT 500, PEEP 5, FiO2 30% On Precedex drip - taper as tolerated. ABG reviewed, compensated CXR reviewed, notable for patchy bilateral airspace disease, [id number]. No effusion or pneumothorax. MRI brain w/o contrast reveals no acute abnormalities. 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 Patient tolerated CPAP for 2 hours, placed back on full support. Remains off pressors, hemodynamically stable Hemodialysis per Nephrology Follow up Nephrology recs S/p hemodialysis yesterday Continue antibiotics Tube feeds for nutritional support Recommend midline catheter placement. Accu-Cheks, ISS. Continue daily SBT. Continue attempts to liberate from mechanical ventilator. Awaiting for mentation to improve - not following commands. Labs and imaging reviewed. Rest of plan as noted below. Plan: s/p intubation on mechanical ventilator. On AC mode; RR 14, VT 500, PEEP 5, FiO2 30% Titrate FIO2 to keep O2 saturation above 90%. VAP bundle. Daily ABG and CXR while intubated Continue bronchodilators. Continue antibiotics. Pressors as necessary for hemodynamic support Titrate to keep mean arterial pressure greater than 65 mmHg. Tube feeds for nutrition Accu-Cheks, ISS. On Sucralfate and Protonix. GI recs appreciated. Hemodialysis per Nephrology Monitor renal function Monitor electrolytes. Supplement as necessary. Monitor ins and outs. SBT/RENU GI prophylaxis. DVT prophylaxis. Prognosis: Poor given patient's multiple co-morbidities. Condition: Critical Rest of plan per hospitalist and other consultants. A total of 35 minutes of critical care time was spent reviewing the patient record, examining the patient, making a diagnostic and therapeutic plan, discussing this plan with the medical personnel, following up on diagnostic studies and following the patient for clinical stability excluding any and all procedures. At least 50% of this time was spent in direct, [id number] contact. Thank you, Dr. Salvador, for allowing me to participate in this patient's care. Further recommendations will depend on the patient's clinical course. Please do not hesitate to contact me if you have any questions or concerns. This medical document was created using an electronic medical record system with [employer] system. Although these documentations are being carefully reviewed, there may still be some phonetic and typographical changes. The errors are purely typographical, due to imperfection on the software program, and do not reflect any compromise in the patient's medical care Plan discussed with: Other (BRITTNI Ko) Visit Coding Pulmonary Billing Provider: MISAEL KIM MD Date of Service if different f: Jan 31, 2025 Common Visit Codes: 53402-[id number] INP/OBS CARE(HIGH), 37854-[id number] CARE 30-74 MIN MISAEL KIM MD Jan 31, 2025 20:04
[2025-02-01] VITALS (109 sets, daily range): BP systolic 87–155; BP diastolic 25–60; PULSE 73–99; RESP 13–25; TEMP 97.6–98.6; O2SAT 92–100
[2025-02-01 03:44] LABS: Hematocrit 26.8 % (41.0-53.0); Hemoglobin 8.8 g/dL (13.5-17.5); Mean Corpuscular Hemoglobin 31.1 pg (28.0-32.0); Mean Corpuscular Volume 94.4 fL (80.0-100.0); Nucleated Red Blood Cells % 0.0 %
[2025-02-01 03:56] LABS: Anion Gap 16 (5-15); Carbon Dioxide 24 mmol/L (20-31); Chloride 100 mmol/L (98-107); Potassium 3.9 mmol/L (3.5-5.1); Sodium 140 mmol/L (136-145)
[2025-02-01 03:57] LABS: Calcium 9.5 mg/dL (8.7-10.4)
[2025-02-01 04:02] LABS: BUN/Creatinine Ratio 8.5 (10.0-20.0)
[2025-02-01 04:19] LABS: Blood Urea Nitrogen 64 mg/dL (9-23); Glucose 303 mg/dL (74-106)
[2025-02-01 07:41] LABS: Base Excess 1.1 mmol/L (-2.0-3.0)
--- NOTE | 2025-02-01 10:04 | DVHPN2 ---
Progress Note - Dictate Date Seen: Feb 01, 2025 Medical Necessity Reason Pt with a Central, PICC or Fol: Yes The following are medically ne: [place] Catheter Subjective Mr. Pisano is a 70 years old right-handed gentleman with a history of hypertension, diabetes, end-stage kidney failure on hemodialysis, the patient was brought to the [facility] on 01/17/2025 with a chief complaint of altered mental status. Because no improvement in the mental status, increased secretion and difficulty cleaning the respiratory tract, he was intubated on 01/20/2025 I have seen and examined the patient, I have discussed with his nurse. He is going through hemodialysis. The eyes are closed but the strong resistance when I tried to open his eyes, and move the left arm He grimaced his face, but not as frequent as yesterday Precedex 0.2 mcg/kg/hour Pupil size 01/22/25: Right: 3-4 mm, left: 1-2 mm, no associated abnormal vascular dilatation and skin secretion 01/23/25: Right: 3-4 mm, left: 2 mm 01/24/25: Right: 3-4 mm, left: 2 mm 01/24/25: Right: 4 mm, left: 2-3 mm 01/27/25: Right: 4-5 mm, left: 2-3 mm 01/28/25: Eyes tightly closed 01/29/25: Right: 4-5 mm, left: 2-3 mm 01/30/25: Eyes tightly closed 01/31/25: Eyes tightly closed 02/01/25: The right pupil looks bigger ABG, 01/18/2025: Compensated Metabolic acidosis UDS, 01/18/2025: Negative Plasma alcohol, 01/17/2025: <3 Urinalysis, 01/18/2025: WBC: Five, urine leukocyte esterase: Negative CBC, 01/18/2025: Compensated metabolic acidosis WBC/HB/PLT/MCV, 01/18/2025: 14.4/11.8/189/92.3 Na, 01/18/2025: 127, 131, 01/30/25: 146 BUN/CR, : 113/11.33, 119/11.42, 50/5.72, 01/19/2025: 57/7.03, 01/28/2025: 51/5.55, 01/29/2025: 65/6.38, 01/30/2025: 92/8.44 GFR, 01/18/2025: 4, 4, 10 Anion gap, 01/18/2025: 19, 20, Glucose, 01/17/2025: 856, 01/18/2025: 862, 710, 551, 231 Liver function tests, 01/18/2025: Unremarkable EEG, 01/20/2025: moderately abnormal EEG Chest x-ray, 01/18/2025: There is prominence of the interstitial markings. Mild right basilar opacity. Mild prominence of the cardiomediastinal silhouette, likely accentuated by technique. No pleural effusion or pneumothorax. No acute osseous abnormality CT head, 01/15/2025: 1. No acute territorial infarct, intracranial hemorrhage, or mass effect. 2. Age-related involutional changes. Chronic ischemic changes as detailed. 3. 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 No acute abnormal MRI findings of the brain. vital signs Vital Sign Date Time Temp Pulse Resp B/P (MAP) Pulse Ox O2 Delivery O2 Flow Rate FiO2 02/01/25 09:34 30 02/01/25 09:34 95 Mechanical Ventilator+ 02/01/25 09:34 14 02/01/25 09:34 78 02/01/25 08:03 125/53 (77) 02/01/25 04:00 97.8 97.8 01/31/25 10:00 2 Total Intake and Output 01/31/25 01/31/25 02/01/25 15:00 23:00 07:00 Intake Total 701.41 ml 471.855 ml 743.41 ml Output Total 20 ml 50 ml Balance 701.41 ml 451.855 ml 693.41 ml medications Current Medications Medications Dose Ordered Sig/Aleta Route Start Time Stop Time Status Last Admin Dose Admin Acyclovir Sodium 700 mg/Sodium Chloride 264 ml @ 264 mls/hr DAILY IV 01/18/25 05:00 01/31/25 09:43 264 MLS/HR Ondansetron HCl 4 mg Q4HP PRN IV 10/23/25 04:30 Nitroglycerin 0.4 mg Q5MINP PRN SL 01/18/25 04:30 Morphine Sulfate 2 mg Q30M PRN IV 01/18/25 04:30 Dextrose/Sodium Chloride 1,000 ml @ 75 mls/hr [id number] IV 01/18/25 15:30 UNV Hydralazine HCl 10 mg Q6HP PRN IV 01/19/25 05:30 01/27/25 17:22 10 MG Albuterol 2.5 mg Q4HPRN PRN NEB 01/20/25 00:15 01/20/25 09:53 2.5 MG Ipratropium Dale 0.5 mg Q4HPRN PRN NEB 01/20/25 00:15 01/20/25 09:53 0.5 MG Fentanyl Citrate 250 ml @ 2.5 mls/hr Q24H IV 01/20/25 14:00 01/25/25 17:25 2.5 MLS/HR Albuterol 2.5 mg Q6HR NEB 01/20/25 18:00 02/01/25 06:23 2.5 MG Ipratropium [place] 0.5 mg Q6HR NEB 01/20/25 18:00 02/01/25 06:23 0.5 MG Norepinephrine Bitartrate 250 ml @ 3.75 mls/hr Q24H IV 01/21/25 09:00 01/31/25 18:53 3.75 MLS/HR Enteral Nutritional Formula 1,000 ml 50ML/HR GT 01/21/25 09:30 01/31/25 17:51 1,000 ML Pantoprazole Sodium 40 mg DAILY IV 01/21/25 10:00 01/31/25 09:10 40 MG Sucralfate 1 gm BID@0600,2200 GT 01/21/25 22:00 02/01/25 06:09 1 GM Diagnostic Test (Pha) 1 strip Q6HR 01/22/25 12:00 02/01/25 06:09 1 STRIP Insulin Human Regular Q6HR SC 01/22/25 12:00 02/01/25 06:10 4 UNITS Dextrose 50 ml UD PRN IV 01/22/25 08:30 01/30/25 18:06 50 ML Glycopyrrolate 0.2 mg Q6HP PRN IV 01/29/25 14:00 01/31/25 05:21 0.2 MG Albumin Human 100 ml @ 100 mls/hr PRN PRN IV 01/30/25 07:30 01/30/25 10:20 100 MLS/HR Vancomycin HCl 0 ml @ 0 mls/hr PER PHARMACY IV 01/30/25 08:15 Acetaminophen/ Hydrocodone Bitart 1 tab Q6HPRN PRN PO 01/30/25 23:00 01/31/25 17:54 1 TAB Dextrose/Sodium Chloride 1,000 ml @ 50 mls/hr Q20H IV 01/31/25 08:00 02/01/25 04:00 50 MLS/HR Meropenem 50 ml @ 17 mls/hr DAILY IV 01/31/25 10:00 01/31/25 13:59 17 MLS/HR Micafungin Sodium 100 mg/Sodium Chloride 100 ml @ 100 mls/hr DAILY IV 01/31/25 10:00 01/31/25 12:37 100 MLS/HR objective The patient is well-nourished and well-developed with no distress. The patient is intubated MENTAL STATUS: Subjective CRANIAL NERVES: Subjective. No signs of facial weakness. There are gagging or coughing reflexes SENSATION: Responses to pain and touch MOTOR: Normal tone in the upper and lower extremity. Normal muscle bulk. No fasciculations. Moves the arms REFLEXES: Deep tendon reflexes are symmetrical. No pathological reflexes. CEREBELLAR/COORDINATION: Deferred GAIT/STATION: deferred. laboratory and microbiology Laboratory Tests 02/01/25 03:04 Test 02/01/25 03:04 Range/Units Serum Glucose 303 #H 74-106 mg/dL Problem List Diabetic ketoacidosis Metabolic acidosis Metabolic encephalopathy Herpes zoster infection/shingles ? Intracranial infection End-stage kidney failure Anisocoria with right pupil bigger, etiology unclear, possible secondary to history of surgery One eye blindness Grimacing, likely myoclonus Assessment/Plan Monitoring Supportive treatment ICU care Stabilize vitals Respiratory support/vent management Oxygen Acyclovir 700 mg daily IV antibiotics Current pain management Haldol for agitation History from him directly later More recommendation per clinical course This medical document was created using an electronic medical record system with [employer] dictation system. Although this document has been carefully reviewed, there may still be some phonetic and typographical errors. These areas are purely typographical due to imperfections of the software programs, and do not reflect any compromise in the patient's medical care. Prognosis guarded Dietary Evaluation Review Comments: 1) Consider reducing TF rate from 50 mL to 40 mL/hr goal rate to prevent overfeeding. Nepro Carbsteady @ 40 mL/hr will provide 1728 kcals, 78g Pro, and 698 mL free H2O per 24 hrs. Goal rate will meet 100% estimated energy needs and 85% estimated protein needs 2) Advance to 60g CCHO renal diet when medically feasible 3) Collect HbA1c 4) Follow-up with nephrology, cardiology, and pulmonology 5) Continue to monitor I&O, labs, and skin integrity Expected Outcomes/Goals: 1) nutrition support to meet at least 75% estimated daily needs 2) labs to improve 3) diet to advance 4) f/u in 2-3 days Plan discussed with: Other LETTY HANNA MD Feb 01, 2025 10:04
--- NOTE | 2025-02-01 12:10 | DVHPN2 ---
Reviewed: Care Plan, H&P, Labs, Medications Changes from previous H/P or p: No Changes General: Per HPI Objective Vitals Vital Signs Date Time Temp Pulse Resp B/P (MAP) Pulse Ox O2 Delivery O2 Flow Rate FiO2 02/01/25 10:20 76 16 99/50 (66) 100 30 02/01/25 09:34 Mechanical Ventilator+ 02/01/25 04:00 97.8 97.8 01/31/25 10:00 2 Intake/Output Intake and Output 02/01/25 07:00 Intake Total 1916.675 ml Output Total 70 ml Balance 1846.675 ml Intake Oral 380 ml IV Total 1536.675 ml Output Urine Total 70 ml General Appearance: mild distress, Other (Continues to be encephalopathic) HEENT: Atraumatic, Other (Unequal pupils) Lungs: Other (Mechanical ventilation. Transmitted breath sounds bilaterally. Decreased air entry.) Chest/Breasts: Other (Noted rash, shingles to right upper chest) Cardiovascular: Normal S1, Normal S2, Other (Sinus rhythm/sinus bradycardia) Abdomen: Normal bowel sounds, Soft, No tenderness, No hepatospenomegaly Genitourinary: No Apparent Abnormalities (Ashford) Musculoskeletal: Other (Unable to assess) Neuro: Other (Unable to assess) Skin: Dry, Intact, Other (Rash to right upper chest) Psych/Mental Status: Other (Unable to assess) Medications Current Medications Medications Dose Ordered Sig/Aleta Route Start Time Stop Time Status Last Admin Dose Admin Acyclovir Sodium 700 mg/Sodium Chloride 264 ml @ 264 mls/hr DAILY IV 01/18/25 05:00 01/31/25 09:43 264 MLS/HR Ondansetron HCl 4 mg Q4HP PRN IV 01/18/25 04:30 Nitroglycerin 0.4 mg Q5MINP PRN SL 01/18/25 04:30 Morphine Sulfate 2 mg Q30M PRN IV 01/18/25 04:30 Dextrose/Sodium Chloride 1,000 ml @ 75 mls/hr [id number] IV 01/18/25 15:30 UNV Hydralazine HCl 10 mg Q6HP PRN IV 01/19/25 05:30 01/27/25 17:22 10 MG Albuterol 2.5 mg Q4HPRN PRN NEB 01/20/25 00:15 01/20/25 09:53 2.5 MG Ipratropium [place] 0.5 mg Q4HPRN PRN NEB 01/20/25 00:15 01/20/25 09:53 0.5 MG Fentanyl Citrate 250 ml @ 2.5 mls/hr Q24H IV 01/20/25 14:00 01/25/25 17:25 2.5 MLS/HR Albuterol 2.5 mg Q6HR NEB 01/20/25 18:00 02/01/25 12:04 2.5 MG Ipratropium [place] 0.5 mg Q6HR NEB 01/20/25 18:00 02/01/25 12:04 0.5 MG Norepinephrine Bitartrate 250 ml @ 3.75 mls/hr Q24H IV 01/21/25 09:00 01/31/25 18:53 3.75 MLS/HR Enteral Nutritional Formula 1,000 ml 50ML/HR GT 01/21/25 09:30 01/31/25 17:51 1,000 ML Pantoprazole Sodium 40 mg DAILY IV 01/21/25 10:00 02/01/25 11:54 40 MG Sucralfate 1 gm BID@0600,2200 GT 01/21/25 22:00 02/01/25 06:09 1 GM Diagnostic Test (Pha) 1 strip Q6HR 01/22/25 12:00 02/01/25 06:09 1 STRIP Insulin Human Regular Q6HR SC 01/22/25 12:00 02/01/25 06:10 4 UNITS Dextrose 50 ml UD PRN IV 01/22/25 08:30 01/30/25 18:06 50 ML Glycopyrrolate 0.2 mg Q6HP PRN IV 01/29/25 14:00 01/31/25 05:21 0.2 MG Albumin Human 100 ml @ 100 mls/hr PRN PRN IV 01/30/25 07:30 01/30/25 10:20 100 MLS/HR Vancomycin HCl 0 ml @ 0 mls/hr PER PHARMACY IV 01/30/25 08:15 Acetaminophen/ Hydrocodone Bitart 1 tab Q6HPRN PRN PO 01/30/25 23:00 01/31/25 17:54 1 TAB Dextrose/Sodium Chloride 1,000 ml @ 50 mls/hr Q20H IV 01/31/25 08:00 02/01/25 04:00 50 MLS/HR Meropenem 50 ml @ 17 mls/hr DAILY IV 01/31/25 10:00 02/01/25 11:55 17 MLS/HR Micafungin Sodium 100 mg/Sodium Chloride 100 ml @ 100 mls/hr DAILY IV 01/31/25 10:00 02/01/25 11:46 100 MLS/HR Laboratory Results Laboratory Tests 02/01/25 03:04 Chemistry Test 02/01/25 03:04 Calcium Level 9.5 mg/dL (8.7-10.4) Urinalysis Test 01/18/25 10:20 Urine Color Light-yellow (Yellow) Urine Clarity Clear (Clear) Urine pH 6.5 (5.0-9.0) Urine Specific Pyatt 1.017 (1.001-1.035) Urine Protein 3+ (Negative) H Urine Ketones Negative (Negative) Urine Blood 1+ /uL (Negative) H Urine Nitrite Negative (Negative) Urine Bilirubin Negative (Negative) Urine Urobilinogen Normal mg/dL (Negative) Urine Leukocyte Esterase Negative /uL (Negative) Urine RBC 1 /hpf (0 - 3) Urine Microscopic WBC 5 /HPF (0-3) H Urine Squamous Epithelial Cells Few /hpf (<5) Urine Bacteria None seen /hpf (None Seen) Urine Glucose 4+ mg/dL (Normal) H Blood Gas Results Test 02/01/25 07:24 Arterial Blood pH 7.410 (7.350-7.450) FiO2 % 30.0 Microbiology Microbiology Date/Time Source Procedure Growth Status 01/30/25 13:15 Blood Blood Culture - Preliminary Resulted 01/20/25 14:00 Sputum Gram Stain - Final Complete 01/20/25 14:00 Sputum Respiratory Culture - Final Complete 01/18/25 00:45 Nose MRSA Screen - Final Complete Labs and/or images reviewed: Labs reviewed by me, Image(s) reviewed by me Assessment/Plan Assessment/Plan 01/31: Patient had hypoglycemic episode during the evening. Still not waking up. Plans for MRI today. Leukocytosis worsening. Central line removed. 02/01: Covering today for primary hospitalist. Patient here with initially DKA, had confused in with unable to protect airway and was intubated. DKA resolved patient has 1 blood culture positive Gram-positive cocci likely contaminant. Patient has been off of sedatives., Does not wake up following commands, on CPAP trial does well but does not follow commands on safe to extubate. No Levophed right now. Anuric ESRD getting dialysis Wednesday schedule. Getting NG tube feeds Nepro. Vital signs stable. 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 Neurology onboard, no central causes thus far for patient poor mental status.. Continue acyclovir, we will get HIV lab a.m. draw tomorrow, continue antibiotics, continue fluids per Nephrology continue other therapies as per primary hospitalist. Impression: -Sepsis -metabolic encephalopathy -DKA -ESRD with hemodialysis -primary hypertension -dyslipidemia -hyponatremia -? seizure -Hypoglycemia Plan: -stop Lantus. Start D5 NS infusion. Continue regular insulin sliding scale -CPAP trial once appropriate -Neurology consult. Recommendations reviewed. -nephrology consultation: Received hemodialysis yesterday -ppi, Carafate --continue vancomycin, cefepime, acyclovir, add micafungin -repeat labs, chest x-ray, ABG in a.m. Critical care time spent with patient discussing and formulating plan of care: 40 minutes. This does not include time spent performing procedures. Plan discussed with: Other My Orders Orders - PRATIK OSEGUERA MD Procedure Category Date Status Time Hiv 1&2 Antibody LAB 02/02/25 Verified 05:00 Date of Service: Feb 01, 2025 Billing Provider: PRATIK OSEGUERA MD Common Visit Codes: [id number] CARE 30-74 MIN PRATIK OSEGUERA MD Feb 01, 2025 12:10
--- NOTE | 2025-02-01 18:06 | DVHPN2 ---
Progress Note - Dictate Date Seen: Feb 01, 2025 Medical Necessity Reason Pt with a Central, PICC or Fol: Yes The following are medically ne: [place] Catheter Subjective Intubated and sedated vital signs Vital Sign Date Time Temp Pulse Resp B/P (MAP) Pulse Ox O2 Delivery O2 Flow Rate FiO2 02/01/25 17:33 14 100 Mechanical Ventilator+ 30 30 02/01/25 17:33 99 02/01/25 16:33 96/58 (71) 02/01/25 04:00 97.8 97.8 01/31/25 10:00 2 Total Intake and Output 01/31/25 01/31/25 02/01/25 15:00 23:00 07:00 Intake Total 701.41 ml 471.855 ml 743.41 ml Output Total 20 ml 50 ml Balance 701.41 ml 451.855 ml 693.41 ml medications Current Medications Medications Dose Ordered Sig/Aleta Route Start Time Stop Time Status Last Admin Dose Admin Acyclovir Sodium 700 mg/Sodium Chloride 264 ml @ 264 mls/hr DAILY IV 01/18/25 05:00 02/01/25 10:00 264 MLS/HR Ondansetron HCl 4 mg Q4HP PRN IV 01/18/25 04:30 Nitroglycerin 0.4 mg Q5MINP PRN SL 01/18/25 04:30 Morphine Sulfate 2 mg Q30M PRN IV 01/18/25 04:30 Dextrose/Sodium Chloride 1,000 ml @ 75 mls/hr [id number] IV 01/18/25 15:30 UNV Hydralazine HCl 10 mg Q6HP PRN IV 01/19/25 05:30 01/27/25 17:22 10 MG Albuterol 2.5 mg Q4HPRN PRN NEB 01/20/25 00:15 01/20/25 09:53 2.5 MG Ipratropium [place] 0.5 mg Q4HPRN PRN NEB 01/20/25 00:15 01/20/25 09:53 0.5 MG Fentanyl Citrate 250 ml @ 2.5 mls/hr Q24H IV 01/20/25 14:00 01/25/25 17:25 2.5 MLS/HR Albuterol 2.5 mg Q6HR NEB 01/20/25 18:00 02/01/25 12:04 2.5 MG Ipratropium [place] 0.5 mg Q6HR NEB 01/20/25 18:00 02/01/25 12:04 0.5 MG Norepinephrine Bitartrate 250 ml @ 3.75 mls/hr Q24H IV 01/21/25 09:00 01/31/25 18:53 3.75 MLS/HR Enteral Nutritional Formula 1,000 ml 50ML/HR GT 01/21/25 09:30 01/31/25 17:51 1,000 ML Pantoprazole Sodium 40 mg DAILY IV 01/21/25 10:00 02/01/25 11:54 40 MG Sucralfate 1 gm BID@0600,2200 GT 01/21/25 22:00 02/01/25 06:09 1 GM Diagnostic Test (Pha) 1 strip Q6HR 01/22/25 12:00 02/01/25 12:19 1 STRIP Insulin Human Regular Q6HR SC 01/22/25 12:00 02/01/25 12:26 4 UNITS Dextrose 50 ml UD PRN IV 01/22/25 08:30 01/30/25 18:06 50 ML Glycopyrrolate 0.2 mg Q6HP PRN IV 01/29/25 14:00 01/31/25 05:21 0.2 MG Albumin Human 100 ml @ 100 mls/hr PRN PRN IV 01/30/25 07:30 01/30/25 10:20 100 MLS/HR Vancomycin HCl 0 ml @ 0 mls/hr PER PHARMACY IV 01/30/25 08:15 Acetaminophen/ Hydrocodone Bitart 1 tab Q6HPRN PRN PO 01/30/25 23:00 01/31/25 17:54 1 TAB Dextrose/Sodium Chloride 1,000 ml @ 50 mls/hr Q20H IV 01/31/25 08:00 02/01/25 04:00 50 MLS/HR Meropenem 50 ml @ 17 mls/hr DAILY IV 01/31/25 10:00 02/01/25 11:55 17 MLS/HR Micafungin Sodium 100 mg/Sodium Chloride 100 ml @ 100 mls/hr DAILY IV 01/31/25 10:00 02/01/25 11:46 100 MLS/HR objective intubated and sedated HEENT: Normocephalic Lungs: Bilateral good air entry CVS: S1, S2 regular rhythm Abdomen: Soft bowel sounds present 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 Continue with antibiotics Started on IV fluids for hypoglycemia. Extubation as per Pulmonary. Dietary Evaluation Review Comments: 1) Consider reducing TF rate from 50 mL to 40 mL/hr goal rate to prevent overfeeding. Nepro Carbsteady @ 40 mL/hr will provide 1728 kcals, 78g Pro, and 698 mL free H2O per 24 hrs. Goal rate will meet 100% estimated energy needs and 85% estimated protein needs 2) Advance to 60g CCHO renal diet when medically feasible 3) Collect HbA1c 4) Follow-up with nephrology, cardiology, and pulmonology 5) Continue to monitor I&O, labs, and skin integrity Expected Outcomes/Goals: 1) nutrition support to meet at least 75% estimated daily needs 2) labs to improve 3) diet to advance 4) f/u in 2-3 days Plan discussed with: GA Arenas MD Feb 01, 2025 18:06
[2025-02-01] MEDS: EPOETIN ALFA-EPBX 10,000 UNIT/1ML VIAL SC ONE (21:22)
--- NOTE | 2025-02-01 22:20 | DVHPN2 ---
Subjective DOS: 02/01/2025 Patient seen and examined at bedside. Intubated on mechanical ventilator. Overnight events reviewed. Reviewed: Care Plan, H&P, Labs, Medications Changes from previous H/P or p: No Changes General: Per HPI Objective Vitals Vital Signs Date Time Temp Pulse Resp B/P (MAP) Pulse Ox O2 Delivery O2 Flow Rate FiO2 02/01/25 21:45 87 16 103/39 (60) 100 02/01/25 21:39 Mechanical Ventilator+ 30 30 02/01/25 20:00 98.5 98.5 01/31/25 10:00 2 Intake/Output Intake and Output 02/01/25 07:00 Intake Total 1916.675 ml Output Total 70 ml Balance 1846.675 ml Intake Oral 380 ml IV Total 1536.675 ml Output Urine Total 70 ml General Appearance: mild distress, Other (Continues to be encephalopathic) HEENT: Atraumatic, Other (Unequal pupils) Lungs: Other (Mechanical ventilation. Transmitted breath sounds bilaterally. Decreased air entry.) Chest/Breasts: Other (Noted rash, shingles to right upper chest) Cardiovascular: Normal S1, Normal S2, Other (Sinus rhythm/sinus bradycardia) Abdomen: Normal bowel sounds, Soft, No tenderness, No hepatospenomegaly Genitourinary: No Apparent Abnormalities ([place]) Musculoskeletal: Other (Unable to assess) Neuro: Other (Unable to assess) Skin: Dry, Intact, Other (Rash to right upper chest) Psych/Mental Status: Other (Unable to assess) Medications Current Medications Medications Dose Ordered Sig/Aleta Route Start Time Stop Time Status Last Admin Dose Admin Acyclovir Sodium 700 mg/Sodium Chloride 264 ml @ 264 mls/hr DAILY IV 01/18/25 05:00 02/01/25 10:00 264 MLS/HR Ondansetron HCl 4 mg Q4HP PRN IV 01/18/25 04:30 Nitroglycerin 0.4 mg Q5MINP PRN SL 01/18/25 04:30 Morphine Sulfate 2 mg Q30M PRN IV 01/18/25 04:30 Dextrose/Sodium Chloride 1,000 ml @ 75 mls/hr [id number] IV 01/18/25 15:30 UNV Hydralazine HCl 10 mg Q6HP PRN IV 01/19/25 05:30 01/27/25 17:22 10 MG Albuterol 2.5 mg Q4HPRN PRN NEB 01/20/25 00:15 01/20/25 09:53 2.5 MG Ipratropium [place] 0.5 mg Q4HPRN PRN NEB 01/20/25 00:15 01/20/25 09:53 0.5 MG Fentanyl Citrate 250 ml @ 2.5 mls/hr Q24H IV 01/20/25 14:00 01/25/25 17:25 2.5 MLS/HR Albuterol 2.5 mg Q6HR NEB 01/20/25 18:00 02/01/25 18:46 2.5 MG Ipratropium [place] 0.5 mg Q6HR NEB 01/20/25 18:00 02/01/25 18:46 0.5 MG Norepinephrine Bitartrate 250 ml @ 3.75 mls/hr Q24H IV 01/21/25 09:00 01/31/25 18:53 3.75 MLS/HR Enteral Nutritional Formula 1,000 ml 50ML/HR GT 01/21/25 09:30 01/31/25 17:51 1,000 ML Pantoprazole Sodium 40 mg DAILY IV 01/21/25 10:00 02/01/25 11:54 40 MG Sucralfate 1 gm BID@0600,2200 GT 01/21/25 22:00 02/01/25 21:15 1 GM Diagnostic Test (Pha) 1 strip Q6HR 01/22/25 12:00 02/01/25 18:20 1 STRIP Insulin Human Regular Q6HR SC 01/22/25 12:00 02/01/25 18:23 8 UNITS Dextrose 50 ml UD PRN IV 01/22/25 08:30 01/30/25 18:06 50 ML Glycopyrrolate 0.2 mg Q6HP PRN IV 01/29/25 14:00 01/31/25 05:21 0.2 MG Albumin Human 100 ml @ 100 mls/hr PRN PRN IV 01/30/25 07:30 01/30/25 10:20 100 MLS/HR Vancomycin HCl 0 ml @ 0 mls/hr PER PHARMACY IV 01/30/25 08:15 Acetaminophen/ Hydrocodone Bitart 1 tab Q6HPRN PRN PO 01/30/25 23:00 02/01/25 21:08 1 TAB Dextrose/Sodium Chloride 1,000 ml @ 50 mls/hr Q20H IV 01/31/25 08:00 02/01/25 04:00 50 MLS/HR Meropenem 50 ml @ 17 mls/hr DAILY IV 01/31/25 10:00 02/01/25 11:55 17 MLS/HR Micafungin Sodium 100 mg/Sodium Chloride 100 ml @ 100 mls/hr DAILY IV 01/31/25 10:00 02/01/25 11:46 100 MLS/HR Laboratory Results Laboratory Tests 02/01/25 03:04 Chemistry Test 02/01/25 03:04 Calcium Level 9.5 mg/dL (8.7-10.4) Urinalysis Test 01/18/25 10:20 Urine Color Light-yellow (Yellow) Urine Clarity Clear (Clear) Urine pH 6.5 (5.0-9.0) Urine Specific [place] 1.017 (1.001-1.035) Urine Protein 3+ (Negative) H Urine Ketones Negative (Negative) Urine Blood 1+ /uL (Negative) H Urine Nitrite Negative (Negative) Urine Bilirubin Negative (Negative) Urine Urobilinogen Normal mg/dL (Negative) Urine Leukocyte Esterase Negative /uL (Negative) Urine RBC 1 /hpf (0 - 3) Urine Microscopic WBC 5 /HPF (0-3) H Urine Squamous Epithelial Cells Few /hpf (<5) Urine Bacteria None seen /hpf (None Seen) Urine Glucose 4+ mg/dL (Normal) H Blood Gas Results Test 02/01/25 07:24 Arterial Blood pH 7.410 (7.350-7.450) FiO2 % 30.0 Microbiology Microbiology Date/Time Source Procedure Growth Status 01/30/25 13:15 Blood Blood Culture - Preliminary Resulted 01/20/25 14:00 Sputum Gram Stain - Final Complete 01/20/25 14:00 Sputum Respiratory Culture - Final Complete 01/18/25 00:45 Nose MRSA Screen - Final Complete Assessment/Plan Assessment/Plan Impression: Acute hypoxic respiratory failure On mechanical ventilator Sepsis Metabolic encephalopathy Diabetic ketoacidosis ESRD with hemodialysis Events: Remains on vent support On AC mode; RR 14, VT 500, PEEP 5, FiO2 30% On Precedex drip - taper as tolerated. ABG reviewed, compensated CXR on 01/31/25 notable for patchy bilateral airspace disease, [id number]. No effusion or pneumothorax. MRI brain w/o contrast reveals no acute abnormalities. 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 Patient tolerating CPAP Awaiting for mentation to improve Remains off pressors, hemodynamically stable Hemodialysis per Nephrology Follow up Nephrology recs Continue antibiotics Tube feeds for nutritional support Recommend midline catheter placement. Accu-Cheks, ISS. Continue daily SBT. Continue attempts to liberate from mechanical ventilator. Awaiting for mentation to improve - not following commands. Need to address goals of care with family Labs and imaging reviewed. Rest of plan as noted below. Plan: s/p intubation on mechanical ventilator. On AC mode; RR 14, VT 500, PEEP 5, FiO2 30% Titrate FIO2 to keep O2 saturation above 90%. VAP bundle. Daily ABG and CXR while intubated Continue bronchodilators. Continue antibiotics. Pressors as necessary for hemodynamic support Titrate to keep mean arterial pressure greater than 65 mmHg. Tube feeds for nutrition Accu-Cheks, ISS. On Sucralfate and Protonix. GI recs appreciated. Hemodialysis per Nephrology Monitor renal function Monitor electrolytes. Supplement as necessary. Monitor ins and outs. SBT/RENU GI prophylaxis. DVT prophylaxis. Prognosis: Poor given patient's multiple co-morbidities. Condition: Critical Rest of plan per hospitalist and other consultants. A total of 35 minutes of critical care time was spent reviewing the patient record, examining the patient, making a diagnostic and therapeutic plan, discussing this plan with the medical personnel, following up on diagnostic studies and following the patient for clinical stability excluding any and all procedures. At least 50% of this time was spent in direct, [id number] contact. Thank you, Dr. Salvador, for allowing me to participate in this patient's care. Further recommendations will depend on the patient's clinical course. Please do not hesitate to contact me if you have any questions or concerns. This medical document was created using an electronic medical record system with [employer] system. Although these documentations are being carefully reviewed, there may still be some phonetic and typographical changes. The errors are purely typographical, due to imperfection on the software program, and do not reflect any compromise in the patient's medical care Plan discussed with: Other (BRITTNI Solares) My Orders Orders - MISAEL KIM MD Procedure Category Date Status Time Chest Portable XY 02/02/25 Logged 05:00 Visit Coding Pulmonary Billing Provider: MISAEL KIM MD Date of Service if different f: Feb 01, 2025 Common Visit Codes: [id number] INP/OBS CARE(HIGH), 41212-[id number] CARE 30-74 MIN MISAEL KIM MD Feb 01, 2025 22:20
[2025-02-02] VITALS (88 sets, daily range): BP systolic 82–169; BP diastolic 35–145; PULSE 81–96; RESP 12–21; TEMP 97.7–98.7; O2SAT 97–100
[2025-02-02 03:37] LABS: Anion Gap 11 (5-15); Carbon Dioxide 26 mmol/L (20-31)
[2025-02-02 03:38] LABS: Calcium 8.5 mg/dL (8.7-10.4); Chloride 110 mmol/L (98-107); Potassium 3.0 mmol/L (3.5-5.1); Sodium 147 mmol/L (136-145)
[2025-02-02 03:40] LABS: Nucleated Red Blood Cells % 0.1 %
[2025-02-02 03:41] LABS: Hematocrit 25.3 % (41.0-53.0); Hemoglobin 8.0 g/dL (13.5-17.5); Mean Corpuscular Hemoglobin 31.3 pg (28.0-32.0); Mean Corpuscular Volume 99.4 fL (80.0-100.0)
[2025-02-02 03:43] LABS: BUN/Creatinine Ratio 7.8 (10.0-20.0)
[2025-02-02 03:52] LABS: Blood Urea Nitrogen 37 mg/dL (9-23)
[2025-02-02 03:56] LABS: Glucose 684 mg/dL (74-106)
[2025-02-02 05:05] LABS: Alanine Aminotransferase 26 U/L (7-40); Albumin 3.6 g/dL (3.2-4.8); Alkaline Phosphatase 213 U/L (46-116); Anion Gap 12 (5-15); BUN/Creatinine Ratio 8.3 (10.0-20.0); Bilirubin, Total 0.3 mg/dL (0.2-1.0); Blood Urea Nitrogen 44 mg/dL (9-23); Calcium 9.5 mg/dL (8.7-10.4); Carbon Dioxide 28 mmol/L (20-31); Chloride 105 mmol/L (98-107); Glucose 313 mg/dL (74-106); Potassium 3.5 mmol/L (3.5-5.1); Sodium 145 mmol/L (136-145); Total Protein 6.5 g/dL (5.7-8.2)
--- NOTE | 2025-02-02 05:58 | DVH ---
CHEST RADIOGRAPH Indication: et tube placement Technique: Single frontal view of the chest was obtained Comparison: XY CHEST PORTABLE on DOS: 01/31/25 FINDINGS: Lines and Tubes: The endotracheal tube terminates 3.8 cm above the robert. The enteric tube courses below the left hemidiaphragm and the tip extends outside the field of view. Lungs: Patchy bibasilar airspace opacities are increased since prior study. Pleura: No effusion. No pneumothorax. Cardiomediastinal contours: Unremarkable Bones: No acute osseous abnormality. IMPRESSION: 1. Endotracheal tube terminates 3.8 cm above the robert. 2. Increased bilateral airspace opacities may reflect worsening edema or pneumonia.
[2025-02-02] MEDS: ACETAMINOPHEN IV 1000 MG/100ML (10MG/ML) IV ONE (07:19)
--- NOTE | 2025-02-02 09:36 | DVHPN2 ---
Progress Note - Dictate Date Seen: Feb 02, 2025 Medical Necessity Reason Pt with a Central, PICC or Fol: Yes The following are medically ne: [place] Catheter Subjective Intubated and sedated vital signs Vital Sign Date Time Temp Pulse Resp B/P (MAP) Pulse Ox O2 Delivery O2 Flow Rate FiO2 02/02/25 08:27 90 17 127/52 (77) 97 30 02/02/25 08:00 Mechanical Ventilator+ 02/02/25 04:00 98.5 98.5 01/31/25 10:00 2 Total Intake and Output 02/01/25 02/01/25 02/02/25 15:00 23:00 07:00 Intake Total 427.28 ml 920.690 ml 417.305 ml Output Total 205 ml Balance 427.28 ml 920.690 ml 212.305 ml medications Current Medications Medications Dose Ordered Sig/Aleta Route Start Time Stop Time Status Last Admin Dose Admin Acyclovir Sodium 700 mg/Sodium Chloride 264 ml @ 264 mls/hr DAILY IV 01/18/25 05:00 02/01/25 10:00 264 MLS/HR Ondansetron HCl 4 mg Q4HP PRN IV 01/18/25 04:30 Nitroglycerin 0.4 mg Q5MINP PRN SL 01/18/25 04:30 Morphine Sulfate 2 mg Q30M PRN IV 01/18/25 04:30 Dextrose/Sodium Chloride 1,000 ml @ 75 mls/hr [id number] IV 01/18/25 15:30 UNV Hydralazine HCl 10 mg Q6HP PRN IV 01/19/25 05:30 01/27/25 17:22 10 MG Albuterol 2.5 mg Q4HPRN PRN NEB 01/20/25 00:15 01/20/25 09:53 2.5 MG Ipratropium [place] 0.5 mg Q4HPRN PRN NEB 01/20/25 00:15 01/20/25 09:53 0.5 MG Fentanyl Citrate 250 ml @ 2.5 mls/hr Q24H IV 01/20/25 14:00 01/25/25 17:25 2.5 MLS/HR Albuterol 2.5 mg Q6HR NEB 01/20/25 18:00 02/02/25 06:45 2.5 MG Ipratropium [place] 0.5 mg Q6HR NEB 01/20/25 18:00 02/02/25 06:45 0.5 MG Norepinephrine Bitartrate 250 ml @ 3.75 mls/hr Q24H IV 01/21/25 09:00 02/02/25 00:35 3.75 MLS/HR Enteral Nutritional Formula 1,000 ml 50ML/HR GT 01/21/25 09:30 01/31/25 17:51 1,000 ML Pantoprazole Sodium 40 mg DAILY IV 01/21/25 10:00 02/01/25 11:54 40 MG Sucralfate 1 gm BID@0600,2200 GT 01/21/25 22:00 02/02/25 05:33 1 GM Diagnostic Test (Pha) 1 strip Q6HR 01/22/25 12:00 02/02/25 05:33 1 STRIP Insulin Human Regular Q6HR SC 01/22/25 12:00 02/02/25 05:36 6 UNITS Dextrose 50 ml UD PRN IV 01/22/25 08:30 01/30/25 18:06 50 ML Glycopyrrolate 0.2 mg Q6HP PRN IV 01/29/25 14:00 01/31/25 05:21 0.2 MG Albumin Human 100 ml @ 100 mls/hr PRN PRN IV 01/30/25 07:30 01/30/25 10:20 100 MLS/HR Vancomycin HCl 0 ml @ 0 mls/hr PER PHARMACY IV 01/30/25 08:15 Acetaminophen/ Hydrocodone Bitart 1 tab Q6HPRN PRN PO 01/30/25 23:00 02/01/25 21:08 1 TAB Dextrose/Sodium Chloride 1,000 ml @ 50 mls/hr Q20H IV 01/31/25 08:00 02/01/25 04:00 50 MLS/HR Meropenem 50 ml @ 17 mls/hr DAILY IV 01/31/25 10:00 02/01/25 11:55 17 MLS/HR Micafungin Sodium 100 mg/Sodium Chloride 100 ml @ 100 mls/hr DAILY IV 01/31/25 10:00 02/02/25 08:51 100 MLS/HR objective intubated and sedated HEENT: Normocephalic Lungs: Bilateral good air entry CVS: S1, S2 regular rhythm Abdomen: Soft bowel sounds present [employer]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 Continue with antibiotics stop IVF Blood sugars elevated . CXR with worsening edema Extubation as per Pulmonary. Dietary Evaluation Review Comments: 1) Consider reducing TF rate from 50 mL to 40 mL/hr goal rate to prevent overfeeding. Nepro Carbsteady @ 40 mL/hr will provide 1728 kcals, 78g Pro, and 698 mL free H2O per 24 hrs. Goal rate will meet 100% estimated energy needs and 85% estimated protein needs 2) Advance to 60g CCHO renal diet when medically feasible 3) Collect HbA1c 4) Follow-up with nephrology, cardiology, and pulmonology 5) Continue to monitor I&O, labs, and skin integrity Expected Outcomes/Goals: 1) nutrition support to meet at least 75% estimated daily needs 2) labs to improve 3) diet to advance 4) f/u in 2-3 days Plan discussed with: GA Arenas MD Feb 02, 2025 09:36
--- NOTE | 2025-02-02 09:45 | DVHPN2 ---
Reviewed: Care Plan, H&P, Labs, Medications Changes from previous H/P or p: No Changes General: Per HPI Objective Vitals Vital Signs Date Time Temp Pulse Resp B/P (MAP) Pulse Ox O2 Delivery O2 Flow Rate FiO2 02/02/25 08:27 90 17 127/52 (77) 97 30 02/02/25 08:00 Mechanical Ventilator+ 02/02/25 04:00 98.5 98.5 01/31/25 10:00 2 Intake/Output Intake and Output 02/02/25 07:00 Intake Total 1765.275 ml Output Total 205 ml Balance 1560.275 ml Intake Oral 30 ml IV Total 1295.275 ml Tube Feeding 440 ml Output Urine Total 5 ml Other 200 ml General Appearance: mild distress, Other (Continues to be encephalopathic) HEENT: Atraumatic, Other (Unequal pupils) Lungs: Other (Mechanical ventilation. Transmitted breath sounds bilaterally. Decreased air entry.) Chest/Breasts: Other (Noted rash, shingles to right upper chest) Cardiovascular: Normal S1, Normal S2, Other (Sinus rhythm/sinus bradycardia) Abdomen: Normal bowel sounds, Soft, No tenderness, No hepatospenomegaly Genitourinary: No Apparent Abnormalities ([place]) Musculoskeletal: Other (Unable to assess) Neuro: Other (Unable to assess) Skin: Dry, Intact, Other (Rash to right upper chest) Psych/Mental Status: Other (Unable to assess) Medications Current Medications Medications Dose Ordered Sig/Aleta Route Start Time Stop Time Status Last Admin Dose Admin Acyclovir Sodium 700 mg/Sodium Chloride 264 ml @ 264 mls/hr DAILY IV 01/18/25 05:00 02/01/25 10:00 264 MLS/HR Ondansetron HCl 4 mg Q4HP PRN IV 01/18/25 04:30 Nitroglycerin 0.4 mg Q5MINP PRN SL 01/18/25 04:30 Morphine Sulfate 2 mg Q30M PRN IV 01/18/25 04:30 Dextrose/Sodium Chloride 1,000 ml @ 75 mls/hr [id number] IV 01/18/25 15:30 UNV Hydralazine HCl 10 mg Q6HP PRN IV 01/19/25 05:30 01/27/25 17:22 10 MG Albuterol 2.5 mg Q4HPRN PRN NEB 01/20/25 00:15 01/20/25 09:53 2.5 MG Ipratropium [place] 0.5 mg Q4HPRN PRN NEB 01/20/25 00:15 01/20/25 09:53 0.5 MG Fentanyl Citrate 250 ml @ 2.5 mls/hr Q24H IV 01/20/25 14:00 01/25/25 17:25 2.5 MLS/HR Albuterol 2.5 mg Q6HR NEB 01/20/25 18:00 02/02/25 06:45 2.5 MG Ipratropium [place] 0.5 mg Q6HR NEB 01/20/25 18:00 02/02/25 06:45 0.5 MG Norepinephrine Bitartrate 250 ml @ 3.75 mls/hr Q24H IV 01/21/25 09:00 02/02/25 00:35 3.75 MLS/HR Enteral Nutritional Formula 1,000 ml 50ML/HR GT 01/21/25 09:30 01/31/25 17:51 1,000 ML Pantoprazole Sodium 40 mg DAILY IV 01/21/25 10:00 02/01/25 11:54 40 MG Sucralfate 1 gm BID@0600,2200 GT 01/21/25 22:00 02/02/25 05:33 1 GM Diagnostic Test (Pha) 1 strip Q6HR 01/22/25 12:00 02/02/25 05:33 1 STRIP Insulin Human Regular Q6HR SC 01/22/25 12:00 02/02/25 05:36 6 UNITS Dextrose 50 ml UD PRN IV 01/22/25 08:30 01/30/25 18:06 50 ML Glycopyrrolate 0.2 mg Q6HP PRN IV 01/29/25 14:00 01/31/25 05:21 0.2 MG Albumin Human 100 ml @ 100 mls/hr PRN PRN IV 01/30/25 07:30 01/30/25 10:20 100 MLS/HR Vancomycin HCl 0 ml @ 0 mls/hr PER PHARMACY IV 01/30/25 08:15 Acetaminophen/ Hydrocodone Bitart 1 tab Q6HPRN PRN PO 01/30/25 23:00 02/01/25 21:08 1 TAB Meropenem 50 ml @ 17 mls/hr DAILY IV 01/31/25 10:00 02/01/25 11:55 17 MLS/HR Micafungin Sodium 100 mg/Sodium Chloride 100 ml @ 100 mls/hr DAILY IV 01/31/25 10:00 02/02/25 08:51 100 MLS/HR Laboratory Results Laboratory Tests 02/02/25 03:02 02/02/25 04:27 Chemistry Test 02/02/25 03:02 02/02/25 04:27 Calcium Level 8.5 mg/dL (8.7-10.4) L 9.5 mg/dL (8.7-10.4) Albumin 3.6 g/dL (3.2-4.8) Total Protein 6.5 g/dL (5.7-8.2) LFT Test 02/02/25 04:27 Alanine Aminotransferase (ALT) 26 U/L (7-40) Alkaline Phosphatase 213 U/L (46-116) H Aspartate Amino Transferase (AST) 17 U/L (13-40) Total Bilirubin 0.3 mg/dL (0.2-1.0) Urinalysis Test 01/18/25 10:20 Urine Color Light-yellow (Yellow) Urine Clarity Clear (Clear) Urine pH 6.5 (5.0-9.0) Urine Specific [place] 1.017 (1.001-1.035) Urine Protein 3+ (Negative) H Urine Ketones Negative (Negative) Urine Blood 1+ /uL (Negative) H Urine Nitrite Negative (Negative) Urine Bilirubin Negative (Negative) Urine Urobilinogen Normal mg/dL (Negative) Urine Leukocyte Esterase Negative /uL (Negative) Urine RBC 1 /hpf (0 - 3) Urine Microscopic WBC 5 /HPF (0-3) H Urine Squamous Epithelial Cells Few /hpf (<5) Urine Bacteria None seen /hpf (None Seen) Urine Glucose 4+ mg/dL (Normal) H Microbiology Microbiology Date/Time Source Procedure Growth Status 01/30/25 13:15 Blood Blood Culture - Preliminary Resulted 01/20/25 14:00 Sputum Gram Stain - Final Complete 01/20/25 14:00 Sputum Respiratory Culture - Final Complete 01/18/25 00:45 Nose MRSA Screen - Final Complete Labs and/or images reviewed: Labs reviewed by me, Image(s) reviewed by me Assessment/Plan Assessment/Plan 01/31: Patient had hypoglycemic episode during the evening. Still not waking up. Plans for MRI today. Leukocytosis worsening. Central line removed. 02/01: Covering today for primary hospitalist. Patient here with initially DKA, had confused in with unable to protect airway and was intubated. DKA resolved patient has 1 blood culture positive Gram-positive cocci likely contaminant. Patient has been off of sedatives., Does not wake up following commands, on CPAP trial does well but does not follow commands on safe to extubate. No Levophed right now. Anuric ESRD getting dialysis Wednesday schedule. Getting NG tube feeds Nepro. Vital signs stable. 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 Neurology onboard, no central causes thus far for patient poor mental status.. Continue acyclovir, we will get HIV lab a.m. draw tomorrow, continue antibiotics, continue fluids per Nephrology continue other therapies as per primary hospitalist. 02/02: Patient having spasmodic leg movements of upper arms and to a lesser degree lower extremities, risk of self extubation we will try to put a barrier between head and arms. Patient only on Precedex we will try 3-4 hours of "Precedex vacation". I do not see this case improving, neurology does not finding resolution reversible causes, brain MRI without any significant concerns. This appears to be very poor prognosis at this point, we will try to discuss with family for possible terminal weaning options Impression: -Sepsis -metabolic encephalopathy -DKA -ESRD with hemodialysis -primary hypertension -dyslipidemia -hyponatremia -? seizure -Hypoglycemia Plan: -stop Lantus. Start D5 NS infusion. Continue regular insulin sliding scale -CPAP trial once appropriate -Neurology consult. Recommendations reviewed. -nephrology consultation: Received hemodialysis yesterday -ppi, Carafate --continue vancomycin, cefepime, acyclovir, add micafungin -repeat labs, chest x-ray, ABG in a.m. Critical care time spent with patient discussing and formulating plan of care: 40 minutes. This does not include time spent performing procedures. Plan discussed with: Other Date of Service: Feb 02, 2025 Billing Provider: PRATIK OSEGUERA MD Common Visit Codes: [id number] CARE 30-74 MIN PRATIK OSEGUERA MD Feb 02, 2025 09:45
[2025-02-02 10:03] LABS: Base Excess 2.4 mmol/L (-2.0-3.0)
--- NOTE | 2025-02-02 18:31 | DVH ---
EXAM: XY CHEST PORTABLE HISTORY: ogt placement TECHNIQUE: 1 view of the chest COMPARISON: XY CHEST PORTABLE on DOS: 02/02/25 FINDINGS/IMPRESSION: LUNGS: No pleural effusion, consolidation, or pneumothorax. Atelectasis in the right lung base. MEDIASTINUM: Unremarkable. BONES: No acute osseous abnormality. OTHER: Endotracheal tube 4.4 cm above the robert. Enteric tube in the proximal stomach.
--- NOTE | 2025-02-02 19:24 | DVHPN2 ---
Progress Note - Dictate Date Seen: Feb 02, 2025 Medical Necessity Reason Pt with a Central, PICC or Fol: Yes The following are medically ne: [place] Catheter Subjective Mr. Pisano is a 70 years old right-handed gentleman with a history of hypertension, diabetes, end-stage kidney failure on hemodialysis, the patient was brought to the [facility] on 01/17/2025 with a chief complaint of altered mental status. Because no improvement in the mental status, increased secretion and difficulty cleaning the respiratory tract, he was intubated on 01/20/2025 I have seen and examined the patient, I have discussed with his nurse and respiratory therapist. The eyes close tightly, not able to open, strong resistance in the left arm, he has more grimace in the face, mild muscle jerking in the neck and left upper extremity He grimaced his face, but not as frequent as yesterday Precedex 0.2 mcg/kg/hour Pupil size 01/22/25: Right: 3-4 mm, left: 1-2 mm, no associated abnormal vascular dilatation and skin secretion 01/23/25: Right: 3-4 mm, left: 2 mm 01/24/25: Right: 3-4 mm, left: 2 mm 01/24/25: Right: 4 mm, left: 2-3 mm 01/27/25: Right: 4-5 mm, left: 2-3 mm 01/28/25: Eyes tightly closed 01/29/25: Right: 4-5 mm, left: 2-3 mm 01/30/25: Eyes tightly closed 01/31/25: Eyes tightly closed 02/01/25: The right pupil looks bigger ABG, 01/18/2025: Compensated Metabolic acidosis UDS, 01/18/2025: Negative Plasma alcohol, 01/17/2025: <3 Urinalysis, 01/18/2025: WBC: Five, urine leukocyte esterase: Negative CBC, 01/18/2025: Compensated metabolic acidosis WBC/HB/PLT/MCV, 01/18/2025: 14.4/11.8/189/92.3 Na, 01/18/2025: 127, 131, 01/30/25: 146 BUN/CR, : 113/11.33, 119/11.42, 50/5.72, 01/19/2025: 57/7.03, 01/28/2025: 51/5.55, 01/29/2025: 65/6.38, 01/30/2025: 92/8.44 GFR, 01/18/2025: 4, 4, 10 Anion gap, 01/18/2025: 19, 20, Glucose, 01/17/2025: 856, 01/18/2025: 862, 710, 551, 231 Liver function tests, 01/18/2025: Unremarkable EEG, 01/20/2025: moderately abnormal EEG Chest x-ray, 01/18/2025: There is prominence of the interstitial markings. Mild right basilar opacity. Mild prominence of the cardiomediastinal silhouette, likely accentuated by technique. No pleural effusion or pneumothorax. No acute osseous abnormality CT head, 01/15/2025: 1. No acute territorial infarct, intracranial hemorrhage, or mass effect. 2. Age-related involutional changes. Chronic ischemic changes as detailed. 3. 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 No acute abnormal MRI findings of the brain. vital signs Vital Sign Date Time Temp Pulse Resp B/P (MAP) Pulse Ox O2 Delivery O2 Flow Rate FiO2 02/02/25 18:46 92 16 166/47 (86) 100 02/02/25 18:33 30 02/02/25 18:00 Mechanical Ventilator+ 02/02/25 16:00 98.7 98.7 01/31/25 10:00 2 Total Intake and Output 02/01/25 02/01/25 02/02/25 15:00 23:00 07:00 Intake Total 427.28 ml 920.690 ml 472.405 ml Output Total 205 ml Balance 427.28 ml 920.690 ml 267.405 ml medications Current Medications Medications Dose Ordered Sig/Aleta Route Start Time Stop Time Status Last Admin Dose Admin Acyclovir Sodium 700 mg/Sodium Chloride 264 ml @ 264 mls/hr DAILY IV 01/18/25 05:00 02/02/25 10:06 264 MLS/HR Ondansetron HCl 4 mg Q4HP PRN IV 01/18/25 04:30 Nitroglycerin 0.4 mg Q5MINP PRN SL 01/18/25 04:30 Morphine Sulfate 2 mg Q30M PRN IV 01/18/25 04:30 Dextrose/Sodium Chloride 1,000 ml @ 75 mls/hr [id number] IV 01/18/25 15:30 UNV Hydralazine HCl 10 mg Q6HP PRN IV 01/19/25 05:30 01/27/25 17:22 10 MG Albuterol 2.5 mg Q4HPRN PRN NEB 01/20/25 00:15 01/20/25 09:53 2.5 MG Ipratropium [place] 0.5 mg Q4HPRN PRN NEB 01/20/25 00:15 01/20/25 09:53 0.5 MG Fentanyl Citrate 250 ml @ 2.5 mls/hr Q24H IV 01/20/25 14:00 01/25/25 17:25 2.5 MLS/HR Albuterol 2.5 mg Q6HR NEB 01/20/25 18:00 02/02/25 18:33 2.5 MG Ipratropium [place] 0.5 mg Q6HR NEB 01/20/25 18:00 02/02/25 18:33 0.5 MG Norepinephrine Bitartrate 250 ml @ 3.75 mls/hr Q24H IV 01/21/25 09:00 02/02/25 00:35 3.75 MLS/HR Enteral Nutritional Formula 1,000 ml 50ML/HR GT 01/21/25 09:30 01/31/25 17:51 1,000 ML Pantoprazole Sodium 40 mg DAILY IV 01/21/25 10:00 02/02/25 10:31 40 MG Sucralfate 1 gm BID@0600,2200 GT 01/21/25 22:00 02/02/25 05:33 1 GM Diagnostic Test (Pha) 1 strip Q6HR 01/22/25 12:00 02/02/25 17:53 1 STRIP Insulin Human Regular Q6HR SC 01/22/25 12:00 02/02/25 18:12 3 UNITS Dextrose 50 ml UD PRN IV 01/22/25 08:30 01/30/25 18:06 50 ML Glycopyrrolate 0.2 mg Q6HP PRN IV 01/29/25 14:00 01/31/25 05:21 0.2 MG Albumin Human 100 ml @ 100 mls/hr PRN PRN IV 01/30/25 07:30 01/30/25 10:20 100 MLS/HR Vancomycin HCl 0 ml @ 0 mls/hr PER PHARMACY IV 01/30/25 08:15 Acetaminophen/ Hydrocodone Bitart 1 tab Q6HPRN PRN PO 01/30/25 23:00 02/01/25 21:08 1 TAB Meropenem 50 ml @ 17 mls/hr DAILY IV 01/31/25 10:00 02/02/25 11:17 17 MLS/HR Micafungin Sodium 100 mg/Sodium Chloride 100 ml @ 100 mls/hr DAILY IV 01/31/25 10:00 02/02/25 08:51 100 MLS/HR objective The patient is well-nourished and well-developed with no distress. The patient is intubated MENTAL STATUS: Subjective CRANIAL NERVES: Subjective. No signs of facial weakness. There are gagging or coughing reflexes SENSATION: Responses to pain and touch MOTOR: Normal tone in the upper and lower extremity. Normal muscle bulk. No fasciculations. Moves the arms REFLEXES: Deep tendon reflexes are symmetrical. No pathological reflexes. CEREBELLAR/COORDINATION: Deferred GAIT/STATION: deferred. laboratory and microbiology Laboratory Tests 02/02/25 04:27 02/02/25 03:02 Test 02/02/25 04:27 Range/Units Serum Glucose 313 #H 74-106 mg/dL Problem List Diabetic ketoacidosis Metabolic acidosis Metabolic encephalopathy Herpes zoster infection/shingles ? Intracranial infection End-stage kidney failure Anisocoria with right pupil bigger, etiology unclear, possible secondary to history of surgery One eye blindness Myoclonus in the face, neck, left arm Assessment/Plan Monitoring Supportive treatment ICU care Stabilize vitals Respiratory support/vent management Oxygen Acyclovir 700 mg daily IV antibiotics A trial of Keppra for the myoclonus Current pain management Haldol for agitation History from him directly later More recommendation per clinical course This medical document was created using an electronic medical record system with [employer] dictation system. Although this document has been carefully reviewed, there may still be some phonetic and typographical errors. These areas are purely typographical due to imperfections of the software programs, and do not reflect any compromise in the patient's medical care. Prognosis poor Dietary Evaluation Review Comments: 1) Consider reducing TF rate from 50 mL to 40 mL/hr goal rate to prevent overfeeding. Nepro Carbsteady @ 40 mL/hr will provide 1728 kcals, 78g Pro, and 698 mL free H2O per 24 hrs. Goal rate will meet 100% estimated energy needs and 85% estimated protein needs 2) Advance to 60g CCHO renal diet when medically feasible 3) Collect HbA1c 4) Follow-up with nephrology, cardiology, and pulmonology 5) Continue to monitor I&O, labs, and skin integrity Expected Outcomes/Goals: 1) nutrition support to meet at least 75% estimated daily needs 2) labs to improve 3) diet to advance 4) f/u in 2-3 days Plan discussed with: Other LETTY HANNA MD Feb 02, 2025 19:24
[2025-02-02] MEDS: SODIUM CHL 0.9% IV SCH (21:29)
[2025-02-02] MEDS: LEVETIRACETAM IV SCH (21:29)
--- NOTE | 2025-02-02 23:54 | DVHPN2 ---
Subjective DOS: 02/02/2025 Patient seen and examined at bedside. Intubated on mechanical ventilator. Overnight events reviewed. Reviewed: Care Plan, H&P, Labs, Medications Changes from previous H/P or p: No Changes General: Per HPI Objective Vitals Vital Signs Date Time Temp Pulse Resp B/P (MAP) Pulse Ox O2 Delivery O2 Flow Rate FiO2 02/02/25 22:25 85 15 126/76 (93) 100 30 02/02/25 22:00 Mechanical Ventilator+ 02/02/25 20:01 97.7 97.7 01/31/25 10:00 2 Intake/Output Intake and Output 02/02/25 07:00 Intake Total 1820.375 ml Output Total 205 ml Balance 1615.375 ml Intake Oral 30 ml IV Total 1350.375 ml Tube Feeding 440 ml Output Urine Total 5 ml Other 200 ml General Appearance: mild distress, Other (Continues to be encephalopathic) HEENT: Atraumatic, Other (Unequal pupils) Lungs: Other (Mechanical ventilation. Transmitted breath sounds bilaterally. Decreased air entry.) Chest/Breasts: Other (Noted rash, shingles to right upper chest) Cardiovascular: Normal S1, Normal S2, Other (Sinus rhythm/sinus bradycardia) Abdomen: Normal bowel sounds, Soft, No tenderness, No hepatospenomegaly Genitourinary: No Apparent Abnormalities ([place]) Musculoskeletal: Other (Unable to assess) Neuro: Other (Unable to assess) Skin: Dry, Intact, Other (Rash to right upper chest) Psych/Mental Status: Other (Unable to assess) Medications Current Medications Medications Dose Ordered Sig/Aleta Route Start Time Stop Time Status Last Admin Dose Admin Acyclovir Sodium 700 mg/Sodium Chloride 264 ml @ 264 mls/hr DAILY IV 01/18/25 05:00 02/02/25 10:06 264 MLS/HR Ondansetron HCl 4 mg Q4HP PRN IV 01/18/25 04:30 Nitroglycerin 0.4 mg Q5MINP PRN SL 01/18/25 04:30 Morphine Sulfate 2 mg Q30M PRN IV 01/18/25 04:30 Dextrose/Sodium Chloride 1,000 ml @ 75 mls/hr [id number] IV 01/18/25 15:30 UNV Hydralazine HCl 10 mg Q6HP PRN IV 01/19/25 05:30 01/27/25 17:22 10 MG Albuterol 2.5 mg Q4HPRN PRN NEB 01/20/25 00:15 01/20/25 09:53 2.5 MG Ipratropium [place] 0.5 mg Q4HPRN PRN NEB 01/20/25 00:15 01/20/25 09:53 0.5 MG Fentanyl Citrate 250 ml @ 2.5 mls/hr Q24H IV 01/20/25 14:00 01/25/25 17:25 2.5 MLS/HR Albuterol 2.5 mg Q6HR NEB 01/20/25 18:00 02/02/25 18:33 2.5 MG Ipratropium [place] 0.5 mg Q6HR NEB 01/20/25 18:00 02/02/25 18:33 0.5 MG Norepinephrine Bitartrate 250 ml @ 3.75 mls/hr Q24H IV 01/21/25 09:00 02/02/25 00:35 3.75 MLS/HR Enteral Nutritional Formula 1,000 ml 50ML/HR GT 01/21/25 09:30 02/02/25 22:08 1,000 ML Pantoprazole Sodium 40 mg DAILY IV 01/21/25 10:00 02/02/25 10:31 40 MG Sucralfate 1 gm BID@0600,2200 GT 01/21/25 22:00 02/02/25 21:29 1 GM Diagnostic Test (Pha) 1 strip Q6HR 01/22/25 12:00 02/02/25 17:53 1 STRIP Insulin Human Regular Q6HR SC 01/22/25 12:00 02/02/25 18:12 3 UNITS Dextrose 50 ml UD PRN IV 01/22/25 08:30 01/30/25 18:06 50 ML Glycopyrrolate 0.2 mg Q6HP PRN IV 01/29/25 14:00 01/31/25 05:21 0.2 MG Albumin Human 100 ml @ 100 mls/hr PRN PRN IV 01/30/25 07:30 01/30/25 10:20 100 MLS/HR Vancomycin HCl 0 ml @ 0 mls/hr PER PHARMACY IV 01/30/25 08:15 Acetaminophen/ Hydrocodone Bitart 1 tab Q6HPRN PRN PO 01/30/25 23:00 02/01/25 21:08 1 TAB Meropenem 50 ml @ 17 mls/hr DAILY IV 01/31/25 10:00 02/02/25 11:17 17 MLS/HR Micafungin Sodium 100 mg/Sodium Chloride 100 ml @ 100 mls/hr DAILY IV 01/31/25 10:00 02/02/25 08:51 100 MLS/HR Patient Own Medication 250 mg DAILY IV 02/03/25 10:00 Levetiracetam 250 mg/Sodium Chloride 52.5 ml @ 175 mls/hr Q24H IV 02/02/25 21:00 03/04/25 20:59 02/02/25 21:29 175 MLS/HR Laboratory Results Laboratory Tests 02/02/25 03:02 02/02/25 04:27 Chemistry Test 02/02/25 03:02 02/02/25 04:27 Calcium Level 8.5 mg/dL (8.7-10.4) L 9.5 mg/dL (8.7-10.4) Albumin 3.6 g/dL (3.2-4.8) Total Protein 6.5 g/dL (5.7-8.2) LFT Test 02/02/25 04:27 Alanine Aminotransferase (ALT) 26 U/L (7-40) Alkaline Phosphatase 213 U/L (46-116) H Aspartate Amino Transferase (AST) 17 U/L (13-40) Total Bilirubin 0.3 mg/dL (0.2-1.0) Urinalysis Test 01/18/25 10:20 Urine Color Light-yellow (Yellow) Urine Clarity Clear (Clear) Urine pH 6.5 (5.0-9.0) Urine Specific [place] 1.017 (1.001-1.035) Urine Protein 3+ (Negative) H Urine Ketones Negative (Negative) Urine Blood 1+ /uL (Negative) H Urine Nitrite Negative (Negative) Urine Bilirubin Negative (Negative) Urine Urobilinogen Normal mg/dL (Negative) Urine Leukocyte Esterase Negative /uL (Negative) Urine RBC 1 /hpf (0 - 3) Urine Microscopic WBC 5 /HPF (0-3) H Urine Squamous Epithelial Cells Few /hpf (<5) Urine Bacteria None seen /hpf (None Seen) Urine Glucose 4+ mg/dL (Normal) H Blood Gas Results Test 02/02/25 09:02 Arterial Blood pH 7.400 (7.350-7.450) FiO2 % 30.0 Microbiology Microbiology Date/Time Source Procedure Growth Status 01/30/25 13:15 Blood Blood Culture - Preliminary Resulted 01/20/25 14:00 Sputum Gram Stain - Final Complete 01/20/25 14:00 Sputum Respiratory Culture - Final Complete 01/18/25 00:45 Nose MRSA Screen - Final Complete Assessment/Plan Assessment/Plan Impression: Acute hypoxic respiratory failure On mechanical ventilator Sepsis Metabolic encephalopathy Diabetic ketoacidosis ESRD with hemodialysis Events: Remains on vent support On AC mode; RR 14, VT 500, PEEP 5, FiO2 30% Remains off sedation Off Precedex drip ABG reviewed, compensated CXR today reveals increased bilateral airspace opacities, may reflect worsening edema or pneumonia. Devices in place. MRI brain w/o contrast reveals no acute abnormalities. 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 Patient tolerating CPAP; CPAP x5 days Continue daily CPAP Awaiting for mentation to improve Remains off pressors, hemodynamically stable Hemodialysis per Nephrology - plan for HD tomorrow Follow up Nephrology recs Patient required Levophed overnight - currently off pressors. Monitor blood pressure Continue antibiotics Tube feeds for nutritional support Accu-Cheks, ISS. Continue daily SBT. Continue attempts to liberate from mechanical ventilator. Awaiting for mentation to improve - not following commands. Need to address goals of care with family Labs and imaging reviewed. Rest of plan as noted below. Plan: s/p intubation on mechanical ventilator. On AC mode; RR 14, VT 500, PEEP 5, FiO2 30% Titrate FIO2 to keep O2 saturation above 90%. VAP bundle. Daily ABG and CXR while intubated Continue bronchodilators. Continue antibiotics. Pressors as necessary for hemodynamic support Titrate to keep mean arterial pressure greater than 65 mmHg. Tube feeds for nutrition Accu-Cheks, ISS. On Sucralfate and Protonix. GI recs appreciated. Hemodialysis per Nephrology Monitor renal function Monitor electrolytes. Supplement as necessary. Monitor ins and outs. SBT/RENU GI prophylaxis. DVT prophylaxis. Prognosis: Poor given patient's multiple co-morbidities. Condition: Critical Rest of plan per hospitalist and other consultants. A total of 35 minutes of critical care time was spent reviewing the patient record, examining the patient, making a diagnostic and therapeutic plan, discussing this plan with the medical personnel, following up on diagnostic studies and following the patient for clinical stability excluding any and all procedures. At least 50% of this time was spent in direct, [id number] contact. Thank you, Dr. Salvador, for allowing me to participate in this patient's care. Further recommendations will depend on the patient's clinical course. Please do not hesitate to contact me if you have any questions or concerns. This medical document was created using an electronic medical record system with [employer] dictation system. Although these documentations are being carefully reviewed, there may still be some phonetic and typographical changes. The errors are purely typographical, due to imperfection on the software program, and do not reflect any compromise in the patient's medical care Plan discussed with: Other (BRITTNI Woo) Visit Coding Pulmonary Billing Provider: MISAEL KIM MD Date of Service if different f: Feb 02, 2025 Common Visit Codes: [id number] INP/OBS CARE(HIGH), [id number] CARE 30-74 MIN MISAEL KIM MD Feb 02, 2025 23:54
[2025-02-03] VITALS (66 sets, daily range): BP systolic 90–190; BP diastolic 30–99; PULSE 80–108; RESP 14–22; TEMP 97.7–99.1; O2SAT 91–100
--- NOTE | 2025-02-03 04:03 | DVH ---
CHEST RADIOGRAPH Indication: Fot ETT and OGT Placement Technique: Single frontal view of the chest was obtained COMPARISON: XY CHEST PORTABLE on DOS: 02/02/25, XY CHEST PORTABLE on DOS: 02/02/25, XY CHEST PORTABLE on DOS: 01/31/25, XY CHEST PORTABLE on DOS: 01/30/25, XY CHEST PORTABLE on DOS: 01/28/25 FINDINGS: Lines and Tubes: Unchanged. Lungs: Clear. Mild bibasilar atelectasis. Pleura: No effusion. No pneumothorax. Cardiomediastinal contours: Unremarkable Bones: Unremarkable IMPRESSION: 1. Mild bibasilar atelectasis. No evidence of acute cardiopulmonary process. 2. Lines and tubes unchanged.
[2025-02-03 04:33] LABS: Hematocrit 27.8 % (41.0-53.0); Hemoglobin 9.1 g/dL (13.5-17.5); Mean Corpuscular Hemoglobin 31.9 pg (28.0-32.0); Mean Corpuscular Volume 98.0 fL (80.0-100.0); Nucleated Red Blood Cells % 0.1 %
[2025-02-03 04:56] LABS: Potassium 3.7 mmol/L (3.5-5.1)
[2025-02-03 04:57] LABS: Anion Gap 17 (5-15); Calcium 9.4 mg/dL (8.7-10.4); Carbon Dioxide 25 mmol/L (20-31)
[2025-02-03 05:02] LABS: BUN/Creatinine Ratio 9.0 (10.0-20.0); Blood Urea Nitrogen 63 mg/dL (9-23); Chloride 108 mmol/L (98-107); Glucose 249 mg/dL (74-106); Sodium 150 mmol/L (136-145)
--- NOTE | 2025-02-03 08:04 | DVHPN2 ---
Reviewed: Care Plan, H&P, Labs, Medications Changes from previous H/P or p: No Changes General: Per HPI Objective Vitals Vital Signs Date Time Temp Pulse Resp B/P (MAP) Pulse Ox O2 Delivery O2 Flow Rate FiO2 02/03/25 06:17 94 18 190/67 (108) 100 30 02/03/25 06:00 Mechanical Ventilator+ 02/03/25 04:01 97.9 97.9 Intake/Output Intake and Output 02/03/25 07:00 Intake Total 877.3 ml Output Total 8 ml Balance 869.3 ml Intake Oral 0 ml IV Total 640.3 ml Tube Feeding 237 ml Output Urine Total 8 ml General Appearance: mild distress, Other (Continues to be encephalopathic) HEENT: Atraumatic, Other (Unequal pupils) Lungs: Other (Mechanical ventilation. Transmitted breath sounds bilaterally. Decreased air entry.) Chest/Breasts: Other (Noted rash, shingles to right upper chest) Cardiovascular: Normal S1, Normal S2, Other (Sinus rhythm/sinus bradycardia) Abdomen: Normal bowel sounds, Soft, No tenderness, No hepatospenomegaly Genitourinary: No Apparent Abnormalities ([place]) Musculoskeletal: Other (Unable to assess) Neuro: Other (Unable to assess) Skin: Dry, Intact, Other (Rash to right upper chest) Psych/Mental Status: Other (Unable to assess) Medications Current Medications Medications Dose Ordered Sig/Aleta Route Start Time Stop Time Status Last Admin Dose Admin Acyclovir Sodium 700 mg/Sodium Chloride 264 ml @ 264 mls/hr DAILY IV 01/18/25 05:00 02/02/25 10:06 264 MLS/HR Ondansetron HCl 4 mg Q4HP PRN IV 01/18/25 04:30 Nitroglycerin 0.4 mg Q5MINP PRN SL 01/18/25 04:30 Morphine Sulfate 2 mg Q30M PRN IV 01/18/25 04:30 Dextrose/Sodium Chloride 1,000 ml @ 75 mls/hr [id number] IV 01/18/25 15:30 UNV Hydralazine HCl 10 mg Q6HP PRN IV 01/19/25 05:30 01/27/25 17:22 10 MG Albuterol 2.5 mg Q4HPRN PRN NEB 01/20/25 00:15 01/20/25 09:53 2.5 MG Ipratropium [place] 0.5 mg Q4HPRN PRN NEB 01/20/25 00:15 01/20/25 09:53 0.5 MG Fentanyl Citrate 250 ml @ 2.5 mls/hr Q24H IV 01/20/25 14:00 01/25/25 17:25 2.5 MLS/HR Albuterol 2.5 mg Q6HR NEB 01/20/25 18:00 02/03/25 06:17 2.5 MG Ipratropium [place] 0.5 mg Q6HR NEB 01/20/25 18:00 02/03/25 06:17 0.5 MG Norepinephrine Bitartrate 250 ml @ 3.75 mls/hr Q24H IV 01/21/25 09:00 02/02/25 00:35 3.75 MLS/HR Enteral Nutritional Formula 1,000 ml 50ML/HR GT 01/21/25 09:30 02/02/25 22:08 1,000 ML Pantoprazole Sodium 40 mg DAILY IV 01/21/25 10:00 02/02/25 10:31 40 MG Sucralfate 1 gm BID@0600,2200 GT 01/21/25 22:00 02/03/25 06:02 1 GM Diagnostic Test (Pha) 1 strip Q6HR 01/22/25 12:00 02/03/25 06:02 1 STRIP Insulin Human Regular Q6HR SC 01/22/25 12:00 02/03/25 06:08 6 UNITS Dextrose 50 ml UD PRN IV 01/22/25 08:30 01/30/25 18:06 50 ML Glycopyrrolate 0.2 mg Q6HP PRN IV 01/29/25 14:00 01/31/25 05:21 0.2 MG Albumin Human 100 ml @ 100 mls/hr PRN PRN IV 01/30/25 07:30 01/30/25 10:20 100 MLS/HR Vancomycin HCl 0 ml @ 0 mls/hr PER PHARMACY IV 01/30/25 08:15 Acetaminophen/ Hydrocodone Bitart 1 tab Q6HPRN PRN PO 01/30/25 23:00 02/01/25 21:08 1 TAB Meropenem 50 ml @ 17 mls/hr DAILY IV 01/31/25 10:00 02/02/25 11:17 17 MLS/HR Micafungin Sodium 100 mg/Sodium Chloride 100 ml @ 100 mls/hr DAILY IV 01/31/25 10:00 02/02/25 08:51 100 MLS/HR Patient Own Medication 250 mg DAILY IV 02/03/25 10:00 Levetiracetam 250 mg/Sodium Chloride 52.5 ml @ 175 mls/hr Q24H IV 02/02/25 21:00 03/04/25 20:59 02/02/25 21:29 175 MLS/HR Laboratory Results Laboratory Tests 02/03/25 03:21 Chemistry Test 02/03/25 03:21 Calcium Level 9.4 mg/dL (8.7-10.4) Urinalysis Test 01/18/25 10:20 Urine Color Light-yellow (Yellow) Urine Clarity Clear (Clear) Urine pH 6.5 (5.0-9.0) Urine Specific [place] 1.017 (1.001-1.035) Urine Protein 3+ (Negative) H Urine Ketones Negative (Negative) Urine Blood 1+ /uL (Negative) H Urine Nitrite Negative (Negative) Urine Bilirubin Negative (Negative) Urine Urobilinogen Normal mg/dL (Negative) Urine Leukocyte Esterase Negative /uL (Negative) Urine RBC 1 /hpf (0 - 3) Urine Microscopic WBC 5 /HPF (0-3) H Urine Squamous Epithelial Cells Few /hpf (<5) Urine Bacteria None seen /hpf (None Seen) Urine Glucose 4+ mg/dL (Normal) H Blood Gas Results Test 02/02/25 09:02 Arterial Blood pH 7.400 (7.350-7.450) FiO2 % 30.0 Microbiology Microbiology Date/Time Source Procedure Growth Status 01/30/25 13:15 Blood Blood Culture - Preliminary Resulted 01/20/25 14:00 Sputum Gram Stain - Final Complete 01/20/25 14:00 Sputum Respiratory Culture - Final Complete 01/18/25 00:45 Nose MRSA Screen - Final Complete Labs and/or images reviewed: Labs reviewed by me, Image(s) reviewed by me Assessment/Plan Assessment/Plan HPI: 70-year-old male presents for evaluation of altered mental status. Patient noted to be progressively more confused for the past two days by family members. They reported his blood sugar was reading high. Patient is currently lethargic oriented x1. He also saw also noted to have shingles on his right chest. He has a history of end-stage renal disease on hemodialysis. No further history could be obtained at the moment. Past Medical History Diabetes mellitus, hypertension, end-stage renal disease 01/31: Patient had hypoglycemic episode during the evening. Still not waking up. Plans for MRI today. Leukocytosis worsening. Central line removed. 02/01: Covering today for primary hospitalist. Patient here with initially DKA, had confused in with unable to protect airway and was intubated. DKA resolved patient has 1 blood culture positive Gram-positive cocci likely contaminant. Patient has been off of sedatives., Does not wake up following commands, on CPAP trial does well but does not follow commands on safe to extubate. No Levophed right now. Anuric ESRD getting dialysis Wednesday schedule. Getting NG tube feeds Nepro. Vital signs stable. 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 Neurology onboard, no central causes thus far for patient poor mental status.. Continue acyclovir, we will get HIV lab a.m. draw tomorrow, continue antibiotics, continue fluids per Nephrology continue other therapies as per primary hospitalist. 02/02: Patient having spasmodic leg movements of upper arms and to a lesser degree lower extremities, risk of self extubation we will try to put a barrier between head and arms. Patient only on Precedex we will try 3-4 hours of "Precedex vacation". I do not see this case improving, neurology does not finding resolution reversible causes, brain MRI without any significant concerns. This appears to be very poor prognosis at this point, we will try to discuss with family for possible terminal weaning options 02/03: Readily patient has seizure-like activity lower extremities, IV Keppra started along with solution OG tube Keppra home dose. Patient's condition remains unchanged despite no Precedex now for at least 24 hour. Poor prognosis. Fever held today, possible CPAP trial, also has? Dialysis scheduled today. Need to have discussion with family for expectations regarding patient's prognosis being poor. Continue other medications per treatment plan. Impression: -Sepsis -metabolic encephalopathy -DKA -ESRD with hemodialysis -primary hypertension -dyslipidemia -hyponatremia -? seizure -Hypoglycemia Plan: -stop Lantus. Start D5 NS infusion. Continue regular insulin sliding scale -CPAP trial once appropriate -Neurology consult. Recommendations reviewed. -nephrology consultation: Received hemodialysis yesterday -ppi, Carafate --continue vancomycin, cefepime, acyclovir, add micafungin -repeat labs, chest x-ray, ABG in a.m. Critical care time spent with patient discussing and formulating plan of care: 40 minutes. This does not include time spent performing procedures. Plan discussed with: Other My Orders Orders - PRATIK OSEGUERA MD Procedure Category Date Status Time Chest Portable XY 02/02/25 Resulted 17:54 Chest Portable XY 02/03/25 Resulted 05:00 Date of Service: Feb 03, 2025 Billing Provider: PRATIK OSEGUERA MD Common Visit Codes: [id number] CARE 30-74 MIN PRATIK OSEGUERA MD Feb 03, 2025 08:04
[2025-02-03 08:06] LABS: Base Excess 1.5 mmol/L (-2.0-3.0)
[2025-02-03] MEDS: THIAMINE 100mg/ml INJ (200mg/2ml VIAL) IV SCH (17:26)
[2025-02-03] MEDS: ALBUMIN 25% 100 ML IV ONE ×2 (19:39→21:03)
[2025-02-03] MEDS: SODIUM CHL 0.9% 1000 ML BAG XX ONE (20:27)
--- NOTE | 2025-02-03 21:20 | DVHPN2 ---
Progress Note - Dictate Date Seen: Feb 03, 2025 Medical Necessity Reason Pt with a Central, PICC or Fol: Yes The following are medically ne: [place] Catheter Subjective Mr. Pisano is a 70 years old right-handed gentleman with a history of hypertension, diabetes, end-stage kidney failure on hemodialysis, the patient was brought to the [facility] on 01/17/2025 with a chief complaint of altered mental status. Because no improvement in the mental status, increased secretion and difficulty cleaning the respiratory tract, he was intubated on 01/20/2025 I have seen and examined the patient, I have discussed with his nurse. The eyes close tightly, not able to open He grimaced in bilateral periorbital region Hemodialysis today Pupil size 01/22/25: Right: 3-4 mm, left: 1-2 mm, no associated abnormal vascular dilatation and skin secretion 01/23/25: Right: 3-4 mm, left: 2 mm 01/24/25: Right: 3-4 mm, left: 2 mm 01/24/25: Right: 4 mm, left: 2-3 mm 01/27/25: Right: 4-5 mm, left: 2-3 mm 01/28/25: Eyes tightly closed 01/29/25: Right: 4-5 mm, left: 2-3 mm 01/30/25: Eyes tightly closed 01/31/25: Eyes tightly closed 02/01/25: The right pupil looks bigger 02/03/25: Eyes tightly closed ABG, 01/18/2025: Compensated Metabolic acidosis UDS, 01/18/2025: Negative Plasma alcohol, 01/17/2025: <3 Urinalysis, 01/18/2025: WBC: Five, urine leukocyte esterase: Negative CBC, 01/18/2025: Compensated metabolic acidosis WBC/HB/PLT/MCV, 01/18/2025: 14.4/11.8/189/92.3 Na, 01/18/2025: 127, 131, 01/30/25: 146 02/02/2025: 147, 02/03/2025: 150 BUN/CR, : 113/11.33, 119/11.42, 50/5.72, 01/19/2025: 57/7.03, 01/28/2025: 51/5.55, 01/29/2025: 65/6.38, 01/30/2025: 92/8.44 GFR, 01/18/2025: 4, 4, 10 Anion gap, 01/18/2025: 19, 20, Glucose, 01/17/2025: 856, 01/18/2025: 862, 710, 551, 231 Liver function tests, 01/18/2025: Unremarkable EEG, 01/20/2025: moderately abnormal EEG Chest x-ray, 01/18/2025: There is prominence of the interstitial markings. Mild right basilar opacity. Mild prominence of the cardiomediastinal silhouette, likely accentuated by technique. No pleural effusion or pneumothorax. No acute osseous abnormality CT head, 01/15/2025: 1. No acute territorial infarct, intracranial hemorrhage, or mass effect. 2. Age-related involutional changes. Chronic ischemic changes as detailed. 3. 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 No acute abnormal MRI findings of the brain. vital signs Vital Sign Date Time Temp Pulse Resp B/P (MAP) Pulse Ox O2 Delivery O2 Flow Rate FiO2 02/03/25 20:04 99 21 147/60 (89) 100 30 02/03/25 18:50 Mechanical Ventilator 02/03/25 16:01 97.8 97.8 Total Intake and Output 02/02/25 02/02/25 02/03/25 15:00 23:00 07:00 Intake Total 465.3 ml 175 ml 237 ml Output Total 5 ml 3 ml Balance 465.3 ml 170 ml 234 ml medications Current Medications Medications Dose Ordered Sig/Aleta Route Start Time Stop Time Status Last Admin Dose Admin Ondansetron HCl 4 mg Q4HP PRN IV 01/18/25 04:30 Nitroglycerin 0.4 mg Q5MINP PRN SL 01/18/25 04:30 Morphine Sulfate 2 mg Q30M PRN IV 01/18/25 04:30 Dextrose/Sodium Chloride 1,000 ml @ 75 mls/hr [id number] IV 01/18/25 15:30 UNV Hydralazine HCl 10 mg Q6HP PRN IV 01/19/25 05:30 02/03/25 09:59 10 MG Albuterol 2.5 mg Q4HPRN PRN NEB 01/20/25 00:15 01/20/25 09:53 2.5 MG Ipratropium [place] 0.5 mg Q4HPRN PRN NEB 01/20/25 00:15 01/20/25 09:53 0.5 MG Fentanyl Citrate 250 ml @ 2.5 mls/hr Q24H IV 01/20/25 14:00 01/25/25 17:25 2.5 MLS/HR Albuterol 2.5 mg Q6HR NEB 01/20/25 18:00 02/03/25 18:49 2.5 MG Ipratropium [place] 0.5 mg Q6HR NEB 01/20/25 18:00 02/03/25 18:49 0.5 MG Norepinephrine Bitartrate 250 ml @ 3.75 mls/hr Q24H IV 01/21/25 09:00 02/02/25 00:35 3.75 MLS/HR Enteral Nutritional Formula 1,000 ml 50ML/HR GT 01/21/25 09:30 02/02/25 22:08 1,000 ML Pantoprazole Sodium 40 mg DAILY IV 01/21/25 10:00 02/03/25 09:51 40 MG Sucralfate 1 gm BID@0600,2200 GT 01/21/25 22:00 02/03/25 06:02 1 GM Diagnostic Test (Pha) 1 strip Q6HR 01/22/25 12:00 02/03/25 19:41 1 STRIP Insulin Human Regular Q6HR SC 01/22/25 12:00 02/03/25 17:38 4 UNITS Dextrose 50 ml UD PRN IV 01/22/25 08:30 01/30/25 18:06 50 ML Glycopyrrolate 0.2 mg Q6HP PRN IV 01/29/25 14:00 01/31/25 05:21 0.2 MG Albumin Human 100 ml @ 100 mls/hr PRN PRN IV 01/30/25 07:30 01/30/25 10:20 100 MLS/HR Vancomycin HCl 0 ml @ 0 mls/hr PER PHARMACY IV 01/30/25 08:15 Acetaminophen/ Hydrocodone Bitart 1 tab Q6HPRN PRN PO 01/30/25 23:00 02/01/25 21:08 1 TAB Meropenem 50 ml @ 17 mls/hr DAILY IV 01/31/25 10:00 02/03/25 10:15 17 MLS/HR Micafungin Sodium 100 mg/Sodium Chloride 100 ml @ 100 mls/hr DAILY IV 01/31/25 10:00 02/03/25 09:52 100 MLS/HR Levetiracetam 250 mg/Sodium Chloride 52.5 ml @ 175 mls/hr Q24H IV 02/02/25 21:00 03/04/25 20:59 02/02/25 21:29 175 MLS/HR Acyclovir Sodium 300 mg/Sodium Chloride 256 ml @ 256 mls/hr HS IV 02/04/25 22:00 Thiamine HCl 200 mg BID IV 02/03/25 15:45 02/07/25 15:44 02/03/25 17:26 200 MG objective The patient is well-nourished and well-developed with no distress. The patient is intubated MENTAL STATUS: Subjective CRANIAL NERVES: Subjective. No signs of facial weakness. There are gagging or coughing reflexes SENSATION: Responses to pain and touch MOTOR: Normal tone in the upper and lower extremity. Normal muscle bulk. No fasciculations. Moves the arms REFLEXES: Deep tendon reflexes are symmetrical. No pathological reflexes. CEREBELLAR/COORDINATION: Deferred GAIT/STATION: deferred. laboratory and microbiology Laboratory Tests 02/03/25 03:21 Test 02/03/25 03:21 Range/Units Serum Glucose 249 H 74-106 mg/dL Problem List Diabetic ketoacidosis Metabolic acidosis Metabolic encephalopathy Herpes zoster infection/shingles ? Intracranial infection End-stage kidney failure Anisocoria with right pupil bigger, etiology unclear, possible secondary to history of surgery One eye blindness Myoclonus in the face, neck, left arm Assessment/Plan Monitoring Supportive treatment ICU care Stabilize vitals Respiratory support/vent management Oxygen Acyclovir 700 mg daily IV antibiotics Keppra 250 mg IV q.d. for the myoclonus Current pain management Haldol for agitation History from him directly later More recommendation per clinical course This medical document was created using an electronic medical record system with [employer] dictation system. Although this document has been carefully reviewed, there may still be some phonetic and typographical errors. These areas are purely typographical due to imperfections of the software programs, and do not reflect any compromise in the patient's medical care. Prognosis guarded Dietary Evaluation Review Comments: 1) Consider reducing TF rate from 50 mL to 40 mL/hr goal rate to prevent overfeeding. Nepro Carbsteady @ 40 mL/hr will provide 1728 kcals, 78g Pro, and 698 mL free H2O per 24 hrs. Goal rate will meet 100% estimated energy needs and 85% estimated protein needs 2) Advance to 60g CCHO renal diet when medically feasible 3) Collect HbA1c 4) Follow-up with nephrology, cardiology, and pulmonology 5) Continue to monitor I&O, labs, and skin integrity Expected Outcomes/Goals: 1) nutrition support to meet at least 75% estimated daily needs 2) labs to improve 3) diet to advance 4) f/u in 2-3 days Plan discussed with: Other LETTY HANNA MD Feb 03, 2025 21:20
--- NOTE | 2025-02-03 21:51 | DVHPN2 ---
Subjective DOS: 02/03/2025 Patient seen and examined at bedside. Intubated on mechanical ventilator. Overnight events reviewed. Reviewed: Care Plan, H&P, Labs, Medications Changes from previous H/P or p: No Changes General: Per HPI Objective Vitals Vital Signs Date Time Temp Pulse Resp B/P (MAP) Pulse Ox O2 Delivery O2 Flow Rate FiO2 02/03/25 20:04 99 21 147/60 (89) 100 30 02/03/25 18:50 Mechanical Ventilator 02/03/25 16:01 97.8 97.8 Intake/Output Intake and Output 02/03/25 07:00 Intake Total 877.3 ml Output Total 8 ml Balance 869.3 ml Intake Oral 0 ml IV Total 640.3 ml Tube Feeding 237 ml Output Urine Total 8 ml General Appearance: mild distress, Other (Continues to be encephalopathic) HEENT: Atraumatic, Other (Unequal pupils) Lungs: Other (Mechanical ventilation. Transmitted breath sounds bilaterally. Decreased air entry.) Chest/Breasts: Other (Noted rash, shingles to right upper chest) Cardiovascular: Normal S1, Normal S2, Other (Sinus rhythm/sinus bradycardia) Abdomen: Normal bowel sounds, Soft, No tenderness, No hepatospenomegaly Genitourinary: No Apparent Abnormalities ([place]) Musculoskeletal: Other (Unable to assess) Neuro: Other (Unable to assess) Skin: Dry, Intact, Other (Rash to right upper chest) Psych/Mental Status: Other (Unable to assess) Medications Current Medications Medications Dose Ordered Sig/Aleta Route Start Time Stop Time Status Last Admin Dose Admin Ondansetron HCl 4 mg Q4HP PRN IV 01/18/25 04:30 Nitroglycerin 0.4 mg Q5MINP PRN SL 01/18/25 04:30 Morphine Sulfate 2 mg Q30M PRN IV 01/18/25 04:30 Dextrose/Sodium Chloride 1,000 ml @ 75 mls/hr [id number] IV 01/18/25 15:30 UNV Hydralazine HCl 10 mg Q6HP PRN IV 01/19/25 05:30 02/03/25 09:59 10 MG Albuterol 2.5 mg Q4HPRN PRN NEB 01/20/25 00:15 01/20/25 09:53 2.5 MG Ipratropium [place] 0.5 mg Q4HPRN PRN NEB 01/20/25 00:15 01/20/25 09:53 0.5 MG Fentanyl Citrate 250 ml @ 2.5 mls/hr Q24H IV 01/20/25 14:00 01/25/25 17:25 2.5 MLS/HR Albuterol 2.5 mg Q6HR NEB 01/20/25 18:00 02/03/25 18:49 2.5 MG Ipratropium [place] 0.5 mg Q6HR NEB 01/20/25 18:00 02/03/25 18:49 0.5 MG Norepinephrine Bitartrate 250 ml @ 3.75 mls/hr Q24H IV 01/21/25 09:00 02/02/25 00:35 3.75 MLS/HR Enteral Nutritional Formula 1,000 ml 50ML/HR GT 01/21/25 09:30 02/02/25 22:08 1,000 ML Pantoprazole Sodium 40 mg DAILY IV 01/21/25 10:00 02/03/25 09:51 40 MG Sucralfate 1 gm BID@0600,2200 GT 01/21/25 22:00 02/03/25 06:02 1 GM Diagnostic Test (Pha) 1 strip Q6HR 01/22/25 12:00 02/03/25 19:41 1 STRIP Insulin Human Regular Q6HR SC 01/22/25 12:00 02/03/25 17:38 4 UNITS Dextrose 50 ml UD PRN IV 01/22/25 08:30 01/30/25 18:06 50 ML Glycopyrrolate 0.2 mg Q6HP PRN IV 01/29/25 14:00 01/31/25 05:21 0.2 MG Albumin Human 100 ml @ 100 mls/hr PRN PRN IV 01/30/25 07:30 01/30/25 10:20 100 MLS/HR Vancomycin HCl 0 ml @ 0 mls/hr PER PHARMACY IV 01/30/25 08:15 Acetaminophen/ Hydrocodone Bitart 1 tab Q6HPRN PRN PO 01/30/25 23:00 02/01/25 21:08 1 TAB Meropenem 50 ml @ 17 mls/hr DAILY IV 01/31/25 10:00 02/03/25 10:15 17 MLS/HR Micafungin Sodium 100 mg/Sodium Chloride 100 ml @ 100 mls/hr DAILY IV 01/31/25 10:00 02/03/25 09:52 100 MLS/HR Levetiracetam 250 mg/Sodium Chloride 52.5 ml @ 175 mls/hr Q24H IV 02/02/25 21:00 03/04/25 20:59 02/02/25 21:29 175 MLS/HR Acyclovir Sodium 300 mg/Sodium Chloride 256 ml @ 256 mls/hr HS IV 02/04/25 22:00 Thiamine HCl 200 mg BID IV 02/03/25 15:45 02/07/25 15:44 02/03/25 17:26 200 MG Laboratory Results Laboratory Tests 02/03/25 03:21 Chemistry Test 02/03/25 03:21 Calcium Level 9.4 mg/dL (8.7-10.4) Urinalysis Test 01/18/25 10:20 Urine Color Light-yellow (Yellow) Urine Clarity Clear (Clear) Urine pH 6.5 (5.0-9.0) Urine Specific [place] 1.017 (1.001-1.035) Urine Protein 3+ (Negative) H Urine Ketones Negative (Negative) Urine Blood 1+ /uL (Negative) H Urine Nitrite Negative (Negative) Urine Bilirubin Negative (Negative) Urine Urobilinogen Normal mg/dL (Negative) Urine Leukocyte Esterase Negative /uL (Negative) Urine RBC 1 /hpf (0 - 3) Urine Microscopic WBC 5 /HPF (0-3) H Urine Squamous Epithelial Cells Few /hpf (<5) Urine Bacteria None seen /hpf (None Seen) Urine Glucose 4+ mg/dL (Normal) H Blood Gas Results Test 02/03/25 07:41 Arterial Blood pH 7.402 (7.350-7.450) FiO2 % 30.0 Microbiology Microbiology Date/Time Source Procedure Growth Status 01/30/25 13:15 Blood Blood Culture - Final Staphylococcus epidermidis Complete 01/20/25 14:00 Sputum Gram Stain - Final Complete 01/20/25 14:00 Sputum Respiratory Culture - Final Complete 01/18/25 00:45 Nose MRSA Screen - Final Complete Assessment/Plan Assessment/Plan Impression: Acute hypoxic respiratory failure On mechanical ventilator Sepsis Metabolic encephalopathy Diabetic ketoacidosis ESRD with hemodialysis Events: Remains on vent support On AC mode; RR 14, VT 500, PEEP 5, FiO2 30% Remains off sedation Off Precedex drip ABG reviewed, compensated CXR today reveals Mild bibasilar atelectasis. No evidence of acute cardiopulmonary process. Devices in place. Patient tolerating CPAP - CPAP with PS 8, PEEP 5. Pulling good volumes; PEEP 5/30% Continue daily CPAP Patient not awake, alert. Awaiting for mentation to improve for extubation. Remains off pressors, hemodynamically stable Monitor blood pressure Hemodialysis per Nephrology - HD today Follow up Nephrology recs Continue antibiotics Tube feeds for nutritional support IV fluids with NS at 100 ml/hr. Accu-Cheks, ISS. Continue daily SBT. Continue attempts to liberate from mechanical ventilator. Awaiting for mentation to improve - not following commands. Need to address goals of care with family MRI brain w/o contrast revealed no acute abnormalities. 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 Labs and imaging reviewed. Rest of plan as noted below. Plan: s/p intubation on mechanical ventilator. On AC mode; RR 14, VT 500, PEEP 5, FiO2 30% Titrate FIO2 to keep O2 saturation above 90%. VAP bundle. Daily ABG and CXR while intubated Continue bronchodilators. Continue antibiotics. Pressors as necessary for hemodynamic support Titrate to keep mean arterial pressure greater than 65 mmHg. Tube feeds for nutrition Accu-Cheks, ISS. On Sucralfate and Protonix. GI recs appreciated. Hemodialysis per Nephrology Monitor renal function Monitor electrolytes. Supplement as necessary. Monitor ins and outs. SBT/RENU GI prophylaxis. DVT prophylaxis. Prognosis: Poor given patient's multiple co-morbidities. Condition: Critical Rest of plan per hospitalist and other consultants. A total of 35 minutes of critical care time was spent reviewing the patient record, examining the patient, making a diagnostic and therapeutic plan, discussing this plan with the medical personnel, following up on diagnostic studies and following the patient for clinical stability excluding any and all procedures. At least 50% of this time was spent in direct, [id number] contact. Thank you, Dr. Salvador, for allowing me to participate in this patient's care. Further recommendations will depend on the patient's clinical course. Please do not hesitate to contact me if you have any questions or concerns. This medical document was created using an electronic medical record system with [employer] system. Although these documentations are being carefully reviewed, there may still be some phonetic and typographical changes. The errors are purely typographical, due to imperfection on the software program, and do not reflect any compromise in the patient's medical care Plan discussed with: Other (RN Hemanth) My Orders Orders - MISAEL KIM MD Procedure Category Date Status Time Cpap Trial For Am ORDERS 02/03/25 Transmitted 07:00 Abg W/ Co-Ox RT 02/03/25 Logged 06:00 Visit Coding Pulmonary Billing Provider: MISAEL KIM MD Date of Service if different f: Feb 03, 2025 Common Visit Codes: [id number] INP/OBS CARE(HIGH), [id number] CARE 30-74 MIN MISAEL KIM MD Feb 03, 2025 21:51
[2025-02-03] MEDS: VANCOMYCIN 500mg/100mL 100 ML IV ONE (22:00)
[2025-02-04] VITALS (89 sets, daily range): BP systolic 110–179; BP diastolic 46–104; PULSE 85–106; RESP 12–23; TEMP 98.2–99.7; O2SAT 100
[2025-02-04 03:59] LABS: Hematocrit 25.6 % (41.0-53.0); Hemoglobin 8.5 g/dL (13.5-17.5); Mean Corpuscular Hemoglobin 31.1 pg (28.0-32.0); Mean Corpuscular Volume 94.3 fL (80.0-100.0); Nucleated Red Blood Cells % 0.2 %
[2025-02-04 07:39] LABS: Base Excess 1.8 mmol/L (-2.0-3.0)
[2025-02-04 09:08] LABS: Calcium 9.8 mg/dL (8.7-10.4); Carbon Dioxide 27 mmol/L (20-31)
[2025-02-04 09:13] LABS: BUN/Creatinine Ratio 6.0 (10.0-20.0)
[2025-02-04 09:14] LABS: Blood Urea Nitrogen 30 mg/dL (9-23); Glucose 234 mg/dL (74-106)
[2025-02-04 09:16] LABS: Anion Gap 14 (5-15); Chloride 105 mmol/L (98-107); Potassium 3.3 mmol/L (3.5-5.1); Sodium 146 mmol/L (136-145)
--- NOTE | 2025-02-04 10:34 | DVH ---
CHEST RADIOGRAPH Indication: intubated Technique: Single frontal view of the chest was obtained Comparison: XY CHEST PORTABLE on DOS: 02/03/25, XY CHEST PORTABLE on DOS: 02/02/25, XY CHEST PORTABLE on DOS: 02/02/25 FINDINGS: Lines and Tubes: Endotracheal tube 4.7 cm above robert. Enteric tube below the left diaphragm in the stomach. Lungs: No focal consolidation. Pleura: No effusion. No pneumothorax. Cardiomediastinal contours: Unremarkable Bones: No acute osseous abnormality. IMPRESSION: 1. Endotracheal tube 4.7 cm above the robert. 2. Enteric tube below the left diaphragm in the stomach. 3. No significant change in the cardiopulmonary findings compared to 02/03/2025.
--- NOTE | 2025-02-04 11:23 | DVHPN2 ---
Reviewed: Care Plan, H&P, Labs, Medications Changes from previous H/P or p: No Changes General: Per HPI Objective Vitals Vital Signs Date Time Temp Pulse Resp B/P (MAP) Pulse Ox O2 Delivery O2 Flow Rate FiO2 02/04/25 09:34 161/61 02/04/25 09:26 94 17 100 30 02/04/25 08:00 98.7 98.7 02/04/25 06:00 Mechanical Ventilator+ Intake/Output Intake and Output 02/04/25 07:00 Intake Total 542.5 ml Output Total 50 ml Balance 492.5 ml Intake Oral 60 ml IV Total 302.5 ml Tube Feeding 180 ml Output Urine Total 50 ml General Appearance: mild distress, Other (Continues to be encephalopathic) HEENT: Atraumatic, Other (Unequal pupils) Lungs: Other (Mechanical ventilation. Transmitted breath sounds bilaterally. Decreased air entry.) Chest/Breasts: Other (Noted rash, shingles to right upper chest) Cardiovascular: Normal S1, Normal S2, Other (Sinus rhythm/sinus bradycardia) Abdomen: Normal bowel sounds, Soft, No tenderness, No hepatospenomegaly Genitourinary: No Apparent Abnormalities ([place]) Musculoskeletal: Other (Unable to assess) Neuro: Other (Unable to assess) Skin: Dry, Intact, Other (Rash to right upper chest) Psych/Mental Status: Other (Unable to assess) Medications Current Medications Medications Dose Ordered Sig/Aleta Route Start Time Stop Time Status Last Admin Dose Admin Ondansetron HCl 4 mg Q4HP PRN IV 01/18/25 04:30 Nitroglycerin 0.4 mg Q5MINP PRN SL 01/18/25 04:30 Morphine Sulfate 2 mg Q30M PRN IV 01/18/25 04:30 Dextrose/Sodium Chloride 1,000 ml @ 75 mls/hr [id number] IV 01/18/25 15:30 UNV Hydralazine HCl 10 mg Q6HP PRN IV 01/19/25 05:30 02/04/25 09:34 10 MG Albuterol 2.5 mg Q4HPRN PRN NEB 01/20/25 00:15 01/20/25 09:53 2.5 MG Ipratropium [place] 0.5 mg Q4HPRN PRN NEB 01/20/25 00:15 01/20/25 09:53 0.5 MG Fentanyl Citrate 250 ml @ 2.5 mls/hr Q24H IV 01/20/25 14:00 01/25/25 17:25 2.5 MLS/HR Albuterol 2.5 mg Q6HR NEB 01/20/25 18:00 02/04/25 06:01 2.5 MG Ipratropium [place] 0.5 mg Q6HR NEB 01/20/25 18:00 02/04/25 06:01 0.5 MG Norepinephrine Bitartrate 250 ml @ 3.75 mls/hr Q24H IV 01/21/25 09:00 02/02/25 00:35 3.75 MLS/HR Enteral Nutritional Formula 1,000 ml 50ML/HR GT 01/21/25 09:30 02/02/25 22:08 1,000 ML Pantoprazole Sodium 40 mg DAILY IV 01/21/25 10:00 02/04/25 09:33 40 MG Sucralfate 1 gm BID@0600,2200 GT 01/21/25 22:00 02/04/25 06:24 1 GM Diagnostic Test (Pha) 1 strip Q6HR 01/22/25 12:00 02/04/25 06:24 1 STRIP Insulin Human Regular Q6HR SC 01/22/25 12:00 02/04/25 06:29 4 UNITS Dextrose 50 ml UD PRN IV 01/22/25 08:30 01/30/25 18:06 50 ML Glycopyrrolate 0.2 mg Q6HP PRN IV 01/29/25 14:00 01/31/25 05:21 0.2 MG Albumin Human 100 ml @ 100 mls/hr PRN PRN IV 01/30/25 07:30 01/30/25 10:20 100 MLS/HR Vancomycin HCl 0 ml @ 0 mls/hr PER PHARMACY IV 01/30/25 08:15 Acetaminophen/ Hydrocodone Bitart 1 tab Q6HPRN PRN PO 01/30/25 23:00 02/01/25 21:08 1 TAB Meropenem 50 ml @ 17 mls/hr DAILY IV 01/31/25 10:00 02/04/25 10:58 17 MLS/HR Micafungin Sodium 100 mg/Sodium Chloride 100 ml @ 100 mls/hr DAILY IV 01/31/25 10:00 02/04/25 09:31 100 MLS/HR Levetiracetam 250 mg/Sodium Chloride 52.5 ml @ 175 mls/hr Q24H IV 02/02/25 21:00 03/04/25 20:59 02/04/25 00:07 175 MLS/HR Acyclovir Sodium 300 mg/Sodium Chloride 256 ml @ 256 mls/hr HS IV 02/04/25 22:00 Thiamine HCl 200 mg BID IV 02/03/25 15:45 02/07/25 15:44 02/04/25 09:31 200 MG Laboratory Results Laboratory Tests 02/04/25 02:58 Chemistry Test 02/04/25 02:58 Calcium Level 9.8 mg/dL (8.7-10.4) Urinalysis Test 01/18/25 10:20 Urine Color Light-yellow (Yellow) Urine Clarity Clear (Clear) Urine pH 6.5 (5.0-9.0) Urine Specific [place] 1.017 (1.001-1.035) Urine Protein 3+ (Negative) H Urine Ketones Negative (Negative) Urine Blood 1+ /uL (Negative) H Urine Nitrite Negative (Negative) Urine Bilirubin Negative (Negative) Urine Urobilinogen Normal mg/dL (Negative) Urine Leukocyte Esterase Negative /uL (Negative) Urine RBC 1 /hpf (0 - 3) Urine Microscopic WBC 5 /HPF (0-3) H Urine Squamous Epithelial Cells Few /hpf (<5) Urine Bacteria None seen /hpf (None Seen) Urine Glucose 4+ mg/dL (Normal) H Blood Gas Results Test 02/04/25 06:52 Arterial Blood pH 7.450 (7.350-7.450) FiO2 % 30.0 Microbiology Microbiology Date/Time Source Procedure Growth Status 01/30/25 13:15 Blood Blood Culture - Final Staphylococcus epidermidis Complete 01/20/25 14:00 Sputum Gram Stain - Final Complete 01/20/25 14:00 Sputum Respiratory Culture - Final Complete 01/18/25 00:45 Nose MRSA Screen - Final Complete Labs and/or images reviewed: Labs reviewed by me, Image(s) reviewed by me Assessment/Plan Assessment/Plan HPI: 70-year-old male presents for evaluation of altered mental status. Patient noted to be progressively more confused for the past two days by family members. They reported his blood sugar was reading high. Patient is currently lethargic oriented x1. He also saw also noted to have shingles on his right chest. He has a history of end-stage renal disease on hemodialysis. No further history could be obtained at the moment. Past Medical History Diabetes mellitus, hypertension, end-stage renal disease 01/31: Patient had hypoglycemic episode during the evening. Still not waking up. Plans for MRI today. Leukocytosis worsening. Central line removed. 02/01: Covering today for primary hospitalist. Patient here with initially DKA, had confused in with unable to protect airway and was intubated. DKA resolved patient has 1 blood culture positive Gram-positive cocci likely contaminant. Patient has been off of sedatives., Does not wake up following commands, on CPAP trial does well but does not follow commands on safe to extubate. No Levophed right now. Anuric ESRD getting dialysis Wednesday schedule. Getting NG tube feeds Nepro. Vital signs stable. 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 Neurology onboard, no central causes thus far for patient poor mental status.. Continue acyclovir, we will get HIV lab a.m. draw tomorrow, continue antibiotics, continue fluids per Nephrology continue other therapies as per primary hospitalist. 02/02: Patient having spasmodic leg movements of upper arms and to a lesser degree lower extremities, risk of self extubation we will try to put a barrier between head and arms. Patient only on Precedex we will try 3-4 hours of "Precedex vacation". I do not see this case improving, neurology does not finding resolution reversible causes, brain MRI without any significant concerns. This appears to be very poor prognosis at this point, we will try to discuss with family for possible terminal weaning options 02/03: Readily patient has seizure-like activity lower extremities, IV Keppra started along with solution OG tube Keppra home dose. Patient's condition remains unchanged despite no Precedex now for at least 24 hour. Poor prognosis. Fever held today, possible CPAP trial, also has? Dialysis scheduled today. Need to have discussion with family for expectations regarding patient's prognosis being poor. Continue other medications per treatment plan. 02/04: Patient remains off any sedatives including Precedex. No pupillary response today, cough and gag present. Prognosis very poor, patient continues to have spontaneous meaningless movements of limbs. I have discussed 2 options with family, option 1 terminal wean, if survives hospice. Option to trach and PEG and hospice. Family to further discuss with Neurology, we will make neurology aware. Family to decide by Wednesday/Wednesday. CPAP trial patient is breathing spontaneously maintaining good tidal volumes. Remains anuric in [place], fecal rectal tube in place, continuing dialysis with Nephrology. Continue present management. Yesterday we started empiric therapy for possible Wernicke's with thiamine 200 mg IV b.i.d. for 4 days. Impression: -Sepsis -metabolic encephalopathy -DKA -ESRD with hemodialysis -primary hypertension -dyslipidemia -hyponatremia -? seizure -Hypoglycemia Plan: -stop Lantus. Start D5 NS infusion. Continue regular insulin sliding scale -CPAP trial once appropriate -Neurology consult. Recommendations reviewed. -nephrology consultation: Received hemodialysis yesterday -ppi, Carafate --continue vancomycin, cefepime, acyclovir, add micafungin -repeat labs, chest x-ray, ABG in a.m. Critical care time spent with patient discussing and formulating plan of care: 40 minutes. This does not include time spent performing procedures. Plan discussed with: Patient My Orders Orders - PRATIK OSEGUERA MD Procedure Category Date Status Time Thiamine Inj PHA 02/03/25 In Process 15:45 Chest Portable XY 02/04/25 Resulted 08:56 Date of Service: Feb 04, 2025 Billing Provider: [facility] Common Visit Codes: 54981-[id number] CARE 30-74 MIN PRATIK OSEGUERA MD Feb 04, 2025 11:23
--- NOTE | 2025-02-04 16:27 | DVHPN2 ---
Progress Note - Dictate Date Seen: Feb 04, 2025 Medical Necessity Reason Pt with a Central, PICC or Fol: Yes The following are medically ne: [place] Catheter Subjective Intubated No response to stimuli vital signs Vital Sign Date Time Temp Pulse Resp B/P (MAP) Pulse Ox O2 Delivery O2 Flow Rate FiO2 02/04/25 16:11 92 14 136/55 (82) 100 30 02/04/25 14:00 Mechanical Ventilator+ 02/04/25 12:00 98.2 98.2 Total Intake and Output 02/03/25 02/03/25 02/04/25 15:00 23:00 07:00 Intake Total 150 ml 200 ml 192.5 ml Output Total 30 ml 20 ml Balance 150 ml 170 ml 172.5 ml medications Current Medications Medications Dose Ordered Sig/Aleta Route Start Time Stop Time Status Last Admin Dose Admin Ondansetron HCl 4 mg Q4HP PRN IV 01/18/25 04:30 Nitroglycerin 0.4 mg Q5MINP PRN SL 01/18/25 04:30 Morphine Sulfate 2 mg Q30M PRN IV 01/18/25 04:30 Dextrose/Sodium Chloride 1,000 ml @ 75 mls/hr [id number] IV 01/18/25 15:30 UNV Hydralazine HCl 10 mg Q6HP PRN IV 01/19/25 05:30 02/04/25 09:34 10 MG Albuterol 2.5 mg Q4HPRN PRN NEB 01/20/25 00:15 01/20/25 09:53 2.[address] [place] 0.5 mg Q4HPRN PRN NEB 01/20/25 00:15 01/20/25 09:53 0.5 MG Fentanyl Citrate 250 ml @ 2.5 mls/hr Q24H IV 01/20/25 14:00 01/25/25 17:25 2.5 MLS/HR Albuterol 2.5 mg Q6HR NEB 01/20/25 18:00 02/04/25 11:25 2.[address] [place] 0.5 mg Q6HR NEB 01/20/25 18:00 02/04/25 11:25 0.5 MG Norepinephrine Bitartrate 250 ml @ 3.75 mls/hr Q24H IV 01/21/25 09:00 11/25 00:35 3.75 MLS/HR Enteral Nutritional Formula 1,000 ml 50ML/HR GT 01/21/25 09:30 02/02/25 22:08 1,000 ML Pantoprazole Sodium 40 mg DAILY IV 01/21/25 10:00 02/04/25 09:33 40 MG Sucralfate 1 gm BID@0600,2200 GT 01/21/25 22:00 02/04/25 06:24 1 GM Diagnostic Test (Pha) 1 strip Q6HR 01/22/25 12:00 02/04/25 11:37 1 STRIP Insulin Human Regular Q6HR SC 01/22/25 12:00 02/04/25 06:29 4 UNITS Dextrose 50 ml UD PRN IV 01/22/25 08:30 01/30/25 18:06 50 ML Glycopyrrolate 0.2 mg Q6HP PRN IV 01/29/25 14:00 01/31/25 05:21 0.2 MG Albumin Human 100 ml @ 100 mls/hr PRN PRN IV 01/30/25 07:30 01/30/25 10:20 100 MLS/HR Vancomycin HCl 0 ml @ 0 mls/hr PER PHARMACY IV 01/30/25 08:15 Acetaminophen/ Hydrocodone Bitart 1 tab Q6HPRN PRN PO 01/30/25 23:00 02/01/25 21:08 1 TAB Meropenem 50 ml @ 17 mls/hr DAILY IV 01/31/25 10:00 02/04/25 10:58 17 MLS/HR Micafungin Sodium 100 mg/Sodium Chloride 100 ml @ 100 mls/hr DAILY IV 01/31/25 10:00 02/04/25 09:31 100 MLS/HR Levetiracetam 250 mg/Sodium Chloride 52.5 ml @ 175 mls/hr Q24H IV 02/02/25 21:00 03/04/25 20:59 02/04/25 00:07 175 MLS/HR Acyclovir Sodium 300 mg/Sodium Chloride 256 ml @ 256 mls/hr HS IV 02/04/25 22:00 Thiamine HCl 200 mg BID IV 02/03/25 15:45 02/07/25 15:44 02/04/25 09:31 200 MG objective intubated and sedated HEENT: Normocephalic Lungs: Bilateral good air entry CVS: S1, S2 regular rhythm Abdomen: Soft bowel sounds present 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 Continue with antibiotics Family decision regarding goals of care next week. Dietary Evaluation Review Comments: 1) Consider reducing TF rate from 50 mL to 40 mL/hr goal rate to prevent overfeeding. Nepro Carbsteady @ 40 mL/hr will provide 1728 kcals, 78g Pro, and 698 mL free H2O per 24 hrs. Goal rate will meet 100% estimated energy needs and 85% estimated protein needs 2) Advance to 60g CCHO renal diet when medically feasible 3) Collect HbA1c 4) Follow-up with nephrology, cardiology, and pulmonology 5) Continue to monitor I&O, labs, and skin integrity Expected Outcomes/Goals: 1) nutrition support to meet at least 75% estimated daily needs 2) labs to improve 3) diet to advance 4) f/u in 2-3 days Plan discussed with: GA Arenas MD Feb 04, 2025 16:27
--- NOTE | 2025-02-04 20:10 | DVHPN2 ---
Progress Note - Dictate Date Seen: Feb 04, 2025 Medical Necessity Reason Pt with a Central, PICC or Fol: Yes The following are medically ne: [place] Catheter Subjective Mr. Pisano is a 70 years old right-handed gentleman with a history of hypertension, diabetes, end-stage kidney failure on hemodialysis, the patient was brought to the [facility] on 01/17/2025 with a chief complaint of altered mental status. Because no improvement in the mental status, increased secretion and difficulty cleaning the respiratory tract, he was intubated on 01/20/2025 I have seen and examined the patient, I have discussed with his nurse. The eyes close tightly, he does not move but there is resistance when they move the left arm No grimaced noticed No sedation The case was discussed with Dr. Karoline Beard I have discussed with his grandson, Reid, the family is to discuss about his code status, and options of tracheostomy/PEG versus terminal wean [phone], no answer, Pupil size 01/22/25: Right: 3-4 mm, left: 1-2 mm, no associated abnormal vascular dilatation and skin secretion 01/23/25: Right: 3-4 mm, left: 2 mm 01/24/25: Right: 3-4 mm, left: 2 mm 01/24/25: Right: 4 mm, left: 2-3 mm 01/27/25: Right: 4-5 mm, left: 2-3 mm 01/28/25: Eyes tightly closed 01/29/25: Right: 4-5 mm, left: 2-3 mm 01/30/25: Eyes tightly closed 01/31/25: Eyes tightly closed 02/01/25: The right pupil looks bigger 02/03/25: Eyes tightly closed 02/04/25: Eyes tightly closed ABG, 01/18/2025: Compensated Metabolic acidosis UDS, 01/18/2025: Negative Plasma alcohol, 01/17/2025: <3 Urinalysis, 01/18/2025: WBC: Five, urine leukocyte esterase: Negative CBC, 01/18/2025: Compensated metabolic acidosis WBC/HB/PLT/MCV, 01/18/2025: 14.4/11.8/189/92.3 Na, 01/18/2025: 127, 131, 01/30/25: 146 02/02/2025: 147, 02/03/2025: 150 BUN/CR, : 113/11.33, 119/11.42, 50/5.72, 01/19/2025: 57/7.03, 01/28/2025: 51/5.55, 01/29/2025: 65/6.38, 01/30/2025: 92/8.44 GFR, 01/18/2025: 4, 4, 10 Anion gap, 01/18/2025: 19, 20, Glucose, 01/17/2025: 856, 01/18/2025: 862, 710, 551, 231 Liver function tests, 01/18/2025: Unremarkable EEG, 01/20/2025: moderately abnormal EEG Chest x-ray, 01/18/2025: There is prominence of the interstitial markings. Mild right basilar opacity. Mild prominence of the cardiomediastinal silhouette, likely accentuated by technique. No pleural effusion or pneumothorax. No acute osseous abnormality CT head, 01/15/2025: 1. No acute territorial infarct, intracranial hemorrhage, or mass effect. 2. Age-related involutional changes. Chronic ischemic changes as detailed. 3. 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 No acute abnormal MRI findings of the brain. vital signs Vital Sign Date Time Temp Pulse Resp B/P (MAP) Pulse Ox O2 Delivery O2 Flow Rate FiO2 02/04/25 18:45 96 14 138/57 (84) 100 02/04/25 18:30 98.3 98.3 02/04/25 18:13 30 02/04/25 18:00 Mechanical Ventilator+ Total Intake and Output 02/03/25 02/03/25 02/04/25 15:00 23:00 07:00 Intake Total 150 ml 200 ml 192.5 ml Output Total 30 ml 20 ml Balance 150 ml 170 ml 172.5 ml medications Current Medications Medications Dose Ordered Sig/Aleta Route Start Time Stop Time Status Last Admin Dose Admin Ondansetron HCl 4 mg Q4HP PRN IV 01/18/25 04:30 Nitroglycerin 0.4 mg Q5MINP PRN SL 01/18/25 04:30 Morphine Sulfate 2 mg Q30M PRN IV 01/18/25 04:30 Dextrose/Sodium Chloride 1,000 ml @ 75 mls/hr [id number] IV 01/18/25 15:30 UNV Hydralazine HCl 10 mg Q6HP PRN IV 01/19/25 05:30 02/04/25 09:34 10 MG Albuterol 2.5 mg Q4HPRN PRN NEB 01/20/25 00:15 01/20/25 09:53 2.5 MG Ipratropium [place] 0.5 mg Q4HPRN PRN NEB 01/20/25 00:15 01/20/25 09:53 0.5 MG Fentanyl Citrate 250 ml @ 2.5 mls/hr Q24H IV 01/20/25 14:00 01/25/25 17:25 2.5 MLS/HR Albuterol 2.5 mg Q6HR NEB 01/20/25 18:00 02/04/25 18:13 2.5 MG Ipratropium [place] 0.5 mg Q6HR NEB 01/20/25 18:00 02/04/25 18:13 0.5 MG Norepinephrine Bitartrate 250 ml @ 3.75 mls/hr Q24H IV 01/21/25 09:00 02/02/25 00:35 3.75 MLS/HR Enteral Nutritional Formula 1,000 ml 50ML/HR GT 01/21/25 09:30 02/02/25 22:08 1,000 ML Pantoprazole Sodium 40 mg DAILY IV 01/21/25 10:00 02/04/25 09:33 40 MG Sucralfate 1 gm BID@0600,2200 GT 01/21/25 22:00 02/04/25 06:24 1 GM Diagnostic Test (Pha) 1 strip Q6HR 01/22/25 12:00 02/04/25 18:19 1 STRIP Insulin Human Regular Q6HR SC 01/22/25 12:00 02/04/25 18:22 3 UNITS Dextrose 50 ml UD PRN IV 01/22/25 08:30 01/30/25 18:06 50 ML Glycopyrrolate 0.2 mg Q6HP PRN IV 01/29/25 14:00 01/31/25 05:21 0.2 MG Albumin Human 100 ml @ 100 mls/hr PRN PRN IV 01/30/25 07:30 01/30/25 10:20 100 MLS/HR Vancomycin HCl 0 ml @ 0 mls/hr PER PHARMACY IV 01/30/25 08:15 Acetaminophen/ Hydrocodone Bitart 1 tab Q6HPRN PRN PO 01/30/25 23:00 02/01/25 21:08 1 TAB Meropenem 50 ml @ 17 mls/hr DAILY IV 01/31/25 10:00 02/04/25 10:58 17 MLS/HR Micafungin Sodium 100 mg/Sodium Chloride 100 ml @ 100 mls/hr DAILY IV 01/31/25 10:00 02/04/25 09:31 100 MLS/HR Levetiracetam 250 mg/Sodium Chloride 52.5 ml @ 175 mls/hr Q24H IV 02/02/25 21:00 03/04/25 20:59 02/04/25 00:07 175 MLS/HR Acyclovir Sodium 300 mg/Sodium Chloride 256 ml @ 256 mls/hr HS IV 02/04/25 22:00 Thiamine HCl 200 mg BID IV 02/03/25 15:45 02/07/25 15:44 02/04/25 09:31 200 MG objective The patient is well-nourished and well-developed with no distress. The patient is intubated MENTAL STATUS: Subjective CRANIAL NERVES: Subjective. No signs of facial weakness. There are gagging or coughing reflexes SENSATION: Responses to pain and touch MOTOR: Normal tone in the upper and lower extremity. Normal muscle bulk. No fasciculations. Moves the arms REFLEXES: Deep tendon reflexes are symmetrical. No pathological reflexes. CEREBELLAR/COORDINATION: Deferred GAIT/STATION: deferred. laboratory and microbiology Laboratory Tests 02/04/25 02:58 Test 02/04/25 02:58 Range/Units Serum Glucose 234 H 74-106 mg/dL Problem List Diabetic ketoacidosis Metabolic acidosis Metabolic encephalopathy Herpes zoster infection/shingles ? Intracranial infection End-stage kidney failure Anisocoria with right pupil bigger, etiology unclear, possible secondary to history of surgery One eye blindness Myoclonus in the face, neck, left arm Assessment/Plan Monitoring Supportive treatment ICU care Stabilize vitals Respiratory support/vent management Oxygen Acyclovir 700 mg daily IV antibiotics Keppra 250 mg IV q.d. for the myoclonus Current pain management Haldol for agitation History from him directly later More recommendation per clinical course This medical document was created using an electronic medical record system with [employer] dictation system. Although this document has been carefully reviewed, there may still be some phonetic and typographical errors. These areas are purely typographical due to imperfections of the software programs, and do not reflect any compromise in the patient's medical care. Prognosis Guarded Dietary Evaluation Review Comments: 1) Consider reducing TF rate from 50 mL to 40 mL/hr goal rate to prevent overfeeding. Nepro Carbsteady @ 40 mL/hr will provide 1728 kcals, 78g Pro, and 698 mL free H2O per 24 hrs. Goal rate will meet 100% estimated energy needs and 85% estimated protein needs 2) Advance to 60g CCHO renal diet when medically feasible 3) Collect HbA1c 4) Follow-up with nephrology, cardiology, and pulmonology 5) Continue to monitor I&O, labs, and skin integrity Expected Outcomes/Goals: 1) nutrition support to meet at least 75% estimated daily needs 2) labs to improve 3) diet to advance 4) f/u in 2-3 days Plan discussed with: Other Critical Care Time(min): 40 LETTY HANNA MD Feb 04, 2025 20:10
--- NOTE | 2025-02-04 23:37 | DVHPN2 ---
Subjective DOS: 02/04/2025 Patient seen and examined at bedside. Intubated on mechanical ventilator. Overnight events reviewed. Reviewed: Care Plan, H&P, Labs, Medications Changes from previous H/P or p: No Changes General: Per HPI Objective Vitals Vital Signs Date Time Temp Pulse Resp B/P (MAP) Pulse Ox O2 Delivery O2 Flow Rate FiO2 02/04/25 23:15 98.5 88 14 165/59 (94) 100 98.5 02/04/25 22:42 30 02/04/25 18:00 Mechanical Ventilator+ Intake/Output Intake and Output 02/04/25 07:00 Intake Total 542.5 ml Output Total 50 ml Balance 492.5 ml Intake Oral 60 ml IV Total 302.5 ml Tube Feeding 180 ml Output Urine Total 50 ml General Appearance: mild distress, Other (Continues to be encephalopathic) HEENT: Atraumatic, Other (Unequal pupils) Lungs: Other (Mechanical ventilation. Transmitted breath sounds bilaterally. Decreased air entry.) Chest/Breasts: Other (Noted rash, shingles to right upper chest) Cardiovascular: Normal S1, Normal S2, Other (Sinus rhythm/sinus bradycardia) Abdomen: Normal bowel sounds, Soft, No tenderness, No hepatospenomegaly Genitourinary: No Apparent Abnormalities ([place]) Musculoskeletal: Other (Unable to assess) Neuro: Other (Unable to assess) Skin: Dry, Intact, Other (Rash to right upper chest) Psych/Mental Status: Other (Unable to assess) Medications Current Medications Medications Dose Ordered Sig/Aleta Route Start Time Stop Time Status Last Admin Dose Admin Ondansetron HCl 4 mg Q4HP PRN IV 01/18/25 04:30 Nitroglycerin 0.4 mg Q5MINP PRN SL 01/18/25 04:30 Morphine Sulfate 2 mg Q30M PRN IV 01/18/25 04:30 Dextrose/Sodium Chloride 1,000 ml @ 75 mls/hr [id number] IV 01/18/25 15:30 UNV Hydralazine HCl 10 mg Q6HP PRN IV 01/19/25 05:30 02/04/25 09:34 10 MG Albuterol 2.5 mg Q4HPRN PRN NEB 01/20/25 00:15 01/20/25 09:53 2.5 MG Ipratropium [place] 0.5 mg Q4HPRN PRN NEB 01/20/25 00:15 01/20/25 09:53 0.5 MG Fentanyl Citrate 250 ml @ 2.5 mls/hr Q24H IV 01/20/25 14:00 01/25/25 17:25 2.5 MLS/HR Albuterol 2.5 mg Q6HR NEB 01/20/25 18:00 02/04/25 18:13 2.5 MG Ipratropium [place] 0.5 mg Q6HR NEB 01/20/25 18:00 02/04/25 18:13 0.5 MG Norepinephrine Bitartrate 250 ml @ 3.75 mls/hr Q24H IV 01/21/25 09:00 02/02/25 00:35 3.75 MLS/HR Enteral Nutritional Formula 1,000 ml 50ML/HR GT 01/21/25 09:30 02/02/25 22:08 1,000 ML Pantoprazole Sodium 40 mg DAILY IV 01/21/25 10:00 02/04/25 09:33 40 MG Sucralfate 1 gm BID@0600,2200 GT 01/21/25 22:00 02/04/25 21:34 1 GM Diagnostic Test (Pha) 1 strip Q6HR 01/22/25 12:00 02/04/25 23:20 1 STRIP Insulin Human Regular Q6HR SC 01/22/25 12:00 02/04/25 23:19 4 UNITS Dextrose 50 ml UD PRN IV 01/22/25 08:30 01/30/25 18:06 50 ML Glycopyrrolate 0.2 mg Q6HP PRN IV 01/29/25 14:00 01/31/25 05:21 0.2 MG Albumin Human 100 ml @ 100 mls/hr PRN PRN IV 01/30/25 07:30 01/30/25 10:20 100 MLS/HR Vancomycin HCl 0 ml @ 0 mls/hr PER PHARMACY IV 01/30/25 08:15 Acetaminophen/ Hydrocodone Bitart 1 tab Q6HPRN PRN PO 01/30/25 23:00 02/01/25 21:08 1 TAB Meropenem 50 ml @ 17 mls/hr DAILY IV 01/31/25 10:00 02/04/25 10:58 17 MLS/HR Micafungin Sodium 100 mg/Sodium Chloride 100 ml @ 100 mls/hr DAILY IV 01/31/25 10:00 02/04/25 09:31 100 MLS/HR Levetiracetam 250 mg/Sodium Chloride 52.5 ml @ 175 mls/hr Q24H IV 02/02/25 21:00 03/04/25 20:59 02/04/25 21:34 175 MLS/HR Acyclovir Sodium 300 mg/Sodium Chloride 256 ml @ 256 mls/hr HS IV 02/04/25 22:00 Thiamine HCl 200 mg BID IV 02/03/25 15:45 02/07/25 15:44 02/04/25 21:34 200 MG Laboratory Results Laboratory Tests 02/04/25 02:58 Chemistry Test 02/04/25 02:58 Calcium Level 9.8 mg/dL (8.7-10.4) Urinalysis Test 01/18/25 10:20 Urine Color Light-yellow (Yellow) Urine Clarity Clear (Clear) Urine pH 6.5 (5.0-9.0) Urine Specific [place] 1.017 (1.001-1.035) Urine Protein 3+ (Negative) H Urine Ketones Negative (Negative) Urine Blood 1+ /uL (Negative) H Urine Nitrite Negative (Negative) Urine Bilirubin Negative (Negative) Urine Urobilinogen Normal mg/dL (Negative) Urine Leukocyte Esterase Negative /uL (Negative) Urine RBC 1 /hpf (0 - 3) Urine Microscopic WBC 5 /HPF (0-3) H Urine Squamous Epithelial Cells Few /hpf (<5) Urine Bacteria None seen /hpf (None Seen) Urine Glucose 4+ mg/dL (Normal) H Blood Gas Results Test 02/04/25 06:52 Arterial Blood pH 7.450 (7.350-7.450) FiO2 % 30.0 Microbiology Microbiology Date/Time Source Procedure Growth Status 01/30/25 13:15 Blood Blood Culture - Final Staphylococcus epidermidis Complete 01/20/25 14:00 Sputum Gram Stain - Final Complete 01/20/25 14:00 Sputum Respiratory Culture - Final Complete 01/18/25 00:45 Nose MRSA Screen - Final Complete Assessment/Plan Assessment/Plan Impression: Acute hypoxic respiratory failure On mechanical ventilator Sepsis Metabolic encephalopathy Diabetic ketoacidosis ESRD with hemodialysis Events: Remains on vent support On AC mode; RR 14, VT 500, PEEP 5, FiO2 30% Remains off sedation Off Precedex drip ABG reviewed, compensated CXR today unchanged; mild bibasilar atelectasis. No evidence of acute cardiopulmonary process. Devices in place. Patient tolerating CPAP - CPAP with PS 8, PEEP 5. Continue daily CPAP Patient not awake, alert. Awaiting for mentation to improve for extubation. Remains off pressors, hemodynamically stable Monitor blood pressure Hemodialysis per Nephrology - HD yesterday Nephrology recs appreciated Continue antibiotics Antiepileptic with Keppra Protonix Sucralfate Accu-Cheks, ISS. Tube feeds for nutritional support Continue daily SBT. Continue attempts to liberate from mechanical ventilator. Awaiting for mentation to improve - not following commands. Need to address goals of care with family Patient with poor prognosis. MRI brain w/o contrast revealed no acute abnormalities. 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 Labs and imaging reviewed. Rest of plan as noted below. Plan: s/p intubation on mechanical ventilator. On AC mode; RR 14, VT 500, PEEP 5, FiO2 30% Titrate FIO2 to keep O2 saturation above 90%. VAP bundle. Daily ABG and CXR while intubated Continue bronchodilators. Continue antibiotics. Antiepileptic medication Pressors as necessary for hemodynamic support Titrate to keep mean arterial pressure greater than 65 mmHg. Tube feeds for nutrition Accu-Cheks, ISS. On Sucralfate and Protonix. GI recs appreciated. Hemodialysis per Nephrology Monitor renal function Monitor electrolytes. Supplement as necessary. Monitor ins and outs. SBT/RENU GI prophylaxis. DVT prophylaxis. Prognosis: Poor given patient's multiple co-morbidities. Condition: Critical Rest of plan per hospitalist and other consultants. A total of 35 minutes of critical care time was spent reviewing the patient record, examining the patient, making a diagnostic and therapeutic plan, discussing this plan with the medical personnel, following up on diagnostic studies and following the patient for clinical stability excluding any and all procedures. At least 50% of this time was spent in direct, hrey-ae-rief contact. Thank you, Dr. Salvador, for allowing me to participate in this patient's care. Further recommendations will depend on the patient's clinical course. Please do not hesitate to contact me if you have any questions or concerns. This medical document was created using an electronic medical record system with [employer] system. Although these documentations are being carefully reviewed, there may still be some phonetic and typographical changes. The errors are purely typographical, due to imperfection on the software program, and do not reflect any compromise in the patient's medical care Plan discussed with: Other (BRITTNI Ko) My Orders Orders - MISAEL KIM MD Procedure Category Date Status Time Abg W/ Co-Ox RT 02/04/25 Logged 06:00 Cpap Trial For Am ORDERS 02/04/25 Transmitted 05:20 Visit Coding Pulmonary Billing Provider: MISAEL KIM MD Date of Service if different f: Feb 04, 2025 Common Visit Codes: [id number] INP/OBS CARE(HIGH), [id number] CARE 30-74 MIN MISAEL KIM MD Feb 04, 2025 23:37
[2025-02-05] VITALS (71 sets, daily range): BP systolic 82–173; BP diastolic 39–84; PULSE 24–118; RESP 0–21; TEMP 97.7–98.1; O2SAT 100
--- NOTE | 2025-02-05 01:30 | DVH ---
CHEST RADIOGRAPH Indication: intubated Technique: Single frontal view of the chest was obtained COMPARISON: XY CHEST PORTABLE on DOS: 02/04/25, XY CHEST PORTABLE on DOS: 02/03/25, XY CHEST PORTABLE on DOS: 02/02/25, XY CHEST PORTABLE on DOS: 02/02/25, XY CHEST PORTABLE on DOS: 01/31/25 FINDINGS: ETT terminating 5 cm above the robert. NG tube entering the stomach, tip extending beyond the field of view. Band of atelectasis or scarring within the right lung appears similar. No new airspace disease. No significant pleural effusions or pneumothorax. IMPRESSION: ET tube terminating approximately 5 cm above the robert.
[2025-02-05 03:16] LABS: Hematocrit 26.3 % (41.0-53.0); Hemoglobin 8.8 g/dL (13.5-17.5); Mean Corpuscular Hemoglobin 31.8 pg (28.0-32.0); Mean Corpuscular Volume 94.8 fL (80.0-100.0); Nucleated Red Blood Cells % 0.0 %
[2025-02-05 03:20] LABS: Chloride 106 mmol/L (98-107)
[2025-02-05 03:21] LABS: Anion Gap 16 (5-15); Carbon Dioxide 25 mmol/L (20-31)
[2025-02-05 03:22] LABS: Calcium 10.2 mg/dL (8.7-10.4)
[2025-02-05 03:27] LABS: BUN/Creatinine Ratio 6.9 (10.0-20.0)
[2025-02-05 03:28] LABS: Blood Urea Nitrogen 46 mg/dL (9-23); Glucose 235 mg/dL (74-106); Potassium 3.2 mmol/L (3.5-5.1); Sodium 147 mmol/L (136-145)
[2025-02-05 05:40] LABS: Base Excess 2.2 mmol/L (-2.0-3.0)
[2025-02-05] MEDS: POTASSIUM CHL 20MEQ/100ML 100 ML IV ONE (06:08)
--- NOTE | 2025-02-05 09:03 | DVHPN2 ---
Subjective Patient intubated, off sedation. Not following commands. Reviewed: Care Plan, H&P, Labs, Medications Changes from previous H/P or p: No Changes General: Per HPI Objective Vitals Vital Signs Date Time Temp Pulse Resp B/P (MAP) Pulse Ox O2 Delivery O2 Flow Rate FiO2 02/05/25 07:35 94 18 160/59 (92) 100 30 02/05/25 06:00 Mechanical Ventilator+ 02/04/25 23:15 98.5 98.5 Intake/Output Intake and Output 02/05/25 07:00 Intake Total 398.5 ml Output Total 15 ml Balance 383.5 ml IV Total 202.5 ml Tube Feeding 196 ml Output Urine Total 15 ml General Appearance: mild distress, Other (Continues to be encephalopathic) HEENT: Atraumatic, Other (Unequal pupils) Lungs: Other (Mechanical ventilation. Transmitted breath sounds bilaterally. Decreased air entry.) Chest/Breasts: Other (Noted rash, shingles to right upper chest) Cardiovascular: Normal S1, Normal S2, Other (Sinus rhythm/sinus bradycardia) Abdomen: Normal bowel sounds, Soft, No tenderness, No hepatospenomegaly Genitourinary: No Apparent Abnormalities ([place]) Musculoskeletal: Other (Unable to assess) Neuro: Other (Unable to assess) Skin: Dry, Intact, Other (Rash to right upper chest) Psych/Mental Status: Other (Unable to assess) Medications Current Medications Medications Dose Ordered Sig/Aleta Route Start Time Stop Time Status Last Admin Dose Admin Ondansetron HCl 4 mg Q4HP PRN IV 01/18/25 04:30 Nitroglycerin 0.4 mg Q5MINP PRN SL 01/18/25 04:30 Morphine Sulfate 2 mg Q30M PRN IV 01/18/25 04:30 Dextrose/Sodium Chloride 1,000 ml @ 75 mls/hr [id number] IV 01/18/25 15:30 UNV Hydralazine HCl 10 mg Q6HP PRN IV 01/19/25 05:30 02/04/25 09:34 10 MG Albuterol 2.5 mg Q4HPRN PRN NEB 01/20/25 00:15 01/20/25 09:53 2.5 MG Ipratropium [place] 0.5 mg Q4HPRN PRN NEB 01/20/25 00:15 01/20/25 09:53 0.5 MG Fentanyl Citrate 250 ml @ 2.5 mls/hr Q24H IV 01/20/25 14:00 01/25/25 17:25 2.5 MLS/HR Albuterol 2.5 mg Q6HR NEB 01/20/25 18:00 02/05/25 06:10 2.5 MG Ipratropium [place] 0.5 mg Q6HR NEB 01/20/25 18:00 02/05/25 06:10 0.5 MG Norepinephrine Bitartrate 250 ml @ 3.75 mls/hr Q24H IV 01/21/25 09:00 02/02/25 00:35 3.75 MLS/HR Enteral Nutritional Formula 1,000 ml 50ML/HR GT 01/21/25 09:30 02/02/25 22:08 1,000 ML Pantoprazole Sodium 40 mg DAILY IV 01/21/25 10:00 02/04/25 09:33 40 MG Sucralfate 1 gm BID@0600,2200 GT 01/21/25 22:00 02/05/25 06:08 1 GM Diagnostic Test (Pha) 1 strip Q6HR 01/22/25 12:00 02/05/25 06:24 1 STRIP Insulin Human Regular Q6HR SC 01/22/25 12:00 02/05/25 06:13 6 UNITS Dextrose 50 ml UD PRN IV 01/22/25 08:30 01/30/25 18:06 50 ML Glycopyrrolate 0.2 mg Q6HP PRN IV 01/29/25 14:00 01/31/25 05:21 0.2 MG Albumin Human 100 ml @ 100 mls/hr PRN PRN IV 01/30/25 07:30 01/30/25 10:20 100 MLS/HR Vancomycin HCl 0 ml @ 0 mls/hr PER PHARMACY IV 01/30/25 08:15 Acetaminophen/ Hydrocodone Bitart 1 tab Q6HPRN PRN PO 01/30/25 23:00 02/01/25 21:08 1 TAB Meropenem 50 ml @ 17 mls/hr DAILY IV 01/31/25 10:00 02/04/25 10:58 17 MLS/HR Micafungin Sodium 100 mg/Sodium Chloride 100 ml @ 100 mls/hr DAILY IV 01/31/25 10:00 02/04/25 09:31 100 MLS/HR Levetiracetam 250 mg/Sodium Chloride 52.5 ml @ 175 mls/hr Q24H IV 02/02/25 21:00 03/04/25 20:59 02/04/25 21:34 175 MLS/HR Acyclovir Sodium 300 mg/Sodium Chloride 256 ml @ 256 mls/hr HS IV 02/04/25 22:00 Thiamine HCl 200 mg BID IV 02/03/25 15:45 02/07/25 15:44 02/04/25 21:34 200 MG Laboratory Results Laboratory Tests 02/05/25 02:55 Chemistry Test 02/05/25 02:55 Calcium Level 10.2 mg/dL (8.7-10.4) Urinalysis Test 01/18/25 10:20 Urine Color Light-yellow (Yellow) Urine Clarity Clear (Clear) Urine pH 6.5 (5.0-9.0) Urine Specific [place] 1.017 (1.001-1.035) Urine Protein 3+ (Negative) H Urine Ketones Negative (Negative) Urine Blood 1+ /uL (Negative) H Urine Nitrite Negative (Negative) Urine Bilirubin Negative (Negative) Urine Urobilinogen Normal mg/dL (Negative) Urine Leukocyte Esterase Negative /uL (Negative) Urine RBC 1 /hpf (0 - 3) Urine Microscopic WBC 5 /HPF (0-3) H Urine Squamous Epithelial Cells Few /hpf (<5) Urine Bacteria None seen /hpf (None Seen) Urine Glucose 4+ mg/dL (Normal) H Blood Gas Results Test 02/05/25 05:34 Arterial Blood pH 7.395 (7.350-7.450) FiO2 % 30.0 Microbiology Microbiology Date/Time Source Procedure Growth Status 01/30/25 13:15 Blood Blood Culture - Final Staphylococcus epidermidis Complete 01/20/25 14:00 Sputum Gram Stain - Final Complete 01/20/25 14:00 Sputum Respiratory Culture - Final Complete 01/18/25 00:45 Nose MRSA Screen - Final Complete Labs and/or images reviewed: Labs reviewed by me, Image(s) reviewed by me Assessment/Plan Assessment/Plan Impression: -Sepsis -metabolic encephalopathy -DKA -ESRD with hemodialysis -primary hypertension -dyslipidemia -hyponatremia -? seizure -Hypoglycemia Plan: Events: Patient off sedation and continues to be encephalopathic. Leukocytosis resolved. Discussed case with Neurology,. Apparently, discussion has been made with family by covering Hospitalist regarding next step in plan of care: Tracheostomy/Peg vs Compassionate extubation. -stop Lantus. Start D5 NS infusion. Continue regular insulin sliding scale -CPAP trial once appropriate -Neurology consult. Recommendations reviewed. -nephrology consultation: Received hemodialysis yesterday -ppi, Carafate --continue vancomycin, cefepime, acyclovir, add micafungin -repeat labs, chest x-ray, ABG in a.m. Critical care time spent with patient discussing and formulating plan of care: 40 minutes. This does not include time spent performing procedures. This medical document was created using an electronic medical record system with [employer] dictation system. Although this document has been carefully reviewed, there may still be some phonetic and typographical errors. These areas are purely typographical due to imperfections of the software programs, and do not reflect any compromise in the patient's medical care. Plan discussed with: Patient, Other (RN) Date of Service: Feb 05, 2025 Billing Provider: ROCÍO RAMIREZ NP Common Visit Codes: [id number] CARE 30-74 MIN ROCÍO RAMIREZ NP Feb 05, 2025 09:03
--- NOTE | 2025-02-05 10:38 | DVHPN2 ---
Progress Note - Dictate Date Seen: Feb 05, 2025 Medical Necessity Reason Pt with a Central, PICC or Fol: Yes The following are medically ne: [place] Catheter Subjective Mr. Pisano is a 70 years old right-handed gentleman with a history of hypertension, diabetes, end-stage kidney failure on hemodialysis, the patient was brought to the [facility] on 01/17/2025 with a chief complaint of altered mental status. Because no improvement in the mental status, increased secretion and difficulty cleaning the respiratory tract, he was intubated on 01/20/2025 I have seen and examined the patient, I have discussed with his nurse. The eyes close tightly, he moves both arms Mild infrequent grimace noticed No sedation The case was discussed with Beto Pupil size 01/22/25: Right: 3-4 mm, left: 1-2 mm, no associated abnormal vascular dilatation and skin secretion 01/23/25: Right: 3-4 mm, left: 2 mm 01/24/25: Right: 3-4 mm, left: 2 mm 01/24/25: Right: 4 mm, left: 2-3 mm 01/27/25: Right: 4-5 mm, left: 2-3 mm 01/28/25: Eyes tightly closed 01/29/25: Right: 4-5 mm, left: 2-3 mm 01/30/25: Eyes tightly closed 01/31/25: Eyes tightly closed 02/01/25: The right pupil looks bigger 02/03/25: Eyes tightly closed 02/04/25: Eyes tightly closed 02/05/25: The right pupil is bigger ABG, 01/18/2025: Compensated Metabolic acidosis UDS, 01/18/2025: Negative Plasma alcohol, 01/17/2025: <3 Urinalysis, 01/18/2025: WBC: Five, urine leukocyte esterase: Negative CBC, 01/18/2025: Compensated metabolic acidosis WBC/HB/PLT/MCV, 01/18/2025: 14.4/11.8/189/92.3 Na, 01/18/2025: 127, 131, 01/30/25: 146 02/02/2025: 147, 02/03/2025: 150 BUN/CR, : 113/11.33, 119/11.42, 50/5.72, 01/19/2025: 57/7.03, 01/28/2025: 51/5.55, 01/29/2025: 65/6.38, 01/30/2025: 92/8.44 GFR, 01/18/2025: 4, 4, 10 Anion gap, 01/18/2025: 19, 20, Glucose, 01/17/2025: 856, 01/18/2025: 862, 710, 551, 231 Liver function tests, 01/18/2025: Unremarkable EEG, 01/20/2025: moderately abnormal EEG Chest x-ray, 01/18/2025: There is prominence of the interstitial markings. Mild right basilar opacity. Mild prominence of the cardiomediastinal silhouette, likely accentuated by technique. No pleural effusion or pneumothorax. No acute osseous abnormality CT head, 01/15/2025: 1. No acute territorial infarct, intracranial hemorrhage, or mass effect. 2. Age-related involutional changes. Chronic ischemic changes as detailed. 3. 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 No acute abnormal MRI findings of the brain. vital signs Vital Sign Date Time Temp Pulse Resp B/P (MAP) Pulse Ox O2 Delivery O2 Flow Rate FiO2 02/05/25 09:41 89 14 133/69 (90) 100 30 02/05/25 08:01 98.1 98.1 02/05/25 08:00 Mechanical Ventilator+ Total Intake and Output 02/04/25 02/04/25 02/05/25 15:00 23:00 07:00 Intake Total 150 ml 52.5 ml 196 ml Output Total 10 ml 5 ml Balance 150 ml 42.5 ml 191 ml medications Current Medications Medications Dose Ordered Sig/Aleta Route Start Time Stop Time Status Last Admin Dose Admin Ondansetron HCl 4 mg Q4HP PRN IV 01/18/25 04:30 Nitroglycerin 0.4 mg Q5MINP PRN SL 01/18/25 04:30 Morphine Sulfate 2 mg Q30M PRN IV 01/18/25 04:30 Dextrose/Sodium Chloride 1,000 ml @ 75 mls/hr [id number] IV 01/18/25 15:30 UNV Hydralazine HCl 10 mg Q6HP PRN IV 01/19/25 05:30 02/04/25 09:34 10 MG Albuterol 2.5 mg Q4HPRN PRN NEB 01/20/25 00:15 01/20/25 09:53 2.5 MG Ipratropium [place] 0.5 mg Q4HPRN PRN NEB 01/20/25 00:15 01/20/25 09:53 0.5 MG Fentanyl Citrate 250 ml @ 2.5 mls/hr Q24H IV 01/20/25 14:00 01/25/25 17:25 2.5 MLS/HR Albuterol 2.5 mg Q6HR NEB 01/20/25 18:00 02/05/25 06:10 2.5 MG Ipratropium [place] 0.5 mg Q6HR NEB 01/20/25 18:00 02/05/25 06:10 0.5 MG Norepinephrine Bitartrate 250 ml @ 3.75 mls/hr Q24H IV 01/21/25 09:00 02/02/25 00:35 3.75 MLS/HR Enteral Nutritional Formula 1,000 ml 50ML/HR GT 01/21/25 09:30 02/02/25 22:08 1,000 ML Pantoprazole Sodium 40 mg DAILY IV 01/21/25 10:00 02/05/25 09:36 40 MG Sucralfate 1 gm BID@0600,2200 GT 01/21/25 22:00 02/05/25 06:08 1 GM Diagnostic Test (Pha) 1 strip Q6HR 01/22/25 12:00 02/05/25 06:24 1 STRIP Insulin Human Regular Q6HR SC 01/22/25 12:00 02/05/25 06:13 6 UNITS Dextrose 50 ml UD PRN IV 01/22/25 08:30 01/30/25 18:06 50 ML Glycopyrrolate 0.2 mg Q6HP PRN IV 01/29/25 14:00 01/31/25 05:21 0.2 MG Albumin Human 100 ml @ 100 mls/hr PRN PRN IV 01/30/25 07:30 01/30/25 10:20 100 MLS/HR Vancomycin HCl 0 ml @ 0 mls/hr PER PHARMACY IV 01/30/25 08:15 Acetaminophen/ Hydrocodone Bitart 1 tab Q6HPRN PRN PO 01/30/25 23:00 02/01/25 21:08 1 TAB Meropenem 50 ml @ 17 mls/hr DAILY IV 01/31/25 10:00 02/04/25 10:58 17 MLS/HR Micafungin Sodium 100 mg/Sodium Chloride 100 ml @ 100 mls/hr DAILY IV 01/31/25 10:00 02/05/25 09:27 100 MLS/HR Levetiracetam 250 mg/Sodium Chloride 52.5 ml @ 175 mls/hr Q24H IV 02/02/25 21:00 03/04/25 20:59 02/04/25 21:34 175 MLS/HR Acyclovir Sodium 300 mg/Sodium Chloride 256 ml @ 256 mls/hr HS IV 02/04/25 22:00 Thiamine HCl 200 mg BID IV 02/03/25 15:45 02/07/25 15:44 02/05/25 09:27 200 MG objective The patient is well-nourished and well-developed with no distress. The patient is intubated MENTAL STATUS: Subjective CRANIAL NERVES: Subjective. No signs of facial weakness. There are gagging or coughing reflexes SENSATION: Responses to pain and touch MOTOR: Normal tone in the upper and lower extremity. Normal muscle bulk. No fasciculations. Moves the arms REFLEXES: Deep tendon reflexes are symmetrical. No pathological reflexes. CEREBELLAR/COORDINATION: Deferred GAIT/STATION: deferred. laboratory and microbiology Test 02/05/25 09:15 Range/Units Serum Glucose Pending Problem List Diabetic ketoacidosis Metabolic acidosis Metabolic encephalopathy Herpes zoster infection/shingles ? Intracranial infection End-stage kidney failure Anisocoria with right pupil bigger, etiology unclear, possible secondary to history of surgery One eye blindness Myoclonus in the face, neck, left arm Assessment/Plan Monitoring Supportive treatment ICU care Stabilize vitals Respiratory support/vent management Oxygen Acyclovir 700 mg daily IV antibiotics Keppra 250 mg IV q.d. for the myoclonus Current pain management Haldol for agitation History from him directly later More recommendation per clinical course Family to Discuss care plan This medical document was created using an electronic medical record system with [employer] computerized dictation system. Although this document has been carefully reviewed, there may still be some phonetic and typographical errors. These areas are purely typographical due to imperfections of the software programs, and do not reflect any compromise in the patient's medical care. Prognosis guarded Dietary Evaluation Review Comments: 1) Consider reducing TF rate from 50 mL to 40 mL/hr goal rate to prevent overfeeding. Nepro Carbsteady @ 40 mL/hr will provide 1728 kcals, 78g Pro, and 698 mL free H2O per 24 hrs. Goal rate will meet 100% estimated energy needs and 85% estimated protein needs 2) Advance to 60g CCHO renal diet when medically feasible 3) Collect HbA1c 4) Follow-up with nephrology, cardiology, and pulmonology 5) Continue to monitor I&O, labs, and skin integrity Expected Outcomes/Goals: 1) nutrition support to meet at least 75% estimated daily needs 2) labs to improve 3) diet to advance 4) f/u in 2-3 days Plan discussed with: Other LETTY HANNA MD Feb 05, 2025 10:38
[2025-02-05 10:40] LABS: Hematocrit 29.0 % (41.0-53.0); Hemoglobin 9.7 g/dL (13.5-17.5); Mean Corpuscular Hemoglobin 31.5 pg (28.0-32.0); Mean Corpuscular Volume 94.7 fL (80.0-100.0); Nucleated Red Blood Cells % 0.2 %
[2025-02-05 10:50] LABS: Chloride 106 mmol/L (98-107); Potassium 3.6 mmol/L (3.5-5.1)
[2025-02-05 10:51] LABS: Anion Gap 15 (5-15); Calcium 10.4 mg/dL (8.7-10.4); Carbon Dioxide 29 mmol/L (20-31)
[2025-02-05 10:54] LABS: Sodium 150 mmol/L (136-145)
[2025-02-05 10:56] LABS: BUN/Creatinine Ratio 7.5 (10.0-20.0)
[2025-02-05 11:00] LABS: Blood Urea Nitrogen 59 mg/dL (9-23); Glucose 181 mg/dL (74-106); Magnesium 2.9 mg/dL (1.6-2.6)
[2025-02-05] MEDS ORDERED: D5W 5% 1,000 ML IV SCH (14:15)
[2025-02-05] MEDS ORDERED: MORPHINE SULFATE INJ 2 MG/ml SYRG IV PRN (14:15)
--- NOTE | 2025-02-05 14:21 | DVHPN2 ---
Progress Note - Dictate Date Seen: Feb 05, 2025 Medical Necessity Reason Pt with a Central, PICC or Fol: Yes The following are medically ne: [place] Catheter Subjective Patient is currently in the ICU he is alert but not following commands family is also at bedside. vital signs Vital Sign Date Time Temp Pulse Resp B/P (MAP) Pulse Ox O2 Delivery O2 Flow Rate FiO2 02/05/25 13:15 97 13 127/48 (74) 100 02/05/25 12:00 Mechanical Ventilator+ 30 30 02/05/25 12:00 97.7 97.7 Total Intake and Output 02/04/25 02/04/25 02/05/25 15:00 23:00 07:00 Intake Total 150 ml 52.5 ml 196 ml Output Total 10 ml 5 ml Balance 150 ml 42.5 ml 191 ml medications Current Medications Medications Dose Ordered Sig/Aleta Route Start Time Stop Time Status Last Admin Dose Admin Ondansetron HCl 4 mg Q4HP PRN IV 01/18/25 04:30 Nitroglycerin 0.4 mg Q5MINP PRN SL 01/18/25 04:30 Morphine Sulfate 2 mg Q30M PRN IV 01/18/25 04:30 Dextrose/Sodium Chloride 1,000 ml @ 75 mls/hr [id number] IV 01/18/25 15:30 UNV Hydralazine HCl 10 mg Q6HP PRN IV 01/19/25 05:30 02/05/25 11:43 10 MG Albuterol 2.5 mg Q4HPRN PRN NEB 01/20/25 00:15 01/20/25 09:53 2.5 MG Ipratropium [place] 0.5 mg Q4HPRN PRN NEB 01/20/25 00:15 01/20/25 09:53 0.5 MG Fentanyl Citrate 250 ml @ 2.5 mls/hr Q24H IV 01/20/25 14:00 01/25/25 17:25 2.5 MLS/HR Albuterol 2.5 mg Q6HR NEB 01/20/25 18:00 02/05/25 12:43 2.5 MG Ipratropium [place] 0.5 mg Q6HR NEB 01/20/25 18:00 02/05/25 12:43 0.5 MG Norepinephrine Bitartrate 250 ml @ 3.75 mls/hr Q24H IV 01/21/25 09:00 02/02/25 00:35 3.75 MLS/HR Enteral Nutritional Formula 1,000 ml 50ML/HR GT 01/21/25 09:30 02/02/25 22:08 1,000 ML Pantoprazole Sodium 40 mg DAILY IV 01/21/25 10:00 02/05/25 09:36 40 MG Sucralfate 1 gm BID@0600,2200 GT 01/21/25 22:00 02/05/25 06:08 1 GM Diagnostic Test (Pha) 1 strip Q6HR 01/22/25 12:00 02/05/25 11:43 1 STRIP Insulin Human Regular Q6HR SC 01/22/25 12:00 02/05/25 06:13 6 UNITS Dextrose 50 ml UD PRN IV 01/22/25 08:30 01/30/25 18:06 50 ML Glycopyrrolate 0.2 mg Q6HP PRN IV 01/29/25 14:00 02/05/25 11:44 0.2 MG Albumin Human 100 ml @ 100 mls/hr PRN PRN IV 01/30/25 07:30 01/30/25 10:20 100 MLS/HR Vancomycin HCl 0 ml @ 0 mls/hr PER PHARMACY IV 01/30/25 08:15 Acetaminophen/ Hydrocodone Bitart 1 tab Q6HPRN PRN PO 01/30/25 23:00 02/01/25 21:08 1 TAB Meropenem 50 ml @ 17 mls/hr DAILY IV 01/31/25 10:00 02/05/25 11:05 17 MLS/HR Micafungin Sodium 100 mg/Sodium Chloride 100 ml @ 100 mls/hr DAILY IV 01/31/25 10:00 02/05/25 09:27 100 MLS/HR Levetiracetam 250 mg/Sodium Chloride 52.5 ml @ 175 mls/hr Q24H IV 02/02/25 21:00 03/04/25 20:59 02/04/25 21:34 175 MLS/HR Acyclovir Sodium 300 mg/Sodium Chloride 256 ml @ 256 mls/hr HS IV 02/04/25 22:00 Thiamine HCl 200 mg BID IV 02/03/25 15:45 02/07/25 15:44 02/05/25 09:27 200 MG Dextrose 1,000 ml @ 30 mls/hr Q24H IV 02/05/25 14:15 02/05/25 21:00 UNV objective HEENT: ET tube in place Pulmonary: Lungs are clear on auscultation bilaterally Cardiovascular S1-S2, no S3 or S4 Abdomen: Bowel sounds positive, soft no rebound tenderness Skin: No rash Neurological: Alert, not following commands laboratory and microbiology Laboratory Tests 02/05/25 09:15 Test 02/05/25 09:15 Range/Units Serum Glucose 181 H 74-106 mg/dL Assessment/Plan Assessment: End-stage kidney disease on hemodialysis Acute hypoxic respiratory failure Metabolic encephalopathy Shingles uncontrolled diabetes Hypernatremia Probable seizures. Plan and recommendations: Continue Hemodialysis on TTS schedule. Continue with antibiotics Provide free water via OG tube if continues to worsen hypernatremia we will need to start D5W Family decision regarding goals of care next week. Plan of care from Nephrology perspective discussed with the family Dietary Evaluation Review Comments: 1) Consider reducing TF rate from 50 mL to 40 mL/hr goal rate to prevent overfeeding. Nepro Carbsteady @ 40 mL/hr will provide 1728 kcals, 78g Pro, and 698 mL free H2O per 24 hrs. Goal rate will meet 100% estimated energy needs and 85% estimated protein needs 2) Advance to 60g CCHO renal diet when medically feasible 3) Collect HbA1c 4) Follow-up with nephrology, cardiology, and pulmonology 5) Continue to monitor I&O, labs, and skin integrity Expected Outcomes/Goals: 1) nutrition support to meet at least 75% estimated daily needs 2) labs to improve 3) diet to advance 4) f/u in 2-3 days Plan discussed with: Patient, Spouse HELENA RUIZ MD Feb 05, 2025 14:21
[2025-02-05] MEDS: LORazepam 2MG/ML-1ML VIAL IV PRN (14:58)
[2025-02-05] MEDS: MORPHINE SULFATE 4 MG/ML SYR/VIAL IV PRN (15:10)
[2025-02-05] MEDS ORDERED: MORPHINE SULFATE 4 MG/ML SYR/VIAL ONE (15:13)
--- NOTE | 2025-02-05 23:29 | DVHPN2 ---
Subjective DOS: 02/05/2025 Patient seen and examined at bedside. Intubated on mechanical ventilator. Overnight events reviewed. Reviewed: Care Plan, H&P, Labs, Medications Changes from previous H/P or p: No Changes General: Per HPI Objective Vitals Vital Signs Date Time Temp Pulse Resp B/P (MAP) Pulse Ox O2 Delivery O2 Flow Rate FiO2 02/05/25 15:15 24 0 02/05/25 15:00 100 02/05/25 14:00 Mechanical Ventilator+ 30 30 02/05/25 12:00 97.7 97.7 Intake/Output Intake and Output 02/05/25 07:00 Intake Total 398.5 ml Output Total 15 ml Balance 383.5 ml IV Total 202.5 ml Tube Feeding 196 ml Output Urine Total 15 ml General Appearance: mild distress, Other (Continues to be encephalopathic) HEENT: Atraumatic, Other (Unequal pupils) Lungs: Other (Mechanical ventilation. Transmitted breath sounds bilaterally. Decreased air entry.) Chest/Breasts: Other (Noted rash, shingles to right upper chest) Cardiovascular: Normal S1, Normal S2, Other (Sinus rhythm/sinus bradycardia) Abdomen: Normal bowel sounds, Soft, No tenderness, No hepatospenomegaly Genitourinary: No Apparent Abnormalities ([place]) Musculoskeletal: Other (Unable to assess) Neuro: Other (Unable to assess) Skin: Dry, Intact, Other (Rash to right upper chest) Psych/Mental Status: Other (Unable to assess) Medications Current Medications Medications Dose Ordered Sig/Aleta Route Start Time Stop Time Status Last Admin Dose Admin Dextrose/Sodium Chloride 1,000 ml @ 75 mls/hr [id number] IV 01/18/25 15:30 UNV Laboratory Results Laboratory Tests 02/05/25 09:15 Chemistry Test 02/05/25 02:55 02/05/25 09:15 Calcium Level 10.2 mg/dL (8.7-10.4) 10.4 mg/dL (8.7-10.4) Magnesium Level 2.9 mg/dL (1.6-2.6) H Urinalysis Test 01/18/25 10:20 Urine Color Light-yellow (Yellow) Urine Clarity Clear (Clear) Urine pH 6.5 (5.0-9.0) Urine Specific [place] 1.017 (1.001-1.035) Urine Protein 3+ (Negative) H Urine Ketones Negative (Negative) Urine Blood 1+ /uL (Negative) H Urine Nitrite Negative (Negative) Urine Bilirubin Negative (Negative) Urine Urobilinogen Normal mg/dL (Negative) Urine Leukocyte Esterase Negative /uL (Negative) Urine RBC 1 /hpf (0 - 3) Urine Microscopic WBC 5 /HPF (0-3) H Urine Squamous Epithelial Cells Few /hpf (<5) Urine Bacteria None seen /hpf (None Seen) Urine Glucose 4+ mg/dL (Normal) H Blood Gas Results Test 02/05/25 05:34 Arterial Blood pH 7.395 (7.350-7.450) FiO2 % 30.0 Microbiology Microbiology Date/Time Source Procedure Growth Status 01/30/25 13:15 Blood Blood Culture - Final Staphylococcus epidermidis Complete 01/20/25 14:00 Sputum Gram Stain - Final Complete 01/20/25 14:00 Sputum Respiratory Culture - Final Complete 01/18/25 00:45 Nose MRSA Screen - Final Complete Assessment/Plan Assessment/Plan Impression: Acute hypoxic respiratory failure On mechanical ventilator Sepsis Metabolic encephalopathy Diabetic ketoacidosis ESRD with hemodialysis Events: Remains on vent support On AC mode; RR 14, VT 500, PEEP 5, FiO2 30% Remains off sedation Off Precedex drip CXR today reveals band of atelectasis or scarring within the right lung. Devices in place. Patient awake, alert, not following commands. Remains off pressors, hemodynamically stable Monitor blood pressure Hemodialysis per Nephrology Nephrology recs appreciated Continue antibiotics Antiepileptic with Keppra Protonix Sucralfate Accu-Cheks, ISS. Tube feeds for nutritional support Patient with poor prognosis. Attempts to liberate from mechanical ventilator unsuccessful No improvement in mentation, patient not following commands. Goals of care addressed with family. Family agreed for compassionate extubation. Patient is DNR/DNI. Addendum: I was informed by RN that patient status post terminal extubation, pronounced at 1517 hours. Labs and imaging reviewed. Plan: s/p intubation on mechanical ventilator. On AC mode; RR 14, VT 500, PEEP 5, FiO2 30% Titrate FIO2 to keep O2 saturation above 90%. VAP bundle. Daily ABG and CXR while intubated Continue bronchodilators. Continue antibiotics. Antiepileptic medication MRI brain w/o contrast revealed no acute abnormalities. 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 Pressors as necessary for hemodynamic support Titrate to keep mean arterial pressure greater than 65 mmHg. Tube feeds for nutrition Accu-Cheks, ISS. On Sucralfate and Protonix. GI recs appreciated. Hemodialysis per Nephrology Monitor renal function Monitor electrolytes. Supplement as necessary. Monitor ins and outs. SBT/RENU GI prophylaxis. DVT prophylaxis. Prognosis: Poor given patient's multiple co-morbidities. Condition: Critical Rest of plan per hospitalist and other consultants. A total of 35 minutes of critical care time was spent reviewing the patient record, examining the patient, making a diagnostic and therapeutic plan, discussing this plan with the medical personnel, following up on diagnostic studies and following the patient for clinical stability excluding any and all procedures. At least 50% of this time was spent in direct, [id number] contact. Thank you, Dr. Salvador, for allowing me to participate in this patient's care. Further recommendations will depend on the patient's clinical course. Please do not hesitate to contact me if you have any questions or concerns. This medical document was created using an electronic medical record system with [employer] dictation system. Although these documentations are being carefully reviewed, there may still be some phonetic and typographical changes. The errors are purely typographical, due to imperfection on the software program, and do not reflect any compromise in the patient's medical care Plan discussed with: Other (RN/NOK) My Orders Orders - MISAEL KIM MD Procedure Category Date Status Time Respiratory Misc. RT 02/05/25 Transmitted Order 02:55 Abg W/ Co-Ox RT 02/05/25 Logged 05:24 Visit Coding Pulmonary Billing Provider: MISAEL KIM MD Date of Service if different f: Feb 05, 2025 Common Visit Codes: [id number] INP/OBS CARE(HIGH), 86044-[id number] CARE 30-74 MIN MISAEL KIM MD Feb 05, 2025 23:29
[2025-02-06] MEDS ORDERED: SODIUM CHL 0.9% 1000 ML BAG XX ONE (07:00)
--- NOTE | 2025-02-06 08:28 | DVHDS2 ---
Discharge Summary Date of Admission Jan 18, 2025 at 04:22 Date of Discharge: Jan 26, 2025 Admitting Diagnosis Diabetic ketoacidosis Labs/Diagnostic Data: Laboratory Results Test 02/05/25 11:47 02/05/25 09:15 02/05/25 05:34 02/05/25 02:55 POC Glucose 147 mg/dl (70-106) White Blood Count 10.5 10^3/uL (4.4-10.8) Red Blood Count 3.06 10^6/uL (4.5-5.90) Hemoglobin 9.7 g/dL (13.5-17.5) Hematocrit 29.0 % (41.0-53.0) Mean Corpuscular Volume 94.7 fL (80.0-100.0) Mean Corpuscular Hemoglobin 31.5 pg (28.0-32.0) Mean Corpuscular Hemoglobin Concent 33.3 g/dL (32.0-36.0) Red Cell Distribution Width 14.9 % (11.8-14.3) Platelet Count 277 10^3/uL (140-450) Mean Platelet Volume 9.2 fL (6.9-10.8) Neutrophils (%) (Auto) 84.3 % (37.0-80.0) Lymphocytes (%) (Auto) 4.2 % (10.0-50.0) Monocytes (%) (Auto) 9.0 % (0.0-12.0) Eosinophils (%) (Auto) 1.5 % (0.0-7.0) Basophils (%) (Auto) 1.0 % (0.0-2.0) Neutrophils # (Auto) 8.8 10 ^3/uL (1.6-8.6) Lymphocytes # (Auto) 0.4 10 ^3/uL (0.4-5.4) Monocytes # (Auto) 0.9 10 ^3/uL (0-1.3) Eosinophils # (Auto) 0.2 10 ^3/uL (0-0.8) Basophils # (Auto) 0.1 10 ^3/uL (0-0.2) Nucleated Red Blood Cells 0.2 % Sodium Level 150 mmol/L (136-145) Potassium Level 3.6 mmol/L (3.5-5.1) Chloride Level 106 mmol/L (98-107) Carbon Dioxide Level 29 mmol/L (20-31) Anion Gap 15 (5-15) Blood Urea Nitrogen 59 mg/dL (9-23) Creatinine 7.84 mg/dL (0.700-1.30) Glomerular Filtration Rate Calc 7 mL/min (>90) BUN/Creatinine Ratio 7.5 (10.0-20.0) Serum Glucose 181 mg/dL (74-106) Calcium Level 10.4 mg/dL (8.7-10.4) Magnesium Level 2.9 mg/dL (1.6-2.6) Blood Gas Specimen Type Arterial Blood Gas Sample Site Left radial Blood Gas Patient Temperature 37.0 Arterial Blood Date Drawn [id number] Arterial Blood pH 7.395 (7.350-7.450) Arterial Blood Partial Pressure CO2 45.9 mmHg (35.0-48.0) Arterial Blood Partial Pressure O2 110.2 mmHg (83.0-108.0) Arterial Blood HCO3 27.5 mmol/L (21.0-28.0) Arterial Blood Oxygen Saturation 97.3 % (94.0-98.0) Arterial Blood Base Excess 2.2 mmol/L (-2.0-3.0) Arterial Blood Oxyhemoglobin 96.8 % (94.0-98.0) Arterial Blood Carboxyhemoglobin 0.3 % (0.5-1.5) Arterial Blood Methemoglobin 0.2 % (0.0-1.5) Nestor Test Modified Blood Gas Total Hemoglobin 10.50 g/dL (13.5-17.5) Blood Gas Set Respiration Rate 14.0 Blood Gas Modality Vent - ac FiO2 % 30.0 Blood Gas Tidal Volume 500.0 Blood Gas PEEP or CPAP 5.0 Random Vancomycin Level 18.5 ug/mL (5-10) Test 02/03/25 03:21 02/02/25 04:27 02/02/25 03:02 02/01/25 07:24 Treponema pallidum Antibody Non-reactive (Negative) Total Bilirubin 0.3 mg/dL (0.2-1.0) Aspartate Amino Transferase (AST) 17 U/L (13-40) Alanine Aminotransferase (ALT) 26 U/L (7-40) Alkaline Phosphatase 213 U/L (46-116) Total Protein 6.5 g/dL (5.7-8.2) Albumin 3.6 g/dL (3.2-4.8) HIV (1&2) Antibody Negative (Negative) Blood Gas Critical Value Read Back Yes Blood Gas Notified Whom Tj ramirez np Blood Gas Notified Time [id number] Blood Gas Notified By Mandi werner performing [employer] technicians Test 01/26/25 12:45 01/20/25 23:40 01/20/25 15:40 01/20/25 11:07 Blood Gas Spontaneous Rate 13 Blood Gas Spontaneous Tidal Volume 541 Blood Gas Pressure Support 8 Stool Occult Blood Negative (Negative) Stool Occult Blood Sample #3 (Negative) Hepatitis B Surface Antigen Negative (Negative) Blood Gas Liter Flow 6.00 Test 01/19/25 02:40 01/18/25 10:20 01/18/25 05:59 01/18/25 00:45 Erythrocyte Sedimentation Rate 11 mm/hr (0-20) C-Reactive Protein High Sensitivity 0.59 mg/dL (<1.0) Urine Color Light-yellow (Yellow) Urine Clarity Clear (Clear) Urine pH 6.5 (5.0-9.0) Urine Specific [place] 1.017 (1.001-1.035) Urine Protein 3+ (Negative) Urine Ketones Negative (Negative) Urine Blood 1+ /uL (Negative) Urine Nitrite Negative (Negative) Urine Bilirubin Negative (Negative) Urine Urobilinogen Normal mg/dL (Negative) Urine Leukocyte Esterase Negative /uL (Negative) Urine RBC 1 /hpf (0 - 3) Urine Microscopic WBC 5 /HPF (0-3) Urine Squamous Epithelial Cells Few /hpf (<5) Urine Bacteria None seen /hpf (None Seen) Urine Glucose 4+ mg/dL (Normal) Urine Opiates Screen Neg (NEGATIVE) Urine Fentanyl Screen Neg (NEGATIVE) Urine Barbiturates Screen Neg (NEGATIVE) Urine Phencyclidine Screen Neg (NEGATIVE) Urine Amphetamines Screen Neg (NEGATIVE) Urine Benzodiazepines Screen Neg (NEGATIVE) Urine Cocaine Screen Neg (NEGATIVE) Urine Cannabinoids Screen Neg (NEGATIVE) Serum Osmolality 353 mOsm/kg (278-298) Influenza Type A Antigen Negative (Negative) Influenza Type B Antigen Negative (Negative) SARS-CoV-2 Antigen (Rapid) Negative (NEGATIVE) Test 01/17/25 23:37 Lactic Acid Level 0.9 mmol/L (0.4-2.0) Troponin I High Sensitivity 11 ng/L (</=54) B-Type Natriuretic Peptide 1718.02 pg/mL (0-100) Lipase 41 U/L (12-53) Plasma/Serum Blood Alcohol < 3.0 mg/dL (<10) Other Laboratory Tests 02/05/25 09:15 Brief Hx & Hospital Course: History of Present Illness 70-year-old male presents for evaluation of altered mental status. Patient noted to be progressively more confused for the past two days by family members. They reported his blood sugar was reading high. Patient is currently lethargic oriented x1. He also saw also noted to have shingles on his right chest. He has a history of end-stage renal disease on hemodialysis. No further history could be obtained at the moment. Course of hospitalization: Patient had persistent altered mental status, subsequently requiring endotracheal intubation with mechanical ventilation given the inability to protect his airway with noticeable aspiration. Patient's DKA resolved. Patient was started on empiric antibiotic therapy, tube feeding, as well as maintenance dextrose given periods of hypoglycemia. Nephrology consultation was placed, with the patient receiving hemodialysis while in the hospital. Patient remained euvolemic. Sedation was weaned with the patient unable to follow any commands. CT scan was performed in the emergency room during admission. MRI was also performed once his shingles had improved to a non transmissible state. Neurology consultation was obtained. EEG was performed. Patient continued to remain encephalopathic. Long discussion was made with the patient by both Neurology and by myself regarding plan of care. Patient's family decided to compassionately extubate the patient, making the patient a DNI/DNR state. Shortly after being extubated, patient . Family was bedside. Total time spent with patient discussing and formulating plan of care: 35 minutes. This medical document was created using an electronic medical record system with [employer] dictation system. Although this document has been carefully reviewed, there may still be some phonetic and typographical errors. These areas are purely typographical due to imperfections of the software programs, and do not reflect any compromise in the patient's medical care. Consults/Reason for consult Nephrology: Hemodialysis Neurology: Altered mental status Condition at Discharge: Unstable Final Diagnosis/Problems List -Sepsis -metabolic encephalopathy -DKA -ESRD with hemodialysis -primary hypertension -dyslipidemia -hyponatremia -? seizure -Hypoglycemia Discharge Disposition: Acute Care Facility Discharge Instruct/Medications Activity: No Restrictions, As Tolerated Follow Up/Referral: Medications: Scheduled Atenolol (Atenolol), 50 MG PO DAILY, (Reported) Nifedipine (Nifedipine Er), 1 TAB PO DAILY, (Reported) Sevelamer Carbonate (Renvela), 800 MG PO TIDWM, (Reported) Miscellaneous Medications Glipizide (Glipizide), 5 MG PO, (Reported) 36 Discharge Statement: "Patient was advised to return to the ER or call 911 if any headaches, dizziness, shortness of breath, chest pain, abdominal pain, bleeding, fevers, or worsening of medical condition. Patient was counseled about treatment plan, medications, possible side effects, patientverbalized understanding. All questions were answered to the best of my ability. This discharge took greater then 30 minutes in planning, reviewing documentation, counseling the patient, and discussing with other team members." ASSESSMENT ASSESSMENT Assessment Multivessel coronary artery disease with NSTEMI type 1 Date of Service: Feb 06, 2025 Billing Provider: ROCÍO RAMIREZ NP Common Visit Codes: 22445-UGL/OBS DISCH DAY >30min ROCÍO RAMIREZ NP Feb 06, 2025 08:28
[2025-02-06] MEDS ORDERED: EPOETIN ALFA-EPBX 4,000 UNIT/ML VIAL SC ONE (21:00)
== END 2025-02-05 21:14 | DRG 870 ==
LOC: EDBD 23:14 → ER 23:17 → OVERFLOW 01-18 04:22 → ICU WEST 01-18 20:30
PROVIDERS: ADMIT Nurse Practitioner Acute Care; ATTEND Nurse Practitioner Acute Care
PROC: 5A1D70Z Performance of Urinary Filtration, Intermittent, Less than 6 Hours Per Day (ICD-10-PCS; 2025-01-18)
PROC: 02HV33Z Insertion of Infusion Device into Superior Vena Cava, Percutaneous Approach (ICD-10-PCS; principal; 2025-01-20)
PROC: B548ZZA Ultrasonography of Superior Vena Cava, Guidance (ICD-10-PCS; 2025-01-20)
PROC: 0BH18EZ Insertion of Endotracheal Airway into Trachea, Via Natural or Artificial Opening Endoscopic (ICD-10-PCS; 2025-01-20)
PROC: 5A1955Z Respiratory Ventilation, Greater than 96 Consecutive Hours (ICD-10-PCS; 2025-01-20)
PROC: 5A1D70Z Performance of Urinary Filtration, Intermittent, Less than 6 Hours Per Day (ICD-10-PCS; 2025-01-20)
PROC: 5A1D70Z Performance of Urinary Filtration, Intermittent, Less than 6 Hours Per Day (ICD-10-PCS; 2025-01-23)
PROC: 5A1D70Z Performance of Urinary Filtration, Intermittent, Less than 6 Hours Per Day (ICD-10-PCS; 2025-01-25)
PROC: 5A1D70Z Performance of Urinary Filtration, Intermittent, Less than 6 Hours Per Day (ICD-10-PCS; 2025-01-27)
PROC: 5A1D70Z Performance of Urinary Filtration, Intermittent, Less than 6 Hours Per Day (ICD-10-PCS; 2025-01-30)
PROC: 5A1D70Z Performance of Urinary Filtration, Intermittent, Less than 6 Hours Per Day (ICD-10-PCS; 2025-02-01)
PROC: 5A1D70Z Performance of Urinary Filtration, Intermittent, Less than 6 Hours Per Day (ICD-10-PCS; 2025-02-03)
DX: A41.9 Sepsis, unspecified organism (principal); E11.10 Type 2 diabetes mellitus with ketoacidosis without coma; N18.6 End stage renal disease; J96.01 Acute respiratory failure with hypoxia; G93.41 Metabolic encephalopathy; R65.21 Severe sepsis with septic shock; I21.4 Non-ST elevation (NSTEMI) myocardial infarction; J15.69 Pneumonia due to other Gram-negative bacteria; J15.9 Unspecified bacterial pneumonia; Z66 Do not resuscitate; I12.0 Hypertensive chronic kidney disease with stage 5 chronic kidney disease or end stage renal disease; Z99.2 Dependence on renal dialysis; E11.22 Type 2 diabetes mellitus with diabetic chronic kidney disease; R56.9 Unspecified convulsions; J45.909 Unspecified asthma, uncomplicated; E87.1 Hypo-osmolality and hyponatremia; J98.11 Atelectasis; E87.0 Hyperosmolality and hypernatremia; Z20.822 Contact with and (suspected) exposure to COVID-19; H57.02 Anisocoria; E78.5 Hyperlipidemia, unspecified; B02.9 Zoster without complications; H54.7 Unspecified visual loss; E87.5 Hyperkalemia; E11.649 Type 2 diabetes mellitus with hypoglycemia without coma; G25.3 Myoclonus; I25.10 Atherosclerotic heart disease of native coronary artery without angina pectoris; Z82.49 Family history of ischemic heart disease and other diseases of the circulatory system; Z83.3 Family history of diabetes mellitus; Z78.9 Other specified health status
CPT/HCPCS: 36415; 36556; 36600; 70450; 70551; 71045; 80048; 80053; 80202; 80307; 80320; 81001; 82270; 82565; 82805; 82962; 83605; 83690; 83735; 83880; 83930; 84484; 85025; 85652; 86141; 86703; 86780; 87040; 87070; 87077; 87081; 87186; 87205; 87340; 87426; 87804; 90935; 93005; 94002; 94003; 94640; 95819; 96361; 96365; 96372; 96375; G0378; J0131; J1642; J1815; J2185; J2248; J2470; J3480; J7042; P9047